=== PATIENT | female | born 1960 | race Caucasian/White ===

== ENCOUNTER 2019-07-12 23:32 | Inpatient (IN) | payer MEDICARE, OTHER ==
[2019-07-12] MEDS ORDERED: SODIUM CHLORIDE 0.9% 1,000 ML IV STA (23:36)
[2019-07-13 00:12] LABS: Anisocytosis Slight; Basophils % (A) 1 %; Eosinophils # (A) 0.1 k/uL (0-0.7); Eosinophils % (A) 1 %; HCT 40.2 % (34.0-46.0); HGB 13.7 gm/dL (11.4-16.0); Lymphocytes # (A) 0.8 k/uL (1.0-4.8); Lymphocytes % (A) 18 %; MCH 33.9 pg (25.0-35.0); MCV 99.9 fL (80.0-100.0); Macrocytosis Slight; Mean Platelet Volume 10.2; Monocytes # (A) 0.2 k/uL (0-1.0); Monocytes % (A) 4 %; Neutrophils # (A) 3.3 k/uL (1.3-7.7); Neutrophils % (A) 74 %; Platelet Count 109 k/uL (150-450); RBC 4.03 m/uL (3.80-5.40); RDW 17.7 % (11.5-15.5); WBC 4.4 k/uL (3.8-10.6)
[2019-07-13 00:26] LABS: ALT 112 U/L (4-34); AST 237 U/L (14-36); African American GFR (CKD) >90 (>60 ml/min/1.73 sqM); Albumin 3.7 g/dL (3.5-5.0); Alkaline Phosphatase 89 U/L (38-126); Anion Gap 22 mmol/L; Blood Urea Nitrogen 14 mg/dL (7-17); Calcium 8.2 mg/dL (8.4-10.2); Carbon Dioxide 21 mmol/L (22-30); Chloride 90 mmol/L (98-107); Glucose 99 mg/dL (74-99); Non-African American GFR(CKD) >90 (>60 ml/min/1.73 sqM); Sodium 133 mmol/L (137-145); Total Bilirubin 0.7 mg/dL (0.2-1.3); Total Protein 6.3 g/dL (6.3-8.2)
[2019-07-13 00:45] LABS: Alcohol 267 mg/dL
[2019-07-13] MEDS ORDERED: levETIRAcetam IV 1,000 MG in SALINE 1 100ML.BAG IVPB ONE (01:00)
[2019-07-13] MEDS ORDERED: NALOXONE 0.4 MG/ML 1 ML VIAL IV PRN (01:14)
[2019-07-13] MEDS ORDERED: ONDANSETRON 4 MG/2 ML VIAL IVP PRN (01:19)
[2019-07-13] MEDS: SODIUM CHLORIDE 0.9% 1,000 ML IV SCH ×4 (01:53→20:23)
--- NOTE | 2019-07-13 01:53 | CT ---
EXAMINATION TYPE: CT brain wo con DATE OF EXAM: 07/13/2019 COMPARISON: None HISTORY: Seizure CT DLP: 1196.4 mGycm Automated exposure control for dose reduction was used. Ventricles have normal size. There is no mass effect nor midline shift. There is no sign of intracran ial hemorrhage. There is no evidence of cerebral edema. The calvarium is intact. Skull base is intact . IMPRESSION: Negative head CT scan.
--- NOTE | 2019-07-13 01:57 | ED ---
Seizure HPI - General Chief Complaint: Alcohol Stated Complaint: seizure Time Seen by Provider: 07/12/19 23:36 Source: EMS Mode of arrival: EMS Limitations: altered mental status - History of Present Illness Initial Comments: Shara is a 59-year-old alcoholic female with no history of seizures who presents to the emergency department today for evaluation of possible seizure and alcohol intoxication. Per EMS they were called to scene for a patient who had been seizing. Upon their arrival patient did appear to be postictal with some confusion. Bystanders reported patient had had a seizure that lasted a few minutes. They say she has no history of seizure but did tell her significant other that she had a seizure yesterday. Patient did admit to drinking heavily. Patient was treated with 5 mg intranasal Versed and 2.5 mg IV Versed in route to the hospital due to being combative and her postictal state. Upon arrival she is somewhat somnolent and postictal. Upon waking up and being more appropriate patient admitted that she has an alcohol problem that she had spoken with her daughter earlier in the day and told her that she wants checked in a rehab for alcoholism. Patient denies seizure activity and has no idea why she is at the hospital what hospital she is at or any events leading up to hospitalization. - Related Data Home Medications Medication Instructions Recorded Confirmed Citalopram Hydrobromide [CeleXA] 40 mg PO QAM 02/22/14 08/03/16 Diazepam [Valium] 10 mg PO HS PRN 03/08/14 08/03/16 Morphine Sulfate [Ms Contin] 30 mg PO Q12HR 03/07/16 08/03/16 oxyCODONE-APAP 10-325MG [Percocet 1 tab PO QID 03/07/16 08/03/16 10-325 mg] Levothyroxine Sodium [Synthroid] 100 mcg PO DAILY 03/19/16 08/03/16 Naproxen Sodium [Aleve] 220 mg PO BID 08/03/16 08/03/16 Allergies Allergy/AdvReac Type Severity Reaction Status Date / Time No Known Allergies Allergy Verified 07/12/19 23:44 Review of Systems ROS Statement: Those systems with pertinent positive or pertinent negative responses have been documented in the HPI. ROS Other: All systems not noted in ROS Statement are negative. Past Medical History Past Medical History: Osteoarthritis (OA), Thyroid Disorder Additional Past Medical History / Comment(s): chronic back pain,neck pain, numbness derick. shoulder & arm/finger tips, derick numbness to legs & ft,purple dis coloration to feet,limited rom neck,freq urination, uses walker or cane, frequent falls History of Any Multi-Drug Resistant Organisms: None Reported Past Surgical History: Hernia Repair, Orthopedic Surgery Additional Past Surgical History / Comment(s): derick knee replacement,eye laser surgery,lump removed from lt breast Past Anesthesia/Blood Transfusion Reactions: Motion Sickness Additional Past Anesthesia/Blood Transfusion Reaction / Comment(s): no hx blood transfusion Past Psychological History: Anxiety, Depression Smoking Status: Current every day smoker - Past Family History Mother Additional Family Medical History / Comment(s): heart problems Father Family Medical History: Hyperlipidemia General Exam - General Exam Comments Initial Comments: Physical Exam GENERAL: Patient is well-developed and well-nourished. Strong odor of alcohol HENT: Normocephalic, Atraumatic. EYES: PERRL, EOMI PULMONARY: Unlabored respirations. No audible rales rhonchi or wheezing was noted. CARDIOVASCULAR: There is a regular rate and rhythm without any murmurs gallops or rubs. ABDOMEN: Soft and nontender with normal bowel sounds. SKIN: Skin is clear with no lesions or rashes and otherwise unremarkable. : Deferred NEUROLOGIC: Upon arrival - sleeping, wakes to stimulation, confused, slurred speech, moving all extremities Upon waking - awake, alert to self, able to identify she is in a hospital, uncertain of where or why, uncertain of events leading to hospitalization, aware of year MUSCULOSKELETAL: Normal extremities with adequate strength and full range of motion. No lower extremity swelling or edema. No calf tenderness. PSYCHIATRIC: Depressed about alcoholism Limitations: altered mental status Course Vital Signs 07/12/19 07/13/19 07/13/19 23:37 01:35 04:12 Temperature 98.4 F Pulse Rate 104 H 100 100 Respiratory 16 18 18 Rate Blood Pressure 116/84 112/77 123/89 O2 Sat by Pulse 96 99 96 Oximetry Medical Decision Making - Medical Decision Making Patient was seen and evaluated immediately upon arrival to the emergency department, patient was somnolent but wakes to stimulation, has gag reflex is protecting her airway despite excessive doses of benzodiazepines prior to arrival. Labs were ordered and resulted with abnormalities consistent with alcohol abuse and likely seizures the patient does have a lactic acidosis though this could be alcoholic ketoacidosis. IV fluids were ordered. Computed tomography scan of head was unremarkable. Patient's alcohol significantly elevated greater than 270. Given the concern for new onset seizure and an alcoholic patient we will plan to admit the patient for alcohol intoxication and seizure. A dose of Keppra was given prior to admission. - Lab Data Result diagrams: 07/12/19 23:53 07/12/19 23:53 Lab Results 07/12/19 07/12/19 07/12/19 Range/Units 23:53 23:53 23:53 WBC 4.4 (3.8-10.6) k/uL RBC 4.03 (3.80-5.40) m/uL Hgb 13.7 (11.4-16.0) gm/dL Hct 40.2 (34.0-46.0) % MCV 99.9 (80.0-100.0) fL MCH 33.9 (25.0-35.0) pg MCHC 34.0 (31.0-37.0) g/dL RDW 17.7 H (11.5-15.5) % Plt Count 109 L (150-450) k/uL Neutrophils % 74 % Lymphocytes % 18 % Monocytes % 4 % Eosinophils % 1 % Basophils % 1 % Neutrophils # 3.3 (1.3-7.7) k/uL Lymphocytes # 0.8 L (1.0-4.8) k/uL Monocytes # 0.2 (0-1.0) k/uL Eosinophils # 0.1 (0-0.7) k/uL Basophils # 0.0 (0-0.2) k/uL Anisocytosis Slight Macrocytosis Slight Sodium 133 L (137-145) mmol/L Potassium 3.0 L (3.5-5.1) mmol/L Chloride 90 L (98-107) mmol/L Carbon Dioxide 21 L (22-30) mmol/L Anion Gap 22 mmol/L BUN 14 (7-17) mg/dL Creatinine 0.61 (0.52-1.04) mg/dL Est GFR (CKD-EPI)AfAm >90 (>60 ml/min/1.73 sqM) Est GFR (CKD-EPI)NonAf >90 (>60 ml/min/1.73 sqM) Glucose 99 (74-99) mg/dL Lactic Ac Sepsis Rflx Plasma Lactic Acid Gunnar 4.3 H* (0.7-2.0) mmol/L Calcium 8.2 L (8.4-10.2) mg/dL Total Bilirubin 0.7 (0.2-1.3) mg/dL AST 237 H (14-36) U/L ALT 112 H (4-34) U/L Alkaline Phosphatase 89 (38-126) U/L Total Protein 6.3 (6.3-8.2) g/dL Albumin 3.7 (3.5-5.0) g/dL Serum Alcohol 267 H* mg/dL 07/13/19 Range/Units 00:45 WBC (3.8-10.6) k/uL RBC (3.80-5.40) m/uL Hgb (11.4-16.0) gm/dL Hct (34.0-46.0) % MCV (80.0-100.0) fL MCH (25.0-35.0) pg MCHC (31.0-37.0) g/dL RDW (11.5-15.5) % Plt Count (150-450) k/uL Neutrophils % % Lymphocytes % % Monocytes % % Eosinophils % % Basophils % % Neutrophils # (1.3-7.7) k/uL Lymphocytes # (1.0-4.8) k/uL Monocytes # (0-1.0) k/uL Eosinophils # (0-0.7) k/uL Basophils # (0-0.2) k/uL Anisocytosis Macrocytosis Sodium (137-145) mmol/L Potassium (3.5-5.1) mmol/L Chloride (98-107) mmol/L Carbon Dioxide (22-30) mmol/L Anion Gap mmol/L BUN (7-17) mg/dL Creatinine (0.52-1.04) mg/dL Est GFR (CKD-EPI)AfAm (>60 ml/min/1.73 sqM) Est GFR (CKD-EPI)NonAf (>60 ml/min/1.73 sqM) Glucose (74-99) mg/dL Lactic Ac Sepsis Rflx Y Plasma Lactic Acid Gunnar (0.7-2.0) mmol/L Calcium (8.4-10.2) mg/dL Total Bilirubin (0.2-1.3) mg/dL AST (14-36) U/L ALT (4-34) U/L Alkaline Phosphatase (38-126) U/L Total Protein (6.3-8.2) g/dL Albumin (3.5-5.0) g/dL Serum Alcohol mg/dL Disposition Clinical Impression: EtOH dependence, Seizure Disposition: ADMITTED IP TO THIS HOSP Condition: Serious
[2019-07-13 06:33] LABS: Glucose,Whole Blood 88 mg/dL (75-99)
[2019-07-13] MEDS ORDERED: IBUPROFEN 400 MG TAB PO STA (06:35)
[2019-07-13] MEDS ORDERED: POTASSIUM CHLORIDE 10 MEQ in WATER FOR INJECTION 1 100ML.BAG IVPB STA ×2 (10:41→14:26)
[2019-07-13] MEDS ORDERED: METOPROLOL TARTRATE 25 MG TAB PO STA (10:43)
[2019-07-13] MEDS: POTASSIUM CHLORIDE ER 20 MEQ TAB.ER PO SCH ×3 (11:32→16:32)
[2019-07-13 13:18] LABS: Glucose,Whole Blood 126 mg/dL (75-99)
[2019-07-13] MEDS: LORazepam 2 MG/ML INJ IV PRN ×3 (13:34→20:22)
[2019-07-13] MEDS: METOPROLOL TARTRATE 25 MG TAB PO SCH ×2 (16:32→20:23)
--- NOTE | 2019-07-13 20:04 | CONS ---
CONSULTATION Shara Alex is a 59-year-old lady who has been admitted to the emergency room with alcohol intoxication and then complained of having chest discomfort. This lady has history of alcoholism. She has no previous history of seizures but apparently early this morning came into the hospital with an episode of seizure and was heavily intoxicated with alcohol level of more than 250. Per EMS, they were called to the scene to see a patient who has been seizing. On arrival patient did appear to be postictal with confusion. Bystanders reported apparently that there was a seizure lasting a few minutes. She has no history that we know of previously of seizures, but she admits to drinking heavily. She was treated with Versed in the emergency room, sedated, and I saw her a little bit later in the day. She was fairly alert, indicates to me that alcohol is a problem and that she has been drinking heavily and that she has no history of seizure disorder. She has a history of thyroid disease and osteoarthritis. She has had previous hernia repair and some orthopedic surgery with a knee arthroplasty as well and some breast lump removal and related surgery. At the time of my evaluation she had pain in her chest with some tenderness over the anterior chest. MEDICATIONS: Her medications include levothyroxine 100 mcg daily, MS Contin, and she also takes some Naprosyn. ALLERGIES: NO KNOWN DRUG ALLERGIES. SOCIAL HISTORY: Drinks alcohol heavily. Smokes at least one pack or more every day. PHYSICAL EXAMINATION: Blood pressure is 130/70, pulse rate 80 per minute. HEENT unremarkable. Fundus was not examined by me. Neck is supple. There is no JVD. I do not hear a carotid bruit. Heart exam reveals S1, S2 without significant murmur or rub or gallop. Lungs reveal bilateral scattered rhonchi. ABDOMEN: Soft. Lower extremities reveal diminished pulses. CENTRAL NERVOUS SYSTEM: Grossly no focal deficits. EKG revealed a sinus mechanism, minor nonspecific ST-T changes. There is QS pattern in inferior leads, but this may not be significant. LABORATORY DATA: Initial troponin was 0.66 and repeat troponin was 0.68. Patient's potassium level is 3.0. Lactic acid levels are high and liver functions are abnormal. Alcohol level is 267. IMPRESSION: 1. Acute alcoholism. 2. Lactic acidosis. 3. Atypical chest pain with equivocal troponins. 4. No documented history of coronary artery disease. RECOMMENDATIONS: I am recommending that we supplement potassium, place her on beta blockers, Lopressor 25 mg t.i.d. We will also supplement potassium aggressively. Repeat BMP in the morning. She is also getting treatment with B-complex vitamins and folic acid. Will also recommend an echocardiogram and, based on clinical course, I will make further recommendations. I discussed my thoughts in detail with the patient. Thank you very much for the consult. ALEX / BOBN: [id number] /
[2019-07-13] MEDS: HEPARIN SODIUM,PORCINE 5,000 UNIT/ML 1 ML VIAL SQ SCH (20:22)
[2019-07-14] MEDS: LORazepam 2 MG/ML INJ IV PRN ×7 (03:15→22:06)
[2019-07-14] MEDS: SODIUM CHLORIDE 0.9% 1,000 ML IV SCH ×2 (06:12→11:56)
[2019-07-14] MEDS: LEVOTHYROXINE 112 MCG TAB PO SCH ×2 (06:28→08:58)
[2019-07-14 06:32] LABS: ALT 78 U/L (4-34); AST 149 U/L (14-36); African American GFR (CKD) >90 (>60 ml/min/1.73 sqM); Albumin 2.8 g/dL (3.5-5.0); Alkaline Phosphatase 87 U/L (38-126); Anion Gap 5 mmol/L; Blood Urea Nitrogen 7 mg/dL (7-17); Calcium 7.9 mg/dL (8.4-10.2); Carbon Dioxide 25 mmol/L (22-30); Chloride 103 mmol/L (98-107); Glucose 94 mg/dL (74-99); Magnesium 1.5 mg/dL (1.6-2.3); Non-African American GFR(CKD) >90 (>60 ml/min/1.73 sqM); Potassium 3.2 mmol/L (3.5-5.1); Sodium 133 mmol/L (137-145); Total Bilirubin 1.1 mg/dL (0.2-1.3); Total Protein 5.3 g/dL (6.3-8.2)
[2019-07-14 06:44] LABS: Anisocytosis Slight; Basophils % (A) 1 %; Eosinophils # (A) 0.2 k/uL (0-0.7); Eosinophils % (A) 3 %; HCT 34.9 % (34.0-46.0); HGB 11.6 gm/dL (11.4-16.0); Lymphocytes # (A) 1.2 k/uL (1.0-4.8); Lymphocytes % (A) 22 %; MCH 34.9 pg (25.0-35.0); MCHC 33.4 g/dL (31.0-37.0); MCV 104.7 fL (80.0-100.0); Macrocytosis Marked; Mean Platelet Volume 11.3; Monocytes # (A) 0.2 k/uL (0-1.0); Monocytes % (A) 3 %; Neutrophils # (A) 3.9 k/uL (1.3-7.7); Neutrophils % (A) 71 %; RBC 3.33 m/uL (3.80-5.40); RDW 17.4 % (11.5-15.5); WBC 5.5 k/uL (3.8-10.6)
[2019-07-14] MEDS ORDERED: POTASSIUM CHLORIDE ER 20 MEQ TAB.ER PO STA (07:11)
--- NOTE | 2019-07-14 07:19 | P.PN ---
Subjective Progress Note Date: 07/14/19 Principal diagnosis: This continue present on a 59-year-old white female essentially admitted for acute alcohol intoxication. Minimal mental status changes although she is CIWA type scale she is sedated this morning. No significant complaints of the patient due to sedation. Objective - Vital Signs Vital signs: Vital Signs Temp 98 F 07/14/19 03:05 Pulse 70 07/14/19 03:05 Resp 16 07/14/19 03:05 BP 135/91 07/14/19 03:05 Pulse Ox 97 07/14/19 03:05 Intake & Output 07/13/19 07/14/19 07/14/19 18:59 06:59 18:59 Intake Total 0 Output Total 850 Balance -850 Weight 81.647 kg 70.4 kg Intake: Oral 0 Output: Urine 450 Stool 400 Other: # Voids 2 # Bowel Movements 2 - Constitutional General appearance: Present: average body habitus - EENT Eyes: Absent: abnormal pupil ENT: Absent: hard of hearing - Neck Neck: Absent: lymphadenopathy - Respiratory Respiratory: bilateral: CTA - Cardiovascular Rhythm: regular Heart sounds: normal: S1, S2 Abnormal Heart Sounds: Absent: S3 Gallop - Gastrointestinal General gastrointestinal: Present: soft - Psychiatric Psychiatric Comment(s): sedated Psychiatric: Absent: A&O x's 3 - Labs CBC & Chem 7: 07/14/19 05:43 07/14/19 05:43 Labs: Abnormal Lab Results - Last 24 Hours (Table) 07/13/19 07/13/19 07/13/19 Range/Units 08:38 08:38 12:41 RBC (3.80-5.40) m/uL MCV (80.0-100.0) fL RDW (11.5-15.5) % Macrocytosis Sodium (137-145) mmol/L Potassium (3.5-5.1) mmol/L Creatinine (0.52-1.04) mg/dL POC Glucose (mg/dL) (75-99) mg/dL Plasma Lactic Acid Gunnar 3.6 H* (0.7-2.0) mmol/L Calcium (8.4-10.2) mg/dL Magnesium (1.6-2.3) mg/dL AST (14-36) U/L ALT (4-34) U/L Troponin I 0.066 H* 0.068 H* (0.000-0.034) ng/mL Total Protein (6.3-8.2) g/dL Albumin (3.5-5.0) g/dL 07/13/19 07/14/19 07/14/19 Range/Units 13:16 05:43 05:43 RBC 3.33 L (3.80-5.40) m/uL MCV 104.7 H (80.0-100.0) fL RDW 17.4 H (11.5-15.5) % Macrocytosis Marked A Sodium 133 L (137-145) mmol/L Potassium 3.2 L (3.5-5.1) mmol/L Creatinine 0.49 L (0.52-1.04) mg/dL POC Glucose (mg/dL) 126 H (75-99) mg/dL Plasma Lactic Acid Gunnar (0.7-2.0) mmol/L Calcium 7.9 L (8.4-10.2) mg/dL Magnesium 1.5 L (1.6-2.3) mg/dL AST 149 H (14-36) U/L ALT 78 H (4-34) U/L Troponin I (0.000-0.034) ng/mL Total Protein 5.3 L (6.3-8.2) g/dL Albumin 2.8 L (3.5-5.0) g/dL 07/14/19 Range/Units 05:43 RBC (3.80-5.40) m/uL MCV (80.0-100.0) fL RDW (11.5-15.5) % Macrocytosis Sodium (137-145) mmol/L Potassium (3.5-5.1) mmol/L Creatinine (0.52-1.04) mg/dL POC Glucose (mg/dL) (75-99) mg/dL Plasma Lactic Acid Gunnar (0.7-2.0) mmol/L Calcium (8.4-10.2) mg/dL Magnesium (1.6-2.3) mg/dL AST (14-36) U/L ALT (4-34) U/L Troponin I 0.039 H* (0.000-0.034) ng/mL Total Protein (6.3-8.2) g/dL Albumin (3.5-5.0) g/dL Assessment and Plan (1) Seizure Current Visit: Yes Status: Acute Code(s): R56.9 - UNSPECIFIED CONVULSIONS SNOMED Code(s): 72432621 (2) EtOH dependence Current Visit: Yes Status: Chronic Code(s): F10.20 - ALCOHOL DEPENDENCE, UNCOMPLICATED SNOMED Code(s): 24681497 (3) Hypotension Current Visit: No Status: Acute Code(s): I95.9 - HYPOTENSION, UNSPECIFIED SNOMED Code(s): 64051112 (4) Depression Current Visit: No Status: Chronic Code(s): F32.9 - MAJOR DEPRESSIVE DISORDER, SINGLE EPISODE, UNSPECIFIED SNOMED Code(s): 57905200 (5) Nicotine dependence Current Visit: No Status: Chronic Code(s): F17.200 - NICOTINE DEPENDENCE, UNSPECIFIED, UNCOMPLICATED SNOMED Code(s): 74990876 Plan: Appreciate cardiology consult director construction services for alcoholism element. Check CBC and CMP in a.m. Reconcile medications as necessary. Prognosis guarded secondary to her social environment.
[2019-07-14 07:53] LABS: Target Cells Present
[2019-07-14] MEDS: MAGNESIUM SULFATE-D5W PMX 1 GM in DEXTROSE/WATER 1 100ML.BAG IVPB SCH ×2 (08:57→11:55)
[2019-07-14] MEDS: FOLIC ACID 1 MG TAB PO SCH (08:58)
[2019-07-14] MEDS: METOPROLOL TARTRATE 25 MG TAB PO SCH ×3 (08:58→19:50)
[2019-07-14] MEDS: HEPARIN SODIUM,PORCINE 5,000 UNIT/ML 1 ML VIAL SQ SCH ×2 (08:59→19:47)
[2019-07-14 10:34] LABS: Platelet Count 91 k/uL (150-450)
--- NOTE | 2019-07-14 12:22 | PN ---
PROGRESS NOTE Mrs. Shara Alex is a lady who came with acute alcohol intoxication, also had nausea, vomiting and atypical chest pain. Her troponins are equivocal. She also had lactic acidosis and this could be a reason why her troponin is very equivocal. She is doing better. She has no further chest pain, but she still has some nausea and this is being worked out with her management. From a cardiac standpoint, I am not recommending any intervention at this time. Her troponin profile does not suggest myocardial injury. I am recommending that we supplement the potassium which is low at 3.2. Continue other medications including beta demarco and I am awaiting the results of the echocardiogram. Vitals are stable, no JVD. S1, S2 heard normally. Lungs revealed improved air entry. Abdomen and lower extremity exam is unchanged. MMODL / IJN: [id number] /
[2019-07-14] MEDS ORDERED: HALOPERIDOL LACTATE 5 MG/ML 1 ML VIAL IVP STA (23:43)
[2019-07-15 06:16] LABS: Anisocytosis Slight; HGB 12.3 gm/dL (11.4-16.0); MCH 34.8 pg (25.0-35.0); MCHC 33.3 g/dL (31.0-37.0); MCV 104.3 fL (80.0-100.0); Macrocytosis Moderate; Mean Platelet Volume 10.7; RBC 3.55 m/uL (3.80-5.40); RDW 17.3 % (11.5-15.5); WBC 5.9 k/uL (3.8-10.6)
[2019-07-15 06:22] LABS: Platelet Count 88 k/uL (150-450)
[2019-07-15 06:33] LABS: ALT 61 U/L (4-34); AST 95 U/L (14-36); African American GFR (CKD) >90 (>60 ml/min/1.73 sqM); Albumin 2.8 g/dL (3.5-5.0); Alkaline Phosphatase 79 U/L (38-126); Anion Gap 5 mmol/L; Blood Urea Nitrogen 4 mg/dL (7-17); Calcium 8.3 mg/dL (8.4-10.2); Carbon Dioxide 26 mmol/L (22-30); Chloride 104 mmol/L (98-107); Glucose 85 mg/dL (74-99); Magnesium 1.8 mg/dL (1.6-2.3); Non-African American GFR(CKD) >90 (>60 ml/min/1.73 sqM); Potassium 3.6 mmol/L (3.5-5.1); Sodium 135 mmol/L (137-145); Total Bilirubin 0.6 mg/dL (0.2-1.3); Total Protein 5.3 g/dL (6.3-8.2)
[2019-07-15] MEDS: SODIUM CHLORIDE 0.9% 1,000 ML IV SCH ×3 (06:40→13:00)
[2019-07-15] MEDS: LEVOTHYROXINE 112 MCG TAB PO SCH (06:50)
--- NOTE | 2019-07-15 08:24 | P.PN ---
Subjective Principal diagnosis: This continue present on a 59-year-old white female essentially admitted for acute alcohol intoxication. The patient was combative last evening and has trouble sitting still lately. No voiding difficulties. No sniffing nausea, vomiting or diarrhea. Appropriate hydration status is now been obtained. We will KVO IV today. Laboratories are nominal except for slight elevation of liver function test. No significant complaints of the patient due to sedation. Objective - Vital Signs Vital signs: Vital Signs Temp 98.0 F 07/15/19 03:48 Pulse 75 07/15/19 03:48 Resp 18 07/15/19 03:48 BP 124/70 07/15/19 03:48 Pulse Ox 98 07/15/19 03:48 Intake & Output 07/14/19 07/15/19 07/15/19 18:59 06:59 18:59 Intake Total 1436 2050 Output Total 450 500 Balance 986 1550 Weight 69.5 kg Intake: Intake, IV Titration 1200 1350 Amount Sodium Chloride 0.9% 1, 1200 1350 000 ml @ 150 mls/hr IV . Q6H40M [facility] Rx#:[id number] Oral 236 700 Output: Urine 450 500 Other: # Voids 4 1 - Constitutional General appearance: Present: average body habitus - EENT Eyes: Absent: abnormal pupil - Neck Neck: Absent: lymphadenopathy - Respiratory Respiratory: bilateral: CTA - Cardiovascular Rhythm: regular Heart sounds: normal: S1, S2 Abnormal Heart Sounds: Absent: S3 Gallop - Gastrointestinal General gastrointestinal: Present: soft. Absent: tenderness - Integumentary Integumentary: Absent: cellulitis - Labs CBC & Chem 7: 07/15/19 05:54 07/15/19 05:54 Labs: Abnormal Lab Results - Last 24 Hours (Table) 07/14/19 07/15/19 07/15/19 Range/Units 05:43 05:54 05:54 RBC 3.55 L (3.80-5.40) m/uL MCV 104.3 H (80.0-100.0) fL RDW 17.3 H (11.5-15.5) % Plt Count 91 L 88 L (150-450) k/uL Sodium 135 L (137-145) mmol/L BUN 4 L (7-17) mg/dL Creatinine 0.47 L (0.52-1.04) mg/dL Calcium 8.3 L (8.4-10.2) mg/dL AST 95 H (14-36) U/L ALT 61 H (4-34) U/L Total Protein 5.3 L (6.3-8.2) g/dL Albumin 2.8 L (3.5-5.0) g/dL Assessment and Plan (1) Seizure Current Visit: Yes Status: Acute Code(s): R56.9 - UNSPECIFIED CONVULSIONS SNOMED Code(s): 93367468 (2) EtOH dependence Current Visit: Yes Status: Chronic Code(s): F10.20 - ALCOHOL DEPENDENCE, UNCOMPLICATED SNOMED Code(s): 42827712 (3) Hypotension Current Visit: No Status: Acute Code(s): I95.9 - HYPOTENSION, UNSPECIFIED SNOMED Code(s): 39273334 (4) Depression Current Visit: No Status: Chronic Code(s): F32.9 - MAJOR DEPRESSIVE DISORDER, SINGLE EPISODE, UNSPECIFIED SNOMED Code(s): 09382510 (5) Nicotine dependence Current Visit: No Status: Chronic Code(s): F17.200 - NICOTINE DEPENDENCE, UNSPECIFIED, UNCOMPLICATED SNOMED Code(s): 90054268 Plan: Appreciate cardiology consult visitor services coordinator for alcoholism element. Check CBC and CMP in a.m. I will restart her Celexa and Wellbutrin. Question need for sitter. Haldol when necessary Prognosis guarded secondary to her social environment.
[2019-07-15] MEDS ORDERED: SODIUM CHLORIDE 0.9% 1,000 ML IV SCH (08:30)
[2019-07-15] MEDS ORDERED: buPROPion XL 150 MG TAB.ER.24H PO SCH (09:00)
[2019-07-15] MEDS ORDERED: CITALOPRAM HYDROBROMIDE 20 MG TAB PO SCH (09:00)
[2019-07-15] MEDS: HEPARIN SODIUM,PORCINE 5,000 UNIT/ML 1 ML VIAL SQ SCH (09:15)
[2019-07-15] MEDS: METOPROLOL TARTRATE 25 MG TAB PO SCH ×2 (09:15→15:34)
[2019-07-15] MEDS: FOLIC ACID 1 MG TAB PO SCH (09:16)
[2019-07-15 10:07] LABS: Amphetamine Screen,Urine Not Detected (NotDetected); Barbiturate Screen,Urine Not Detected (NotDetected); Benzodiazepines Screen,Urine Detected (NotDetected); Cocaine Screen,Urine Not Detected (NotDetected); Methadone Screen, Urine Not Detected (NotDetected); Opiate Screen,Urine Not Detected (NotDetected); Oxycodone Screen, Urine Not Detected (NotDetected); Phencyclidine Screen,Urine Not Detected (NotDetected); Tricyclic Antidepressant,Urine Not Detected (NotDetected); Urn Cannabinoid Scrn Not Detected (NotDetected)
[2019-07-15 10:41] VITALS: RESP 16
[2019-07-15] MEDS: LORazepam 2 MG/ML INJ IV PRN (15:23)
[2019-07-15] MEDS ORDERED: ACETAMINOPHEN TAB 325 MG TAB PO PRN (15:33)
[2019-07-15 16:09] VITALS: BP 114/74; PULSE 81; TEMP 97.7
--- NOTE | 2019-07-17 12:43 | ECHOF ---
Referral Reason:cp MEASUREMENTS -------- HEIGHT: 170.2 cm WEIGHT: 81.6 kg BP: 144/86 RVIDd: 2.8 cm (< 3.3) IVSd: 0.9 cm (0.6 - 1.1) LVIDd: 4.7 cm (3.9 - 5.3) LVPWd: 1.1 cm (0.6 - 1.1) IVSs: 1.2 cm LVIDs: 3.1 cm LVPWs: 1.4 cm LA Diam: 3.2 cm (2.7 - 3.8) LAESV Index (A-L): 16.53 ml/m Ao Diam: 3.4 cm (2.0 - 3.7) AV Cusp: 2.0 cm (1.5 - 2.6) MV EXCURSION: 12.364 mm (> 18.000) MV EF SLOPE: 68 mm/s (70 - 150) EPSS: 0.5 cm MV E Ray: 0.75 m/s MV DecT: 239 ms MV A Ray: 0.97 m/s MV E/A Ratio: 0.78 TAPSE: 15.25 mm FINDINGS -------- Sinus rhythm. This was a technically adequate study. The left ventricular size is normal. Left ventricular wall thickness is normal. Overall left vent ricular systolic function is normal with, an EF between 60 - 65 %. The right ventricle is normal in size. Normal LA size by volume 22+/-6 ml/m2. The right atrium is normal in size. Interatrial and interventricular septum intact. The aortic valve is trileaflet and appears structurally normal. The mitral valve is normal. The tricuspid valve appears structurally normal. The pulmonic valve was not well visualized. The aortic root size is normal. Normal inferior vena cava with normal inspiratory collapse consistent with estimated right atrial pre ssure of 5 mmHg. There is no pericardial effusion. CONCLUSIONS -------- 1. Sinus rhythm. 2. This was a technically adequate study. 3. The left ventricular size is normal. 4. Left ventricular wall thickness is normal. 5. Overall left ventricular systolic function is normal with, an EF between 60 - 65 %. 6. The right ventricle is normal in size. 7. Normal LA size by volume 22+/-6 ml/m2. 8. The right atrium is normal in size. 9. Interatrial and interventricular septum intact. 10. The aortic valve is trileaflet and appears structurally normal. 11. The mitral valve is normal. 12. The tricuspid valve appears structurally normal. 13. The pulmonic valve was not well visualized. 14. The aortic root size is normal. 15. Normal inferior vena cava with normal inspiratory collapse consistent with estimated right atrial pressure of 5 mmHg. 16. There is no pericardial effusion. LEASE ATTENDANT: Kourtney Gary RDCS
== END 2019-07-15 17:56 | disposition left against medical advice (07) | DRG 313 ==
LOC: EC 23:32 → 6NMEDSUR 07-13 01:14 → 3SCARD 07-13 10:16 → OBSVTOIN 07-15 09:26 → 6NMEDSUR 07-15 12:41
PROVIDERS: ADMIT Family Medicine; ATTEND Family Medicine
DX: R07.9 Chest pain, unspecified (principal); E87.2 Acidosis; F10.229 Alcohol dependence with intoxication, unspecified; Y90.8 Blood alcohol level of 240 mg/100 ml or more; F17.210 Nicotine dependence, cigarettes, uncomplicated; F32.9 Major depressive disorder, single episode, unspecified; R56.9 Unspecified convulsions; Z79.890 Hormone replacement therapy; Z96.653 Presence of artificial knee joint, bilateral; R79.89 Other specified abnormal findings of blood chemistry; I95.9 Hypotension, unspecified; E87.6 Hypokalemia; R11.2 Nausea with vomiting, unspecified; M19.90 Unspecified osteoarthritis, unspecified site; Z79.899 Other long term (current) drug therapy
CPT/HCPCS: 36415; 70450; 80053; 80306; 80320; 82550; 83605; 83735; 84425; 84484; 85025; 85027; 93005; 93306; 96361; 96365; 96366; 96367; 96375; 96376; 99285

== ENCOUNTER 2019-07-17 00:53 | Emergency (ER) | payer MEDICARE, OTHER ==
[2019-07-17 01:03] VITALS: RESP 20
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
[2019-07-17] MEDS ORDERED: SODIUM CHLORIDE 0.9% 500 ML 500 ML IV STA (01:28)
[2019-07-17 01:41] LABS: Anisocytosis Slight; Basophils # (A) 0.1 k/uL (0-0.2); Basophils % (A) 1 %; Eosinophils # (A) 0.2 k/uL (0-0.7); Eosinophils % (A) 3 %; HCT 37.8 % (34.0-46.0); HGB 12.5 gm/dL (11.4-16.0); Lymphocytes # (A) 1.5 k/uL (1.0-4.8); Lymphocytes % (A) 30 %; MCH 34.3 pg (25.0-35.0); MCHC 33.2 g/dL (31.0-37.0); MCV 103.5 fL (80.0-100.0); Macrocytosis Moderate; Mean Platelet Volume 9.6; Monocytes # (A) 0.3 k/uL (0-1.0); Monocytes % (A) 6 %; Neutrophils # (A) 2.9 k/uL (1.3-7.7); Neutrophils % (A) 57 %; RBC 3.65 m/uL (3.80-5.40); RDW 17.7 % (11.5-15.5)
[2019-07-17 01:46] LABS: Glucose,Whole Blood 87 mg/dL (75-99)
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
[2019-07-17 01:48] LABS: ALT 94 U/L (4-34); AST 156 U/L (14-36); African American GFR (CKD) >90 (>60 ml/min/1.73 sqM); Albumin 3.2 g/dL (3.5-5.0); Alkaline Phosphatase 79 U/L (38-126); Anion Gap 7 mmol/L; Blood Urea Nitrogen 4 mg/dL (7-17); Calcium 8.6 mg/dL (8.4-10.2); Carbon Dioxide 27 mmol/L (22-30); Chloride 103 mmol/L (98-107); Glucose 87 mg/dL (74-99); Non-African American GFR(CKD) >90 (>60 ml/min/1.73 sqM); Potassium 3.2 mmol/L (3.5-5.1); Sodium 137 mmol/L (137-145); Total Bilirubin 0.3 mg/dL (0.2-1.3); Total Protein 5.7 g/dL (6.3-8.2)
[2019-07-17 01:51] LABS: Appearance,Urine Clear (Clear); Bilirubin,Urine Negative (Negative); Blood,Urine Negative (Negative); Color,Urine Light Yellow; Glucose,Urine (UA) Negative (Negative); Ketones,Urine Negative (Negative); Leukocyte Esterase,Urine Negative (Negative); Nitrite,Urine Negative (Negative); Protein,Urine Negative (Negative); Specific Gravity,Urine 1.002 (1.001-1.035); Urobilinogen,Urine <2.0 mg/dL (<2.0)
[2019-07-17 01:51] LABS: Alcohol 127 mg/dL
[2019-07-17 01:57] LABS: Platelet Count 166 k/uL (150-450)
--- NOTE | 2019-07-17 02:01 | XR ---
EXAMINATION TYPE: XR chest 1V DATE OF EXAM: 07/17/2019 COMPARISON: NONE HISTORY: Fall. Syncope. TECHNIQUE: FINDINGS: Heart and mediastinum are normal. There is a 1 cm sharply marginated nodule left upper lobe . The other lung cam are clear. There are chest leads. Diaphragm is normal. Bony thorax is intact. IMPRESSION: Normal heart. Left upper lobe nodular density. Recommend comparison with old exams if rio ilable.
[2019-07-17 02:05] LABS: Phencyclidine Screen,Urine Not Detected (NotDetected); Urn Cannabinoid Scrn Not Detected (NotDetected)
[2019-07-17 02:06] LABS: Amphetamine Screen,Urine Not Detected (NotDetected); Barbiturate Screen,Urine Not Detected (NotDetected); Benzodiazepines Screen,Urine Detected (NotDetected); Cocaine Screen,Urine Not Detected (NotDetected); Methadone Screen, Urine Not Detected (NotDetected); Opiate Screen,Urine Not Detected (NotDetected); Oxycodone Screen, Urine Not Detected (NotDetected); Tricyclic Antidepressant,Urine Not Detected (NotDetected)
[2019-07-17] MEDS ORDERED: POTASSIUM CHLORIDE ER 20 MEQ TAB.ER PO STA (04:15)
--- NOTE | 2019-07-17 04:23 | ED ---
General Adult HPI - General Chief complaint: Seizure Stated complaint: lethargic Time Seen by Provider: 07/17/19 00:56 Source: patient, EMS, RN notes reviewed, old records reviewed Mode of arrival: EMS Limitations: altered mental status - History of Present Illness Initial comments: 59-year-old female patient presents to ED for chief complaint of fall today. Patient reports that she was drinking alcohol today in excess, had a fall in her kitchen hitting her head unknown loss of consciousness. Patient reports that she does have a history of possible seizure-like activities unknown this occurred at this time. EMS was contacted. Patient complains of some mild substernal chest discomfort which has been present for the last 3 weeks. Cornelius vasquez was evaluated by cardiology for this same complaint and believed to be noncardiac in nature. Patient complains of neck pain which is chronic for her. Patient does appear to be Intoxicated at time of history and physical. Denies any other complaints at this time. Systemic: Pt denies fatigue, fever/chills, rash. Pt denies weakness, night sweats, weight loss. Neuro: Pt denies headache, visual disturbances, syncope or pre-syncope. HEENT: Pt denies ocular discharge or irritation, otalgia, rhinorrhea, pharyngitis or notable lymphadenopathy. Cardiopulmonary: Pt denies chest pain, SOB, heart palpitations, dyspnea on exertion. Abdominal/GI: Pt denies abdominal pain, n/v/d. : Pt denies dysuria, burning w/ urination, frequency/urgency. Denies new onset urinary or bowel incontinence. MSK: Pt denies myalgia, loss of strength or function in extremities. Neuro: Pt denies new onset weakness, paresthesias. - Related Data Home Medications Medication Instructions Recorded Confirmed Citalopram Hydrobromide [CeleXA] 40 mg PO DAILY 07/13/19 07/13/19 Ibuprofen [Motrin] 800 mg PO TID PRN 07/13/19 07/13/19 Levothyroxine Sodium [Synthroid] 112 mcg PO DAILY 07/13/19 07/13/19 buPROPion HCL [Wellbutrin XL] 150 mg PO DAILY 07/13/19 07/13/19 Allergies Allergy/AdvReac Type Severity Reaction Status Date / Time No Known Allergies Allergy Verified 07/17/19 01:03 Review of Systems ROS Statement: Those systems with pertinent positive or pertinent negative responses have been documented in the HPI. ROS Other: All systems not noted in ROS Statement are negative. Past Medical History Past Medical History: Osteoarthritis (OA), Seizure Disorder, Thyroid Disorder Additional Past Medical History / Comment(s): ETOH abuse, chronic back pain,neck pain, numbness derick. shoulder & arm/finger tips, derick numbness to legs & ft, limited rom neck, benign colon polyps, uses walker or cane, frequent falls History of Any Multi-Drug Resistant Organisms: None Reported Past Surgical History: Breast Surgery, Hernia Repair, Orthopedic Surgery Additional Past Surgical History / Comment(s): derick knee replacements with R knee done twice, bilateral eye laser surgery for vision correction, benign lump removed from lt breast, colonoscopies/benign polypectomies. Past Anesthesia/Blood Transfusion Reactions: Motion Sickness Additional Past Anesthesia/Blood Transfusion Reaction / Comment(s): no hx blood transfusion Past Psychological History: Anxiety, Depression Smoking Status: Current every day smoker Past Alcohol Use History: Daily Past Drug Use History: None Reported - Past Family History Mother Additional Family Medical History / Comment(s): Mother recently of heart problems at the age of 79yrs old. Father Family Medical History: Hyperlipidemia Additional Family Medical History / Comment(s): Father is living. General Exam - General Exam Comments Initial Comments: Constitutional: NAD, AOX3, Pt has pleasant affect. HEENT: NC/AT, trachea midline, neck supple, no lymphadenopathy. Posterior pharynx non erythematous, without exudates. External ears appear normal, without discharge. Mucous membranes moist. Eyes PERRLA, EOM intact. There is no scleral icterus. No pallor noted. Cardiopulmonary: RRR, no murmurs, rubs or gallops, no JVD noted. Lungs CTAB in anterior and posterior cam. No peripheral edema. Abdominal exam: Abdomen soft and non-distended. Abdomen non-tender to palpation in all 4 quadrants. Bowel sounds active in LLQ. No hepatosplenomegaly. No ecchymosis Neuro: CN II-XII intact. No nuchal rigidity. No raccon eyes, no lambert sign, no hemotympanum. Mild amount of cervical spinal tenderness. MSK: No posterior calf tenderness bilaterally, homans sign negative bilaterally. Posterior tibialis and radial pulse +2 bilaterally. Sensation intact in upper and lower extremities. Full active ROM in upper and lower extremities, 5/5 stregnth. Limitations: altered mental status Course Vital Signs 07/17/19 07/17/19 00:56 03:03 Temperature 98.9 F Pulse Rate 89 100 Respiratory 20 20 Rate Blood Pressure 119/82 132/92 O2 Sat by Pulse 97 98 Oximetry Medical Decision Making - Medical Decision Making 59-year-old female patient presents to ED for chief complaint of fall today. Patient reports that she was drinking alcohol today in excess, had a fall in her kitchen hitting her head unknown loss of consciousness. Patient reports that she does have a history of possible seizure-like activities unknown this occurred at this time. EMS was contacted. Patient complains of some mild substernal chest discomfort which has been present for the last 3 weeks. Patient was evaluated by cardiology for this same complaint and believed to be noncardiac in nature. Patient complains of neck pain which is chronic for her. Patient does appear to be Intoxicated at time of history and physical. Denies any other complaints at this time.Pt VSS, afebrile. Physical exam displayed mild amount of cervical spinal tenderness. Neurologic exam is intact. Laboratory investigations revaled mild hypokalemia, mild transaminitis. UA was negative. Drug screen positive for benzodiazepines. Serum ETOH is 127. CT brain cspine no acute process. Chest x-ray displayed left upper nodular density. Pt will follow up with this on an outpatient basis. EKG is nonischemic. Pt will follow up with PCP tomorrow. Will return to ER if condition worsens. Case discussed in depth with Dr. Lugo. - Lab Data Result diagrams: 07/17/19 01:04 07/17/19 01:04 Lab Results 07/17/19 07/17/19 07/17/19 Range/Units 01:04 01:04 01:04 WBC 5.0 (3.8-10.6) k/uL RBC 3.65 L (3.80-5.40) m/uL Hgb 12.5 (11.4-16.0) gm/dL Hct 37.8 (34.0-46.0) % MCV 103.5 H (80.0-100.0) fL MCH 34.3 (25.0-35.0) pg MCHC 33.2 (31.0-37.0) g/dL RDW 17.7 H (11.5-15.5) % Plt Count 166 D (150-450) k/uL Neutrophils % 57 % Lymphocytes % 30 % Monocytes % 6 % Eosinophils % 3 % Basophils % 1 % Neutrophils # 2.9 (1.3-7.7) k/uL Lymphocytes # 1.5 (1.0-4.8) k/uL Monocytes # 0.3 (0-1.0) k/uL Eosinophils # 0.2 (0-0.7) k/uL Basophils # 0.1 (0-0.2) k/uL Anisocytosis Slight Macrocytosis Moderate Sodium 137 (137-145) mmol/L Potassium 3.2 L (3.5-5.1) mmol/L Chloride 103 (98-107) mmol/L Carbon Dioxide 27 (22-30) mmol/L Anion Gap 7 mmol/L BUN 4 L (7-17) mg/dL Creatinine 0.57 (0.52-1.04) mg/dL Est GFR (CKD-EPI)AfAm >90 (>60 ml/min/1.73 sqM) Est GFR (CKD-EPI)NonAf >90 (>60 ml/min/1.73 sqM) Glucose 87 (74-99) mg/dL POC Glucose (mg/dL) (75-99) mg/dL POC Glu Towel Folder ID Calcium 8.6 (8.4-10.2) mg/dL Total Bilirubin 0.3 (0.2-1.3) mg/dL AST 156 H (14-36) U/L ALT 94 H (4-34) U/L Alkaline Phosphatase 79 (38-126) U/L Troponin I <0.012 (0.000-0.034) ng/mL Total Protein 5.7 L (6.3-8.2) g/dL Albumin 3.2 L (3.5-5.0) g/dL Urine Color Urine Appearance (Clear) Urine pH (5.0-8.0) Ur Specific [place] (1.001-1.035) Urine Protein (Negative) Urine Glucose (UA) (Negative) Urine Ketones (Negative) Urine Blood (Negative) Urine Nitrite (Negative) Urine Bilirubin (Negative) Urine Urobilinogen (<2.0) mg/dL Ur Leukocyte Esterase (Negative) Urine Opiates Screen (NotDetected) Ur Oxycodone Screen (NotDetected) Urine Methadone Screen (NotDetected) Ur Propoxyphene Screen (NotDetected) Ur Barbiturates Screen (NotDetected) U Tricyclic Antidepress (NotDetected) Ur Phencyclidine Scrn (NotDetected) Ur Amphetamines Screen (NotDetected) U Methamphetamines Scrn (NotDetected) U Benzodiazepines Scrn (NotDetected) Urine Cocaine Screen (NotDetected) U Marijuana (THC) Screen (NotDetected) Serum Alcohol 127 mg/dL 07/17/19 07/17/19 Range/Units 01:36 01:42 WBC (3.8-10.6) k/uL RBC (3.80-5.40) m/uL Hgb (11.4-16.0) gm/dL Hct (34.0-46.0) % MCV (80.0-100.0) fL MCH (25.0-35.0) pg MCHC (31.0-37.0) g/dL RDW (11.5-15.5) % Plt Count (150-450) k/uL Neutrophils % % Lymphocytes % % Monocytes % % Eosinophils % % Basophils % % Neutrophils # (1.3-7.7) k/uL Lymphocytes # (1.0-4.8) k/uL Monocytes # (0-1.0) k/uL Eosinophils # (0-0.7) k/uL Basophils # (0-0.2) k/uL Anisocytosis Macrocytosis Sodium (137-145) mmol/L Potassium (3.5-5.1) mmol/L Chloride (98-107) mmol/L Carbon Dioxide (22-30) mmol/L Anion Gap mmol/L BUN (7-17) mg/dL Creatinine (0.52-1.04) mg/dL Est GFR (CKD-EPI)AfAm (>60 ml/min/1.73 sqM) Est GFR (CKD-EPI)NonAf (>60 ml/min/1.73 sqM) Glucose (74-99) mg/dL POC Glucose (mg/dL) 87 (75-99) mg/dL POC Glu Towel Folder ID Ashu Winkler Calcium (8.4-10.2) mg/dL Total Bilirubin (0.2-1.3) mg/dL AST (14-36) U/L ALT (4-34) U/L Alkaline Phosphatase (38-126) U/L Troponin I (0.000-0.034) ng/mL Total Protein (6.3-8.2) g/dL Albumin (3.5-5.0) g/dL Urine Color Light Yellow Urine Appearance Clear (Clear) Urine pH 7.0 (5.0-8.0) Ur Specific [place] 1.002 (1.001-1.035) Urine Protein Negative (Negative) Urine Glucose (UA) Negative (Negative) Urine Ketones Negative (Negative) Urine Blood Negative (Negative) Urine Nitrite Negative (Negative) Urine Bilirubin Negative (Negative) Urine Urobilinogen <2.0 (<2.0) mg/dL Ur Leukocyte Esterase Negative (Negative) Urine Opiates Screen Not Detected (NotDetected) Ur Oxycodone Screen Not Detected (NotDetected) Urine Methadone Screen Not Detected (NotDetected) Ur Propoxyphene Screen Not Detected (NotDetected) Ur Barbiturates Screen Not Detected (NotDetected) U Tricyclic Antidepress Not Detected (NotDetected) Ur Phencyclidine Scrn Not Detected (NotDetected) Ur Amphetamines Screen Not Detected (NotDetected) U Methamphetamines Scrn Not Detected (NotDetected) U Benzodiazepines Scrn Detected H (NotDetected) Urine Cocaine Screen Not Detected (NotDetected) U Marijuana (THC) Screen Not Detected (NotDetected) Serum Alcohol mg/dL - EKG Data -: EKG Interpreted by Me (and Dr. Lugo ) EKG Comments: Ventricular rate 93, when necessary for 162, QRS 80, QT/QTc 416/517. Normal sinus rhythm, left axis deviation. No concern for acute ischemia at this time. Disposition Clinical Impression: ETOH abuse, Fall Disposition: HOME SELF-CARE Condition: Stable Instructions (If sedation given, give patient instructions): Fall Prevention (ED), Abuse of Alcohol (ED) Additional Instructions: Follow-up with primary care provider tomorrow. Have repeat chest x-ray or CT with contrast performed of chest to evaluate left upper lobe nodule. Return to ER if condition worsens in any way. Follow-up with cardiology on outpatient basis tomorrow. Is patient prescribed a controlled substance at d/c from ED?: No Referrals: Fidencio Langford MD [Primary Care Provider] - 1-2 days Rosario Parker MD [STAFF PHYSICIAN] - 1-2 days
--- NOTE | 2019-07-17 04:48 | ED ---
Medical Decision Making - Medical Decision Making At time of discharge patient is asymptomatic. Denies any symptoms whatsoever at this time. - Lab Data Result diagrams: 07/17/19 01:04 07/17/19 01:04 Lab Results 07/17/19 07/17/19 07/17/19 Range/Units 01:04 01:04 01:04 WBC 5.0 (3.8-10.6) k/uL RBC 3.65 L (3.80-5.40) m/uL Hgb 12.5 (11.4-16.0) gm/dL Hct 37.8 (34.0-46.0) % MCV 103.5 H (80.0-100.0) fL MCH 34.3 (25.0-35.0) pg MCHC 33.2 (31.0-37.0) g/dL RDW 17.7 H (11.5-15.5) % Plt Count 166 D (150-450) k/uL Neutrophils % 57 % Lymphocytes % 30 % Monocytes % 6 % Eosinophils % 3 % Basophils % 1 % Neutrophils # 2.9 (1.3-7.7) k/uL Lymphocytes # 1.5 (1.0-4.8) k/uL Monocytes # 0.3 (0-1.0) k/uL Eosinophils # 0.2 (0-0.7) k/uL Basophils # 0.1 (0-0.2) k/uL Anisocytosis Slight Macrocytosis Moderate Sodium 137 (137-145) mmol/L Potassium 3.2 L (3.5-5.1) mmol/L Chloride 103 (98-107) mmol/L Carbon Dioxide 27 (22-30) mmol/L Anion Gap 7 mmol/L BUN 4 L (7-17) mg/dL Creatinine 0.57 (0.52-1.04) mg/dL Est GFR (CKD-EPI)AfAm >90 (>60 ml/min/1.73 sqM) Est GFR (CKD-EPI)NonAf >90 (>60 ml/min/1.73 sqM) Glucose 87 (74-99) mg/dL POC Glucose (mg/dL) (75-99) mg/dL POC Glu Cloth Washer Operator ID Calcium 8.6 (8.4-10.2) mg/dL Total Bilirubin 0.3 (0.2-1.3) mg/dL AST 156 H (14-36) U/L ALT 94 H (4-34) U/L Alkaline Phosphatase 79 (38-126) U/L Troponin I <0.012 (0.000-0.034) ng/mL Total Protein 5.7 L (6.3-8.2) g/dL Albumin 3.2 L (3.5-5.0) g/dL Urine Color Urine Appearance (Clear) Urine pH (5.0-8.0) Ur Specific [place] (1.001-1.035) Urine Protein (Negative) Urine Glucose (UA) (Negative) Urine Ketones (Negative) Urine Blood (Negative) Urine Nitrite (Negative) Urine Bilirubin (Negative) Urine Urobilinogen (<2.0) mg/dL Ur Leukocyte Esterase (Negative) Urine Opiates Screen (NotDetected) Ur Oxycodone Screen (NotDetected) Urine Methadone Screen (NotDetected) Ur Propoxyphene Screen (NotDetected) Ur Barbiturates Screen (NotDetected) U Tricyclic Antidepress (NotDetected) Ur Phencyclidine Scrn (NotDetected) Ur Amphetamines Screen (NotDetected) U Methamphetamines Scrn (NotDetected) U Benzodiazepines Scrn (NotDetected) Urine Cocaine Screen (NotDetected) U Marijuana (THC) Screen (NotDetected) Serum Alcohol 127 mg/dL 07/17/19 07/17/19 Range/Units 01:36 01:42 WBC (3.8-10.6) k/uL RBC (3.80-5.40) m/uL Hgb (11.4-16.0) gm/dL Hct (34.0-46.0) % MCV (80.0-100.0) fL MCH (25.0-35.0) pg MCHC (31.0-37.0) g/dL RDW (11.5-15.5) % Plt Count (150-450) k/uL Neutrophils % % Lymphocytes % % Monocytes % % Eosinophils % % Basophils % % Neutrophils # (1.3-7.7) k/uL Lymphocytes # (1.0-4.8) k/uL Monocytes # (0-1.0) k/uL Eosinophils # (0-0.7) k/uL Basophils # (0-0.2) k/uL Anisocytosis Macrocytosis Sodium (137-145) mmol/L Potassium (3.5-5.1) mmol/L Chloride (98-107) mmol/L Carbon Dioxide (22-30) mmol/L Anion Gap mmol/L BUN (7-17) mg/dL Creatinine (0.52-1.04) mg/dL Est GFR (CKD-EPI)AfAm (>60 ml/min/1.73 sqM) Est GFR (CKD-EPI)NonAf (>60 ml/min/1.73 sqM) Glucose (74-99) mg/dL POC Glucose (mg/dL) 87 (75-99) mg/dL POC Glu Cloth Washer Operator ID Ashu Winkler Calcium (8.4-10.2) mg/dL Total Bilirubin (0.2-1.3) mg/dL AST (14-36) U/L ALT (4-34) U/L Alkaline Phosphatase (38-126) U/L Troponin I (0.000-0.034) ng/mL Total Protein (6.3-8.2) g/dL Albumin (3.5-5.0) g/dL Urine Color Light Yellow Urine Appearance Clear (Clear) Urine pH 7.0 (5.0-8.0) Ur Specific [place] 1.002 (1.001-1.035) Urine Protein Negative (Negative) Urine Glucose (UA) Negative (Negative) Urine Ketones Negative (Negative) Urine Blood Negative (Negative) Urine Nitrite Negative (Negative) Urine Bilirubin Negative (Negative) Urine Urobilinogen <2.0 (<2.0) mg/dL Ur Leukocyte Esterase Negative (Negative) Urine Opiates Screen Not Detected (NotDetected) Ur Oxycodone Screen Not Detected (NotDetected) Urine Methadone Screen Not Detected (NotDetected) Ur Propoxyphene Screen Not Detected (NotDetected) Ur Barbiturates Screen Not Detected (NotDetected) U Tricyclic Antidepress Not Detected (NotDetected) Ur Phencyclidine Scrn Not Detected (NotDetected) Ur Amphetamines Screen Not Detected (NotDetected) U Methamphetamines Scrn Not Detected (NotDetected) U Benzodiazepines Scrn Detected H (NotDetected) Urine Cocaine Screen Not Detected (NotDetected) U Marijuana (THC) Screen Not Detected (NotDetected) Serum Alcohol mg/dL Disposition Clinical Impression: ETOH abuse, Fall Disposition: HOME SELF-CARE Condition: Stable Instructions (If sedation given, give patient instructions): Abuse of Alcohol (ED), Fall Prevention (ED) Additional Instructions: Follow-up with primary care provider tomorrow. Have repeat chest x-ray or CT with contrast performed of chest to evaluate left upper lobe nodule. Return to ER if condition worsens in any way. Follow-up with cardiology on outpatient basis tomorrow. Is patient prescribed a controlled substance at d/c from ED?: No Referrals: Fidencio Langford MD [Primary Care Provider] - 1-2 days Rosario Parker MD [STAFF PHYSICIAN] - 1-2 days
[2019-07-17] MEDS ORDERED: MAG HYDROX/AL HYDROX/SIMETH 30 ML, HYOSCYAMINE ELIXIR 10 ML, LIDOCAINE VISCOUS 2% 10 ML PO STA ×3 (06:06)
[2019-07-17] MEDS ORDERED: LORazepam 2 MG/ML INJ IV STA (06:07)
[2019-07-17 06:59] VITALS: BP 104/66; PULSE 105; TEMP 98.7
[2019-07-17 07:22] LABS: Amylase 71 U/L (30-110)
== END 2019-07-17 08:13 | disposition home or self-care (01) ==
LOC: EC 00:53
DX: F10.10 Alcohol abuse, uncomplicated (principal); E87.6 Hypokalemia; R74.0 Nonspecific elevation of levels of transaminase and lactic acid dehydrogenase [LDH]; F41.9 Anxiety disorder, unspecified; F32.9 Major depressive disorder, single episode, unspecified; F17.200 Nicotine dependence, unspecified, uncomplicated; Z79.890 Hormone replacement therapy; Z79.899 Other long term (current) drug therapy; Z96.653 Presence of artificial knee joint, bilateral; W18.09XA Striking against other object with subsequent fall, initial encounter
CPT/HCPCS: 99285 ×2; 96374 ×2; 96361 ×2; 99284; 36415; 93005; 80053; 82150; 83690; 84484; 85025; 81003; 80306; 71045; 72125; 70450; G0480; J2060; 80320

== ENCOUNTER 2019-07-17 08:43 | Emergency (ER) | payer MEDICARE, OTHER ==
[2019-07-17 08:50] VITALS: TEMP 98.2
[2019-07-17 09:28] LABS: Glucose,Whole Blood 108 mg/dL (75-99)
--- NOTE | 2019-07-17 10:10 | ED ---
General Adult HPI - General Chief complaint: Syncope Stated complaint: syncope, ETOH withdrawal Time Seen by Provider: 07/17/19 08:58 Source: patient, RN notes reviewed Mode of arrival: ambulatory Limitations: no limitations - History of Present Illness Initial comments: 59-year-old female presents emergency Department with chief complaint feeling weak. Patient was just discharged one to see her girlfriend upstairs and states that she felt very weak following she did not pass out but had no syncopal episode. Patient's was recently admitted for similar complaints and which she signed out AGAINST MEDICAL ADVICE. Patient's denies chest pain, shortness breath, headache, blurred vision, nausea vomiting diarrhea constipation. - Related Data Home Medications Medication Instructions Recorded Confirmed Citalopram Hydrobromide [CeleXA] 40 mg PO DAILY 07/13/19 07/13/19 Ibuprofen [Motrin] 800 mg PO TID PRN 07/13/19 07/13/19 Levothyroxine Sodium [Synthroid] 112 mcg PO DAILY 07/13/19 07/13/19 buPROPion HCL [Wellbutrin XL] 150 mg PO DAILY 07/13/19 07/13/19 Allergies Allergy/AdvReac Type Severity Reaction Status Date / Time No Known Allergies Allergy Verified 07/17/19 08:50 Review of Systems ROS Statement: Those systems with pertinent positive or pertinent negative responses have been documented in the HPI. ROS Other: All systems not noted in ROS Statement are negative. Past Medical History Past Medical History: Osteoarthritis (OA), Seizure Disorder, Thyroid Disorder Additional Past Medical History / Comment(s): ETOH abuse, chronic back pain,neck pain, numbness derick. shoulder & arm/finger tips, derick numbness to legs & ft, limited rom neck, benign colon polyps, uses walker or cane, frequent falls History of Any Multi-Drug Resistant Organisms: None Reported Past Surgical History: Breast Surgery, Hernia Repair, Orthopedic Surgery Additional Past Surgical History / Comment(s): derick knee replacements with R knee done twice, bilateral eye laser surgery for vision correction, benign lump removed from lt breast, colonoscopies/benign polypectomies. Past Anesthesia/Blood Transfusion Reactions: Motion Sickness Additional Past Anesthesia/Blood Transfusion Reaction / Comment(s): no hx blood transfusion Past Psychological History: Anxiety, Depression Smoking Status: Current every day smoker Past Alcohol Use History: Daily Past Drug Use History: None Reported - Past Family History Mother Additional Family Medical History / Comment(s): Mother recently of heart problems at the age of 79yrs old. Father Family Medical History: Hyperlipidemia Additional Family Medical History / Comment(s): Father is living. General Exam Limitations: no limitations General appearance: alert, in no apparent distress Head exam: Present: atraumatic, normocephalic, normal inspection Eye exam: Present: normal appearance, PERRL, EOMI. Absent: scleral icterus, conjunctival injection, periorbital swelling ENT exam: Present: normal exam, normal oropharynx, mucous membranes moist Neck exam: Present: normal inspection, full ROM. Absent: tenderness, meningismus, lymphadenopathy Respiratory exam: Present: normal lung sounds bilaterally. Absent: respiratory distress, wheezes, rales, rhonchi, stridor Cardiovascular Exam: Present: regular rate, normal rhythm, normal heart sounds. Absent: systolic murmur, diastolic murmur, rubs, gallop, clicks Neurological exam: Present: alert, oriented X3, CN II-XII intact, reflexes normal. Absent: motor sensory deficit Course Vital Signs 07/17/19 08:46 Temperature 98.2 F Pulse Rate 109 H Respiratory 20 Rate Blood Pressure 118/84 O2 Sat by Pulse 99 Oximetry Medical Decision Making - Medical Decision Making Patient is awake alert and orientated she is able to ambulate about with no difficulty she was able to eat and drink emergency Department with no issues. I did discuss case with her PCP Dr. nogueira who states that the patient is awake and alert and stable for discharge she may be discharged with follow-up. - Lab Data Lab Results 07/17/19 Range/Units 09:26 POC Glucose (mg/dL) 108 H (75-99) mg/dL POC Glu Pocket Setter Lockstitch ID Lisette Arango Disposition Clinical Impression: EtOH dependence, ETOH abuse, Generalized weakness Disposition: HOME SELF-CARE Condition: Stable Instructions (If sedation given, give patient instructions): Weakness (ED) Additional Instructions: Please return to the Emergency Department if symptoms worsen or any other concerns. Is patient prescribed a controlled substance at d/c from ED?: No Referrals: Fidencio Nogueira MD [Primary Care Provider] - 1-2 days Time of Disposition: 10:10
[2019-07-17 10:23] VITALS: BP 103/79; PULSE 103; RESP 16
== END 2019-07-17 10:21 | disposition home or self-care (01) ==
LOC: EC 08:43
DX: F10.20 Alcohol dependence, uncomplicated (principal); R53.81 Other malaise; E07.9 Disorder of thyroid, unspecified; F41.9 Anxiety disorder, unspecified; F32.9 Major depressive disorder, single episode, unspecified; F17.200 Nicotine dependence, unspecified, uncomplicated; Z79.890 Hormone replacement therapy; Z79.899 Other long term (current) drug therapy; Z96.653 Presence of artificial knee joint, bilateral
CPT/HCPCS: 36415; 99284

== ENCOUNTER 2019-08-10 16:44 | Emergency (ER) | payer MEDICARE, OTHER ==
[2019-08-10 17:15] LABS: Anisocytosis Slight; Basophils # (A) 0.1 k/uL (0-0.2); Basophils % (A) 1 %; Eosinophils # (A) 0.2 k/uL (0-0.7); Eosinophils % (A) 3 %; HCT 38.7 % (34.0-46.0); HGB 12.9 gm/dL (11.4-16.0); Lymphocytes # (A) 1.6 k/uL (1.0-4.8); Lymphocytes % (A) 21 %; MCH 33.8 pg (25.0-35.0); MCHC 33.2 g/dL (31.0-37.0); MCV 101.9 fL (80.0-100.0); Macrocytosis Slight; Mean Platelet Volume 8.5; Monocytes # (A) 0.2 k/uL (0-1.0); Monocytes % (A) 2 %; Neutrophils # (A) 5.5 k/uL (1.3-7.7); Neutrophils % (A) 72 %; Platelet Count 122 k/uL (150-450); RDW 16.2 % (11.5-15.5); WBC 7.7 k/uL (3.8-10.6)
[2019-08-10 17:23] LABS: Potassium 3.5 mmol/L (3.5-5.1)
[2019-08-10 17:24] LABS: ALT 73 U/L (4-34); AST 147 U/L (14-36); Acetaminophen <10.0 ug/mL; African American GFR (CKD) >90 (>60 ml/min/1.73 sqM); Alkaline Phosphatase 125 U/L (38-126); Anion Gap 12 mmol/L; Blood Urea Nitrogen 12 mg/dL (7-17); Calcium 8.6 mg/dL (8.4-10.2); Carbon Dioxide 23 mmol/L (22-30); Chloride 107 mmol/L (98-107); Glucose 89 mg/dL (74-99); Non-African American GFR(CKD) >90 (>60 ml/min/1.73 sqM); Salicylate <1.0 mg/dL; Sodium 142 mmol/L (137-145); Total Bilirubin 0.9 mg/dL (0.2-1.3); Total Protein 6.8 g/dL (6.3-8.2)
[2019-08-10 17:29] LABS: Alcohol 237 mg/dL
[2019-08-10] MEDS ORDERED: TRIMETHOBENZAMIDE 100 MG/ML 2 ML VIAL IM STA (18:00)
[2019-08-10] MEDS ORDERED: LORazepam 2 MG/ML INJ IM STA (18:03)
[2019-08-10] MEDS ORDERED: LORazepam 2 MG/ML INJ IV STA ×3 (18:07→22:50)
--- NOTE | 2019-08-10 19:22 | ED ---
Overdose HPI - General Source: patient, EMS Mode of arrival: EMS <Susannah Mcdaniel - Last Filed: 08/10/19 19:27> <Sidney Proctor - Last Filed: 08/11/19 03:09> - General Chief Complaint: Overdose Stated Complaint: poss overdose/suicidal Time Seen by Provider: 08/10/19 16:45 - History of Present Illness Initial Comments: The patient is a 59-year-old female with past medical history of alcohol abuse who presents to the emergency department as an overdose. Patient called EMS stating that she wanted to kill herself. She states that she drinks a gallon of alcohol daily. She did drink a gallon today. She also states that she took an unknown amount of Celexa 20 mg and 20 tablets of Advil PM. Ingestion was around 3:00. She states that she took these medications in attempt to herself. She no longer wants to live. She is petitioned by police. She denies taking any other medications. She does refuse to answer laboratory my questioning and is very uncooperative. (Susannah Mcdaniel) - Related Data Home Medications Medication Instructions Recorded Confirmed Citalopram Hydrobromide [CeleXA] 40 mg PO DAILY 07/13/19 08/10/19 Ibuprofen [Motrin] 800 mg PO TID PRN 07/13/19 08/10/19 Levothyroxine Sodium [Synthroid] 112 mcg PO DAILY 07/13/19 08/10/19 buPROPion HCL [Wellbutrin XL] 150 mg PO DAILY 07/13/19 08/10/19 Buprenorphine HCl/Naloxone HCl 1 film SL BID 08/10/19 08/10/19 [Suboxone 8 mg-2 mg Sl Film] Allergies Allergy/AdvReac Type Severity Reaction Status Date / Time No Known Allergies Allergy Verified 08/06/19 20:14 Review of Systems ROS Other: All systems not noted in ROS Statement are negative. <Susannah Mcdaniel - Last Filed: 08/10/19 19:27> ROS Other: All systems not noted in ROS Statement are negative. <Sidney Proctor - Last Filed: 08/11/19 03:09> ROS Statement: Those systems with pertinent positive or pertinent negative responses have been documented in the HPI. Past Medical History Past Medical History: Osteoarthritis (OA), Seizure Disorder, Thyroid Disorder Additional Past Medical History / Comment(s): ETOH abuse, chronic back pain,neck pain, numbness derick. shoulder & arm/finger tips, derick numbness to legs & ft, limited rom neck, benign colon polyps, uses walker or cane, frequent falls History of Any Multi-Drug Resistant Organisms: None Reported Past Surgical History: Breast Surgery, Hernia Repair, Orthopedic Surgery Additional Past Surgical History / Comment(s): derick knee replacements with R knee done twice, bilateral eye laser surgery for vision correction, benign lump removed from lt breast, colonoscopies/benign polypectomies. Past Anesthesia/Blood Transfusion Reactions: Motion Sickness Additional Past Anesthesia/Blood Transfusion Reaction / Comment(s): no hx blood transfusion Past Psychological History: Anxiety, Depression Smoking Status: Current every day smoker Past Alcohol Use History: Daily Past Drug Use History: None Reported - Past Family History Mother Additional Family Medical History / Comment(s): Mother recently of heart problems at the age of 79yrs old. Father Family Medical History: Hyperlipidemia Additional Family Medical History / Comment(s): Father is living. <Susannah Mcdaniel - Last Filed: 08/10/19 19:27> General Exam General appearance: alert, appears intoxicated Head exam: Present: atraumatic, normocephalic, normal inspection Eye exam: Present: normal appearance, PERRL, EOMI. Absent: scleral icterus, conjunctival injection, periorbital swelling ENT exam: Present: normal exam, mucous membranes moist Neck exam: Present: normal inspection. Absent: tenderness, meningismus, lymphadenopathy Respiratory exam: Present: normal lung sounds bilaterally. Absent: respiratory distress, wheezes, rales, rhonchi, stridor Cardiovascular Exam: Present: normal rhythm, tachycardia, normal heart sounds. Absent: systolic murmur, diastolic murmur, rubs, gallop, clicks GI/Abdominal exam: Present: soft, normal bowel sounds. Absent: distended, tenderness, guarding, rebound, rigid Extremities exam: Present: normal inspection, full ROM, normal capillary refill. Absent: tenderness, pedal edema, joint swelling, calf tenderness Back exam: Present: normal inspection Neurological exam: Present: altered, CN II-XII intact Psychiatric exam: Present: depressed, agitated Skin exam: Present: warm, dry, intact, normal color. Absent: rash <Susannah Mcdaniel - Last Filed: 08/10/19 19:27> Course Vital Signs 08/10/19 08/10/19 08/10/19 16:45 19:51 21:05 Temperature 98.2 F Pulse Rate 111 H 111 H 118 H Respiratory 16 16 Rate Blood Pressure 158/112 101/78 125/83 O2 Sat by Pulse 98 96 98 Oximetry 08/10/19 23:41 Temperature Pulse Rate 117 H Respiratory 16 Rate Blood Pressure 143/101 O2 Sat by Pulse 98 Oximetry Procedures - Restraint - Face to Face Restraint Occurrence 1 Patient's Immediate Situation: Endangers self safety, Endangers others' safety, Violent behavior Patient's Reaction to the Intervention: Uncooperative, Angry, Aggressive Patient's Medical & Behavioral Condition: Agitated Need to Continue or Terminate Restraint or Seclusion: Continue Face to Face Eval of Restraint Date: 08/10/19 Face to Face Eval of Restraint Time: 17:15 <Susannah Mcdaniel - Last Filed: 08/10/19 19:27> Medical Decision Making - Lab Data Result diagrams: 08/10/19 17:06 08/10/19 17:06 <Susannah Mcdaniel - Last Filed: 08/10/19 19:27> - Lab Data Result diagrams: 08/10/19 17:06 08/10/19 17:06 <Sidney Proctor - Last Filed: 08/11/19 03:09> - Medical Decision Making Upon arrival the patient was placed into room 13. She does require restraints as she is extremely aggressive with staff. She is improperly touching female staff. We did obtain laboratory studies. AST and ALTs are elevated. Alcohol is 237. We did call poison control. We are currently awaiting sobriety before EPS evaluates the patient (KojobarbaraSusannah) - Lab Data Lab Results 08/10/19 08/10/19 08/10/19 Range/Units 17:06 17:06 19:11 WBC 7.7 (3.8-10.6) k/uL RBC 3.80 (3.80-5.40) m/uL Hgb 12.9 (11.4-16.0) gm/dL Hct 38.7 (34.0-46.0) % MCV 101.9 H (80.0-100.0) fL MCH 33.8 (25.0-35.0) pg MCHC 33.2 (31.0-37.0) g/dL RDW 16.2 H (11.5-15.5) % Plt Count 122 L (150-450) k/uL Neutrophils % 72 % Lymphocytes % 21 % Monocytes % 2 % Eosinophils % 3 % Basophils % 1 % Neutrophils # 5.5 (1.3-7.7) k/uL Lymphocytes # 1.6 (1.0-4.8) k/uL Monocytes # 0.2 (0-1.0) k/uL Eosinophils # 0.2 (0-0.7) k/uL Basophils # 0.1 (0-0.2) k/uL Anisocytosis Slight Macrocytosis Slight Sodium 142 (137-145) mmol/L Potassium 3.5 (3.5-5.1) mmol/L Chloride 107 (98-107) mmol/L Carbon Dioxide 23 (22-30) mmol/L Anion Gap 12 mmol/L BUN 12 (7-17) mg/dL Creatinine 0.50 L (0.52-1.04) mg/dL Est GFR (CKD-EPI)AfAm >90 (>60 ml/min/1.73 sqM) Est GFR (CKD-EPI)NonAf >90 (>60 ml/min/1.73 sqM) Glucose 89 (74-99) mg/dL Calcium 8.6 (8.4-10.2) mg/dL Total Bilirubin 0.9 (0.2-1.3) mg/dL AST 147 H (14-36) U/L ALT 73 H (4-34) U/L Alkaline Phosphatase 125 (38-126) U/L Total Protein 6.8 (6.3-8.2) g/dL Albumin 4.0 (3.5-5.0) g/dL Urine Color Yellow Urine Appearance Cloudy H (Clear) Urine pH 6.0 (5.0-8.0) Ur Specific [place] 1.017 (1.001-1.035) Urine Protein 1+ H (Negative) Urine Glucose (UA) Negative (Negative) Urine Ketones Trace H (Negative) Urine Blood Trace H (Negative) Urine Nitrite Positive H (Negative) Urine Bilirubin Negative (Negative) Urine Urobilinogen <2.0 (<2.0) mg/dL Ur Leukocyte Esterase Trace H (Negative) Urine WBC 2 (0-5) /hpf Ur Squamous Epith Cells <1 (0-4) /hpf Urine Bacteria Many H (None) /hpf Hyaline Casts 3 H (0-2) /lpf Urine Mucus Many H (None) /hpf Salicylates <1.0 mg/dL Urine Opiates Screen Not Detected (NotDetected) Ur Oxycodone Screen Not Detected (NotDetected) Urine Methadone Screen Not Detected (NotDetected) Ur Propoxyphene Screen Not Detected (NotDetected) Acetaminophen <10.0 ug/mL Ur Barbiturates Screen Not Detected (NotDetected) U Tricyclic Antidepress Not Detected (NotDetected) Ur Phencyclidine Scrn Not Detected (NotDetected) Ur Amphetamines Screen Not Detected (NotDetected) U Methamphetamines Scrn Not Detected (NotDetected) U Benzodiazepines Scrn Detected H (NotDetected) Urine Cocaine Screen Not Detected (NotDetected) U Marijuana (THC) Screen Not Detected (NotDetected) Serum Alcohol 237 H* mg/dL - EKG Data EKG Comments: EKG demonstrates a sinus tachycardia with ventricular rate of 103. MS interval 166. QRS E4. QTC of 474. Right axis. No acute ST segment elevations. Prolonged QT (Susannah Mcdaniel) Disposition <Susannah Mcdaniel - Last Filed: 08/10/19 19:27> Is patient prescribed a controlled substance at d/c from ED?: No <Sidney Proctor - Last Filed: 08/11/19 03:09> Clinical Impression: ETOH abuse Disposition: HOME SELF-CARE Condition: Fair Instructions (If sedation given, give patient instructions): Alcohol Intoxication (ED) Referrals: Fidencio Langford MD [Primary Care Provider] - 1-2 days
[2019-08-10 19:30] LABS: Appearance,Urine Cloudy (Clear); Bacteria,Urine Many /hpf; Bilirubin,Urine Negative (Negative); Blood,Urine Trace (Negative); Color,Urine Yellow; Glucose,Urine (UA) Negative (Negative); Hyaline Casts,Urine 3 /lpf (0-2); Ketones,Urine Trace (Negative); Leukocyte Esterase,Urine Trace (Negative); Mucus,Urine Many /hpf; Nitrite,Urine Positive (Negative); Protein,Urine 1+ (Negative); Specific Gravity,Urine 1.017 (1.001-1.035); Squamous Epithelial Cell,Urine <1 /hpf (0-4); Urobilinogen,Urine <2.0 mg/dL (<2.0); WBC,Urine 2 /hpf (0-5)
[2019-08-10 19:32] LABS: Amphetamine Screen,Urine Not Detected (NotDetected); Barbiturate Screen,Urine Not Detected (NotDetected); Benzodiazepines Screen,Urine Detected (NotDetected); Cocaine Screen,Urine Not Detected (NotDetected); Methadone Screen, Urine Not Detected (NotDetected); Opiate Screen,Urine Not Detected (NotDetected); Oxycodone Screen, Urine Not Detected (NotDetected); Phencyclidine Screen,Urine Not Detected (NotDetected); Tricyclic Antidepressant,Urine Not Detected (NotDetected); Urn Cannabinoid Scrn Not Detected (NotDetected)
[2019-08-10] MEDS ORDERED: METOCLOPRAMIDE 5 MG/ML 2 ML VIAL IVP STA (19:35)
[2019-08-10 19:53] VITALS: RESP 16
[2019-08-10] MEDS ORDERED: SODIUM CHLORIDE 0.9% 1,000 ML IV STA (21:00)
[2019-08-10 21:08] VITALS: TEMP 98.2
[2019-08-11 03:24] VITALS: BP 130/90; PULSE 81
== END 2019-08-11 03:25 | disposition home or self-care (01) ==
LOC: EC 16:44
DX: F10.129 Alcohol abuse with intoxication, unspecified (principal); R74.0 Nonspecific elevation of levels of transaminase and lactic acid dehydrogenase [LDH]; F32.9 Major depressive disorder, single episode, unspecified; R00.0 Tachycardia, unspecified; R45.1 Restlessness and agitation; T43.222A Poisoning by selective serotonin reuptake inhibitors, intentional self-harm, initial encounter; T39.311A Poisoning by propionic acid derivatives, accidental (unintentional), initial encounter; M19.90 Unspecified osteoarthritis, unspecified site; E07.9 Disorder of thyroid, unspecified; F41.9 Anxiety disorder, unspecified; F17.200 Nicotine dependence, unspecified, uncomplicated; Z79.890 Hormone replacement therapy; Z79.899 Other long term (current) drug therapy; Z86.010 Personal history of colon polyps; Z96.653 Presence of artificial knee joint, bilateral; Z98.890 Other specified postprocedural states; Y90.7 Blood alcohol level of 200-239 mg/100 ml; Z53.8 Procedure and treatment not carried out for other reasons
CPT/HCPCS: 82075; 36415; 93005; 80053; 85025; 81001; 80306; 83520; 99285; 96374; 96375; 96376 ×2; 96361 ×3; 96372; G0480 ×2; J2060; J2765; J3250; 80320; 80329

== ENCOUNTER 2019-10-16 17:43 | Inpatient (IN) | payer MEDICARE, OTHER ==
[2019-10-16] MEDS ORDERED: LORazepam 2 MG/ML INJ IM STA (18:09)
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
[2019-10-16 18:32] LABS: Anisocytosis Slight; Basophils # (A) 0.1 k/uL (0-0.2); Basophils % (A) 1 %; Eosinophils # (A) 0.2 k/uL (0-0.7); Eosinophils % (A) 3 %; HGB 13.4 gm/dL (11.4-16.0); Lymphocytes # (A) 2.1 k/uL (1.0-4.8); Lymphocytes % (A) 31 %; MCH 34.1 pg (25.0-35.0); MCHC 32.6 g/dL (31.0-37.0); MCV 104.3 fL (80.0-100.0); Macrocytosis Moderate; Mean Platelet Volume 9.3; Monocytes # (A) 0.2 k/uL (0-1.0); Monocytes % (A) 2 %; Neutrophils % (A) 60 %; Platelet Count 100 k/uL (150-450); RBC 3.93 m/uL (3.80-5.40); RDW 16.2 % (11.5-15.5); WBC 6.7 k/uL (3.8-10.6)
[2019-10-16 18:41] LABS: African American GFR (CKD) >90 (>60 ml/min/1.73 sqM); Anion Gap 12 mmol/L; Blood Urea Nitrogen 15 mg/dL (7-17); Calcium 8.2 mg/dL (8.4-10.2); Carbon Dioxide 25 mmol/L (22-30); Chloride 107 mmol/L (98-107); Glucose 96 mg/dL (74-99); Magnesium 1.5 mg/dL (1.6-2.3); Non-African American GFR(CKD) >90 (>60 ml/min/1.73 sqM); Potassium 3.6 mmol/L (3.5-5.1); Sodium 144 mmol/L (137-145)
[2019-10-16 18:50] LABS: Alcohol 341 mg/dL
[2019-10-16] MEDS ORDERED: ZIPRASIDONE 20 MG VIAL IM PRN (18:54)
[2019-10-16] MEDS ORDERED: THIAMINE 100 MG/ML 2 ML VIAL IM STA (19:16)
[2019-10-16] MEDS ORDERED: ONDANSETRON 4 MG/2 ML VIAL IVP PRN (19:16)
[2019-10-16] MEDS ORDERED: LORazepam 2 MG/ML INJ IV PRN ×2 (19:16)
[2019-10-16] MEDS ORDERED: NALOXONE 0.4 MG/ML 1 ML VIAL IV PRN (19:16)
[2019-10-16] MEDS: MAGNESIUM SULFATE-D5W PMX 1 GM in DEXTROSE/WATER 1 100ML.BAG IVPB SCH ×2 (20:33→22:03)
[2019-10-16] MEDS: SODIUM CHLORIDE 0.9% 1,000 ML IV SCH (20:33)
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
[2019-10-17] MEDS: LEVOTHYROXINE 112 MCG TAB PO SCH (05:33)
[2019-10-17] MEDS: SODIUM CHLORIDE 0.9% 1,000 ML IV SCH ×2 (05:34→20:26)
[2019-10-17] MEDS: THIAMINE 100 MG TAB PO SCH ×2 (07:58→16:10)
[2019-10-17] MEDS: CITALOPRAM HYDROBROMIDE 20 MG TAB PO SCH (07:58)
[2019-10-17] MEDS: buPROPion XL 150 MG TAB.ER.24H PO SCH (07:58)
[2019-10-17 09:10] LABS: T4, Free (Free Thyroxine) 1.14 ng/dL (0.78-2.19)
--- NOTE | 2019-10-17 09:47 | XR ---
EXAMINATION TYPE: XR chest 2V DATE OF EXAM: 10/17/2019 HISTORY: cough. REFERENCE: Previous study dated 07/17/2019. FINDINGS: Left upper lobe density persists, unchanged from previous. The lungs are otherwise clear. P leural space are clear. Heart size is normal. IMPRESSION: STABLE LEFT UPPER LOBE DENSITY SHOULD BE FURTHER INVESTIGATED. A NONEMERGENT CT SCAN OF THE CHEST WOU LD BE SUGGESTED.
[2019-10-17] MEDS: LORazepam 2 MG/ML INJ IV PRN ×4 (10:43→23:44)
[2019-10-17] MEDS: AZITHROMYCIN 500 MG in SODIUM CHLORIDE 0.9% 250 ML IVPB SCH (16:09)
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
[2019-10-17] MEDS: CHOLESTYRAMINE (WITH SUGAR) 4 GM PACKET PO PRN (20:39)
--- NOTE | 2019-10-18 00:18 | PN ---
PROGRESS NOTE A 59-year-old white female with acute alcohol intoxication, alcohol withdrawal, had cough, congestion. She has been tested for Covid, which apparently might be negative. Has been treated with antibiotics, Azithromycin, updraft treatments. Chest x-ray unremarkable. Carotid test was negative. Continue current treatment. Follow up next 24 to 48 hours. Possible discharge. Continue azithromycin for bronchitis. MMODL / IJN: [id number] /
[2019-10-18] MEDS: SODIUM CHLORIDE 0.9% 1,000 ML IV SCH ×3 (01:29→22:10)
[2019-10-18] MEDS: LORazepam 2 MG/ML INJ IV PRN ×4 (05:13→15:00)
[2019-10-18] MEDS: LEVOTHYROXINE 112 MCG TAB PO SCH (05:13)
[2019-10-18] MEDS: buPROPion XL 150 MG TAB.ER.24H PO SCH (07:05)
[2019-10-18] MEDS: AZITHROMYCIN 500 MG in SODIUM CHLORIDE 0.9% 250 ML IVPB SCH (07:05)
[2019-10-18] MEDS: THIAMINE 100 MG TAB PO SCH ×2 (07:05→16:40)
[2019-10-18] MEDS: CITALOPRAM HYDROBROMIDE 20 MG TAB PO SCH (07:05)
[2019-10-18] MEDS: ACETAMINOPHEN TAB 325 MG TAB PO PRN ×2 (11:08→16:40)
--- NOTE | 2019-10-18 13:17 | P.CNPUL ---
History of Present Illness Consult date: 10/17/19 Reason for consult: dyspnea, cough Chief complaint: Shortness of breath fever History of present illness: This is a 59-year-old with extensive history of alcohol consumption patient from home brought into emergency department for shortness of breath, also a spiking fever, overall poor historian not much detail data can be obtained from her, the emergency department she was afebrile with heart rate of 120 slightly hyp ertensive oxygen saturation was 97%, she was noted to have thrombocytopenia due to likely alcohol abuse and her serum alcohol level was 341 patient was admitted to hospital with acute alcohol intoxication him a patient has been evaluated by psychiatric service, patient was noted to have a density in left upper lobe she was noted negative for reynolds virus also C. difficile was negative, Review of Systems All systems: negative Past Medical History Past Medical History: Osteoarthritis (OA), Seizure Disorder, Thyroid Disorder Additional Past Medical History / Comment(s): ETOH abuse, chronic back pain,neck pain, numbness derick. shoulder & arm/finger tips, derick numbness to legs & ft, limited rom neck, benign colon polyps, uses walker, frequent falls History of Any Multi-Drug Resistant Organisms: None Reported Past Surgical History: Breast Surgery, Hernia Repair, Orthopedic Surgery, Tonsillectomy Additional Past Surgical History / Comment(s): derick knee replacements with R knee done twice, bilateral eye laser surgery for vision correction, benign lump removed from lt breast, colonoscopies/benign polypectomies. Past Anesthesia/Blood Transfusion Reactions: Motion Sickness Additional Past Anesthesia/Blood Transfusion Reaction / Comment(s): no hx blood transfusion Past Psychological History: Anxiety, Depression Additional Psychological History / Comment(s): Pt resides with her life partner of 36 yrs. She uses a cane or walker. She does not drive. She is disabled. Smoking Status: Current every day smoker Past Alcohol Use History: Abuse, Daily, Heavy Additional Past Alcohol Use History / Comment(s): Pt started smoking in 1973 and states she recently quit smoking 5 days ago. Pt states she drinks Admiral Dustin-1.5 pints per day. Past Drug Use History: None Reported - Past Family History Mother Additional Family Medical History / Comment(s): Mother recently of heart problems at the age of 79yrs old. Father Family Medical History: Hyperlipidemia Additional Family Medical History / Comment(s): Father is living. Medications and Allergies Home Medications Medication Instructions Recorded Confirmed Type Citalopram Hydrobromide [CeleXA] 40 mg PO DAILY 07/13/19 10/16/19 History Levothyroxine Sodium [Synthroid] 112 mcg PO DAILY 07/13/19 10/16/19 History buPROPion HCL [Wellbutrin XL] 150 mg PO DAILY 07/13/19 10/16/19 History Allergies Allergy/AdvReac Type Severity Reaction Status Date / Time No Known Allergies Allergy Verified 10/16/19 19:14 Physical Exam Vitals: Vital Signs Temp Pulse Pulse Resp BP BP Pulse Ox 10/17/19 15:00 98.3 F 107 H 18 150/87 97 10/17/19 11:40 98.3 F 109 H 17 118/87 96 10/17/19 04:59 98.0 F 103 H 20 125/83 10/16/19 21:33 96.8 F L 107 H 14 119/78 95 10/16/19 20:38 97.2 F L 114 H 17 99/57 100 10/16/19 17:52 98.8 F 120 H 18 140/90 97 Intake and Output 10/17/19 10/17/19 10/17/19 06:59 14:59 22:59 Other: Voiding Method Toilet # Voids 0 2 # Bowel Movements 0 0 Weight 54 kg - Constitutional General appearance: average body habitus, cooperative, disheveled - EENT Eyes: EOMI, PERRLA ENT: hard of hearing Ears: bilateral: normal - Neck Neck: normal ROM Carotids: bilateral: upstroke normal - Respiratory Respiratory: bilateral: CTA - Cardiovascular Rhythm: regular Heart sounds: normal: S1, S2 - Gastrointestinal General gastrointestinal: normal bowel sounds, soft - Integumentary Integumentary: normal, normal turgor - Neurologic Neurologic: CNII-XII intact - Musculoskeletal Musculoskeletal: gait normal, generalized weakness, strength equal bilaterally - Psychiatric Psychiatric: A&O x's 3, appropriate affect, intact judgment & insight Results - Laboratory Findings CBC and BMP: 10/16/19 18:28 10/16/19 18:28 Abnormal lab findings: Abnormal Labs 10/16/19 10/16/19 10/17/19 18:28 18:28 05:30 MCV 104.3 H RDW 16.2 H Plt Count 100 L Calcium 8.2 L Magnesium 1.5 L TSH 0.050 L Serum Alcohol 341 H* - Diagnostic Findings Chest x-ray: report reviewed, image reviewed Assessment and Plan Assessment: Alcohol intoxication Left upper lobe density/mass History of smoking and alcohol Depression Hypothyroidism Plan: Agree with current plan of care Deep breathing exercises incentive spirometry Monitor closely for alcohol intoxication Non-contrast computed tomography scan of the chest to evaluate left upper lobe nodule Time with Patient: Greater than 30
--- NOTE | 2019-10-18 13:19 | P.PN ---
Subjective Progress Note Date: 10/18/19 Principal diagnosis: Alcohol intoxication Left upper lobe density/mass History of smoking and alcohol Depression Hypothyroidism 10/18/2019, patient seen eval examined during the rounds denies any chest pain or shortness of breath breathing comfortably, hemodynamic status marginal slightly tachycardic tremulous, saturation is 98% room air, likely related to intoxicated affect of ethanol and the withdrawal This is a 59-year-old with extensive history of alcohol consumption patient from home brought into emergency department for shortness of breath, also a spiking fever, overall poor historian not much detail data can be obtained from her, the emergency department she was afebrile with heart rate of 120 slightly hypertensive oxygen saturation was 97%, she was noted to have thrombocytopenia due to likely alcohol abuse and her serum alcohol level was 341 patient was admitted to hospital with acute alcohol intoxication him a patient has been evaluated by psychiatric service, patient was noted to have a density in left upper lobe she was noted negative for reynolds virus also C. difficile was negative, Objective - Vital Signs Vital signs: Vital Signs Temp 97.5 F L 10/18/19 07:00 Pulse 99 10/18/19 07:00 Resp 18 10/18/19 07:00 BP 147/107 10/18/19 07:00 Pulse Ox 98 10/18/19 07:00 Intake & Output 10/17/19 10/18/19 10/18/19 18:59 06:59 18:59 Intake Total 930 Balance 930 Intake: Intake, IV Titration 350 Amount Azithromycin 500 mg In 250 Sodium Chloride 0.9% 250 ml @ 250 mls/hr IVPB DAILY [facility] Rx#:[id number] Sodium Chloride 0.9% 1, 100 000 ml @ 100 mls/hr IV . Q10H [facility] Rx#:[id number] Oral 580 Other: Voiding Method Toilet Toilet Toilet # Voids 2 2 1 # Bowel Movements 0 1 0 - Exam - Constitutional General appearance: average body habitus, cooperative, disheveled - EENT Eyes: EOMI, PERRLA ENT: hard of hearing Ears: bilateral: normal - Neck Neck: normal ROM Carotids: bilateral: upstroke normal - Respiratory Respiratory: bilateral: CTA - Cardiovascular Rhythm: regular Heart sounds: normal: S1, S2 - Gastrointestinal General gastrointestinal: normal bowel sounds, soft - Integumentary Integumentary: normal, normal turgor - Neurologic Neurologic: CNII-XII intact - Musculoskeletal Musculoskeletal: gait normal, generalized weakness, strength equal bilaterally - Psychiatric Psychiatric: A&O x's 3, appropriate affect, intact judgment & insight - Labs CBC & Chem 7: 10/16/19 18:28 04 18:28 Assessment and Plan Assessment: Alcohol intoxication Left upper lobe density/mass History of smoking and alcohol Depression Hypothyroidism Plan: Agree with current plan of care Deep breathing exercises incentive spirometry Monitor closely for alcohol intoxication Non-contrast computed tomography scan of the chest to evaluate left upper lobe nodule Time with Patient: Greater than 30
--- NOTE | 2019-10-18 13:55 | CT ---
EXAMINATION TYPE: CT chest wo con DATE OF EXAM: 10/18/2019 COMPARISON: None. HISTORY: SIENA mass, pt c/o chest pain CT DLP: 281.2 mGycm. Automated Exposure Control for Dose Reduction was Utilized. TECHNIQUE: CT scan of the thorax is performed without IV contrast. FINDINGS: There is an 11.8 mm slightly spiculated mass in the superior segment of the left lower lobe , best seen on image 26. No other parenchymal lesion is seen. There is no significant axillary, internal mammary, mediastinal or hilar adenopathy. There is no pleu ral or pericardial fluid. The heart is not enlarged. Within the abdomen, the liver is slightly low attenuating and may be fatty infiltrated. The remainder the upper abdomen is unremarkable. IMPRESSION: 11.8 MM, SLIGHTLY SPICULATED LESION IN THE SUPERIOR SEGMENT OF THE LEFT LOWER LOBE. FURTHER ASSESSMEN T WITH EITHER BIOPSY OR PET/CT WOULD BE SUGGESTED.
--- NOTE | 2019-10-18 14:10 | P.CNNES ---
History of Present Illness Consult date: 10/17/19 Reason for Consult: acute alcohol intoxication History of Present Illness: Neurology consultation was not done on this patient. Acute alcohol intoxication is not a neurologic disorder. Past Medical History Past Medical History: Osteoarthritis (OA), Seizure Disorder, Thyroid Disorder Additional Past Medical History / Comment(s): ETOH abuse, chronic back pain,neck pain, numbness derick. shoulder & arm/finger tips, derick numbness to legs & ft, limited rom neck, benign colon polyps, uses walker, frequent falls History of Any Multi-Drug Resistant Organisms: None Reported Past Surgical History: Breast Surgery, Hernia Repair, Orthopedic Surgery, Tonsillectomy Additional Past Surgical History / Comment(s): derick knee replacements with R knee done twice, bilateral eye laser surgery for vision correction, benign lump removed from lt breast, colonoscopies/benign polypectomies. Past Anesthesia/Blood Transfusion Reactions: Motion Sickness Additional Past Anesthesia/Blood Transfusion Reaction / Comment(s): no hx blood transfusion Past Psychological History: Anxiety, Depression Additional Psychological History / Comment(s): Pt resides with her life partner of 36 yrs. She uses a cane or walker. She does not drive. She is disabled. Smoking Status: Current every day smoker Past Alcohol Use History: Abuse, Daily, Heavy Additional Past Alcohol Use History / Comment(s): Pt started smoking in 1973 and states she recently quit smoking 5 days ago. Pt states she drinks Admiral Dustin-1.5 pints per day. Past Drug Use History: None Reported - Past Family History Mother Additional Family Medical History / Comment(s): Mother recently of heart problems at the age of 79yrs old. Father Family Medical History: Hyperlipidemia Additional Family Medical History / Comment(s): Father is living. Medications and Allergies Home Medications Medication Instructions Recorded Confirmed Type Citalopram Hydrobromide [CeleXA] 40 mg PO DAILY 07/13/19 10/16/19 History Levothyroxine Sodium [Synthroid] 112 mcg PO DAILY 07/13/19 10/16/19 History buPROPion HCL [Wellbutrin XL] 150 mg PO DAILY 07/13/19 10/16/19 History Allergies Allergy/AdvReac Type Severity Reaction Status Date / Time No Known Allergies Allergy Verified 10/16/19 19:14 Physical Examination - Vital Signs Vital Signs: Vital Signs Temp Pulse Resp BP BP Pulse Ox 10/18/19 07:00 97.5 F L 99 18 147/107 98 10/18/19 03:13 97.7 F 82 19 152/94 98 10/17/19 19:34 98.2 F 113 H 17 148/96 98 10/17/19 15:00 98.3 F 107 H 18 150/87 97 Intake and Output 10/17/19 10/18/19 10/18/19 22:59 06:59 14:59 Intake Total 930 Balance 930 Intake: Intake, IV Titration 350 Amount Azithromycin 500 mg In 250 Sodium Chloride 0.9% 250 ml @ 250 mls/hr IVPB DAILY [facility] Rx#:[id number] Sodium Chloride 0.9% 1, 100 000 ml @ 100 mls/hr IV . Q10H [facility] Rx#:[id number] Oral 580 Other: Voiding Method Toilet Toilet # Voids 1 2 1 # Bowel Movements 1 1 0 Results - Laboratory Findings CBC and BMP: 10/16/19 18:28 10/16/19 18:28 Abnormal Lab Findings: Abnormal Labs 10/16/19 10/16/19 10/17/19 18:28 18:28 05:30 MCV 104.3 H RDW 16.2 H Plt Count 100 L Calcium 8.2 L Magnesium 1.5 L TSH 0.050 L Serum Alcohol 341 H* Assessment and Plan Assessment: Impressions: 1. This patient was not seen in neurologic consultation
[2019-10-18] MEDS: LORazepam 1 MG TAB PO PRN (19:35)
[2019-10-18] MEDS: CHOLESTYRAMINE (WITH SUGAR) 4 GM PACKET PO PRN (20:42)
--- NOTE | 2019-10-19 00:05 | PN ---
PROGRESS NOTE A 59-year-old white female, alcohol withdrawal syndrome. Magnesium level is 1.5, calcium 8.2, TSH is low. The patient continues on current treatments. CARDIOVASCULAR: S1, S2. LUNG: Transmitted upper airway sounds. HEMATOLOGY: Negative Homans. PSYCH: Fair mood and affect. PLAN: To continue with current treatment. Follow up next 24 to 48 hours for possible discharge if patient is stable. She is to continue azithromycin for bronchitis. Follow up next 24 to 48 hours. MMODL / IJN: [id number] /
--- NOTE | 2019-10-19 01:36 | CONS ---
CONSULTATION DATE OF SERVICE: 10/18/2019. PURPOSE FOR CONSULTATION: Evaluate for alcohol intoxication, alcohol withdrawal, and depression. INTERVAL HISTORY: Patient has been doing fair. She continues in acute alcohol withdrawal. CIWA scores have been 9 and 8 as her higher scores today. She has continued to receive p.r.n. Ativan. She continues to run an elevated blood pressure with her latest one at 3 p.m. of 158/73 with a pulse of 104. Her temp has remained stable with her current temp of 98. The patient notes that she has some mild tremor in her hands. Mental status corbett, the patient generally seems to be doing fairly well. She communicates appropriately. Her thoughts are clear. She is able to interact with staff. She is able to discuss her situation in a coherent manner. When I talked to her about treatment options following detoxification, the patient was adamant about the idea that she did not want to be referred to an inpatient treatment program. She said that she will connect with outpatient resources that she plans to be guided by her therapist that she has been seen. She says that she has been working on plans towards a program of relapse prevention. She acknowledges that her partner who also was in the hospital for similar circumstances has a serious drinking issues as well and apparently the two have communicated about plans towards getting into a good recovery program. When I talked to the patient, she gave good eye contact. She answered questions appropriately. Her thoughts were clear and coherent. Her affect was a little blunted, though she did show appropriate emotional response. She was somewhat intense around the idea of not wanting to go into an inpatient treatment program. Her mood was somewhat down, though not significantly depressed. There was no indication of thought disorder. She voiced no thoughts of harm to self or others. Cognition was clear. ASSESSMENT: I will continue the current diagnosis and treatment plan. There might be consideration for starting the patient on a Catapres patch which is used adjunct typically to help manage early withdrawal symptoms, a 0.2 mg patch would be appropriate. At this point I will defer to Dr. Foster in this regard. He may need further psychiatric input as she goes off of Ativan as I would anticipate acute withdrawal symptoms to intensify especially over the first 2 weeks after cessation of alcohol and benzodiazepines. I encouraged the patient to call her outpatient therapist tomorrow and begin to coordinate for some outpatient resources. I would have the social services specialist get involved in coordinating with the outpatient therapist as well. At this point, I will not continue psychiatric followup though if further needs arise please re-consult Psychiatry. MMODL / IJN: [id number] /
[2019-10-19] MEDS: LEVOTHYROXINE 112 MCG TAB PO SCH (08:24)
[2019-10-19] MEDS: buPROPion XL 150 MG TAB.ER.24H PO SCH (08:25)
[2019-10-19] MEDS: CITALOPRAM HYDROBROMIDE 20 MG TAB PO SCH (08:25)
[2019-10-19] MEDS: SODIUM CHLORIDE 0.9% 1,000 ML IV SCH ×2 (08:25→21:03)
[2019-10-19] MEDS: THIAMINE 100 MG TAB PO SCH ×2 (08:25→18:28)
[2019-10-19] MEDS: AZITHROMYCIN 500 MG TAB PO SCH (08:25)
[2019-10-19] MEDS: LORazepam 1 MG TAB PO PRN ×3 (08:30→19:26)
[2019-10-19] MEDS ORDERED: ATENOLOL 12.5 MG TAB PO SCH (17:45)
[2019-10-19] MEDS: ATENOLOL 25 MG TAB PO SCH (18:28)
--- NOTE | 2019-10-19 19:02 | CDI ---
Documentation Clarification Form Date: 10/19/2019 06:37:18 PM From: Zulema Small: [phone] Admit Date: 10/16/2019 07:16:00 PM Patient Name: Shara Alex Visit Number: [id number] Discharge Date: ATTENTION: The Clinical Documentation Specialists (CDI) and [facility] Coding Staff appreciate your assistance in clarifying documentation. Please respond to the clarification below the line at the bottom and electronically sign. The CDI & [facility] Coding staff will review the response and follow-up if needed. Please note: Queries are made part of the Legal Health Record. If you have any questions, please contact the author of this message via ITS. Dr. Uriah Foster Coding guidelines do not allow coding professionals to code based on laboratory results; therefore, your input is requested. The COVID-19 test obtained on 10/16 was reported as Negative on 10/16 (fill in the dates). Per your 10/16 Progress Note 10/16 She has been tested for COVID, which apparently might be negative. 59-year-old female presents to the ED via EMS for having fevers at home and impending . Uncooperative with EMS. Clinical Indicators Medical History: Seizure disorder, ETOH abuse, chronic back pain, 10/16 CXR: stable left upper lobe density VS in ED Triage: T:98.0, P: 87, R 16, Sat 99% on room air, BP: 135/86 10/15 WBC 6.7 Treatment 10/16 Pulmonary consult Left upper lobe density /mass (fill in the date, assessment, recommendation) 10/16 Azithromycin ivpb daily10/18 changed to Oral daily In order to capture the severity of condition, please clarify the COVID-19 status: COVID-19 ruled out False negative, treating for COVID-19 based on these clinical indicators: Other, please specify (Last Form Revision: August 2019) SANJUD
[2019-10-19] MEDS: CHOLESTYRAMINE (WITH SUGAR) 4 GM PACKET PO PRN (21:03)
--- NOTE | 2019-10-19 23:00 | PN ---
PROGRESS NOTE This patient is a 59-year-old white female who has been seen by Neurology and Psychiatry. She has had a cough and congestion. She says she does not feel well. Labs reviewed. Consultations reviewed. Neurology refused to see the patient because alcohol withdrawal is not a neurologic condition. She was seen by Psychiatry. They started her on a Catapres patch 0.2 mg. Ativan was given for alcohol withdrawal. Psychiatry followup will be done. Continue with cough and congestion medications and dizziness medications. Prognosis guarded. Possible discharge home soon. MMODL / IJN: [id number] /
[2019-10-20] MEDS: LORazepam 1 MG TAB PO PRN ×3 (01:23→15:12)
[2019-10-20 03:08] VITALS: TEMP 98.1
[2019-10-20] MEDS: LEVOTHYROXINE 112 MCG TAB PO SCH (06:01)
[2019-10-20] MEDS: SODIUM CHLORIDE 0.9% 1,000 ML IV SCH ×2 (06:01→12:18)
[2019-10-20 08:05] VITALS: BP 137/84; RESP 18
[2019-10-20] MEDS: CITALOPRAM HYDROBROMIDE 20 MG TAB PO SCH (08:58)
[2019-10-20] MEDS: THIAMINE 100 MG TAB PO SCH (08:59)
[2019-10-20] MEDS: ATENOLOL 25 MG TAB PO SCH (08:59)
[2019-10-20] MEDS: buPROPion XL 150 MG TAB.ER.24H PO SCH (09:02)
[2019-10-20] MEDS: AZITHROMYCIN 500 MG TAB PO SCH (09:02)
[2019-10-20 09:13] VITALS: PULSE 85
--- NOTE | 2019-10-20 12:11 | P.PN ---
Subjective Progress Note Date: 10/20/19 Principal diagnosis: Alcohol intoxication Left upper lobe density/mass History of smoking and alcohol Depression Hypothyroidism 10/20/2019, patient seen eval examined during the rounds labs reviewed. Her CAT scan reviewed, which shows almost 12 mm slightly spiculated the lesion in the superior segment of the left lower lobe she would require a PET scan on outpatient basis 10/18/2019, patient seen eval examined during the rounds denies any chest pain or shortness of breath breathing comfortably, hemodynamic status marginal slightly tachycardic tremulous, saturation is 98% room air, likely related to intoxicated affect of ethanol and the withdrawal This is a 59-year-old with extensive history of alcohol consumption patient from home brought into emergency department for shortness of breath, also a spiking fever, overall poor historian not much detail data can be obtained from her, the emergency department she was afebrile with heart rate of 120 slightly hypert ensive oxygen saturation was 97%, she was noted to have thrombocytopenia due to likely alcohol abuse and her serum alcohol level was 341 patient was admitted to hospital with acute alcohol intoxication him a patient has been evaluated by psychiatric service, patient was noted to have a density in left upper lobe she was noted negative for reynolds virus also C. difficile was negative, Objective - Vital Signs Vital signs: Vital Signs Temp 98.1 F 10/20/19 07:00 Pulse 85 10/20/19 08:00 Resp 18 10/20/19 08:00 BP 137/84 10/20/19 07:00 Pulse Ox 99 10/20/19 07:00 Intake & Output 10/19/19 10/20/19 10/20/19 18:59 06:59 18:59 Intake Total 900 Balance 900 Intake: Intake, IV Titration 800 Amount Sodium Chloride 0.9% 1, 800 000 ml @ 100 mls/hr IV . Q10H [facility] Rx#:[id number] Oral 100 Other: Voiding Method Toilet Toilet Toilet # Voids 2 1 - Exam - Constitutional General appearance: average body habitus, cooperative, disheveled - EENT Eyes: EOMI, PERRLA ENT: hard of hearing Ears: bilateral: normal - Neck Neck: normal ROM Carotids: bilateral: upstroke normal - Respiratory Respiratory: bilateral: CTA - Cardiovascular Rhythm: regular Heart sounds: normal: S1, S2 - Gastrointestinal General gastrointestinal: normal bowel sounds, soft - Integumentary Integumentary: normal, normal turgor - Neurologic Neurologic: CNII-XII intact - Musculoskeletal Musculoskeletal: gait normal, generalized weakness, strength equal bilaterally - Psychiatric Psychiatric: A&O x's 3, appropriate affect, intact judgment & insight - Labs CBC & Chem 7: 10/16/19 18:28 10/16/19 18:28 Assessment and Plan Assessment: Alcohol intoxication Left upper lobe density/mass with morphology spiculated likely neoplasm History of smoking and alcohol Depression Hypothyroidism Plan: Agree with current plan of care Deep breathing exercises incentive spirometry Monitor closely for alcohol intoxication Non-contrast computed tomography scan of the chest reviewed may very well have a neoplasm patient on outpatient setting should get a PET scan followed by biopsy or resection will follow as outpatient basis Time with Patient: Greater than 30
[2019-10-20] MEDS ORDERED: MAGNESIUM OXIDE 400 MG TAB PO SCH ×2 (12:30→13:45)
--- NOTE | 2019-10-20 18:10 | P.DS ---
Providers Date of admission: 10/16/19 19:16 Expected date of discharge: 10/20/19 Attending physician: Uriah Foster Consults: 10/16/19 21:21 Consult Physician Routine Consulting Provider: Silva Barbosa Consult Reason/Comments: alcohol intoxication Do you want consulting provider notified?: Yes 10/16/19 22:42 Consult Physician Routine Consulting Provider: Lennox Blackburn Consult Reason/Comments: depression Do you want consulting provider notified?: Yes 10/17/19 15:34 Consult Physician Routine Consulting Provider: Brooks Carpenter Consult Reason/Comments: lung nodule,cough Do you want consulting provider notified?: Yes Primary care physician: Fidencio Langford Hospital Course: Final diagnoses Acute alcohol intoxication, DTs Left upper lobe density, mass possible malignancy, further outpatient follow- up/PET scan with pulmonary Depression Hypothyroidism, TSH 0.050, free T4 1 0.14-outpatient adjustment of levothyroxine as per PCP. Hypomagnesemia Nicotine dependence Alcohol abuse Hospital course: This is a 59-year-old female admitted with alcohol abuse, DTs and multiple other medical issues. Maintained on CIWA protocol. CIWA score today, 0. Evaluated/treated by psychiatry, pulmonary. Significant clinical improvement. Patient has been cleared for discharge by all consults. Patient is being discharged home in a stable condition with guarded prognosis. Patient will need to have further follow-up regarding lung mass/PET scan outpatient. The impression and plan of care has been dictated as directed. : I performed a history and examination of this patient, discussed the same with the dictator. I agree with the dictator's note ,documented as a scribe. Any additional findings or plans will be noted. Patient Condition at Discharge: Stable Plan - Discharge Summary Discharge Rx Participant: No New Discharge Prescriptions: New Atenolol [Tenormin] 12.5 mg PO DAILY #30 tab Thiamine [Vitamin B-1] 100 mg PO DAILY #30 tab Azithromycin [Zithromax] 500 mg PO DAILY #3 tab Folic Acid 1 mg PO DAILY #30 tablet Multivitamins, Thera [Multivitamin (formulary)] 1 tab PO DAILY #30 tablet Continue buPROPion HCL [Wellbutrin XL] 150 mg PO DAILY Levothyroxine Sodium [Synthroid] 112 mcg PO DAILY Citalopram Hydrobromide [CeleXA] 40 mg PO DAILY Discharge Medication List Citalopram Hydrobromide [CeleXA] 40 mg PO DAILY 07/13/19 [History] Levothyroxine Sodium [Synthroid] 112 mcg PO DAILY 07/13/19 [History] buPROPion HCL [Wellbutrin XL] 150 mg PO DAILY 07/13/19 [History] Atenolol [Tenormin] 12.5 mg PO DAILY #30 tab 10/20/19 [Rx] Azithromycin [Zithromax] 500 mg PO DAILY #3 tab 10/20/19 [Rx] Folic Acid 1 mg PO DAILY #30 tablet 10/20/19 [Rx] Multivitamins, Thera [Multivitamin (formulary)] 1 tab PO DAILY #30 tablet 10/20/19 [Rx] Thiamine [Vitamin B-1] 100 mg PO DAILY #30 tab 10/20/19 [Rx] Follow up Appointment(s)/Referral(s): Uriah Foster MD [STAFF PHYSICIAN] - 3 Days (Please call office to set up an appointment) Brooks Carpenter MD [STAFF PHYSICIAN] - 2 Weeks (Re: Pulmonary mass per CT Please call office to set up appointment. office closed) Activity/Diet/Wound Care/Special Instructions: No alcohol. Further follow-up outpatient with pulmonary regarding lung mass Discharge Disposition: HOME SELF-CARE
== END 2019-10-20 15:14 | disposition home or self-care (01) | DRG 897 ==
LOC: EC 17:43 → 5NMEDONC 19:16 → 4SSUR 10-17 11:36
PROVIDERS: ADMIT Family Medicine; ATTEND Family Medicine
DX: F10.231 Alcohol dependence with withdrawal delirium (principal); D64.9 Anemia, unspecified; E03.9 Hypothyroidism, unspecified; E83.42 Hypomagnesemia; F17.200 Nicotine dependence, unspecified, uncomplicated; G40.909 Epilepsy, unspecified, not intractable, without status epilepticus; Y90.8 Blood alcohol level of 240 mg/100 ml or more; J40 Bronchitis, not specified as acute or chronic; Z20.828 Contact with and (suspected) exposure to other viral communicable diseases; R91.8 Other nonspecific abnormal finding of lung field; F32.9 Major depressive disorder, single episode, unspecified; Z96.653 Presence of artificial knee joint, bilateral; D69.59 Other secondary thrombocytopenia; F41.9 Anxiety disorder, unspecified; M19.90 Unspecified osteoarthritis, unspecified site; Z79.890 Hormone replacement therapy; Z79.899 Other long term (current) drug therapy; Z87.19 Personal history of other diseases of the digestive system; Z98.890 Other specified postprocedural states; Z90.89 Acquired absence of other organs; Z83.438 Family history of other disorder of lipoprotein metabolism and other lipidemia
CPT/HCPCS: 36415; 71046; 71250; 80048; 80320; 82075; 82607; 83735; 84439; 84443; 84484; 85025; 87324; 87635; 93005; 96365; 96375; 99284

== ENCOUNTER 2019-10-28 16:29 | Observation (INO) | payer MEDICARE, OTHER ==
--- NOTE | 2019-10-28 16:59 | ED ---
General Adult HPI - General Chief complaint: Psychiatric Symptoms Stated complaint: ETOH Time Seen by Provider: 10/28/19 16:42 Source: patient, police, EMS, RN notes reviewed, old records reviewed Mode of arrival: EMS Limitations: altered mental status - History of Present Illness Initial comments: Patient is a 59-year-old female presenting to the emergency Department with agitation. Patient admits to drinking a lot of alcohol. Patient states she was admitted to the hospital several days ago with alcohol intoxication. Patient admits she has been agitated today. Patient has limited ability to provide further history. - Related Data Home Medications Medication Instructions Recorded Confirmed Citalopram Hydrobromide [CeleXA] 40 mg PO DAILY 07/13/19 10/28/19 Levothyroxine Sodium [Synthroid] 112 mcg PO DAILY 07/13/19 10/28/19 buPROPion HCL [Wellbutrin XL] 150 mg PO DAILY 07/13/19 10/28/19 Previous Rx's Medication Instructions Recorded Atenolol [Tenormin] 12.5 mg PO DAILY #30 tab 10/20/19 Folic Acid 1 mg PO DAILY #30 tablet 10/20/19 Multivitamins, Thera [Multivitamin 1 tab PO DAILY #30 tablet 10/20/19 (formulary)] Thiamine [Vitamin B-1] 100 mg PO DAILY #30 tab 10/20/19 Allergies Allergy/AdvReac Type Severity Reaction Status Date / Time No Known Allergies Allergy Verified 10/16/19 19:14 Review of Systems ROS Statement: Those systems with pertinent positive or pertinent negative responses have been documented in the HPI. ROS Other: All systems not noted in ROS Statement are negative. Constitutional: Denies: fever Eyes: Denies: eye pain ENT: Denies: ear pain Respiratory: Denies: dyspnea Cardiovascular: Denies: palpitations Endocrine: Denies: fatigue Gastrointestinal: Denies: abdominal pain Genitourinary: Denies: dysuria Musculoskeletal: Denies: back pain Skin: Denies: rash Neurological: Denies: weakness Psychiatric: Reports: as per HPI Past Medical History Past Medical History: Osteoarthritis (OA), Seizure Disorder, Thyroid Disorder Additional Past Medical History / Comment(s): ETOH abuse, chronic back pain,neck pain, numbness derick. shoulder & arm/finger tips, derick numbness to legs & ft, limited rom neck, benign colon polyps, uses walker, frequent falls History of Any Multi-Drug Resistant Organisms: None Reported Past Surgical History: Breast Surgery, Hernia Repair, Orthopedic Surgery, Tonsillectomy Additional Past Surgical History / Comment(s): derick knee replacements with R knee done twice, bilateral eye laser surgery for vision correction, benign lump removed from lt breast, colonoscopies/benign polypectomies. Past Anesthesia/Blood Transfusion Reactions: Motion Sickness Additional Past Anesthesia/Blood Transfusion Reaction / Comment(s): no hx blood transfusion Past Psychological History: Anxiety, Depression Smoking Status: Current every day smoker Past Alcohol Use History: Abuse, Daily, Heavy Past Drug Use History: None Reported - Past Family History Mother Additional Family Medical History / Comment(s): Mother recently of heart problems at the age of 79yrs old. Father Family Medical History: Hyperlipidemia Additional Family Medical History / Comment(s): Father is living. General Exam Limitations: altered mental status General appearance: alert, appears intoxicated Head exam: Present: normocephalic Eye exam: Present: normal appearance Neck exam: Present: normal inspection Respiratory exam: Present: normal lung sounds bilaterally Cardiovascular Exam: Present: regular rate, normal rhythm GI/Abdominal exam: Present: soft. Absent: tenderness Extremities exam: Present: normal inspection Neurological exam: Present: alert. Absent: motor sensory deficit Psychiatric exam: Present: agitated Skin exam: Present: normal color Course Vital Signs 10/28/19 16:47 Temperature 97.7 F Pulse Rate 97 Respiratory 18 Rate Blood Pressure 136/105 O2 Sat by Pulse 97 Oximetry Procedures - Restraint - Face to Face Restraint Occurrence 1 Patient's Immediate Situation: Endangers self safety, Endangers others' safety, Endangers staff safety, Violent behavior Patient's Reaction to the Intervention: Angry Patient's Medical & Behavioral Condition: Awake, Agitated Need to Continue or Terminate Restraint or Seclusion: Continue Face to Face Eval of Restraint Date: 10/28/19 Face to Face Eval of Restraint Time: 17:02 Medical Decision Making - Medical Decision Making Patient reevaluated. Case discussed with Dr. Ulloa who will admit covering for hospital call. Dr.'s Langford was previously contacted who states he no longer sees this patient. - Lab Data Lab Results 10/28/19 Range/Units 18:18 Serum Alcohol 355 H* mg/dL Disposition Clinical Impression: Alcohol intoxication Disposition: ADMITTED IP TO THIS HOSP Is patient prescribed a controlled substance at d/c from ED?: No Referrals: Fidencio Langford MD [Primary Care Provider] - 1-2 days Decision Time: 19:08
[2019-10-28] MEDS ORDERED: ZIPRASIDONE 20 MG VIAL IM STA (17:55)
[2019-10-28] MEDS ORDERED: HYDROmorphone 0.5 MG/0.5 ML SYRINGE IVP PRN (18:44)
[2019-10-28] MEDS ORDERED: TEMAZEPAM 15 MG CAP PO PRN (18:44)
[2019-10-28] MEDS ORDERED: HYDROcodone/APAP 5-325MG 1 EACH TAB PO PRN (18:44)
[2019-10-28] MEDS ORDERED: ACETAMINOPHEN TAB 500 MG TAB PO PRN (18:44)
--- NOTE | 2019-10-28 18:57 | XR ---
EXAMINATION TYPE: XR chest 1V portable DATE OF EXAM: 10/28/2019 COMPARISON: 10/17/2019 HISTORY: Cough TECHNIQUE: Single frontal view of the chest is obtained. FINDINGS: New right infrahilar patchy opacity may be exaggerated by patient rotation. Remainder the lungs are well aerated. The known nodular density previously seen of the left scapular border is obsc ured by the overlying lead. No pleural effusion or pneumothorax. Mild chronic right hemidiaphragm otilio vation. Cardiomediastinal silhouette is stable. There appears to be mild diffuse osseous demineraliza tion. IMPRESSION: 1. New right infrahilar patchy opacity that may be exaggerated by patient rotation. Consider atelecta sis or pneumonia. 2. The known left upper lobe spiculated mass for which PET CT and/or percutaneous biopsy were recentl y recommended is obscured by the overlying external leads.
[2019-10-28] MEDS ORDERED: NALOXONE 0.4 MG/ML 1 ML VIAL IV PRN (19:08)
[2019-10-28] MEDS ORDERED: LORazepam 2 MG/ML INJ IV PRN ×3 (19:09)
[2019-10-28] MEDS ORDERED: SODIUM CHLORIDE 0.9% 1,000 ML IV SCH (19:15)
[2019-10-28] MEDS: THIAMINE 100 MG TAB PO SCH (19:29)
[2019-10-28] MEDS: NICOTINE 14MG/24HR PATCH TRANSDERM SCH (19:30)
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
[2019-10-28] MEDS: HEPARIN SODIUM,PORCINE 5,000 UNIT/ML 1 ML VIAL SQ SCH (21:40)
[2019-10-28] MEDS: cloNIDine HCL 0.1 MG TAB PO SCH (21:40)
[2019-10-28] MEDS: LEVOTHYROXINE 112 MCG TAB PO SCH (21:42)
[2019-10-28 22:22] LABS: Prothrombin Time 10.1 sec (9.0-12.0)
[2019-10-29 05:31] LABS: Appearance,Urine Clear (Clear); Bacteria,Urine Rare /hpf; Bilirubin,Urine Negative (Negative); Blood,Urine Negative (Negative); Color,Urine Yellow; Glucose,Urine (UA) Negative (Negative); Hyaline Casts,Urine 1 /lpf (0-2); Ketones,Urine Negative (Negative); Leukocyte Esterase,Urine Trace (Negative); Mucus,Urine Occasional /hpf; Nitrite,Urine Negative (Negative); Protein,Urine Negative (Negative); RBC,Urine <1 /hpf (0-5); Specific Gravity,Urine 1.016 (1.001-1.035); Squamous Epithelial Cell,Urine 4 /hpf (0-4); Urobilinogen,Urine <2.0 mg/dL (<2.0); WBC,Urine 1 /hpf (0-5)
[2019-10-29 06:07] LABS: Amphetamine Screen,Urine Not Detected (NotDetected); Barbiturate Screen,Urine Not Detected (NotDetected); Benzodiazepines Screen,Urine Detected (NotDetected); Cocaine Screen,Urine Not Detected (NotDetected); Methadone Screen, Urine Not Detected (NotDetected); Opiate Screen,Urine Not Detected (NotDetected); Oxycodone Screen, Urine Not Detected (NotDetected); Phencyclidine Screen,Urine Not Detected (NotDetected); Tricyclic Antidepressant,Urine Not Detected (NotDetected); Urn Cannabinoid Scrn Not Detected (NotDetected)
[2019-10-29] MEDS ORDERED: PANTOPRAZOLE 40 MG TABLET PO SCH (07:30)
[2019-10-29 07:38] VITALS: BP 140/86; PULSE 108; RESP 18; TEMP 98.8
[2019-10-29] MEDS: cloNIDine HCL 0.1 MG TAB PO SCH (07:59)
[2019-10-29] MEDS: THIAMINE 100 MG TAB PO SCH (07:59)
[2019-10-29] MEDS: LEVOTHYROXINE 112 MCG TAB PO SCH (07:59)
[2019-10-29] MEDS: NICOTINE 14MG/24HR PATCH TRANSDERM SCH (07:59)
[2019-10-29] MEDS: HEPARIN SODIUM,PORCINE 5,000 UNIT/ML 1 ML VIAL SQ SCH (08:00)
[2019-10-29] MEDS ORDERED: buPROPion XL 150 MG TAB.ER.24H PO SCH (09:00)
[2019-10-29] MEDS ORDERED: ATENOLOL 25 MG TAB PO SCH (09:00)
[2019-10-29] MEDS ORDERED: CITALOPRAM HYDROBROMIDE 20 MG TAB PO SCH (09:00)
[2019-10-29 09:20] LABS: Anisocytosis Slight; Basophils # (A) 0.1 k/uL (0-0.2); Basophils % (A) 2 %; Eosinophils # (A) 0.1 k/uL (0-0.7); Eosinophils % (A) 2 %; HCT 38.4 % (34.0-46.0); HGB 12.1 gm/dL (11.4-16.0); Lymphocytes # (A) 0.9 k/uL (1.0-4.8); Lymphocytes % (A) 16 %; MCH 33.4 pg (25.0-35.0); MCHC 31.6 g/dL (31.0-37.0); MCV 105.7 fL (80.0-100.0); Macrocytosis Moderate; Mean Platelet Volume 7.8; Monocytes # (A) 0.2 k/uL (0-1.0); Monocytes % (A) 4 %; Neutrophils # (A) 4.4 k/uL (1.3-7.7); Neutrophils % (A) 75 %; Platelet Count 474 k/uL (150-450); RBC 3.64 m/uL (3.80-5.40); RDW 16.3 % (11.5-15.5); WBC 5.9 k/uL (3.8-10.6)
[2019-10-29 09:50] LABS: African American GFR (CKD) >90 (>60 ml/min/1.73 sqM); Anion Gap 11 mmol/L; Blood Urea Nitrogen 14 mg/dL (7-17); Calcium 8.4 mg/dL (8.4-10.2); Carbon Dioxide 19 mmol/L (22-30); Chloride 108 mmol/L (98-107); Glucose 55 mg/dL (74-99); Magnesium 1.4 mg/dL (1.6-2.3); Non-African American GFR(CKD) >90 (>60 ml/min/1.73 sqM); Potassium 3.7 mmol/L (3.5-5.1); Sodium 138 mmol/L (137-145)
[2019-10-29] MEDS ORDERED: FOLIC ACID 1 MG TAB PO SCH (12:00)
--- NOTE | 2019-10-29 23:06 | DS ---
DISCHARGE SUMMARY DATE OF SERVICE: 10/29/2019 FINAL DIAGNOSES: 1. Acute alcohol intoxication as well as change in mental status, acute metabolic encephalopathy secondary to alcohol. 2. Acute delirium tremens. 3. History of significant ethanol. 4. History of degenerative joint disease. 5. History of seizure disorder. 6. Hypothyroidism. 7. History of chronic back pain , degenerative joint disease. 8. History of noncompliance. 9. History of anxiety, depression. 10.Continued ongoing nicotine dependence. DISCHARGE DISPOSITION: The patient will be discharged in stable condition with guarded prognosis. HISTORY OF PRESENT ILLNESS: This 59-year-old woman with a past medical history of multiple medical problems was admitted with acute alcohol intoxication. Alcohol level was significantly elevated at 355 on admission, but the next day the patient woke up and wants to go home Psychiatry was consulted. However, previously the patient was evaluated by Psychiatry and the patient is not willing to wait for Psychiatry. There are no suicidal ideations. The patient appears to be making informed judgments at this time. I have recommended the importance of following with the primary physician as well as to attend the rehab facility. Patient understands and agrees. On exam, vitals are stable. CARDIOVASCULAR SYSTEM: S1, S2 muffled. ABDOMEN: Soft. NERVOUS SYSTEM: No focal deficit. DISCHARGE ADVICE AND MEDICATIONS: 1. Diet is cardiac. 2. Activity limited until followup. 3. Follow up with Dr. Uriah Foster in 2-3 days. 4. Follow up with rehab. 5. Celexa 40 mg p.o. daily. 6. Synthroid 112 mcg p.o. daily. 7. Wellbutrin XL 150 mg p.o. daily. 8. Ativan 0.25 mg b.i.d. 9. Catapres 0.1 p.o. b.i.d. 10.Folic acid 1 p.o. daily. 11.Multivitamins 1 p.o. daily. 12.Tenormin 12.5 mg p.o. daily. 13.Thiamine 100 mg p.o. daily. Once again, the patient will be discharged in stable condition with guarded prognosis. MMODL / IJN: [id number] / MTDD
== END 2019-10-29 13:11 | disposition home or self-care (01) ==
LOC: EC 16:29 → 4SSUR 19:08
PROVIDERS: ADMIT Hospitalist; ATTEND Hospitalist
DX: F10.121 Alcohol abuse with intoxication delirium (principal); G93.41 Metabolic encephalopathy; Z78.1 Physical restraint status; R45.6 Violent behavior; Y90.8 Blood alcohol level of 240 mg/100 ml or more; M19.90 Unspecified osteoarthritis, unspecified site; E03.9 Hypothyroidism, unspecified; G89.29 Other chronic pain; M54.9 Dorsalgia, unspecified; R29.6 Repeated falls; R20.0 Anesthesia of skin; M54.2 Cervicalgia; Z86.69 Personal history of other diseases of the nervous system and sense organs; F41.9 Anxiety disorder, unspecified; F32.9 Major depressive disorder, single episode, unspecified; F17.200 Nicotine dependence, unspecified, uncomplicated; Z79.899 Other long term (current) drug therapy; Z79.890 Hormone replacement therapy; Z87.19 Personal history of other diseases of the digestive system; Z96.653 Presence of artificial knee joint, bilateral; Z82.49 Family history of ischemic heart disease and other diseases of the circulatory system; Z91.19 Patient's noncompliance with other medical treatment and regimen
CPT/HCPCS: 96372 ×2; 96374; 99285; 36415; 93005; 80048; 83735; 85025; 85610; 81001; 80306; 71045; G0378 ×2; G0480; S4990 ×2; J2060; J1644 ×2; J3486; 80320

== ENCOUNTER 2019-11-01 18:56 | Inpatient (IN) | payer MEDICARE, OTHER ==
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
--- NOTE | 2019-11-01 20:14 | CT ---
EXAMINATION TYPE: CT brain cspine wo con DATE OF EXAM: 11/01/2019 COMPARISON: 07/17/2019 HISTORY: Facial bruising after fall injury CT DLP: 2113.2 mGycm Automated exposure control for dose reduction was used. There is some cerebral cortical atrophy. There is no mass effect nor midline shift. There is no sign of intracranial hemorrhage. Calvarium is intact. Cervical vertebra have normal alignment. There is degenerative disc space narrowing at C5-6 with spur ring of the endplates. Exam limited slightly by motion. The posterior elements show anterior position of the left side inferior articular facet of C5 abnormally anterior in relation to C6. The skull bas e is intact. I see no acute fracture. IMPRESSION: Mild atrophy unchanged. Unilateral locked facet joint of C5-6 on the left side unchanged. No acute moe ny abnormality.
--- NOTE | 2019-11-01 20:17 | CT ---
EXAMINATION TYPE: CT facial bones wo con DATE OF EXAM: 11/01/2019 COMPARISON: HISTORY: Facial bruising after fall injury CT DLP: 2113.2 mGycm Automated exposure control for dose reduction was used. Images were obtained from the bottom of the mandible to the top of the frontal sinuses with no contra st. The mandibular ring is intact. The maxilla is intact. There is no evidence of a blowout fracture. Zyg omatic arches appear normal. Nasal bone is intact. Orbital margins are intact. There is no evidence o f retro-orbital mass. There is fairly normal aeration of the paranasal sinuses. There is normal aerat ion of the temporal bones. IMPRESSION: Negative CT scan of the facial bones. No fracture.
--- NOTE | 2019-11-01 20:18 | XR ---
EXAMINATION TYPE: XR knee limited bilateral DATE OF EXAM: 11/01/2019 COMPARISON: NONE HISTORY: Fall. Pain. TECHNIQUE: 4 views FINDINGS: There is bilateral knee prosthesis. Components are in anatomic position. There is no sign o f joint effusion. I see no fracture.. IMPRESSION: Negative exam. No fracture seen.
[2019-11-01] MEDS ORDERED: ONDANSETRON 4 MG/2 ML VIAL IVP STA (23:07)
[2019-11-01] MEDS ORDERED: LORazepam 2 MG/ML INJ IV STA (23:46)
[2019-11-02] MEDS ORDERED: LORazepam 2 MG/ML INJ IV PRN ×3 (04:09)
[2019-11-02] MEDS ORDERED: THIAMINE 100 MG/ML 2 ML VIAL IM STA (04:09)
[2019-11-02] MEDS ORDERED: LORazepam 2 MG/ML INJ IV STA (04:09)
[2019-11-02] MEDS ORDERED: NALOXONE 0.4 MG/ML 1 ML VIAL IV PRN (04:10)
[2019-11-02] MEDS ORDERED: SODIUM CHLORIDE 0.9% 1,000 ML IV SCH (04:15)
[2019-11-02 08:04] VITALS: RESP 18
[2019-11-02 11:18] LABS: Anisocytosis Slight; Basophils # (A) 0.1 k/uL (0-0.2); Basophils % (A) 1 %; Eosinophils # (A) 0.1 k/uL (0-0.7); Eosinophils % (A) 1 %; HCT 35.6 % (34.0-46.0); HGB 11.6 gm/dL (11.4-16.0); Lymphocytes % (A) 9 %; MCH 34.1 pg (25.0-35.0); MCHC 32.5 g/dL (31.0-37.0); MCV 104.9 fL (80.0-100.0); Macrocytosis Moderate; Mean Platelet Volume 9.7; Monocytes # (A) 0.3 k/uL (0-1.0); Monocytes % (A) 2 %; Neutrophils # (A) 9.2 k/uL (1.3-7.7); Neutrophils % (A) 86 %; RBC 3.39 m/uL (3.80-5.40); RDW 16.5 % (11.5-15.5); WBC 10.7 k/uL (3.8-10.6)
[2019-11-02 11:19] LABS: ALT 88 U/L (4-34); AST 134 U/L (14-36); African American GFR (CKD) >90 (>60 ml/min/1.73 sqM); Albumin 3.6 g/dL (3.5-5.0); Alcohol <10 mg/dL; Alkaline Phosphatase 102 U/L (38-126); Anion Gap 9 mmol/L; Blood Urea Nitrogen 14 mg/dL (7-17); Calcium 8.5 mg/dL (8.4-10.2); Carbon Dioxide 28 mmol/L (22-30); Chloride 98 mmol/L (98-107); Glucose 95 mg/dL (74-99); Non-African American GFR(CKD) >90 (>60 ml/min/1.73 sqM); Potassium 3.4 mmol/L (3.5-5.1); Sodium 135 mmol/L (137-145); Total Bilirubin 2.2 mg/dL (0.2-1.3); Total Protein 6.3 g/dL (6.3-8.2)
[2019-11-02 11:32] LABS: Platelet Count 177 k/uL (150-450)
[2019-11-02] MEDS ORDERED: POTASSIUM CHLORIDE ER 20 MEQ TAB.ER PO STA (11:39)
--- NOTE | 2019-11-02 11:40 | P.HPIM ---
History of Present Illness 59-year-old female came to emergency department with complaint with compensative suicide attempt drinking herself to . Although she denied any such complaints patient started drinking again yesterday. As per the patient patient's significant other yesterday with the massive myocardial infarction.. Patient denied any fever chills patient had nausea vomiting. Patient was recently treated for alcohol withdrawal and was discharged on 28 of October. Patient denied any fever chills dysuria nausea vomiting. Review of Systems REVIEW OF SYSTEMS: CONSTITUTIONAL: No fever, no malaise, no fatigue. HEENT: No recent visual problems or hearing problems. Denied any sore throat. CARDIOVASCULAR: No chest pain, orthopnea, PND, no palpitations, no syncope. PULMONARY: No shortness of breath, no cough, no hemoptysis. GASTROINTESTINAL: No diarrhea, no nausea, no vomiting, no abdominal pain. NEUROLOGICAL: No headaches, no weakness, no numbness. HEMATOLOGICAL: Denies any bleeding or petechiae. GENITOURINARY: Denies any burning micturition, frequency, or urgency. MUSCULOSKELETAL/RHEUMATOLOGICAL: Denies any joint pain, swelling, or any muscle pain. ENDOCRINE: Denies any polyuria or polydipsia. Psychiatric: As mentioned above The rest of the 14-point review of systems is negative. Past Medical History Past Medical History: Osteoarthritis (OA), Seizure Disorder, Thyroid Disorder Additional Past Medical History / Comment(s): ETOH abuse, chronic back pain,neck pain, numbness derick. shoulder & arm/finger tips, derick numbness to legs & ft, limited rom neck, benign colon polyps, uses walker, frequent falls History of Any Multi-Drug Resistant Organisms: None Reported Past Surgical History: Breast Surgery, Hernia Repair, Orthopedic Surgery, Tonsillectomy Additional Past Surgical History / Comment(s): derick knee replacements with R knee done twice, bilateral eye laser surgery for vision correction, benign lump removed from lt breast, colonoscopies/benign polypectomies. Past Anesthesia/Blood Transfusion Reactions: Motion Sickness Additional Past Anesthesia/Blood Transfusion Reaction / Comment(s): no hx blood transfusion Past Psychological History: Anxiety, Depression Additional Psychological History / Comment(s): Pt states assisted female partner of heart attack on Saturday10/31/19 at home. Pt states that she was there at the time. She uses a cane or walker. She does not drive. She is disabled. Smoking Status: Current every day smoker Past Alcohol Use History: Abuse, Daily, Heavy Additional Past Alcohol Use History / Comment(s): Pt started smoking in 1973 and states she recently quit smoking 5 days ago. Pt states she drinks Admiral Dustin-1.5 pints per day. Past Drug Use History: None Reported - Past Family History Mother Additional Family Medical History / Comment(s): Mother recently of heart problems at the age of 79yrs old. Father Family Medical History: Hyperlipidemia Additional Family Medical History / Comment(s): Father is living. Medications and Allergies Home Medications Medication Instructions Recorded Confirmed Type Citalopram Hydrobromide [CeleXA] 40 mg PO DAILY 07/13/19 11/02/19 History Levothyroxine Sodium [Synthroid] 112 mcg PO DAILY 07/13/19 11/02/19 History buPROPion HCL [Wellbutrin XL] 150 mg PO DAILY 07/13/19 11/02/19 History Atenolol [Tenormin] 12.5 mg PO DAILY #30 tab 10/20/19 11/02/19 Rx Folic Acid 1 mg PO DAILY #30 tablet 10/20/19 11/02/19 Rx Multivitamins, Thera [Multivitamin 1 tab PO DAILY #30 tablet 10/20/19 11/02/19 Rx (formulary)] Thiamine [Vitamin B-1] 100 mg PO DAILY #30 tab 10/20/19 11/02/19 Rx Allergies Allergy/AdvReac Type Severity Reaction Status Date / Time No Known Allergies Allergy Verified 11/02/19 08:14 Physical Exam Vitals: Vital Signs Temp Pulse Pulse Resp BP BP Pulse Ox 11/02/19 08:03 98.4 F 103 H 18 131/83 95 11/02/19 06:00 97.5 F L 105 H 16 134/76 100 11/01/19 23:43 116 H 20 114/92 100 11/01/19 22:00 111 H 18 122/56 99 11/01/19 18:59 98.4 F 121 H 20 120/86 98 Intake and Output 11/01/19 11/02/19 11/02/19 22:59 06:59 14:59 Intake Total 580 Balance 580 Intake: Oral 580 Other: Voiding Method Toilet # Voids 2 Weight 63.503 kg 63.503 kg PHYSICAL EXAMINATION: GENERAL: The patient is alert and oriented x3, not in any acute distress. Well developed, well nourished. HEENT: Pupils are round and equally reacting to light. EOMI. No scleral icterus. No conjunctival pallor. Normocephalic, atraumatic. No pharyngeal erythema. No thyromegaly. CARDIOVASCULAR: S1 and S2 present. No murmurs, rubs, or gallops. PULMONARY: Chest is clear to auscultation, no wheezing or crackles. ABDOMEN: Soft, nontender, nondistended, normoactive bowel sounds. No palpable organomegaly. MUSCULOSKELETAL: No joint swelling or deformity. EXTREMITIES: No cyanosis, clubbing, or pedal edema. NEUROLOGICAL: Gross neurological examination did not reveal any focal deficits. SKIN: Patient has a bruise and abrasion on the left cheek area secondary to fall from excessive drinking Results CBC & Chem 7: 11/02/19 10:31 Labs: Abnormal Lab Results - Last 24 Hours (Table) 11/02/19 Range/Units 10:31 Sodium 135 L (137-145) mmol/L Potassium 3.4 L (3.5-5.1) mmol/L Total Bilirubin 2.2 H (0.2-1.3) mg/dL AST 134 H (14-36) U/L ALT 88 H (4-34) U/L Thrombosis Risk Factor Assmnt - Choose All That Apply Any of the Below Risk Factors Present?: Yes Each Factor Represents 1 point: Abnormal pulmonary function (COPD), Age 41-60 years Other Risk Factors: Yes Thrombosis Risk Factor Assessment Total Risk Factor Score: 2 Thrombosis Risk Factor Assessment Level: Low Risk Assessment and Plan Plan: -Depression with suicide attempt with alcohol: Patient denied any intentions of suicide to me. Psychiatric will evaluate the patient patient probably need to go to inpatient psychiatric floor. I do not expect any withdrawals at this time as she was barely treated couple days ago for alcohol withdrawals. Patient is medically stable to be discharged to psychiatric floor -hypothyroidism Alcohol abuse: Counseling was provided -Hypertension -Acute alcoholic hepatitis expected to improve with cessation of alcohol -Tachycardia secondary to rebound from beta blockers expected to improve with resumption of beta blockers. Hypokalemia secondary to IV fluids and a few to have hypokalemia potassium was supplemented
[2019-11-02 11:55] LABS: Amphetamine Screen,Urine Not Detected (NotDetected); Barbiturate Screen,Urine Not Detected (NotDetected); Benzodiazepines Screen,Urine Detected (NotDetected); Cocaine Screen,Urine Not Detected (NotDetected); Methadone Screen, Urine Not Detected (NotDetected); Opiate Screen,Urine Not Detected (NotDetected); Oxycodone Screen, Urine Not Detected (NotDetected); Phencyclidine Screen,Urine Not Detected (NotDetected); Tricyclic Antidepressant,Urine Not Detected (NotDetected); Urn Cannabinoid Scrn Not Detected (NotDetected)
[2019-11-02 14:56] VITALS: BP 135/89; PULSE 113; TEMP 98.1
--- NOTE | 2019-11-02 15:30 | P.CN ---
Psychiatric Consult - . Consult date: 11/02/19 Consult:: IDENTIFYING DATA: She is a 59-year-old female admitted to some medicine service for the management of acute alcohol intoxication. The hospitalist consult to psychiatry for evaluation of suicidal ideation. HISTORY OF PRESENT ILLNESS: I reviewed the medical record and interviewed the patient. She presented to the emergency department acutely intoxicated with a breath alcohol level of 0.222. The emergency department note indicates that she made a suicidal statements. She was acutely distressed because her partner of 39 years suddenly on Saturday from a "massive heart attack." She denied that she had expressed suicidal thoughts. She alleged that she told the emergency doctor that she "wishes to see her ." She denied that this was a suicidal statement and denied that she has intent or plans for suicide. Much to the interview she was spent her expressing her grief over the sudden and unexpected of her partner. She talked about her close relationship and described continued longing for her partner. She is experiencing intense emotional pain and is preoccupied with the circumstances of her partner's . She feels guilty because her partner had complained of left arm pain the day prior to the infarct and she feels that guilty that she really did not recognize this as a sign of heart disease. Both she and her partner have a history of heavy alcohol use. Her partner drank approximately 1/5 of vodka per day. She alleged that she drank approximately 1 pint of liquor per day. She's been drinking since the of her mother and since March 2019. She suspects that her and her partner's alcohol use contributed to either not recognizing the signs of impending cardiac disease. She repeatedly denied suicidal ideation and wishes. She denied suicidal plan or intent. She denied a history of suicide attempts or gestures. Prior to her partner's she denied experiencing chronic or persistent depression or anxiety. She stated that her daughter and grandchildren of the reason she would never take her own life. After she leaves the hospital she plans to take care of the arrangements and plans to eventually move back to [place]. She denied a history of significant psychiatric problems including symptoms suggestive of zleda or hypomania, depression, OCD, panic disorder, and psychosis. PAST PSYCHIATRIC HISTORY: She's been meeting with an individual therapist, Jacinta, to [facility] outpatient mental health services. She denied history of psychiatric hospitalizations. She is never met with psychiatrists are prescribed psychotropic medications for treatment of her mood or anxiety.. PAST MEDICAL HISTORY: She's had multiple ED presentations for alcohol, alcohol withdrawal and alcohol intoxication. She has admitted to medicine for treatment of acute alcohol intoxication and withdrawal on 10/16/2019 ALLERGIES: NO KNOWN DRUG ALLERGIES. SUBSTANCE USE HISTORY: She has a history of oral opiate pain medication abuse. She was prescribed opiate pain medications for treatment of knee and back pain for several years. She continued taking the medications (Percocet, Dryden) even after the doctors recommended that she discontinue the medications. She sought treatment of her opiate pain medication abuse through [facility] and prescribed Suboxone. She tapered her self off of Suboxone and denied use of oral pain medications since she stopped Suboxone. FAMILY PSYCHIATRIC/SUBSTANCE USE HISTORY: She is unaware of family history of substance abuse or psychiatric problems. SOCIAL HISTORY:. She is born and raised in [facility]. She has 1 sister. She has 1 daughter who lives in [place]. She moved to [place] where she met her . She is unemployed and receives social security disability.. MENTAL STATUS EXAM: She presented as a disheveled appearing 59-year-old female who was pleasant on approach. She made eye contact and attended the interview. She had abrasions on her face and bruising of both arms. She had no prominent physical abnormalities. She had a blunted facial expression. She is alert and oriented to person, place and time. She showed psychomotor retardation but no abnormal movements. She did not have a hand tremor. Her speech was spontaneous with decreased in rate and rhythm. Affect was depressed but stable and appropriate. She denied suicidal ideation and wishes. She denied homicidal ideation. She denied feeling hopeless, helpless or worthless. She ruminated about the unexpected of her his partner and expressed grief and bereavement. She did not express ideas reference, paranoid ideation or delusions. Her thinking was concrete. Associations were court coherent, logical and goal directed. She denied hallucinations did not appear to be responding to internal stimuli.. IMPRESSIONS: She is a 59-year-old female admitted to medicine for the treatment of acute alcohol intoxication. The hospitalist consult to psychiatry for evaluation of suicidal ideation. She lost her partner of 39 years 2 days prior to admission. She was intoxicated on presentation to the emergency room and according to the present doctors did not express suicidal thoughts. During our interview she denied suicidal ideation, plan or intent. She is not interested in substance abuse treatment at this time. However, she plans to continue with outpatient mental health services. DIAGNOSIS: Alcohol use disorder severe, alcohol withdrawal, bereavement PLAN: About there is no reason to continue one-to-one. There is no indication for transfer to psychiatric unit this time. Coordinate follow-up appointment with her outpatient therapist. Psychology will sign off on this case. Thank you for the consult.. 11/02/19 14:35 11/02/19 15:29
[2019-11-02] MEDS ORDERED: THIAMINE 100 MG TAB PO SCH (17:30)
[2019-11-03] MEDS ORDERED: LEVOTHYROXINE 112 MCG TAB PO SCH (06:30)
[2019-11-03] MEDS ORDERED: CITALOPRAM HYDROBROMIDE 20 MG TAB PO SCH (09:00)
[2019-11-03] MEDS ORDERED: ATENOLOL 25 MG TAB PO SCH (09:00)
[2019-11-03] MEDS ORDERED: MULTIVITAMINS, THERA 1 EACH TAB PO SCH (09:00)
[2019-11-03] MEDS ORDERED: buPROPion XL 150 MG TAB.ER.24H PO SCH (09:00)
[2019-11-03] MEDS ORDERED: FOLIC ACID 1 MG TAB PO SCH (09:00)
--- NOTE | 2019-11-04 11:05 | P.DS ---
Providers Date of admission: 11/02/19 04:13 Expected date of discharge: 11/02/19 Attending physician: Walker Ulloa Consults: 11/02/19 04:11 Consult Physician Routine Consulting Provider: Uriah Calixto Reason/Comments: Mood disorder. Alcohol withdrawal Do you want consulting provider notified?: Already Contacted Primary care physician: Stated None Hospital Course: Patient was later evaluated by Psychiatrist and was cleared for discharge but I still wanted to keep her one more night patient was insisting on discharge patient was subsequently discharged later that day. Medical problems and hospital course please refer to my HPI Plan - Discharge Summary Discharge Rx Participant: Yes New Discharge Prescriptions: Continue buPROPion HCL [Wellbutrin XL] 150 mg PO DAILY Levothyroxine Sodium [Synthroid] 112 mcg PO DAILY Citalopram Hydrobromide [CeleXA] 40 mg PO DAILY Atenolol [Tenormin] 12.5 mg PO DAILY #30 tab Thiamine [Vitamin B-1] 100 mg PO DAILY #30 tab Folic Acid 1 mg PO DAILY #30 tablet Multivitamins, Thera [Multivitamin (formulary)] 1 tab PO DAILY #30 tablet Discontinued LORazepam [Ativan] 0.25 mg PO BID 4 Days #4 tab cloNIDine HCL [Catapres] 0.1 mg PO BID #30 tab Discharge Medication List Citalopram Hydrobromide [CeleXA] 40 mg PO DAILY 07/13/19 [History] Levothyroxine Sodium [Synthroid] 112 mcg PO DAILY 07/13/19 [History] buPROPion HCL [Wellbutrin XL] 150 mg PO DAILY 07/13/19 [History] Atenolol [Tenormin] 12.5 mg PO DAILY #30 tab 10/20/19 [Rx] Folic Acid 1 mg PO DAILY #30 tablet 10/20/19 [Rx] Multivitamins, Thera [Multivitamin (formulary)] 1 tab PO DAILY #30 tablet 10/20/19 [Rx] Thiamine [Vitamin B-1] 100 mg PO DAILY #30 tab 10/20/19 [Rx] Follow up Appointment(s)/Referral(s): None,Stated [Primary Care Provider] - 1-2 days Patient Instructions/Handouts: Grief and Loss (DC), Alcohol Intoxication (DC), Suicide Prevention (DC) Activity/Diet/Wound Care/Special Instructions: As per Psychiatry consult - patient to follow up with own outpatient therapy. Patient states she has information regarding bereavement counselling and community resources. Discharge Disposition: HOME SELF-CARE
== END 2019-11-02 16:46 | disposition home or self-care (01) | DRG 897 ==
LOC: EC 18:56 → 4SSUR 11-02 04:13
PROVIDERS: ADMIT Hospitalist; ATTEND Hospitalist
DX: F10.239 Alcohol dependence with withdrawal, unspecified (principal); K70.10 Alcoholic hepatitis without ascites; E03.9 Hypothyroidism, unspecified; E87.6 Hypokalemia; F17.200 Nicotine dependence, unspecified, uncomplicated; F32.9 Major depressive disorder, single episode, unspecified; F41.9 Anxiety disorder, unspecified; G40.909 Epilepsy, unspecified, not intractable, without status epilepticus; I10 Essential (primary) hypertension; T51.92XA Toxic effect of unspecified alcohol, intentional self-harm, initial encounter; Z11.59 Encounter for screening for other viral diseases; G89.29 Other chronic pain; M19.90 Unspecified osteoarthritis, unspecified site; M54.2 Cervicalgia; M54.9 Dorsalgia, unspecified; R29.6 Repeated falls; R00.0 Tachycardia, unspecified; Z79.890 Hormone replacement therapy; Z79.899 Other long term (current) drug therapy; Z96.653 Presence of artificial knee joint, bilateral; Z86.010 Personal history of colon polyps; W19.XXXA Unspecified fall, initial encounter
CPT/HCPCS: 70450; 70486; 72125; 80053; 80306; 80320; 82075; 85025; 87635; 96361; 96372; 96374; 96375; 96376; 99285

== ENCOUNTER 2019-11-03 10:21 | Inpatient (IN) | payer MEDICARE, OTHER ==
[2019-11-03] MEDS ORDERED: SODIUM CHLORIDE 0.9% 1,000 ML IV STA ×2 (10:31→13:32)
--- NOTE | 2019-11-03 10:36 | ED ---
Overdose HPI - General Source: RN notes reviewed, old records reviewed - History of Present Illness Complaint: intentional overdose <Gennaro Amaral - Last Filed: 11/03/19 14:28> <Susannah Mcdaniel - Last Filed: 11/08/19 00:17> - General Stated Complaint: Overdose Time Seen by Provider: 11/03/19 10:21 - History of Present Illness Initial Comments: This is a 59-year-old female history of multiple recent visits for alcohol intoxication and overdose history depression who apparently had a significant other did 3 days ago who presents today by EMS after a brother called EMS because of the patient being unresponsive and possible drug overdose. Ap parently he was chilled bottles strewn all over the premises. Patient is brought in unresponsive. No other history or information available at this time (MunirGennaro) - Related Data Home Medications Medication Instructions Recorded Confirmed Citalopram Hydrobromide [CeleXA] 40 mg PO DAILY 07/13/19 11/04/19 Levothyroxine Sodium [Synthroid] 112 mcg PO DAILY 07/13/19 11/04/19 buPROPion HCL [Wellbutrin XL] 150 mg PO DAILY 07/13/19 11/04/19 Previous Rx's Medication Instructions Recorded Atenolol [Tenormin] 12.5 mg PO DAILY #30 tab 10/20/19 Folic Acid 1 mg PO DAILY #30 tablet 10/20/19 Multivitamins, Thera [Multivitamin 1 tab PO DAILY #30 tablet 10/20/19 (formulary)] Thiamine [Vitamin B-1] 100 mg PO DAILY #30 tab 10/20/19 Allergies Allergy/AdvReac Type Severity Reaction Status Date / Time No Known Allergies Allergy Verified 11/04/19 18:54 Review of Systems ROS Other: All systems not noted in ROS Statement are negative. Limitations: ROS unobtainable due to patients medical condition <Gennaro Amaral - Last Filed: 11/03/19 14:28> ROS Other: All systems not noted in ROS Statement are negative. <Susannah Mcdaniel - Last Filed: 11/08/19 00:17> ROS Statement: Those systems with pertinent positive or pertinent negative responses have been documented in the HPI. Past Medical History Past Medical History: Osteoarthritis (OA), Seizure Disorder, Thyroid Disorder Additional Past Medical History / Comment(s): ETOH abuse, chronic back pain,neck pain, numbness derick. shoulder & arm/finger tips, derick numbness to legs & ft, limited rom neck, benign colon polyps, uses walker, frequent falls History of Any Multi-Drug Resistant Organisms: None Reported Past Surgical History: Breast Surgery, Hernia Repair, Orthopedic Surgery, Tonsillectomy Additional Past Surgical History / Comment(s): derick knee replacements with R knee done twice, bilateral eye laser surgery for vision correction, benign lump removed from lt breast, colonoscopies/benign polypectomies. 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 Pt states that she was there at the time. She uses a cane or walker. She does not drive. She is disabled. Smoking Status: Current every day smoker Past Alcohol Use History: Abuse, Daily, Heavy Additional Past Alcohol Use History / Comment(s): Pt started smoking in 1973 and states she recently quit smoking 5 days ago. Pt states she drinks Admiral Dustin-1.5 pints per day. Past Drug Use History: None Reported - Past Family History Mother Additional Family Medical History / Comment(s): Mother recently of heart problems at the age of 79yrs old. Father Family Medical History: Hyperlipidemia Additional Family Medical History / Comment(s): Father is living. <Gennaro Amaral - Last Filed: 11/03/19 14:28> General Exam General appearance: obtunded Head exam: Present: atraumatic, normocephalic, normal inspection Eye exam: Present: normal appearance, PERRL, EOMI. Absent: scleral icterus, conjunctival injection, periorbital swelling ENT exam: Present: normal exam, mucous membranes moist, other (Patient does maintain a gag reflex) Neck exam: Present: normal inspection, full ROM, other (No stridor JVD or bruits). Absent: tenderness, meningismus, lymphadenopathy Respiratory exam: Present: normal lung sounds bilaterally. Absent: respiratory distress, wheezes, rales, rhonchi, stridor Cardiovascular Exam: Present: regular rate, normal rhythm, normal heart sounds. Absent: systolic murmur, diastolic murmur, rubs, gallop, clicks GI/Abdominal exam: Present: soft, normal bowel sounds. Absent: distended, tenderness, guarding, rebound, rigid Extremities exam: Present: normal inspection, full ROM, normal capillary refill. Absent: tenderness, pedal edema, joint swelling, calf tenderness Back exam: Present: normal inspection Neurological exam: Present: alert, altered, CN II-XII intact Psychiatric exam: Present: other (Unable to evaluate) Skin exam: Present: warm, dry, intact, normal color. Absent: rash <Gennaro Amaral - Last Filed: 11/03/19 14:28> - General Exam Comments Initial Comments: This is a well-developed well-nourished obtunded female (Gennaro Amaral) Course <Gennaro Amaral - Last Filed: 11/03/19 14:28> Vital Signs 11/03/19 11/03/19 11/03/19 10:23 12:12 13:13 Temperature 98.7 F Pulse Rate 63 71 66 Respiratory 12 18 18 Rate Blood Pressure 136/92 112/83 124/101 O2 Sat by Pulse 64 L 98 93 L Oximetry 11/03/19 11/03/19 11/03/19 14:21 15:00 16:09 Temperature Pulse Rate 68 64 67 Respiratory 18 18 18 Rate Blood Pressure 122/71 111/76 107/78 O2 Sat by Pulse 97 96 95 Oximetry 11/03/19 11/03/19 11/03/19 17:00 18:18 19:18 Temperature Pulse Rate 71 70 75 Respiratory 18 18 18 Rate Blood Pressure 136/82 135/108 125/103 O2 Sat by Pulse 99 99 98 Oximetry 11/03/19 19:34 Temperature Pulse Rate 76 Respiratory 18 Rate Blood Pressure 116/96 O2 Sat by Pulse 98 Oximetry - Reevaluation(s) Reevaluation #1: 11/03/19 14:27 Reevaluation the patient she is much more awake and alert she feels somewhat shaky she was just discharged yesterday from the hospital AGAINST MEDICAL ADVICE she was admitted for alcohol withdrawal and attending taking care of the patient will keep her one more day he refused. He is not believe she is going through withdrawal at this time he should be medically cleared after sobriety was attained for psychiatric evaluation. (Gennaro Amaral) Reevaluation #2: 11/03/19 14:28 The patient's care will be endorsed to Dr. Mcdaniel at our shift change (Gennaro Amaral) Medical Decision Making - Lab Data Result diagrams: 11/03/19 10:55 11/03/19 10:55 - EKG Data -: EKG Interpreted by Me EKG shows normal: sinus rhythm <Gennaro Amaral - Last Filed: 11/03/19 14:28> - Lab Data Result diagrams: 11/04/19 05:52 11/04/19 05:52 <Susannah Mcdaniel - Last Filed: 11/08/19 00:17> - Medical Decision Making EPS evaluated the patient and felt uncomfortable with mental health admission as the patient is still requiring a significant amount of Ativan due to high grading on the CIWA scale. because of this, the patient will be admitted to [facility] with psychiatry to consult. (Susannah Mcdaniel) - Lab Data Lab Results 11/03/19 11/03/19 11/03/19 Range/Units 10:55 10:55 10:55 WBC 10.5 (3.8-10.6) k/uL RBC 3.67 L (3.80-5.40) m/uL Hgb 12.7 (11.4-16.0) gm/dL Hct 39.3 (34.0-46.0) % MCV 107.0 H (80.0-100.0) fL MCH 34.6 (25.0-35.0) pg MCHC 32.3 (31.0-37.0) g/dL RDW 16.6 H (11.5-15.5) % Plt Count 160 (150-450) k/uL Neutrophils % 81 % Lymphocytes % 13 % Monocytes % 3 % Eosinophils % 3 % Basophils % 0 % Neutrophils # 8.5 H (1.3-7.7) k/uL Lymphocytes # 1.3 (1.0-4.8) k/uL Monocytes # 0.3 (0-1.0) k/uL Eosinophils # 0.4 (0-0.7) k/uL Basophils # 0.0 (0-0.2) k/uL Manual Slide Review Performed Poikilocytosis (manual Present Anisocytosis Slight Macrocytosis Marked A Sodium 139 (137-145) mmol/L Potassium 3.4 L (3.5-5.1) mmol/L Chloride 103 (98-107) mmol/L Carbon Dioxide 25 (22-30) mmol/L Anion Gap 11 mmol/L BUN 8 (7-17) mg/dL Creatinine 0.48 L (0.52-1.04) mg/dL Est GFR (CKD-EPI)AfAm >90 (>60 ml/min/1.73 sqM) Est GFR (CKD-EPI)NonAf >90 (>60 ml/min/1.73 sqM) Glucose 96 (74-99) mg/dL Lactic Ac Sepsis Rflx Plasma Lactic Acid [place] 3.3 H* (0.7-2.0) mmol/L Calcium 8.4 (8.4-10.2) mg/dL Magnesium (1.6-2.3) mg/dL Total Bilirubin 0.7 (0.2-1.3) mg/dL AST 179 H (14-36) U/L ALT 103 H (4-34) U/L Alkaline Phosphatase 115 (38-126) U/L Ammonia 9 (<30) umol/L Creatine Kinase 417 H (30-135) U/L Troponin I (0.000-0.034) ng/mL Total Protein 6.4 (6.3-8.2) g/dL Albumin 3.6 (3.5-5.0) g/dL Lipase 239 (23-300) U/L Urine Color Urine Appearance (Clear) Urine pH (5.0-8.0) Ur Specific [place] (1.001-1.035) Urine Protein (Negative) Urine Glucose (UA) (Negative) Urine Ketones (Negative) Urine Blood (Negative) Urine Nitrite (Negative) Urine Bilirubin (Negative) Urine Urobilinogen (<2.0) mg/dL Ur Leukocyte Esterase (Negative) Urine HCG, Qual (Not Detectd) Salicylates <1.0 mg/dL Urine Opiates Screen (NotDetected) Ur Oxycodone Screen (NotDetected) Urine Methadone Screen (NotDetected) Ur Propoxyphene Screen (NotDetected) Acetaminophen <10.0 ug/mL Ur Barbiturates Screen (NotDetected) U Tricyclic Antidepress (NotDetected) Ur Phencyclidine Scrn (NotDetected) Ur Amphetamines Screen (NotDetected) U Methamphetamines Scrn (NotDetected) U Benzodiazepines Scrn (NotDetected) Urine Cocaine Screen (NotDetected) U Marijuana (THC) Screen (NotDetected) Serum Alcohol 189 mg/dL Coronavirus (PCR) (Not Detectd) 11/03/19 11/03/19 11/03/19 Range/Units 10:55 10:55 11:15 WBC (3.8-10.6) k/uL RBC (3.80-5.40) m/uL Hgb (11.4-16.0) gm/dL Hct (34.0-46.0) % MCV (80.0-100.0) fL MCH (25.0-35.0) pg MCHC (31.0-37.0) g/dL RDW (11.5-15.5) % Plt Count (150-450) k/uL Neutrophils % % Lymphocytes % % Monocytes % % Eosinophils % % Basophils % % Neutrophils # (1.3-7.7) k/uL Lymphocytes # (1.0-4.8) k/uL Monocytes # (0-1.0) k/uL Eosinophils # (0-0.7) k/uL Basophils # (0-0.2) k/uL Manual Slide Review Poikilocytosis (manual Anisocytosis Macrocytosis Sodium (137-145) mmol/L Potassium (3.5-5.1) mmol/L Chloride (98-107) mmol/L Carbon Dioxide (22-30) mmol/L Anion Gap mmol/L BUN (7-17) mg/dL Creatinine (0.52-1.04) mg/dL Est GFR (CKD-EPI)AfAm (>60 ml/min/1.73 sqM) Est GFR (CKD-EPI)NonAf (>60 ml/min/1.73 sqM) Glucose (74-99) mg/dL Lactic Ac Sepsis Rflx Plasma Lactic Acid [place] (0.7-2.0) mmol/L Calcium (8.4-10.2) mg/dL Magnesium 2.2 (1.6-2.3) mg/dL Total Bilirubin (0.2-1.3) mg/dL AST (14-36) U/L ALT (4-34) U/L Alkaline Phosphatase (38-126) U/L Ammonia (<30) umol/L Creatine Kinase (30-135) U/L Troponin I <0.012 (0.000-0.034) ng/mL Total Protein (6.3-8.2) g/dL Albumin (3.5-5.0) g/dL Lipase (23-300) U/L Urine Color Yellow Urine Appearance Clear (Clear) Urine pH 7.0 (5.0-8.0) Ur Specific [place] 1.011 (1.001-1.035) Urine Protein Trace H (Negative) Urine Glucose (UA) Negative (Negative) Urine Ketones Negative (Negative) Urine Blood Negative (Negative) Urine Nitrite Negative (Negative) Urine Bilirubin Negative (Negative) Urine Urobilinogen 2.0 (<2.0) mg/dL Ur Leukocyte Esterase Negative (Negative) Urine HCG, Qual (Not Detectd) Salicylates mg/dL Urine Opiates Screen Not Detected (NotDetected) Ur Oxycodone Screen Not Detected (NotDetected) Urine Methadone Screen Not Detected (NotDetected) Ur Propoxyphene Screen Not Detected (NotDetected) Acetaminophen ug/mL Ur Barbiturates Screen Not Detected (NotDetected) U Tricyclic Antidepress Not Detected (NotDetected) Ur Phencyclidine Scrn Not Detected (NotDetected) Ur Amphetamines Screen Not Detected (NotDetected) U Methamphetamines Scrn Not Detected (NotDetected) U Benzodiazepines Scrn Detected H (NotDetected) Urine Cocaine Screen Not Detected (NotDetected) U Marijuana (THC) Screen Not Detected (NotDetected) Serum Alcohol mg/dL Coronavirus (PCR) (Not Detectd) 11/03/19 11/03/19 11/03/19 Range/Units 11:15 11:59 15:35 WBC (3.8-10.6) k/uL RBC (3.80-5.40) m/uL Hgb (11.4-16.0) gm/dL Hct (34.0-46.0) % MCV (80.0-100.0) fL MCH (25.0-35.0) pg MCHC (31.0-37.0) g/dL RDW (11.5-15.5) % Plt Count (150-450) k/uL Neutrophils % % Lymphocytes % % Monocytes % % Eosinophils % % Basophils % % Neutrophils # (1.3-7.7) k/uL Lymphocytes # (1.0-4.8) k/uL Monocytes # (0-1.0) k/uL Eosinophils # (0-0.7) k/uL Basophils # (0-0.2) k/uL Manual Slide Review Poikilocytosis (manual Anisocytosis Macrocytosis Sodium (137-145) mmol/L Potassium (3.5-5.1) mmol/L Chloride (98-107) mmol/L Carbon Dioxide (22-30) mmol/L Anion Gap mmol/L BUN (7-17) mg/dL Creatinine (0.52-1.04) mg/dL Est GFR (CKD-EPI)AfAm (>60 ml/min/1.73 sqM) Est GFR (CKD-EPI)NonAf (>60 ml/min/1.73 sqM) Glucose (74-99) mg/dL Lactic Ac Sepsis Rflx Y Plasma Lactic Acid [place] 0.9 (0.7-2.0) mmol/L Calcium (8.4-10.2) mg/dL Magnesium (1.6-2.3) mg/dL Total Bilirubin (0.2-1.3) mg/dL AST (14-36) U/L ALT (4-34) U/L Alkaline Phosphatase (38-126) U/L Ammonia (<30) umol/L Creatine Kinase (30-135) U/L Troponin I (0.000-0.034) ng/mL Total Protein (6.3-8.2) g/dL Albumin (3.5-5.0) g/dL Lipase (23-300) U/L Urine Color Urine Appearance (Clear) Urine pH (5.0-8.0) Ur Specific [place] (1.001-1.035) Urine Protein (Negative) Urine Glucose (UA) (Negative) Urine Ketones (Negative) Urine Blood (Negative) Urine Nitrite (Negative) Urine Bilirubin (Negative) Urine Urobilinogen (<2.0) mg/dL Ur Leukocyte Esterase (Negative) Urine HCG, Qual Not Detected (Not Detectd) Salicylates mg/dL Urine Opiates Screen (NotDetected) Ur Oxycodone Screen (NotDetected) Urine Methadone Screen (NotDetected) Ur Propoxyphene Screen (NotDetected) Acetaminophen ug/mL Ur Barbiturates Screen (NotDetected) U Tricyclic Antidepress (NotDetected) Ur Phencyclidine Scrn (NotDetected) Ur Amphetamines Screen (NotDetected) U Methamphetamines Scrn (NotDetected) U Benzodiazepines Scrn (NotDetected) Urine Cocaine Screen (NotDetected) U Marijuana (THC) Screen (NotDetected) Serum Alcohol mg/dL Coronavirus (PCR) (Not Detectd) 11/03/19 Range/Units 16:11 WBC (3.8-10.6) k/uL RBC (3.80-5.40) m/uL Hgb (11.4-16.0) gm/dL Hct (34.0-46.0) % MCV (80.0-100.0) fL MCH (25.0-35.0) pg MCHC (31.0-37.0) g/dL RDW (11.5-15.5) % Plt Count (150-450) k/uL Neutrophils % % Lymphocytes % % Monocytes % % Eosinophils % % Basophils % % Neutrophils # (1.3-7.7) k/uL Lymphocytes # (1.0-4.8) k/uL Monocytes # (0-1.0) k/uL Eosinophils # (0-0.7) k/uL Basophils # (0-0.2) k/uL Manual Slide Review Poikilocytosis (manual Anisocytosis Macrocytosis Sodium (137-145) mmol/L Potassium (3.5-5.1) mmol/L Chloride (98-107) mmol/L Carbon Dioxide (22-30) mmol/L Anion Gap mmol/L BUN (7-17) mg/dL Creatinine (0.52-1.04) mg/dL Est GFR (CKD-EPI)AfAm (>60 ml/min/1.73 sqM) Est GFR (CKD-EPI)NonAf (>60 ml/min/1.73 sqM) Glucose (74-99) mg/dL Lactic Ac Sepsis Rflx Plasma Lactic Acid [place] (0.7-2.0) mmol/L Calcium (8.4-10.2) mg/dL Magnesium (1.6-2.3) mg/dL Total Bilirubin (0.2-1.3) mg/dL AST (14-36) U/L ALT (4-34) U/L Alkaline Phosphatase (38-126) U/L Ammonia (<30) umol/L Creatine Kinase (30-135) U/L Troponin I (0.000-0.034) ng/mL Total Protein (6.3-8.2) g/dL Albumin (3.5-5.0) g/dL Lipase (23-300) U/L Urine Color Urine Appearance (Clear) Urine pH (5.0-8.0) Ur Specific [place] (1.001-1.035) Urine Protein (Negative) Urine Glucose (UA) (Negative) Urine Ketones (Negative) Urine Blood (Negative) Urine Nitrite (Negative) Urine Bilirubin (Negative) Urine Urobilinogen (<2.0) mg/dL Ur Leukocyte Esterase (Negative) Urine HCG, Qual (Not Detectd) Salicylates mg/dL Urine Opiates Screen (NotDetected) Ur Oxycodone Screen (NotDetected) Urine Methadone Screen (NotDetected) Ur Propoxyphene Screen (NotDetected) Acetaminophen ug/mL Ur Barbiturates Screen (NotDetected) U Tricyclic Antidepress (NotDetected) Ur Phencyclidine Scrn (NotDetected) Ur Amphetamines Screen (NotDetected) U Methamphetamines Scrn (NotDetected) U Benzodiazepines Scrn (NotDetected) Urine Cocaine Screen (NotDetected) U Marijuana (THC) Screen (NotDetected) Serum Alcohol mg/dL Coronavirus (PCR) Not Detected (Not Detectd) - EKG Data EKG Comments: Sinus rhythm at 63. Interval 182 QRS 88 QT since QTC of 474/45 left exodeviation low-voltage QRS significant inferior configuration (Gennaro Amaral) Disposition <Gennaro Amaral - Last Filed: 11/03/19 14:28> Is patient prescribed a controlled substance at d/c from ED?: No Decision to Admit Reason: Admit from EC Decision Date: 11/03/19 Decision Time: 18:04 <Susannah Mcdaniel - Last Filed: 11/08/19 00:17> Clinical Impression: Alcohol intoxication, Depression, Impending delirium tremens Disposition: ADMITTED IP TO THIS HOSP Condition: Serious
[2019-11-03 11:22] LABS: Anisocytosis Slight; Basophils % (A) 0 %; Eosinophils # (A) 0.4 k/uL (0-0.7); Eosinophils % (A) 3 %; HCT 39.3 % (34.0-46.0); HGB 12.7 gm/dL (11.4-16.0); Lymphocytes # (A) 1.3 k/uL (1.0-4.8); Lymphocytes % (A) 13 %; MCH 34.6 pg (25.0-35.0); MCHC 32.3 g/dL (31.0-37.0); Macrocytosis Marked; Mean Platelet Volume 9.8; Monocytes # (A) 0.3 k/uL (0-1.0); Monocytes % (A) 3 %; Neutrophils # (A) 8.5 k/uL (1.3-7.7); Neutrophils % (A) 81 %; Platelet Count 160 k/uL (150-450); RBC 3.67 m/uL (3.80-5.40); RDW 16.6 % (11.5-15.5); WBC 10.5 k/uL (3.8-10.6)
--- NOTE | 2019-11-03 11:35 | XR ---
EXAMINATION TYPE: XR KUB portable DATE OF EXAM: 11/03/2019 COMPARISON: NONE HISTORY: Pain TECHNIQUE: Single supine KUB image of the abdomen is obtained FINDINGS: Small bowel demonstrates no evidence for dilatation or air fluid levels. Gas and fecal material is seen in non-distended colon. No convincing evidence for pneumoperitoneum. Probable pelvic phleboliths. The lung bases are clear. The osseous structures are intact. IMPRESSION: 1. Overall nonobstructive bowel gas pattern.
--- NOTE | 2019-11-03 11:39 | XR ---
EXAMINATION TYPE: XR chest 1V portable DATE OF EXAM: 11/03/2019 HISTORY: Shortness of breath. COMPARISON: 10/28/2019 TECHNIQUE: Single view of the chest is submitted. FINDINGS: Demonstrated are scattered senescent parenchymal change. There is no evidence for focal infiltrate. Left upper lobe pulmonary nodule described previously ricardo ures 1.5 cm. The heart is stable. Hilar and mediastinal structures are within normal limits. Degenerative changes are seen of the dorsal spine. IMPRESSION: 1. Chronic changes without evidence for acute pulmonary disease.Left upper lobe pulmonary nodule casey cribed previously measures 1.5 cm. Malignancy not excluded.
[2019-11-03 11:42] LABS: Appearance,Urine Clear (Clear); Bilirubin,Urine Negative (Negative); Blood,Urine Negative (Negative); Color,Urine Yellow; Glucose,Urine (UA) Negative (Negative); Ketones,Urine Negative (Negative); Leukocyte Esterase,Urine Negative (Negative); Nitrite,Urine Negative (Negative); Protein,Urine Trace (Negative); Specific Gravity,Urine 1.011 (1.001-1.035)
[2019-11-03 11:50] LABS: ALT 103 U/L (4-34); AST 179 U/L (14-36); African American GFR (CKD) >90 (>60 ml/min/1.73 sqM); Albumin 3.6 g/dL (3.5-5.0); Alkaline Phosphatase 115 U/L (38-126); Anion Gap 11 mmol/L; Blood Urea Nitrogen 8 mg/dL (7-17); Calcium 8.4 mg/dL (8.4-10.2); Carbon Dioxide 25 mmol/L (22-30); Chloride 103 mmol/L (98-107); Creatine Kinase 417 U/L (30-135); Glucose 96 mg/dL (74-99); Non-African American GFR(CKD) >90 (>60 ml/min/1.73 sqM); Potassium 3.4 mmol/L (3.5-5.1); Salicylate <1.0 mg/dL; Sodium 139 mmol/L (137-145); Total Bilirubin 0.7 mg/dL (0.2-1.3); Total Protein 6.4 g/dL (6.3-8.2)
[2019-11-03 11:53] LABS: Alcohol 189 mg/dL
[2019-11-03 11:58] LABS: Lactic Acid, Venous 3.3 mmol/L (0.7-2.0)
[2019-11-03 11:59] LABS: Amphetamine Screen,Urine Not Detected (NotDetected); Barbiturate Screen,Urine Not Detected (NotDetected); Benzodiazepines Screen,Urine Detected (NotDetected); Cocaine Screen,Urine Not Detected (NotDetected); Methadone Screen, Urine Not Detected (NotDetected); Opiate Screen,Urine Not Detected (NotDetected); Oxycodone Screen, Urine Not Detected (NotDetected); Phencyclidine Screen,Urine Not Detected (NotDetected); Tricyclic Antidepressant,Urine Not Detected (NotDetected); Urn Cannabinoid Scrn Not Detected (NotDetected)
[2019-11-03 12:02] LABS: Acetaminophen <10.0 ug/mL
[2019-11-03 12:16] LABS: Poikilocytosis (M) Present
[2019-11-03] MEDS ORDERED: SODIUM CHLORIDE 0.9% 1,000 ML with MVI, ADULT NO.4 WITH VIT K 10 ML, THIAMINE 100 MG, F... IV ONE ×4 (13:33)
[2019-11-03] MEDS ORDERED: LORazepam 2 MG/ML INJ IV STA (13:37)
[2019-11-03] MEDS ORDERED: POTASSIUM CHLORIDE ER 20 MEQ TAB.ER PO STA (15:24)
--- NOTE | 2019-11-03 15:30 | P.CONS ---
History of Present Illness - Reason for Consult possible admission to medicine - History of Present Illness 59-year-old female came in with all call intoxication an intentional overdose trying to hurt suffered killed herself. Patient states she needs help. Patient's significant other recently. Patient was admitted couple days ago for the same problem at that time patient didn't have any withdrawals. Patient was watched for overdose subsequently psychiatric valid the patient at the time psychiatric did not believe patient will need inpatient psychiatric admission. Patient is today was insisting on discharge because of which I discharged her yesterday came back again today all call intoxicated been pretty much the same complaints that she was having during her last hospital physician. Patient was treated recently and was discharged on October 28 after she was appropriately treated for alcohol withdrawals. Patient was monitored during last hospital physician for alcohol withdrawals and patient didn't have any withdrawals as patient was recently treated for alcohol withdrawals I do not expect any withdrawals at this time. Although patient may need psychiatric evaluation and treatment for her severe depression and suicide attempt twice. when I evaluated the patient, patient was saying she has tremors and she did have tremors but upon distraction patient's symptoms resolved and patient doesn't have tremors when she is sleeping because of which I do not believe these are all call withdrawal tremors rather than into rather I believe this is intentional. I do not believe patient need inpatient medical hospitalization for alcohol withdrawal as I do not expect significant alcohol withdrawal in her. Patient is medically stable to go to psychiatric floor patient's serum pot assium is low which will be corrected. Review of Systems REVIEW OF SYSTEMS: CONSTITUTIONAL: No fever, no malaise, no fatigue. HEENT: No recent visual problems or hearing problems. Denied any sore throat. CARDIOVASCULAR: No chest pain, orthopnea, PND, no palpitations, no syncope. PULMONARY: No shortness of breath, no cough, no hemoptysis. GASTROINTESTINAL: No diarrhea, no nausea, no vomiting, no abdominal pain. NEUROLOGICAL: No headaches, no weakness, no numbness. HEMATOLOGICAL: Denies any bleeding or petechiae. GENITOURINARY: Denies any burning micturition, frequency, or urgency. MUSCULOSKELETAL/RHEUMATOLOGICAL: Denies any joint pain, swelling, or any muscle pain. ENDOCRINE: Denies any polyuria or polydipsia. psychiatric: Depression and suicidal ideation. The rest of the 14-point review of systems is negative. Past Medical History Past Medical History: Osteoarthritis (OA), Seizure Disorder, Thyroid Disorder Additional Past Medical History / Comment(s): ETOH abuse, chronic back pain,neck pain, numbness derick. shoulder & arm/finger tips, derick numbness to legs & ft, limited rom neck, benign colon polyps, uses walker, frequent falls History of Any Multi-Drug Resistant Organisms: None Reported Past Surgical History: Breast Surgery, Hernia Repair, Orthopedic Surgery, Tonsillectomy Additional Past Surgical History / Comment(s): derick knee replacements with R knee done twice, bilateral eye laser surgery for vision correction, benign lump removed from lt breast, colonoscopies/benign polypectomies. 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 Pt states that she was there at the time. She uses a cane or walker. She does not drive. She is disabled. Smoking Status: Current every day smoker Past Alcohol Use History: Abuse, Daily, Heavy Additional Past Alcohol Use History / Comment(s): Pt started smoking in 1973 and states she recently quit smoking 5 days ago. Pt states she drinks Admiral Dustin-1.5 pints per day. Past Drug Use History: None Reported - Past Family History Mother Additional Family Medical History / Comment(s): Mother recently of heart problems at the age of 79yrs old. Father Family Medical History: Hyperlipidemia Additional Family Medical History / Comment(s): Father is living. Medications and Allergies Home Medications Medication Instructions Recorded Confirmed Type Citalopram Hydrobromide [CeleXA] 40 mg PO DAILY 07/13/19 11/02/19 History Levothyroxine Sodium [Synthroid] 112 mcg PO DAILY 07/13/19 11/02/19 History buPROPion HCL [Wellbutrin XL] 150 mg PO DAILY 07/13/19 11/02/19 History Atenolol [Tenormin] 12.5 mg PO DAILY #30 tab 10/20/19 11/02/19 Rx Folic Acid 1 mg PO DAILY #30 tablet 10/20/19 11/02/19 Rx Multivitamins, Thera [Multivitamin 1 tab PO DAILY #30 tablet 10/20/19 11/02/19 Rx (formulary)] Thiamine [Vitamin B-1] 100 mg PO DAILY #30 tab 10/20/19 11/02/19 Rx Allergies Allergy/AdvReac Type Severity Reaction Status Date / Time No Known Allergies Allergy Verified 11/02/19 08:14 Physical Exam Vitals: Vital Signs Temp Pulse Resp BP Pulse Ox 11/03/19 14:21 68 18 122/71 97 11/03/19 13:13 66 18 124/101 93 L 11/03/19 12:12 71 18 112/83 98 11/03/19 10:23 98.7 F 63 12 136/92 64 L Intake and Output 11/03/19 11/03/19 11/03/19 06:59 14:59 22:59 Other: Weight 81.647 kg PHYSICAL EXAMINATION: GENERAL: The patient is alert and oriented x3, not in any acute distress. Well developed, well nourished. HEENT: Pupils are round and equally reacting to light. EOMI. No scleral icterus. No conjunctival pallor. Normocephalic, atraumatic. No pharyngeal erythema. No thyromegaly. CARDIOVASCULAR: S1 and S2 present. No murmurs, rubs, or gallops. PULMONARY: Chest is clear to auscultation, no wheezing or crackles. ABDOMEN: Soft, nontender, nondistended, normoactive bowel sounds. No palpable organomegaly. MUSCULOSKELETAL: No joint swelling or deformity. EXTREMITIES: No cyanosis, clubbing, or pedal edema. NEUROLOGICAL: Gross neurological examination did not reveal any focal deficits. SKIN: Patient has a bruise and abrasion on the left cheek area secondary to fall from excessive drinking Results CBC & Chem 7: 11/03/19 10:55 11/03/19 10:55 Labs: Abnormal Lab Results - Last 24 Hours (Table) 11/03/19 11/03/19 11/03/19 Range/Units 10:55 10:55 10:55 RBC 3.67 L (3.80-5.40) m/uL MCV 107.0 H (80.0-100.0) fL RDW 16.6 H (11.5-15.5) % Neutrophils # 8.5 H (1.3-7.7) k/uL Macrocytosis Marked A Potassium 3.4 L (3.5-5.1) mmol/L Creatinine 0.48 L (0.52-1.04) mg/dL Plasma Lactic Acid Gunnar 3.3 H* (0.7-2.0) mmol/L AST 179 H (14-36) U/L ALT 103 H (4-34) U/L Creatine Kinase 417 H (30-135) U/L Urine Protein (Negative) U Benzodiazepines Scrn (NotDetected) 11/03/19 Range/Units 11:15 RBC (3.80-5.40) m/uL MCV (80.0-100.0) fL RDW (11.5-15.5) % Neutrophils # (1.3-7.7) k/uL Macrocytosis Potassium (3.5-5.1) mmol/L Creatinine (0.52-1.04) mg/dL Plasma Lactic Acid Gunnar (0.7-2.0) mmol/L AST (14-36) U/L ALT (4-34) U/L Creatine Kinase (30-135) U/L Urine Protein Trace H (Negative) U Benzodiazepines Scrn Detected H (NotDetected) Assessment and Plan Plan: -Depression with suicide attempt with alcohol: patient will need psychiatric evaluation and possible admission to psychiatric floor. Alcohol overdose: I do not expect patient to have significant alcohol withdrawals because of that reason I do not believe patient to be admitted to inpatient medicine rather can go to psychiatric directly. -hypothyroidism ed -Hypertension -Acute alcoholic hepatitis expected to improve with cessation of alcohol Hypokalemia : Potassium was supplemented magnesium level will be obtained
[2019-11-03] MEDS ORDERED: NALOXONE 0.4 MG/ML 1 ML VIAL IV PRN (18:04)
[2019-11-03] MEDS ORDERED: LORazepam 2 MG/ML INJ IV PRN ×2 (18:06)
[2019-11-03] MEDS: THIAMINE 100 MG TAB PO SCH (18:19)
[2019-11-03] MEDS: SODIUM CHLORIDE 0.9% 1,000 ML IV SCH (20:52)
[2019-11-04] MEDS: LORazepam 2 MG/ML INJ IV PRN ×4 (01:59→15:53)
[2019-11-04] MEDS: SODIUM CHLORIDE 0.9% 1,000 ML IV SCH ×3 (02:00→16:02)
[2019-11-04] MEDS: THIAMINE 100 MG TAB PO SCH ×2 (06:26→15:53)
[2019-11-04 06:33] LABS: Anisocytosis Slight; Basophils % (A) 0 %; Eosinophils # (A) 0.4 k/uL (0-0.7); Eosinophils % (A) 4 %; HCT 34.8 % (34.0-46.0); HGB 11.5 gm/dL (11.4-16.0); Lymphocytes # (A) 1.7 k/uL (1.0-4.8); Lymphocytes % (A) 19 %; MCHC 32.9 g/dL (31.0-37.0); MCV 106.3 fL (80.0-100.0); Mean Platelet Volume 10.6; Monocytes # (A) 0.2 k/uL (0-1.0); Monocytes % (A) 2 %; Neutrophils # (A) 6.7 k/uL (1.3-7.7); Neutrophils % (A) 74 %; Platelet Count 134 k/uL (150-450); RBC 3.27 m/uL (3.80-5.40); RDW 16.9 % (11.5-15.5); WBC 9.1 k/uL (3.8-10.6)
[2019-11-04 06:40] LABS: Macrocytosis Marked
[2019-11-04 06:44] LABS: African American GFR (CKD) >90 (>60 ml/min/1.73 sqM); Anion Gap 3 mmol/L; Blood Urea Nitrogen 9 mg/dL (7-17); Calcium 7.9 mg/dL (8.4-10.2); Carbon Dioxide 25 mmol/L (22-30); Chloride 107 mmol/L (98-107); Glucose 87 mg/dL (74-99); Non-African American GFR(CKD) >90 (>60 ml/min/1.73 sqM); Potassium 3.6 mmol/L (3.5-5.1); Sodium 135 mmol/L (137-145)
[2019-11-04 09:19] VITALS: RESP 18
--- NOTE | 2019-11-04 11:10 | P.DS ---
Providers Date of admission: 11/03/19 18:06 Attending physician: Yuko Lira Consults: 11/03/19 18:05 Consult Physician Urgent Consulting Provider: Uriah Calixto Reason/Comments: acute depression, alcohol abuse Do you want consulting provider notified?: Yes Primary care physician: Stated None Hospital Course: Please refer to to HPI for further details Patient Condition at Discharge: Serious Plan - Discharge Summary Discharge Rx Participant: No New Discharge Prescriptions: Continue buPROPion HCL [Wellbutrin XL] 150 mg PO DAILY Levothyroxine Sodium [Synthroid] 112 mcg PO DAILY Citalopram Hydrobromide [CeleXA] 40 mg PO DAILY Atenolol [Tenormin] 12.5 mg PO DAILY #30 tab Thiamine [Vitamin B-1] 100 mg PO DAILY #30 tab Folic Acid 1 mg PO DAILY #30 tablet Multivitamins, Thera [Multivitamin (formulary)] 1 tab PO DAILY #30 tablet Discharge Medication List Citalopram Hydrobromide [CeleXA] 40 mg PO DAILY 07/13/19 [History] Levothyroxine Sodium [Synthroid] 112 mcg PO DAILY 07/13/19 [History] buPROPion HCL [Wellbutrin XL] 150 mg PO DAILY 07/13/19 [History] Atenolol [Tenormin] 12.5 mg PO DAILY #30 tab 10/20/19 [Rx] Folic Acid 1 mg PO DAILY #30 tablet 10/20/19 [Rx] Multivitamins, Thera [Multivitamin (formulary)] 1 tab PO DAILY #30 tablet 10/20/19 [Rx] Thiamine [Vitamin B-1] 100 mg PO DAILY #30 tab 10/20/19 [Rx] Follow up Appointment(s)/Referral(s): None,Stated [Primary Care Provider] - 1-2 days Discharge Disposition: TRANSFER TO PSYCH HOSP/UNIT
--- NOTE | 2019-11-04 11:10 | P.HPIM ---
History of Present Illness 59-year-old female came in with all call intoxication an intentional overdose trying to kill herself. Patient states she needs help. Patient's significant other recently. Patient was admitted couple days ago for the same problem at that time patient didn't have any withdrawals. Patient was watched for overdose subsequently psychiatric evaluated the patient the patient at the time psychiatric did not believe patient will need inpatient psychiatric admission. Patient is today was insisting on discharge because of which I discharged her couple days ago came back again yesterday with alcohol intoxicated been pretty much the same complaints that she was having during her last hospital physician. Patient was treated recently and was discharged on October 28 after she was appropriately treated for alcohol withdrawals. Patient was monitored during last hospital admission for alcohol withdrawals and patient didn't have any withdrawals as patient was recently treated for alcohol withdrawals I do not expect any withdrawals at this time. Because of which I do not believe patient to be admitted but patient the was subsequently admitted to my service because of her mild lactic acidosis which resolved at this time and diarrhea C. diff was the ruled out lactic acidosis resolved which is believed to be secondary to intravascular depletion patient received IV fluids psychiatric evaluated the patient today once medically cleared patient can be discharged to psychiatric floor as per the psychiatrist patient potassium was corrected lactic acidosis resolved diarrhea resolved patient is medically stable to discharge be discharged to psychiatric floor I do not expect expect significant withdrawals that need treatment here. Although patient does complain of tremors which is intentional rather alcohol withdrawal Review of Systems REVIEW OF SYSTEMS: CONSTITUTIONAL: No fever, no malaise, no fatigue. HEENT: No recent visual problems or hearing problems. Denied any sore throat. CARDIOVASCULAR: No chest pain, orthopnea, PND, no palpitations, no syncope. PULMONARY: No shortness of breath, no cough, no hemoptysis. GASTROINTESTINAL: No diarrhea, no nausea, no vomiting, no abdominal pain. NEUROLOGICAL: No headaches, no weakness, no numbness. HEMATOLOGICAL: Denies any bleeding or petechiae. GENITOURINARY: Denies any burning micturition, frequency, or urgency. MUSCULOSKELETAL/RHEUMATOLOGICAL: Denies any joint pain, swelling, or any muscle pain. ENDOCRINE: Denies any polyuria or polydipsia. psychiatric: Depression and suicidal ideation. The rest of the 14-point review of systems is negative. Past Medical History Past Medical History: Osteoarthritis (OA), Seizure Disorder, Thyroid Disorder Additional Past Medical History / Comment(s): ETOH abuse, chronic back pain,neck pain, numbness derick. shoulder & arm/finger tips, derick numbness to legs & ft, limited rom neck, benign colon polyps, uses walker, frequent falls History of Any Multi-Drug Resistant Organisms: None Reported Past Surgical History: Breast Surgery, Hernia Repair, Orthopedic Surgery, T onsillectomy Additional Past Surgical History / Comment(s): derick knee replacements with R knee done twice, bilateral eye laser surgery for vision correction, benign lump removed from lt breast, colonoscopies/benign polypectomies. 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 Pt states that she was there at the time. She uses a cane or walker. She does not drive. She is disabled. Smoking Status: Current every day smoker Past Alcohol Use History: Abuse, Daily, Heavy Additional Past Alcohol Use History / Comment(s): Pt started smoking in 1973 and smokes 5 cigarettes a day. Pt states she drinks 4 half pints a day Past Drug Use History: None Reported - Past Family History Mother Additional Family Medical History / Comment(s): Mother recently of heart problems at the age of 79yrs old. Father Family Medical History: Hyperlipidemia Additional Family Medical History / Comment(s): Father is living. Medications and Allergies Home Medications Medication Instructions Recorded Confirmed Type Citalopram Hydrobromide [CeleXA] 40 mg PO DAILY 07/13/19 11/03/19 History Levothyroxine Sodium [Synthroid] 112 mcg PO DAILY 07/13/19 11/03/19 History buPROPion HCL [Wellbutrin XL] 150 mg PO DAILY 07/13/19 11/03/19 History Atenolol [Tenormin] 12.5 mg PO DAILY #30 tab 10/20/19 11/03/19 Rx Folic Acid 1 mg PO DAILY #30 tablet 10/20/19 11/03/19 Rx Multivitamins, Thera [Multivitamin 1 tab PO DAILY #30 tablet 10/20/19 11/03/19 Rx (formulary)] Thiamine [Vitamin B-1] 100 mg PO DAILY #30 tab 10/20/19 11/03/19 Rx Allergies Allergy/AdvReac Type Severity Reaction Status Date / Time No Known Allergies Allergy Verified 11/02/19 08:14 Physical Exam Vitals: Vital Signs Temp Pulse Pulse Resp BP BP Pulse Ox 11/04/19 08:00 97.8 F 72 18 136/90 97 11/04/19 04:00 98.0 F 72 16 122/81 97 11/03/19 23:24 84 16 11/03/19 23:22 98.8 F 84 16 122/71 97 11/03/19 20:33 97.9 F 72 18 115/75 98 11/03/19 19:34 76 18 116/96 98 11/03/19 19:18 75 18 125/103 98 11/03/19 18:18 70 18 135/108 99 11/03/19 17:00 71 18 136/82 99 11/03/19 16:09 67 18 107/78 95 11/03/19 15:00 64 18 111/76 96 11/03/19 14:21 68 18 122/71 97 11/03/19 13:13 66 18 124/101 93 L 11/03/19 12:12 71 18 112/83 98 Intake and Output 11/03/19 11/04/19 11/04/19 22:59 06:59 14:59 Intake Total 800 1200 Balance 800 1200 Intake: Intake, IV Titration 800 1200 Amount Sodium Chloride 0.9% 1, 800 200 000 ml @ 100 mls/hr IV . Q10H [facility] Rx#:[id number] Sodium Chloride 0.9% 1, 1000 000 ml @ 100 mls/hr IV . Q10H7M ONE with Mvi, Adult No.4 with Vit K 10 ml with Thiamine 100 mg with Folic Acid 1 mg Rx#: [id number] Other: Voiding Method Toilet Toilet # Voids 1 Weight 72.7 kg 72.8 kg PHYSICAL EXAMINATION: GENERAL: The patient is alert and oriented x3, not in any acute distress. Well developed, well nourished. HEENT: Pupils are round and equally reacting to light. EOMI. No scleral icterus. No conjunctival pallor. Normocephalic, atraumatic. No pharyngeal erythema. No thyromegaly. CARDIOVASCULAR: S1 and S2 present. No murmurs, rubs, or gallops. PULMONARY: Chest is clear to auscultation, no wheezing or crackles. ABDOMEN: Soft, nontender, nondistended, normoactive bowel sounds. No palpable organomegaly. MUSCULOSKELETAL: No joint swelling or deformity. EXTREMITIES: No cyanosis, clubbing, or pedal edema. NEUROLOGICAL: Gross neurological examination did not reveal any focal deficits. SKIN: Patient has a bruise and abrasion on the left cheek area secondary to fall from excessive drinking Results CBC & Chem 7: 11/04/19 05:52 11/04/19 05:52 Labs: Abnormal Lab Results - Last 24 Hours (Table) 11/03/19 11/03/19 11/03/19 Range/Units 10:55 10:55 10:55 RBC 3.67 L (3.80-5.40) m/uL MCV 107.0 H (80.0-100.0) fL RDW 16.6 H (11.5-15.5) % Plt Count (150-450) k/uL Neutrophils # 8.5 H (1.3-7.7) k/uL Macrocytosis Marked A Sodium (137-145) mmol/L Potassium 3.4 L (3.5-5.1) mmol/L Creatinine 0.48 L (0.52-1.04) mg/dL Plasma Lactic Acid Gunnar 3.3 H* (0.7-2.0) mmol/L Calcium (8.4-10.2) mg/dL AST 179 H (14-36) U/L ALT 103 H (4-34) U/L Creatine Kinase 417 H (30-135) U/L Urine Protein (Negative) U Benzodiazepines Scrn (NotDetected) 11/03/19 11/04/19 11/04/19 Range/Units 11:15 05:52 05:52 RBC 3.27 L (3.80-5.40) m/uL MCV 106.3 H (80.0-100.0) fL RDW 16.9 H (11.5-15.5) % Plt Count 134 L (150-450) k/uL Neutrophils # (1.3-7.7) k/uL Macrocytosis Marked A Sodium 135 L (137-145) mmol/L Potassium (3.5-5.1) mmol/L Creatinine (0.52-1.04) mg/dL Plasma Lactic Acid Gunnar (0.7-2.0) mmol/L Calcium 7.9 L (8.4-10.2) mg/dL AST (14-36) U/L ALT (4-34) U/L Creatine Kinase (30-135) U/L Urine Protein Trace H (Negative) U Benzodiazepines Scrn Detected H (NotDetected) Thrombosis Risk Factor Assmnt - Choose All That Apply Any of the Below Risk Factors Present?: Yes Each Factor Represents 1 point: Age 41-60 years Other Risk Factors: No Other congenital or acquired thrombophilia - If yes, enter type in comment: No Thrombosis Risk Factor Assessment Total Risk Factor Score: 1 Thrombosis Risk Factor Assessment Level: Low Risk Assessment and Plan Plan: -Depression with suicide attempt with alcohol: patient will need psychiatric evaluation and possible admission to psychiatric floor. -Diarrhea rule out C. diff patient diarrhea resolved can be discharged today -Lactic acidosis secondary to intravascular volume depletion improved with IV fluids. Alcohol overdose: I do not expect patient to have significant alcohol withdrawals because patient is medically stable to be discharged to psychiatric floor -hypothyroidism -Hypertension -Acute alcoholic hepatitis expected to improve with cessation of alcohol Hypokalemia : Potassium was replaced, magnesium is within normal limits
--- NOTE | 2019-11-04 11:17 | P.CN ---
Psychiatric Consult - . Consult date: 11/04/19 Consult:: IDENTIFYING DATA: The patient's 59-year-old unemployed female readmitted to the [facility] 1 day after discharge. According to the progress note she was unresponsive when she arrived in the ED. Information obtained from her brother indicates a possible overdose. HISTORY OF PRESENT ILLNESS: I reviewed the medical record and interviewed the patient. She was admitted to the [facility] on 11/01/2019 acutely int oxicated, with contusions and bruises on her face and arms and expressing suicidal thoughts. She was admitted to medicine for evaluation of treatment of acute alcohol intoxication. The hospitalist consult to psychiatry due to the suicidal statements. I evaluated her on 11/03/2019. She reported that she was acutely distressed because her partner of 39 years suddenly on Saturday prior to her admission. She is remorseful and was clearly grieving the of her partner. She admitted to having suicidal thoughts but attributed to her intoxicated state. She denied that she had a past history of suicide attempts or gestures. She denied that she had a suicide attempt or plan and talked about never wanting to commit suicide because of her family, children and grandchildren. She requ ested to be discharged so that she couldn't take care of the arrangements for her partner. According to the ED note her brother found her unresponsive at her house with multiple pill bottles and pills shewn about. In the ED she was unresponsive. During our interview today she minimized the severity of the suicide attempt and again pleaded to be discharged to return home to "pay bills" and attended to her partner's arrangements. At first she denied use of alcohol but later admitted that she drank "a half a pint". She also minimized a drug overdose alleging that she only took "some Synthroid and atenolol." PAST PSYCHIATRIC HISTORY: She's been meeting with an individual therapist, Jacinta, to [facility] outpatient mental health services. She denied history of psychiatric hospitalizations. She is never met with psychiatrists are prescribed psychotropic medications for treatment of her mood or anxiety.. PAST MEDICAL HISTORY: She's had multiple ED presentations for alcohol, alcohol withdrawal and alcohol intoxication. She has admitted to medicine for treatment of acute alcohol intoxication and withdrawal on 10/16/2019 ALLERGIES: NO KNOWN DRUG ALLERGIES. SUBSTANCE USE HISTORY: She has a history of oral opiate pain medication abuse. She was prescribed opiate pain medications for treatment of knee and back pain for several years. She continued taking the medications (Percocet, [place]) even after the doctors recommended that she discontinue the medications. She sought treatment of her opiate pain medication abuse through [facility] and prescribed Suboxone. She tapered her self off of Suboxone and denied use of oral pain medications since she stopped Suboxone. FAMILY PSYCHIATRIC/SUBSTANCE USE HISTORY: She is unaware of family history of substance abuse or psychiatric problems. SOCIAL HISTORY:. She is born and raised in [place]. She has 1 sister. She has 1 daughter who lives in [place]. She moved to [place] where she met her . She is unemployed and receives social security disability.. MENTAL STATUS EXAM: She presented as a disheveled appearing 59-year-old female who was laying carefully in bed.. She made eye contact and attended the interview. She had abrasions on her face and bruising of both arms. She had no prominent physical abnormalities. She had a blunted facial expression. She is alert and oriented to person, place and time. She showed psychomotor retardation but no abnormal movements. She did not have a hand tremor. Her speech was spontaneous with decreased in rate and rhythm. Affect was depressed but stable and appropriate. She denied suicidal ideation and wishes. She denied homicidal ideation. She denied feeling hopeless, helpless or worthless. She ruminated about the unexpected of her his partner and expressed grief and bereavement. She did not express ideas reference, paranoid ideation or delusions. Her thinking was concrete. Associations were court coherent, logical and goal directed. She denied hallucinations did not appear to be responding to internal stimuli.. IMPRESSIONS: Suicide attempt by multiple drug overdose, alcohol intoxication, alcohol use disorder severe, bereavement, rule out major depressive disorder PLAN: Maintain one-to-one until she is transferred to the psychiatric unit. Elopement precautions. She will need a petition and the clinical certification refuses consent for voluntary transfer. 11/04/19 10:44
[2019-11-04 13:02] VITALS: BMI 26.6
[2019-11-04 16:02] VITALS: BP 129/80; PULSE 79; TEMP 98.2
== END 2019-11-04 17:20 | DRG 918 ==
LOC: EC 10:21 → 3SCARD 18:06
PROVIDERS: ADMIT Internal Medicine; ATTEND Internal Medicine
DX: T51.0X2A Toxic effect of ethanol, intentional self-harm, initial encounter (principal); E87.2 Acidosis; E03.9 Hypothyroidism, unspecified; E86.9 Volume depletion, unspecified; F10.229 Alcohol dependence with intoxication, unspecified; F17.210 Nicotine dependence, cigarettes, uncomplicated; F32.9 Major depressive disorder, single episode, unspecified; F41.9 Anxiety disorder, unspecified; G40.909 Epilepsy, unspecified, not intractable, without status epilepticus; I10 Essential (primary) hypertension; Z63.4 Disappearance and death of family member; K70.10 Alcoholic hepatitis without ascites; Z79.890 Hormone replacement therapy; Z79.899 Other long term (current) drug therapy; Z87.19 Personal history of other diseases of the digestive system; Z96.653 Presence of artificial knee joint, bilateral; G89.29 Other chronic pain; M54.2 Cervicalgia; Z86.010 Personal history of colon polyps; R20.0 Anesthesia of skin; E87.6 Hypokalemia; Z56.0 Unemployment, unspecified; Z91.81 History of falling; Z11.59 Encounter for screening for other viral diseases
CPT/HCPCS: 36415; 71045; 74018; 80048; 80053; 80306; 80320; 80329; 81003; 81025; 82140; 82550; 83520; 83605; 83690; 83735; 84484; 85025; 87324; 87635; 93005; 96361; 96365; 96366; 96375; 96376; 99285

== ENCOUNTER 2019-11-04 16:06 | Inpatient (IN) | payer MEDICARE, MEDICAID ==
[2019-11-04] MEDS ORDERED: MAGNESIUM HYDROXIDE 2,400 MG/10 ML CUP PO PRN (17:36)
[2019-11-04] MEDS: ACETAMINOPHEN TAB 325 MG TAB PO PRN (18:11)
[2019-11-04] MEDS: MAG HYDROX/AL HYDROX/SIMETH 30 ML CUP PO PRN (18:11)
[2019-11-04] MEDS: LORazepam 1 MG TAB PO PRN ×2 (18:11→22:31)
[2019-11-05] MEDS ORDERED: LORazepam 1 MG TAB ONE (00:28)
[2019-11-05] MEDS: LORazepam 1 MG TAB PO PRN ×5 (04:18→22:10)
[2019-11-05] MEDS ORDERED: LEVOTHYROXINE 112 MCG TAB PO SCH (06:30)
[2019-11-05] MEDS: THIAMINE 100 MG TAB PO SCH (08:33)
[2019-11-05] MEDS: NICOTINE 7MG/24HR PATCH TRANSDERM SCH (08:33)
[2019-11-05] MEDS: ATENOLOL 12.5 MG TAB PO SCH (09:57)
[2019-11-05] MEDS: FOLIC ACID 1 MG TAB PO SCH (12:51)
[2019-11-05] MEDS: MULTIVITAMINS, THERA 1 EACH TAB PO SCH (12:51)
--- NOTE | 2019-11-05 13:41 | P.CONS ---
History of Present Illness - Reason for Consult Medical clearance elevated TSH - History of Present Illness 59-year-old female admitted to my service subsequently discharged to psychiatric floor patient was treated for alcohol withdrawal patient came in alcohol abuse and suicide attempt by drinking heavily. Patient was recently treated for alcohol withdrawal. Patient doesn't have any alcohol withdrawal symptoms at this time patient is feeling better. Patient denied any fever chills nausea vomiting abdominal pain. Patient denied any diarrhea patient doesn't have any hypothyroidism symptoms but patient's TSH is highly elevated lipase and T4 level Review of Systems REVIEW OF SYSTEMS: CONSTITUTIONAL: No fever, no malaise, no fatigue. HEENT: No recent visual problems or hearing problems. Denied any sore throat. CARDIOVASCULAR: No chest pain, orthopnea, PND, no palpitations, no syncope. PULMONARY: No shortness of breath, no cough, no hemoptysis. GASTROINTESTINAL: No diarrhea, no nausea, no vomiting, no abdominal pain. NEUROLOGICAL: No headaches, no weakness, no numbness. HEMATOLOGICAL: Denies any bleeding or petechiae. GENITOURINARY: Denies any burning micturition, frequency, or urgency. MUSCULOSKELETAL/RHEUMATOLOGICAL: Denies any joint pain, swelling, or any muscle pain. ENDOCRINE: Denies any polyuria or polydipsia. The rest of the 14-point review of systems is negative. Past Medical History Past Medical History: Osteoarthritis (OA), Seizure Disorder, Thyroid Disorder Additional Past Medical History / Comment(s): ETOH abuse, chronic back pain,neck pain, numbness derick. shoulder & arm/finger tips, derick numbness to legs & ft, limited rom neck, benign colon polyps, uses walker, frequent falls History of Any Multi-Drug Resistant Organisms: None Reported Past Surgical History: Breast Surgery, Hernia Repair, Orthopedic Surgery, Tonsillectomy Additional Past Surgical History / Comment(s): derick knee replacements with R knee done twice, bilateral eye laser surgery for vision correction, benign lump removed from lt breast, colonoscopies/benign polypectomies. 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 Pt states that she was there at the time. She uses a cane or walker. She does not drive. She is disabled. Smoking Status: Current every day smoker Past Alcohol Use History: Abuse, Daily, Heavy Additional Past Alcohol Use History / Comment(s): Pt started smoking in 1973 and smokes 5 cigarettes a day. Pt states she drinks 4 half pints a day Past Drug Use History: None Reported - Past Family History Mother Additional Family Medical History / Comment(s): Mother recently of heart problems at the age of 79yrs old. Father Family Medical History: Hyperlipidemia Additional Family Medical History / Comment(s): Father is living. Medications and Allergies Home Medications Medication Instructions Recorded Confirmed Type Citalopram Hydrobromide [CeleXA] 40 mg PO DAILY 07/13/19 11/04/19 History Levothyroxine Sodium [Synthroid] 112 mcg PO DAILY 07/13/19 11/04/19 History buPROPion HCL [Wellbutrin XL] 150 mg PO DAILY 07/13/19 11/04/19 History Atenolol [Tenormin] 12.5 mg PO DAILY #30 tab 10/20/19 11/04/19 Rx Folic Acid 1 mg PO DAILY #30 tablet 10/20/19 11/04/19 Rx Multivitamins, Thera [Multivitamin 1 tab PO DAILY #30 tablet 10/20/19 11/04/19 Rx (formulary)] Thiamine [Vitamin B-1] 100 mg PO DAILY #30 tab 10/20/19 11/04/19 Rx Allergies Allergy/AdvReac Type Severity Reaction Status Date / Time No Known Allergies Allergy Verified 11/04/19 18:54 Physical Exam Vitals: Vital Signs Temp Pulse Resp BP Pulse Ox 11/05/19 06:57 107 H 18 137/96 11/04/19 22:25 97.6 F 11/04/19 18:41 99.0 F 11/04/19 18:05 98.3 F 117 H 15 134/93 100 11/04/19 17:49 97.1 F L 92 16 112/93 Intake and Output 11/04/19 11/05/19 11/05/19 22:59 06:59 14:59 Other: Weight 71.214 kg PHYSICAL EXAMINATION: GENERAL: The patient is alert and oriented x3, not in any acute distress. Well developed, well nourished. HEENT: Pupils are round and equally reacting to light. EOMI. No scleral icterus. No conjunctival pallor. Normocephalic, atraumatic. No pharyngeal erythema. No thyromegaly. CARDIOVASCULAR: S1 and S2 present. No murmurs, rubs, or gallops. PULMONARY: Chest is clear to auscultation, no wheezing or crackles. ABDOMEN: Soft, nontender, nondistended, normoactive bowel sounds. No palpable organomegaly. MUSCULOSKELETAL: No joint swelling or deformity. EXTREMITIES: No cyanosis, clubbing, or pedal edema. NEUROLOGICAL: Gross neurological examination did not reveal any focal deficits. SKIN: No rashes. Results Labs: Abnormal Lab Results - Last 24 Hours (Table) 11/04/19 Range/Units 05:52 TSH 13.100 H (0.465-4.680) mIU/L Assessment and Plan Plan: -Elevated TSH, hypothyroidism: We'll obtain T4 levels. We will increase the levothyroxine dose. TSH and it was rechecked in about a month -Alcohol abuse and acute alcoholic hepatitis -Depression and suicidal ideation -Hypertension For above-mentioned chronic medical problems patient will be resumed on appropriate home medications -
--- NOTE | 2019-11-05 14:19 | P.HP ---
Psychiatric H&P - . H&P Date: 11/05/19 History & Physical: IDENTIFYING DATA: She is a 59-year-old female admitted to the psychiatric unit involuntarily with a history of alcohol intoxication, suicidal ideation and a suicide attempt by overdose of prescription medications. HISTORY OF PRESENT ILLNESS: Her brother completed a petition for hospitalization after he found her unresponsive on the floor of her home. She is known to this field underwriter from a prior admission to the medical unit. Since 10/20/2019 she has had 4 admissions to the medical unit related to alcohol and alcohol intoxication in addition, she has had presentations to the emergency room for suicidal ideation, alcohol intoxication, alcohol withdrawal, seizures related to alcohol withdrawal and possible suicidal ideation. I evaluated her when she was admitted to medicine on 11/02/2019. She presented to emergency department acutely intoxicated with a breath alcohol level of 0.222. The ED physician indicated that she made suicidal statements. She was acutely distressed because her partner 39 years suddenly on Saturday from a "massive heart attack." During our interview she denied that she expressed suicidal thoughts. She alleged that she told the emergency doctor that she "wishes to see her again." She denied that she made a suicidal statement and denied that she had intent or plans for suicide. Much of the interview was spent expressing her grief over the sudden and unexpected of her partner. After her partner's she plans to move to [place] to be near her daughter and her 5 grandchildren. She alleged that she would never attempt suicide because of her daughter and her grandchildren. She was discharged from medicine service on 11/02/2019. The next day her brother found her unresponsive on the floor of her house. He called EMS and reported a possible overdose because he found medications spilled "all over the premises." I evaluated again on medicine unit and she minimizes the circumstances that led to this admission. She denied that she had attempted suicide and denied that she had taken pills in a suicide attempt. She again pleaded to be discharged and returned home to "[facility]" and attended to her partner's . We reviewed her alcohol use and she alleged that she "found" a half a pint of liquor in the house. During our interview today she requested discharge. She denied that she had attempted suicide and again talked about grief over the loss of her partner. She again assured me that she would be "safe" and would not attempt to hurt herself. PAST PSYCHIATRIC HISTORY: She alleged that she's been meeting with individual therapist "Jacinta" in the [facility] outpatient mental health services. She denied his history of psychiatric hospitalizations. She also denied history of suicide attempts, gestures or nonlethal self-harm. She let she never met with a psychiatrist or has been prescribed psychotropic medication for treatment of mood, anxiety or thinking. PAST MEDICAL HISTORY: She has had multiple ED presentations for alcohol, alcohol withdrawal and alcohol intoxication. She has had [facility] admissions to [facility] since July 2023 alcohol intoxication. ALLERGIES: NO KNOWN DRUG ALLERGIES SUBSTANCE USE HISTORY: She was guarded about her alcohol use and alcohol use history. She gave various reports of the amount and frequency of her alcohol use. Apparently, she was drinking between 1 pint to one fifth of liquor per day since at least one year. She attributed her alcohol use to her partner's alcohol use and the of her mother in March 2019. She admitted to a history of oral opiate pain medication use she talked about having been prescribed opiate pain medications for treatment of knee and back pain. She continued taking the medications (Percocet, [place]) unit doctor recommended that she discontinue medications. He sought treatment for opiate pain medication abuse to [facility] and a treatment included Suboxone. She self tapered herself off Suboxone and denied the use of oral pain medications since she discontinued Suboxone. She denied that she had been in the alcohol treatment program. FAMILY PSYCHIATRIC/SUBSTANCE USE HISTORY: She is unaware of family history of substance abuse or psychiatric problems. LEGAL HISTORY: She denied history of legal problems SOCIAL HISTORY: She was born and raised in [place] [place] [facility]. She has 1 sister. She was and had one child. Her daughter lives in [place] with her 5 children. She move to [place] after she her where she met her . They have been together for 39 years. She is unemployed and rece brynn so screwed disability. MENTAL STATUS EXAM: She presented as a disheveled appearing 59-year-old female who was pleasant on approach. She made eye contact and appeared to attend to interview. She had multiple abrasions on her face, bruising and ecchymosis on both of her arms and bruising on her legs. She had no prominent physical abnormalities. She had a blunted facial expression. She was alert and oriented to person, place and time. She showed psychomotor retardation but no abnormal movements. She had a moderate hand tremor. Her speech was spontaneous with decreased rate, rhythm and volume. Affect was depressed and not reactive. She denied suicidal ideation and wishes. She denied homicidal ideation. She denied feeling hopeless, helpless or worthless. She ruminated about him and unexpected of her partner and express grief and bereavement. She did not express ideas reference, paranoid ideation or delusional thoughts. Her thinking was concrete. Associations were "parent, and goal-directed she denied hallucinations and did not appear to be responding to internal stimuli. STRENGTHS: Stable income, stable housing, supportive family WEAKNESSES: Or recent of his long-term partner, chronic alcohol use problems, poor coping skills IMPRESSION: She is a 59-year-old female who has a history of an alcohol use disorder. She presented to [facility] multiple times since July 2023 alcohol intoxication and alcohol related problems. In addition, she has had [address] [facility] for same. She presented to [facility] this time after a suicide attempt by ingestion of prescription medication and drinking alcohol. She minimizes her alcohol use and minimized the severity of her suicide attempt. She has no insight or understanding of her need for mental health treatment and is unwilling to agree to voluntary treatment. She should be treated inpatient basis with combination of psychopharmacology and multimodal therapy. PRINCIPLE DIAGNOSIS: Suicide attempt by overdose of prescription medication and alcohol, alcohol withdrawal, alcohol use disorder severe dependence, rule out alcohol induced mood disorder, rule out major depressive disorder, bereavement RECOMMENDATION: And attended to the psychiatric unit. Safety precautions. Ativan 1 or 2 mg by mouth depended on scores of the CIWA. Monitor for signs and symptoms of delirium. Proceed with involuntary hospitalization. Consider treatment with antidepressant. Hospitalist completed initial physical exam and medical history. workers compensation adjuster to complete the initial psychosocial assessment and coordinate discharge and aftercare services. Encourage participation in therapeutic groups and activities. Evaluate clinical status response to t reatment on a daily basis. Allergies Allergy/AdvReac Type Severity Reaction Status Date / Time No Known Allergies Allergy Verified 11/04/19 18:54 Vital Signs Temp 97.6 F 11/04/19 22:25 Pulse 107 H 11/05/19 06:57 Resp 18 11/05/19 06:57 BP 137/96 11/05/19 06:57 Pulse Ox 100 11/04/19 18:05 Intake & Output 11/04/19 11/05/19 11/05/19 18:59 06:59 18:59 Weight 71.214 kg Laboratory Last Values TSH 13.100 mIU/L (0.465-4.680) H 11/04/19 05:52 11/05/19 14:00
[2019-11-05] MEDS: ACETAMINOPHEN TAB 325 MG TAB PO PRN (18:18)
[2019-11-06] MEDS: ACETAMINOPHEN TAB 325 MG TAB PO PRN ×4 (01:03→22:40)
[2019-11-06] MEDS: LORazepam 1 MG TAB PO PRN ×5 (03:18→20:49)
[2019-11-06] MEDS: LEVOTHYROXINE 125 MCG TAB PO SCH (06:43)
[2019-11-06] MEDS: NICOTINE 7MG/24HR PATCH TRANSDERM SCH (09:05)
[2019-11-06] MEDS: THIAMINE 100 MG TAB PO SCH (09:06)
[2019-11-06] MEDS: ATENOLOL 12.5 MG TAB PO SCH (09:06)
[2019-11-06] MEDS: MULTIVITAMINS, THERA 1 EACH TAB PO SCH (12:19)
[2019-11-06] MEDS: FOLIC ACID 1 MG TAB PO SCH (12:19)
--- NOTE | 2019-11-06 15:34 | P.PN ---
Subjective Progress Note Date: 11/06/19 Principal diagnosis: Suicide attempt by overdose of prescription medication and alcohol, alcohol withdrawal, alcohol use disorder severe dependence, rule out alcohol induced mood disorder, rule out major depressive disorder, bereavement I reviewed the medical record, interviewed the patient and discuss her treatment and treatment plan during team meeting. She denied that she had attempted to overdose on her prescription medications. She alleged that her brother misinterpreted the circumstances. She was "drunk" and passed out on the floor. Her medications were spilled on the floor when she was attempted to take her morning dose. She denied having thoughts of or suicide and repeatedly requested to be discharged. She again talked about needing to attend to her voice and overall and assured me that should be safe if she were discharged. She described mild to moderate symptoms of alcohol withdrawal which tremor, nausea and sweating. Her CIWA scores ranged from 0-23 over the last 24 hours. Objective - Vital Signs Vital signs: Vital Signs Temp 98.1 F 11/06/19 12:00 Pulse 94 11/06/19 01:20 Resp 18 11/06/19 01:20 BP 140/93 11/06/19 01:20 Pulse Ox 100 11/04/19 18:05 - Exam She presented as a disheveled elderly female who looked older than his stated age. She had long unkempt hair. She had healing abrasion on her face a nd contusions on her arms and bruising on her arms and her legs. She made eye contact but difficulty concentrating and attending to the interview. She had a blunted facial expression. She is alert and oriented to person, place and time. She showed psychomotor retardation. She had a mild hand tremor. Her speech was spontaneous with normal rate and rhythm. Affect was irritable. She denied suicidal ideation, wishes or homicidal ideation. She denied feeling hopeless, helpless or worthless. She ruminated about of her life and her need to return home to arrange the . She did not express ideas reference, paranoid ideation or delusions. Her thinking was concrete but her associations were coherent, logical and goal directed. Assessment and Plan Assessment: She has limited insight or understanding of the circumstances that brought her to the hospital. She continues have alcohol withdrawal symptoms requiring when necessary Ativan. She is denying that she attempted suicide. Plan: Continue with inpatient hospitalization. Probate hearing for involuntary hospitalization pending. Continue CIWA and Ativan 1-2 mg by mouth every 4 hours when necessary basis of the severity of the withdrawal symptoms. Continue Tenormin 12.5 mg for hypertension and Habitrol 7 mg for tobacco use. Evaluate clinical status response to treatment on a daily basis. Encourage participation in therapeutic groups and activities.
[2019-11-07] MEDS: LORazepam 1 MG TAB PO PRN ×5 (00:26→22:17)
[2019-11-07] MEDS: LEVOTHYROXINE 125 MCG TAB PO SCH (06:22)
[2019-11-07] MEDS: NICOTINE 7MG/24HR PATCH TRANSDERM SCH (07:53)
[2019-11-07] MEDS: ATENOLOL 12.5 MG TAB PO SCH (07:54)
[2019-11-07] MEDS: THIAMINE 100 MG TAB PO SCH (07:54)
[2019-11-07] MEDS: ACETAMINOPHEN TAB 325 MG TAB PO PRN ×2 (11:27→19:18)
[2019-11-07] MEDS: MULTIVITAMINS, THERA 1 EACH TAB PO SCH (11:27)
[2019-11-07] MEDS: FOLIC ACID 1 MG TAB PO SCH (11:27)
--- NOTE | 2019-11-07 11:27 | P.PN ---
Progress Note - Text Progress Note Date: 11/07/19 Interval history: Patient was seen taking part in group and playing activities and was directable and agreeable to speak with chart writer. Patient claims that she is doing good today and denied any complaints. She states that she is sleeping better. She is focused on discharge and when asked about her stressors and her alcohol abuse Patient was minimizing her alcohol use and states that "I just lost my significant other gave me a break" and also states that "I don't have a problem with drugs". She refused rehab. At this time patient denies any suicidal or homicidal ideations intent or plan. Denies any Auditory or visual hallucinations. Patient denies any side effects from the medications and has been compliant with meds. Mental status exam: General Appearance: Patient appears to be older than stated age is alert, directable, and superficially cooperative. Behavior: No agitated behavior. Patient is calm and directable superficially cooperative Speech: Patient's speech is fluent and nonpressured. Mood/Affect: Mood is improving mildly, affect is congruent and constricted. Suicidality/Homicidality: Patient denies having any suicidal or homicidal ideation intent or plan. Perceptions: Patient denies any auditory or visual hallucinations. Though content/process: There is no evidence of any delusional thought content and thought process is linear and goal-directed. Minimizing her symptoms and substance use. Memory and concentration: AOX3, grossly intact for the purposes of this session Judgment and insight: Poor Assessment/Plan: Continue with current diagnosis. Patient continues to meet criteria for inpatient psychiatric admission for symptom stabilization and s afety.Patient will be maintained on current psychotropic medication regimen. [employer] attempted to offer patient alcohol abuse programs or inpatient rehab however patient adamantly declines. Monitor for medication compliance and for any psychotropic medication side effects. Will continue to monitor ongoing response to treatment. Encouraged participation in milieu.
[2019-11-07] MEDS: MAG HYDROX/AL HYDROX/SIMETH 30 ML CUP PO PRN (19:17)
[2019-11-08] MEDS: LEVOTHYROXINE 125 MCG TAB PO SCH (07:01)
[2019-11-08] MEDS: THIAMINE 100 MG TAB PO SCH (08:38)
[2019-11-08] MEDS: ATENOLOL 12.5 MG TAB PO SCH (08:38)
[2019-11-08] MEDS: NICOTINE 7MG/24HR PATCH TRANSDERM SCH (08:38)
[2019-11-08] MEDS: ACETAMINOPHEN TAB 325 MG TAB PO PRN ×2 (08:39→20:56)
[2019-11-08] MEDS: LORazepam 1 MG TAB PO PRN ×3 (08:39→19:26)
--- NOTE | 2019-11-08 10:42 | P.PN ---
Progress Note - Text Progress Note Date: 11/08/19 Interval history: Patient was seen taking part in group this morning and was directable and agr eeable to speak with rewriter. Patient claims that she is doing ok today and denied any complaints. She continues to minimize her symptoms and her need for admission onto the unit and continues to demonstrate poor insight and judgment. She continues to believe that she does not need any kind of treatment or any rehab for her substance abuse. She refused rehab once again. She claims that she slept well last night and has been having a fair appetite. At this time patient denies any suicidal or homicidal ideations intent or plan. Denies any Auditory or visual hallucinations. Patient denies any side effects from the medications. Mental status exam: General Appearance: Patient appears to be older than stated age is alert, directable, and argumentative today. Behavior: No agitated behavior. Patient is calm and argumentative today. Speech: Patient's speech is fluent and nonpressured. Mood/Affect: Mood is improving mildly, affect is congruent and constricted. Suicidality/Homicidality: Patient denies having any suicidal or homicidal ideation intent or plan. Perceptions: Patient denies any auditory or visual hallucinations. Though content/process: There is no evidence of any delusional thought content and thought process is linear and goal-directed. Minimizing her symptoms and substance use. Memory and concentration: AOX3, grossly intact for the purposes of this session Judgment and insight: Poor Assessment/Plan: Continue with current diagnosis. Patient continues to meet criteria for inpatient psychiatric admission for symptom stabilization and safety.Patient will be maintained on current psychotropic medication regimen. Machinist Linotype attempted to offer patient alcohol abuse programs or inpatient rehab once again however patient adamantly declines and was focused on discharge. Monitor for medication compliance and for any psychotropic medication side effects. Will continue to monitor ongoing response to treatment. Encouraged participation in milieu.
[2019-11-08] MEDS: FOLIC ACID 1 MG TAB PO SCH (13:52)
[2019-11-08] MEDS: MULTIVITAMINS, THERA 1 EACH TAB PO SCH (13:52)
[2019-11-09] MEDS: LEVOTHYROXINE 125 MCG TAB PO SCH (05:53)
[2019-11-09 08:38] VITALS: RESP 16
[2019-11-09] MEDS: ATENOLOL 12.5 MG TAB PO SCH (08:39)
[2019-11-09] MEDS: THIAMINE 100 MG TAB PO SCH (08:39)
[2019-11-09] MEDS: LORazepam 1 MG TAB PO PRN (08:39)
[2019-11-09] MEDS: ACETAMINOPHEN TAB 325 MG TAB PO PRN ×3 (08:39→20:38)
[2019-11-09] MEDS: NICOTINE 7MG/24HR PATCH TRANSDERM SCH (08:39)
[2019-11-09] MEDS: FOLIC ACID 1 MG TAB PO SCH (12:24)
[2019-11-09] MEDS: MULTIVITAMINS, THERA 1 EACH TAB PO SCH (12:24)
--- NOTE | 2019-11-09 14:04 | P.PN ---
Subjective Progress Note Date: 11/09/19 Principal diagnosis: Suicide attempt by overdose of prescription medication and alcohol, alcohol withdrawal, alcohol use disorder severe dependence, rule out alcohol induced mood disorder, bereavement I reviewed the medical record, interviewed the patient and discuss her treatment and treatment plan during team meeting. She is feeling "much better". She denied alcohol withdrawal symptoms, anxiety, restlessness or feelings of depression. She talked more about her alcohol and alcohol use problems but denied that she had attempted overdose. She acknowledged that her brother witnessed what appeared to be a suicide attempt but denied that she had taken her prescription medication in a suicide attempt. Objective - Vital Signs Vital signs: Vital Signs Temp 97.0 F L 11/09/19 13:44 Pulse 122 H 11/09/19 08:36 Resp 16 11/09/19 08:36 BP 131/88 11/09/19 08:36 Pulse Ox 100 11/09/19 08:36 Intake & Output 11/08/19 11/09/19 11/09/19 18:59 06:59 18:59 Weight 73.1 kg - Exam She was casually groomed and dressed. She made eye contact and attempted to interview. The abrasion on her face is healing and the contusions on her arms and the bruises on her arms and legs aren't different stage of healing. Her speech was spontaneous with normal rate, rhythm and volume. Her affect was bright and reactive. She denied suicidal ideation or wishes. She denied feeling hopeless, helpless or worthless. Overtly acknowledge her problems with alcohol use. Her thinking was abstract and associations were coherent and logical. She denied hallucinations and did not appear to be responding to internal stimuli. Assessment and Plan Assessment: She is much to improve from admission. Affect is bright and her hygiene and self-care have improved. She continues to deny that she had attempted suicide. She acknowledges her alcohol use problem but his ambivalent about entering into a substance abuse treatment program. Plan: Plan plan for discharge on 11/10/2019. Continue safety precautions. Continue atenolol 12.5 mg daily, folic acid 1 mg daily, Synthroid 125 g daily thiamine be 100 mg daily and Habitrol patch. Continue discuss substance abuse treatment in addition to outpatient mental health treatment. lime kiln worker helper to contact toward admitted discharge and aftercare. Encouraged continued participation in therapeutic groups and activities.
[2019-11-10] MEDS: LEVOTHYROXINE 125 MCG TAB PO SCH (06:44)
[2019-11-10 07:03] VITALS: BP 115/75; PULSE 67; TEMP 97.8
[2019-11-10] MEDS: ACETAMINOPHEN TAB 325 MG TAB PO PRN ×2 (07:27→12:19)
[2019-11-10] MEDS: ATENOLOL 12.5 MG TAB PO SCH (07:27)
[2019-11-10] MEDS: THIAMINE 100 MG TAB PO SCH (07:27)
[2019-11-10] MEDS: NICOTINE 7MG/24HR PATCH TRANSDERM SCH (07:27)
[2019-11-10] MEDS: FOLIC ACID 1 MG TAB PO SCH (12:18)
[2019-11-10] MEDS: MULTIVITAMINS, THERA 1 EACH TAB PO SCH (13:44)
--- NOTE | 2019-11-10 14:14 | P.DS ---
Providers Date of admission: 11/04/19 17:10 Attending physician: Uriah Calixto MD Consults: 11/04/19 17:36 Consult Physician Routine Consulting Provider: Yuko Lira Consult Reason/Comments: h and P Do you want consulting provider notified?: Yes Primary care physician: Stated None - Discharge Diagnosis(es) (1) Acute alcohol intoxication Current Visit: No Status: Acute Priority: High (2) Alcohol withdrawal Current Visit: No Status: Acute Priority: Medium (3) Bereavement Current Visit: Yes Status: Acute Priority: Medium (4) Depression Current Visit: No Status: Chronic Priority: Medium (5) Nicotine dependence Current Visit: No Status: Chronic Priority: Low Hospital Course: She is a 59-year-old female admitted to the psychiatric unit involuntarily with a history of alcohol intoxication, suicidal ideation and a suicide attempt by overdose of prescription medications. Her brother completed a petition for hospitalization after he found her unresponsive on the floor of her home. She is known to this technical proposal writer from a prior admission to the medical unit. Since 10/20/2019 she has had 4 admissions to the medical unit related to alcohol and alcohol intoxication in addition, she has had presentations to the emergency room for suicidal ideation, alcohol intoxication, alcohol withdrawal, seizures related to alcohol withdrawal and possible suicidal ideation. I evaluated her when she was admitted to medicine on 11/02/2019. She presented to emergency department acutely intoxicated with a breath alcohol level of 0.222. The ED physician indicated that she made suicidal statements. She was acutely distressed because her partner 39 years suddenly on Saturday from a "massive heart attack." During our interview she denied that she expressed suicidal thoughts. She alleged that she told the emergency doctor that she "wishes to see her again." She denied that she made a suicidal statement and denied that she had intent or plans for suicide. Much of the interview was spent expressing her grief over the sudden and unexpected of her partner. After her partner's she plans to move to [place] to be near her daughter and her 5 grandchildren. She alleged that she would never attempt suicide because of her daughter and her grandchildren. She was discharged from medicine service on 11/02/2019. The next day her brother found her unresponsive on the floor of her house. He called EMS and reported a possible overdose because he found medications spilled "all over the premises." I evaluated again on medicine unit and she minimizes the circumstances that led to this admission. She denied that she had attempted suicide and denied that she had taken pills in a suicide attempt. She again pleaded to be discharged and returned home to [facility]" and attended to her partner's . We reviewed her alcohol use and she alleged that she "found" a half a pint of liquor in the house. During our interview today she requested discharge. She denied that she had attempted suicide and again talked about grief over the loss of her partner. She again assured me that she would be "safe" and would not attempt to hurt herself. She alleged that she's been meeting with individual therapist "Jacinta" in the [facility] outpatient mental health services. She denied his history of psychiatric hospitalizations. She also denied history of suicide attempts, gestures or nonlethal self-harm. She let she never met with a psychiatrist or has been prescribed psychotropic medication for treatment of mood, anxiety or thinking. We admitted her psychiatric unit on the care of this technical proposal writer. Provided a comprehensive biopsychosocial assessment. The consumer services consultant pin cleaner completed initial physical exam and medical history. Her TSH was elevated at 13.1 and her free T4 was low at 0.63. Intravenous increased her Synthroid to 125 g daily. We treated her alcohol withdrawal with Ativan used to CIWA scale. She had mild to moderate alcohol withdrawal symptoms uncomplicated by delirium. Her mood improved and she recovered from her alcohol intoxication. She denied that she attempted suicide and alleged that her brother misinterpreted the circumstances. She let she returned home from the hospital, found a bottle of liquor, became drunk and "passed out" on the floor. She denied that she had taken pills or prescription medications in a suicide attempt. She participated in therapeutic groups and activities. She posed no management problem had no episodes of behavioral dyscontrol. She declined a referral for residential substance abuse treatment but expressed an interest in attending Alcoholics Anonymous. She is aware of location and times of Alcoholics Anonymous meetings near her home. Time discharged presented as a casually groomed 59-year-old female who had a healing abrasion or fascia and healing contusions on her arms. She made eye contact and attempted to interview. She had a bright facial expression. She is alert and oriented to person, place and time. She showed no abnormality of psychomotor activity. Her speech was spontaneous with normal rate, rhythm and volume. Her affect was bright, stable and appropriate. She denied suicidal ideation or wishes. She denied homicidal ideation. She denied feeling hopeless, helpless or worthless. She ruminated about loss of her significant other. She did not express ideas reference, paranoid ideation or delusions. Her thinking was abstract and associations were coherent and logical. She denied hallucinations did not appear to be responding to internal stimuli. Patient Condition at Discharge: Stable Plan - Discharge Summary New Discharge Prescriptions: New Nicotine 7Mg/24Hr Patch [Habitrol] 1 patch TRANSDERM DAILY #28 patch Continue Levothyroxine Sodium [Synthroid] 112 mcg PO DAILY Atenolol [Tenormin] 12.5 mg PO DAILY #30 tab Thiamine [Vitamin B-1] 100 mg PO DAILY #30 tab Folic Acid 1 mg PO DAILY #30 tablet Multivitamins, Thera [Multivitamin (formulary)] 1 tab PO DAILY #30 tablet Discontinued buPROPion HCL [Wellbutrin XL] 150 mg PO DAILY Citalopram Hydrobromide [CeleXA] 40 mg PO DAILY Discharge Medication List Levothyroxine Sodium [Synthroid] 112 mcg PO DAILY 07/13/19 [History] Atenolol [Tenormin] 12.5 mg PO DAILY #30 tab 10/20/19 [Rx] Folic Acid 1 mg PO DAILY #30 tablet 10/20/19 [Rx] Multivitamins, Thera [Multivitamin (formulary)] 1 tab PO DAILY #30 tablet 10/20/19 [Rx] Thiamine [Vitamin B-1] 100 mg PO DAILY #30 tab 10/20/19 [Rx] Nicotine 7Mg/24Hr Patch [Habitrol] 1 patch TRANSDERM DAILY #28 patch 11/10/19 [Rx] Follow up Appointment(s)/Referral(s): [facility] [Outside] - 11/16/19 12:00 pm (Jacinta Houser) [facility] [NON-STAFF] - 1 Week Patient Instructions/Handouts: How to Stop Smoking (DC), Depression (DC), Grief and Loss (DC), Abuse of Alcohol (DC), Suicide Prevention (DC) Activity/Diet/Wound Care/Special Instructions: Activity and diet as tolerated. Avoid the use of street drugs and alcohol. Take all medications as prescribed. When you are in need of refills on your medications please contact your medical provider and/or outpatient psychiatrist to have this done. Please go to scheduled outpatient appointment for aftercare treatment. If symptoms return or become worse, call the crisis line at and/or go to the nearest emergency room for evaluation. Discharge Disposition: HOME SELF-CARE
== END 2019-11-10 13:45 | disposition home or self-care (01) | DRG 897 ==
LOC: 3MHU 17:10
PROVIDERS: ADMIT Psychiatry & Neurology Psychiatry; ATTEND Psychiatry & Neurology Psychiatry
DX: F10.229 Alcohol dependence with intoxication, unspecified (principal); F10.239 Alcohol dependence with withdrawal, unspecified; T50.902A Poisoning by unspecified drugs, medicaments and biological substances, intentional self-harm, initial encounter; G40.909 Epilepsy, unspecified, not intractable, without status epilepticus; F32.9 Major depressive disorder, single episode, unspecified; F41.9 Anxiety disorder, unspecified; F17.200 Nicotine dependence, unspecified, uncomplicated; S80.12XA Contusion of left lower leg, initial encounter; S80.11XA Contusion of right lower leg, initial encounter; S40.022A Contusion of left upper arm, initial encounter; S40.021A Contusion of right upper arm, initial encounter; S00.81XA Abrasion of other part of head, initial encounter; M19.90 Unspecified osteoarthritis, unspecified site; G89.29 Other chronic pain; E03.9 Hypothyroidism, unspecified; I10 Essential (primary) hypertension; M54.2 Cervicalgia; M54.9 Dorsalgia, unspecified; R29.6 Repeated falls; X58.XXXA Exposure to other specified factors, initial encounter; Z91.5 Personal history of self-harm; Z71.6 Tobacco abuse counseling; Z63.4 Disappearance and death of family member; Z56.0 Unemployment, unspecified; Z79.890 Hormone replacement therapy; Z79.899 Other long term (current) drug therapy; Z86.010 Personal history of colon polyps; Z98.890 Other specified postprocedural states; Z96.653 Presence of artificial knee joint, bilateral; Z82.49 Family history of ischemic heart disease and other diseases of the circulatory system; Z83.438 Family history of other disorder of lipoprotein metabolism and other lipidemia
CPT/HCPCS: 84439; 84443

== ENCOUNTER 2019-12-09 14:04 | Observation (INO) | payer MEDICARE, OTHER ==
--- NOTE | 2019-12-09 14:19 | ED ---
General Adult HPI - General Stated complaint: ETOH Time Seen by Provider: 12/09/19 14:04 Source: patient, RN notes reviewed, old records reviewed - History of Present Illness Initial comments: This is a 59-year-old female with a past medical history significant for alcoholism and depression. Patient states she's recently lost her and mother. Patient cannot stop crying when she was talking. Patient did not make any suicidal gestures to the bar steward or EMS but she just kept crying and stating she wanted to see her . Patient denies suicidal ideations to me she denied any homicidal ideations me. Patient denies any drug use. Patient denies any physical complaints today. Patient denies chest pain difficulty breathing. Patient denies any headache. Patient denies abdominal pain. Patient denies any nausea vomiting diarrhea. Patient denies any recent fever chills or cough. - Related Data Home Medications Medication Instructions Recorded Confirmed Levothyroxine Sodium [Synthroid] 112 mcg PO DAILY 07/13/19 12/09/19 Previous Rx's Medication Instructions Recorded Atenolol [Tenormin] 12.5 mg PO DAILY #30 tab 10/20/19 Folic Acid 1 mg PO DAILY #30 tablet 10/20/19 Multivitamins, Thera [Multivitamin 1 tab PO DAILY #30 tablet 10/20/19 (formulary)] Thiamine [Vitamin B-1] 100 mg PO DAILY #30 tab 10/20/19 Nicotine 7Mg/24Hr Patch [Habitrol] 1 patch TRANSDERM DAILY #28 patch 11/10/19 Allergies Allergy/AdvReac Type Severity Reaction Status Date / Time No Known Allergies Allergy Verified 12/09/19 14:51 Review of Systems ROS Statement: Those systems with pertinent positive or pertinent negative responses have been documented in the HPI. ROS Other: All systems not noted in ROS Statement are negative. Past Medical History Past Medical History: Osteoarthritis (OA), Seizure Disorder, Thyroid Disorder Additional Past Medical History / Comment(s): ETOH abuse, chronic back pain,neck pain, numbness derick. shoulder & arm/finger tips, derick numbness to legs & ft, limited rom neck, benign colon polyps, uses walker, frequent falls History of Any Multi-Drug Resistant Organisms: None Reported Past Surgical History: Breast Surgery, Hernia Repair, Orthopedic Surgery, Tonsillectomy Additional Past Surgical History / Comment(s): derick knee replacements with R knee done twice, bilateral eye laser surgery for vision correction, benign lump removed from lt breast, colonoscopies/benign polypectomies. Past Anesthesia/Blood Transfusion Reactions: Motion Sickness Additional Past Anesthesia/Blood Transfusion Reaction / Comment(s): no hx blood transfusion Past Psychological History: Anxiety, Depression Additional Psychological History / Comment(s): Pt states penitentiary female partner of heart attack on Saturday10/31/19 at home. Pt states that she was there at the time. She uses a cane or walker. She does not drive. She is disabled. Smoking Status: Current every day smoker Past Alcohol Use History: Abuse, Daily, Heavy Additional Past Alcohol Use History / Comment(s): Pt started smoking in 1973 and smokes 5 cigarettes a day. Pt states she drinks 4 half pints a day Past Drug Use History: None Reported - Past Family History Mother Additional Family Medical History / Comment(s): Mother recently of heart problems at the age of 79yrs old. Father Family Medical History: Hyperlipidemia Additional Family Medical History / Comment(s): Father is living. General Exam - General Exam Comments Initial Comments: GENERAL: Patient is well-developed and well-nourished. Patient is nontoxic and well-hydrated and is in no acute distress. Patient appears intoxicated. ENT: Neck is soft and supple. No significant lymphadenopathy is noted. Oropharynx is clear. Moist mucous membranes. Neck has full range of motion without eliciting any pain. EYES: The sclera were anicteric and conjunctiva were pink and moist. Extraocular movements were intact and pupils were equal round and reactive to light. Eyelids were unremarkable. PULMONARY: Unlabored respirations. Good breath sounds bilaterally. No audible rales rhonchi or wheezing was noted. CARDIOVASCULAR: There is a regular rate and rhythm without any murmurs gallops or rubs. ABDOMEN: Soft and nontender with normal bowel sounds. SKIN: Skin is clear with no lesions or rashes and otherwise unremarkable. NEUROLOGIC: Patient is alert and oriented x3. Cranial nerves II through XII are grossly intact. Motor and sensory are also intact. Normal speech, volume and content. Symmetrical smile. MUSCULOSKELETAL: Normal extremities with adequate strength and full range of motion. LYMPHATICS: No significant lymphadenopathy is noted PSYCHIATRIC: Normal psychiatric evaluation. Course Vital Signs 12/09/19 14:15 Temperature 98.1 F Pulse Rate 113 H Respiratory 22 Rate Blood Pressure 127/83 O2 Sat by Pulse 98 Oximetry Medical Decision Making - Medical Decision Making Patient is not very forthcoming about her situation because she is constantly crying. But since she is so intoxicated we will keep her overnight and have psych evaluate her in the morning. I spoke with sounds physician's and they accepted the admission. - Lab Data Result diagrams: 12/09/19 14:40 12/09/19 14:40 Lab Results 12/09/19 12/09/19 Range/Units 14:40 14:40 WBC 7.4 (3.8-10.6) k/uL RBC 4.46 (3.80-5.40) m/uL Hgb 14.5 D (11.4-16.0) gm/dL Hct 45.0 (34.0-46.0) % MCV 101.0 H D (80.0-100.0) fL MCH 32.6 (25.0-35.0) pg MCHC 32.2 (31.0-37.0) g/dL RDW 15.6 H (11.5-15.5) % Plt Count 289 D (150-450) k/uL Neutrophils % 64 % Lymphocytes % 29 % Monocytes % 3 % Eosinophils % 1 % Basophils % 1 % Neutrophils # 4.8 (1.3-7.7) k/uL Lymphocytes # 2.2 (1.0-4.8) k/uL Monocytes # 0.2 (0-1.0) k/uL Eosinophils # 0.1 (0-0.7) k/uL Basophils # 0.1 (0-0.2) k/uL Macrocytosis Slight Sodium 142 (137-145) mmol/L Potassium 4.3 (3.5-5.1) mmol/L Chloride 108 H (98-107) mmol/L Carbon Dioxide 20 L (22-30) mmol/L Anion Gap 14 mmol/L BUN 18 H (7-17) mg/dL Creatinine 0.71 (0.52-1.04) mg/dL Est GFR (CKD-EPI)AfAm >90 (>60 ml/min/1.73 sqM) Est GFR (CKD-EPI)NonAf >90 (>60 ml/min/1.73 sqM) Glucose 86 (74-99) mg/dL Calcium 8.7 (8.4-10.2) mg/dL Magnesium 1.7 (1.6-2.3) mg/dL Total Bilirubin 0.4 (0.2-1.3) mg/dL AST 37 H (14-36) U/L ALT 24 (4-34) U/L Alkaline Phosphatase 92 (38-126) U/L Total Protein 7.5 (6.3-8.2) g/dL Albumin 4.4 (3.5-5.0) g/dL Serum Alcohol 249 H* mg/dL Disposition Clinical Impression: Depression, Alcohol intoxication Disposition: ADMITTED IP TO THIS HOSP Referrals: None,Stated [Primary Care Provider] - 1-2 days Time of Disposition: 15:06
[2019-12-09 14:47] LABS: Basophils # (A) 0.1 k/uL (0-0.2); Basophils % (A) 1 %; Eosinophils # (A) 0.1 k/uL (0-0.7); Eosinophils % (A) 1 %; Lymphocytes # (A) 2.2 k/uL (1.0-4.8); Lymphocytes % (A) 29 %; MCH 32.6 pg (25.0-35.0); MCHC 32.2 g/dL (31.0-37.0); Macrocytosis Slight; Mean Platelet Volume 8.1; Monocytes # (A) 0.2 k/uL (0-1.0); Monocytes % (A) 3 %; Neutrophils # (A) 4.8 k/uL (1.3-7.7); Neutrophils % (A) 64 %; RBC 4.46 m/uL (3.80-5.40); RDW 15.6 % (11.5-15.5); WBC 7.4 k/uL (3.8-10.6)
[2019-12-09 14:57] LABS: ALT 24 U/L (4-34); AST 37 U/L (14-36); African American GFR (CKD) >90 (>60 ml/min/1.73 sqM); Albumin 4.4 g/dL (3.5-5.0); Alkaline Phosphatase 92 U/L (38-126); Anion Gap 14 mmol/L; Blood Urea Nitrogen 18 mg/dL (7-17); Calcium 8.7 mg/dL (8.4-10.2); Carbon Dioxide 20 mmol/L (22-30); Chloride 108 mmol/L (98-107); Glucose 86 mg/dL (74-99); Magnesium 1.7 mg/dL (1.6-2.3); Non-African American GFR(CKD) >90 (>60 ml/min/1.73 sqM); Potassium 4.3 mmol/L (3.5-5.1); Sodium 142 mmol/L (137-145); Total Bilirubin 0.4 mg/dL (0.2-1.3); Total Protein 7.5 g/dL (6.3-8.2)
[2019-12-09 15:00] LABS: HGB 14.5 gm/dL (11.4-16.0); Platelet Count 289 k/uL (150-450)
[2019-12-09] MEDS ORDERED: SODIUM CHLORIDE 0.9% 1,000 ML with MVI, ADULT NO.4 WITH VIT K 10 ML, THIAMINE 100 MG, F... IV ONE ×4 (15:00)
[2019-12-09 15:02] LABS: Alcohol 249 mg/dL
[2019-12-09] MEDS ORDERED: SODIUM CHLORIDE 0.9% 1,000 ML IV ONE (15:08)
[2019-12-09] MEDS ORDERED: THIAMINE 100 MG/ML 2 ML VIAL IM STA (15:09)
[2019-12-09] MEDS ORDERED: LORazepam 2 MG/ML INJ IV PRN ×3 (15:09)
[2019-12-09] MEDS: THIAMINE 100 MG TAB PO SCH (17:39)
[2019-12-09] MEDS ORDERED: ONDANSETRON 4 MG/2 ML VIAL IVP PRN (18:53)
[2019-12-09] MEDS ORDERED: NALOXONE 0.4 MG/ML 1 ML VIAL IV PRN (18:53)
[2019-12-09] MEDS ORDERED: ACETAMINOPHEN TAB 325 MG TAB PO PRN (18:53)
[2019-12-09] MEDS ORDERED: HYDROcodone/APAP 5-325MG 1 EACH TAB PO PRN (18:53)
[2019-12-09 18:55] LABS: Amphetamine Screen,Urine Not Detected (NotDetected); Barbiturate Screen,Urine Not Detected (NotDetected); Benzodiazepines Screen,Urine Not Detected (NotDetected); Cocaine Screen,Urine Not Detected (NotDetected); Methadone Screen, Urine Not Detected (NotDetected); Opiate Screen,Urine Not Detected (NotDetected); Oxycodone Screen, Urine Not Detected (NotDetected); Phencyclidine Screen,Urine Not Detected (NotDetected); Tricyclic Antidepressant,Urine Not Detected (NotDetected); Urn Cannabinoid Scrn Not Detected (NotDetected)
[2019-12-09] MEDS ORDERED: SODIUM CHLORIDE 0.9% 1,000 ML IV SCH (19:00)
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
[2019-12-10] MEDS ORDERED: LEVOTHYROXINE 112 MCG TAB PO SCH (06:30)
[2019-12-10 07:47] LABS: Basophils # (A) 0.1 k/uL (0-0.2); Basophils % (A) 1 %; Eosinophils # (A) 0.1 k/uL (0-0.7); Eosinophils % (A) 1 %; HCT 37.5 % (34.0-46.0); HGB 12.5 gm/dL (11.4-16.0); Lymphocytes # (A) 1.3 k/uL (1.0-4.8); Lymphocytes % (A) 18 %; MCH 33.9 pg (25.0-35.0); MCHC 33.4 g/dL (31.0-37.0); MCV 101.7 fL (80.0-100.0); Macrocytosis Slight; Mean Platelet Volume 8.4; Monocytes # (A) 0.3 k/uL (0-1.0); Monocytes % (A) 5 %; Neutrophils # (A) 5.3 k/uL (1.3-7.7); Neutrophils % (A) 75 %; Platelet Count 214 k/uL (150-450); RBC 3.69 m/uL (3.80-5.40); RDW 15.3 % (11.5-15.5)
[2019-12-10] MEDS: THIAMINE 100 MG TAB PO SCH (07:55)
[2019-12-10 08:02] LABS: ALT 22 U/L (4-34); AST 38 U/L (14-36); African American GFR (CKD) >90 (>60 ml/min/1.73 sqM); Albumin 3.8 g/dL (3.5-5.0); Alkaline Phosphatase 79 U/L (38-126); Anion Gap 7 mmol/L; Blood Urea Nitrogen 13 mg/dL (7-17); Calcium 8.4 mg/dL (8.4-10.2); Carbon Dioxide 24 mmol/L (22-30); Chloride 105 mmol/L (98-107); Glucose 87 mg/dL (74-99); Non-African American GFR(CKD) >90 (>60 ml/min/1.73 sqM); Potassium 3.9 mmol/L (3.5-5.1); Sodium 136 mmol/L (137-145); Total Bilirubin 1.4 mg/dL (0.2-1.3); Total Protein 6.7 g/dL (6.3-8.2)
[2019-12-10 08:12] LABS: INR 0.9 (<1.2); Prothrombin Time 9.9 sec (9.0-12.0)
[2019-12-10] MEDS ORDERED: ATENOLOL 25 MG TAB PO SCH (09:00)
[2019-12-10] MEDS ORDERED: ENOXAPARIN 40 MG/0.4 ML SYRINGE SQ SCH (09:00)
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
[2019-12-10 12:26] VITALS: BP 139/95; PULSE 79; RESP 16; TEMP 97.8
[2019-12-10] MEDS ORDERED: NICOTINE 14MG/24HR PATCH TRANSDERM SCH (13:30)
--- NOTE | 2019-12-10 15:31 | P.DS ---
Providers Date of admission: 12/09/19 15:23 Expected date of discharge: 12/10/19 Attending physician: Rosana Rubin MD Consults: 12/09/19 15:08 Consult Physician Urgent Consulting Provider: Uriah Calixto Consult Reason/Comments: Depression Do you want consulting provider notified?: Yes Primary care physician: Stated None Hospital Course: 59 year old female with PMH of hypothyroidism and hypertension presents the ED for alcohol intoxication and suicidal ideation. Patient states that she recently lost her significant other and has been drinking since Saturday. Patient states that she has drank about 1 and 1/5 pint of liquor since Saturday. Patient is quite hysterical and inconsolable during the encounter. She reports a frontal headache, chills and nausea but no vomiting. She denies any lower extremity edema, fever, cough, chest pain, shortness of breath, palpitations, changes in urination or bowel habits. No changes in appetite or weight. She denies any dizziness, numbness/weakness/tingling of the extremities. Patient states prior to this episode of binge drinking, she was sober for 45 days. She denies any alcohol induced seizures. She reports no withdrawal symptoms on a daily basis. In the ED, vital signs are stable except for heart rate of 113. CBC showed macrocytosis of 101. CMP showed chloride of 108, bicarbonate of 20, BUN of 18 and AST of 37. UDS was negative. Serum alcohol was 249. Patient is admitted for alcohol intoxication, severe depression and suicidal ideation. Patient was placed on stated we protocol and given Ativan as needed. She was placed on telemetry monitoring. Thiamine was restarted. Atenolol was restarted for history of hypertension. Synthroid was restarted for her hypothyroidism. B12 and folic acid was ordered for her macrocytosis. Psychiatry was consulted and one-to-one sitter was placed for suicidal ideation. Patient was seen and examined. No acute events overnight. Patient states that she is sober. She continues to report sadness due to the passing of her significant other. She denies any chest pain, shortness breath or palpitations. No nausea or vomiting. No fever or chills. Tolerating diet well. General: [non toxic], [flat affect], [appears at stated age] Derm: [warm], [dry] Head: [atraumatic], [normocephalic], [symmetric] Eyes: [EOMI], [no lid lag], [anicteric sclera] Mouth: [no lip lesion], [mucus membranes moist] Cardiovascular: [S1S2 reg], [tachycardic], [positive posterior tibial pulse bilateral], Lungs: [CTA bilateral], [no rhonchi, no rales] , [no accessory muscle use] Abdominal: [soft], [ nontender to palpation], [no guarding], [no appreciable organomegaly] Ext: [no gross muscle atrophy], [no edema], [no contractures] Neuro: [no focal neuro deficits] Psych: [Alert], [oriented], [appropriate affect] Acute alcohol intoxication Hypertension Hypothyroidism Macrocytosis Severe depression with suicidal ideation Resolved: Hyperchloremic metabolic acidosis, prerenal azotemia Patient's serum alcohol on admission was 249. She will be placed on CIWA protocol and given Ativan as needed. Thiamine was started. Atenolol was r estarted for her history of hypertension. Synthroid was restarted for her hypothyroidism. B12 and folate acid was ordered for macrocytosis. Her hyperchloremic metabolic acidosis and prerenal azotemia resolved with IVF. Patient will be placed on suicide and fall precautions. The patient has been signed. Patient is medically cleared for transfer to mental health unit. Patient Condition at Discharge: Stable Plan - Discharge Summary New Discharge Prescriptions: Continue Levothyroxine Sodium [Synthroid] 112 mcg PO DAILY Atenolol [Tenormin] 12.5 mg PO DAILY #30 tab Thiamine [Vitamin B-1] 100 mg PO DAILY #30 tab Folic Acid 1 mg PO DAILY #30 tablet Multivitamins, Thera [Multivitamin (formulary)] 1 tab PO DAILY #30 tablet Nicotine 7Mg/24Hr Patch [Habitrol] 1 patch TRANSDERM DAILY #28 patch Discharge Medication List Levothyroxine Sodium [Synthroid] 112 mcg PO DAILY 07/13/19 [History] Atenolol [Tenormin] 12.5 mg PO DAILY #30 tab 10/20/19 [Rx] Folic Acid 1 mg PO DAILY #30 tablet 10/20/19 [Rx] Multivitamins, Thera [Multivitamin (formulary)] 1 tab PO DAILY #30 tablet 10/20/19 [Rx] Thiamine [Vitamin B-1] 100 mg PO DAILY #30 tab 10/20/19 [Rx] Nicotine 7Mg/24Hr Patch [Habitrol] 1 patch TRANSDERM DAILY #28 patch 11/10/19 [Rx] Follow up Appointment(s)/Referral(s): None,Stated [Primary Care Provider] - 1-2 days Activity/Diet/Wound Care/Special Instructions: Diet: Low salt Transfer to Psychiatry. Discharge Disposition: TRANSFER TO PSYCH HOSP/UNIT
== END 2019-12-10 15:27 ==
LOC: EC 14:04 → 5NMEDONC 15:23
PROVIDERS: ADMIT Family Medicine; ATTEND Family Medicine
DX: F10.229 Alcohol dependence with intoxication, unspecified (principal); F10.24 Alcohol dependence with alcohol-induced mood disorder; E87.2 Acidosis; F32.9 Major depressive disorder, single episode, unspecified; Y90.8 Blood alcohol level of 240 mg/100 ml or more; G40.909 Epilepsy, unspecified, not intractable, without status epilepticus; I10 Essential (primary) hypertension; E03.9 Hypothyroidism, unspecified; M19.90 Unspecified osteoarthritis, unspecified site; G89.29 Other chronic pain; M54.2 Cervicalgia; M54.9 Dorsalgia, unspecified; R20.0 Anesthesia of skin; F41.9 Anxiety disorder, unspecified; F17.210 Nicotine dependence, cigarettes, uncomplicated; R45.851 Suicidal ideations; D75.89 Other specified diseases of blood and blood-forming organs; R79.89 Other specified abnormal findings of blood chemistry; Z03.818 Encounter for observation for suspected exposure to other biological agents ruled out; Z79.890 Hormone replacement therapy; Z79.899 Other long term (current) drug therapy; Z87.19 Personal history of other diseases of the digestive system; R29.6 Repeated falls; Z86.010 Personal history of colon polyps; Z96.653 Presence of artificial knee joint, bilateral; Z83.438 Family history of other disorder of lipoprotein metabolism and other lipidemia
CPT/HCPCS: 96376; 96372 ×2; 96374; 99285; 36415; 80053 ×2; 83735; 85025 ×2; 85610; 80306; G0378 ×2; G0480; U0003; S4990; J2060 ×2; J3411; J1650; 80320

== ENCOUNTER 2019-12-10 14:58 | Inpatient (IN) | payer MEDICARE, MEDICAID ==
[2019-12-10] MEDS ORDERED: MAG HYDROX/AL HYDROX/SIMETH 30 ML CUP PO PRN (16:30)
[2019-12-10] MEDS ORDERED: MAGNESIUM HYDROXIDE 2,400 MG/10 ML CUP PO PRN (16:30)
[2019-12-10] MEDS ORDERED: ZIPRASIDONE 20 MG VIAL IM PRN (16:30)
[2019-12-10] MEDS: LORazepam 1 MG TAB PO PRN ×2 (16:46→19:46)
[2019-12-11] MEDS: LEVOTHYROXINE 112 MCG TAB PO SCH (05:31)
[2019-12-11 05:37] LABS: Cholesterol 201 mg/dL (<200); HDL Cholesterol 103 mg/dL (40-60); LDL Cholesterol,Calculated 87 mg/dL (0-99); Triglycerides 57 mg/dL (<150)
[2019-12-11] MEDS: NICOTINE 14MG/24HR PATCH TRANSDERM SCH (07:31)
[2019-12-11] MEDS: MULTIVITAMINS, THERA 1 EACH TAB PO SCH (07:31)
[2019-12-11] MEDS: FOLIC ACID 1 MG TAB PO SCH (07:31)
[2019-12-11] MEDS: THIAMINE 100 MG TAB PO SCH (08:31)
[2019-12-11] MEDS: ATENOLOL 12.5 MG TAB PO SCH (08:35)
[2019-12-11] MEDS: LORazepam 1 MG TAB PO PRN (11:30)
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
[2019-12-11 14:30] LABS: Hemoglobin A1C 5.3 % (4.0-6.0)
--- NOTE | 2019-12-11 17:32 | P.MDCNMH ---
History of Present Illness H&P Date: 12/11/19 Chief Complaint: Alcohol abuse 59 year old female with PMH of hypothyroidism and hypertension presents the ED for alcohol intoxication and suicidal ideation. Patient states that she recently lost her significant other and has been drinking since Saturday. Patient states that she has drank about 1 and 1/5 pint of liquor since Saturday. She was initially admitted to the medical floor for treatment of alcohol intoxication and possible withdrawal. She was placed on CIWA protocol and given Ativan as needed. She was cleared from a medical perspective for transfer to mental health unit. She was seen today on the mental health unit. Patient appears upset and requesting to be discharged. Patient reports no complaints at this time. She denies any headache, lower extremity edema, nausea or vomiting, fever or chills, cough, chest pain, shortness of breath, palpitations, changes in urination or bowel habits. No changes in appetite or weight. She denies any dizziness, numbness/weakness/tingling of the extremities. Her vital signs are currently stable. A1c was within normal limits. Lipid panel showed total cholesterol 201 and HDL of 103. Review of Systems Pertinent positives and negatives as discussed in HPI, a complete review of systems was performed and all other systems are negative. Past Medical History Past Medical History: Osteoarthritis (OA), Seizure Disorder, Thyroid Disorder Additional Past Medical History / Comment(s): ETOH abuse, chronic back pain,neck pain, numbness derick. shoulder & arm/finger tips, derick numbness to legs & ft, limited rom neck, benign colon polyps, uses walker, frequent falls History of Any Multi-Drug Resistant Organisms: None Reported Past Surgical History: Breast Surgery, Hernia Repair, Orthopedic Surgery, Tonsillectomy Additional Past Surgical History / Comment(s): derick knee replacements with R knee done twice, bilateral eye laser surgery for vision correction, benign lump removed from lt breast, colonoscopies/benign polypectomies. Past Anesthesia/Blood Transfusion Reactions: Motion Sickness Additional Past Anesthesia/Blood Transfusion Reaction / Comment(s): no hx blood transfusion Past Psychological History: Anxiety, Depression Additional Psychological History / Comment(s): Pt states correction female partner of heart attack on Saturday10/31/19 at home. Pt states that she was there at the time. She uses a cane or walker. She does not drive. She is disabled. Smoking Status: Current every day smoker Past Alcohol Use History: Abuse, Daily, Heavy Additional Past Alcohol Use History / Comment(s): Pt started smoking in 1973 and smokes 5 cigarettes a day. Pt states she drinks 4 half pints a day Past Drug Use History: None Reported - Past Family History Mother Additional Family Medical History / Comment(s): Mother recently of heart problems at the age of 79yrs old. Father Family Medical History: Hyperlipidemia Additional Family Medical History / Comment(s): Father is living. Medications and Allergies Home Medications Medication Instructions Recorded Confirmed Type Levothyroxine Sodium [Synthroid] 112 mcg PO DAILY 07/13/19 12/10/19 History Atenolol [Tenormin] 12.5 mg PO DAILY #30 tab 10/20/19 12/10/19 Rx Folic Acid 1 mg PO DAILY #30 tablet 10/20/19 12/10/19 Rx Multivitamins, Thera [Multivitamin 1 tab PO DAILY #30 tablet 10/20/19 12/10/19 Rx (formulary)] Thiamine [Vitamin B-1] 100 mg PO DAILY #30 tab 10/20/19 12/10/19 Rx Nicotine 7Mg/24Hr Patch [Habitrol] 1 patch TRANSDERM DAILY #28 patch 11/10/19 12/10/19 Rx Allergies Allergy/AdvReac Type Severity Reaction Status Date / Time No Known Allergies Allergy Verified 12/09/19 14:51 Physical Exam Vitals: Vital Signs Temp Pulse Resp BP Pulse Ox 12/11/19 16:05 98.2 F 94 16 118/77 99 12/11/19 13:00 97.3 F L 12/11/19 08:33 98.8 F 118 H 16 132/86 99 12/11/19 06:31 98.2 F 89 18 137/95 12/10/19 20:10 99.0 F 106 H 18 136/91 99 12/10/19 18:20 98.0 F General: [non toxic], [no distress], [appears at stated age] Derm: [warm], [dry] Head: [atraumatic], [normocephalic], [symmetric] Eyes: [EOMI], [no lid lag], [anicteric sclera] Mouth: [no lip lesion], [mucus membranes moist] Cardiovascular: [S1S2 reg], [no murmur], [positive posterior tibial pulse bilateral], Lungs: [CTA bilateral], [no rhonchi, no rales] , [no accessory muscle use] Abdominal: [soft], [ nontender to palpation], [no guarding], [no appreciable organomegaly] Ext: [no gross muscle atrophy], [no edema], [no contractures] Neuro: [ CN II-XI grossly intact], [no focal neuro deficits] Psych: [Alert], [oriented], [appropriate affect] Cranial Nerve Examination - Cranial Nerves Cranial Nerve II- Optic: Intact Cranial Nerve III- Oculomotor: Intact Cranial Nerve IV- Trochlear: Intact Cranial Nerve V- Trigeminal: Intact Cranial Nerve - Abducens: Intact Cranial Nerve VII- Facial: Intact Cranial Nerve VIII- Auditory: Intact Cranial Nerve IX- Glossopharyngeal: Intact Cranial Nerve X- Vagus: Intact Cranial Nerve XI- Accessory: Intact Cranial Nerve XII- Hypoglossal: Intact Results Labs: Abnormal Lab Results - Last 24 Hours (Table) 12/10/19 Range/Units 07:05 Cholesterol 201 H (<200) mg/dL HDL Cholesterol 103 H (40-60) mg/dL Assessment and Plan Assessment: History of alcohol abuse Hypertension Hypothyroidism Dyslipidemia Macrocytosis Patient was initially intoxicated during her admission to the medical floor. She appears completely sober and does not have any symptoms of alcohol withdrawal. She has been started on Librium scheduled. She has been started on multivitamin and folate acid along with thiamine. She will be given Ativan as needed for anxiety or agitation. Atenolol has been restarted for her history of hypertension. Synthroid has been restarted for her history of hypothyroidism. Her lipid panel to show elevated total cholesterol. We would advise dietary modification at this time. Her macrocytosis is likely related to alcohol abuse. She will be continued on folate acid in the meantime. Thank you for this consult. Please call with any additional questions or concerns.
[2019-12-12] MEDS: LORazepam 1 MG TAB PO PRN ×2 (01:28→09:59)
[2019-12-12] MEDS: LEVOTHYROXINE 112 MCG TAB PO SCH (06:17)
[2019-12-12] MEDS: MULTIVITAMINS, THERA 1 EACH TAB PO SCH (08:30)
[2019-12-12] MEDS: FOLIC ACID 1 MG TAB PO SCH (08:30)
[2019-12-12] MEDS: ATENOLOL 12.5 MG TAB PO SCH (08:31)
[2019-12-12] MEDS: THIAMINE 100 MG TAB PO SCH (08:31)
[2019-12-12] MEDS: NICOTINE 14MG/24HR PATCH TRANSDERM SCH (08:37)
--- NOTE | 2019-12-12 09:32 | P.PN ---
Progress Note - Text Progress Note Date: 12/12/19 Interval History: Patient was seen wandering the hallways and was directable and agreeable to sp beau with manual writer. She continues to be intrusive and demanding discharge. She continues to have poor insight and judgment and continues to deny assaulting anybody at home. Patient continues to perseverate on the fact that she "will lose everything including my house" and also that she was supposed to go to [place] this weekend. She continues to state that she has been feeling depressed this past month due to her significant other passing away. She states that she feels anxious and had poor sleep last night. At this time patient denies any suicidal or homical ideations, intent or plan. Patient denies any auditory, visual hallucinations and denies any paranoia or delusions. Patient denies any side effects from the medications and has been compliant with meds. Mental Status Exam: General Appearance: Patient appears to be stated age is alert, hostile or argumentative and demanding. Patient appears to have poor hygiene and grooming. Behavior: Patient is seated without any agitated behavior. Argumentative and demanding. Intrusive. Speech: Patient's speech is fluent and nonpressured. Mood/Affect: Patient reports their mood is "depressed", affect is congruent and constricted. Suicidality/Homicidality: Patient denies having any homicidal ideation intent or plan. Denies any suicidal ideations intent or plan Perceptions: Patient denies any visual hallucinations and denies any auditory hallucinations Though content/process: There is no evidence of any delusional thought content and thought process is linear and goal-directed. Minimizes her drinking and her symptoms. Memory and concentration: AOX3, grossly intact for the purposes of this session Judgment and insight: poor/impulsive. Assessment Mood disorder unspecified, rule out alcohol induced mood disorder. Alcohol use disorder severe dependence Plan: -Patient continues to meet criteria for inpatient psychiatric admission for symptom stabilization and safety. Patient initially signed a deferral in her previous hospitalization and at this time we are awaiting demand for hearing court date. Patient did not signed for medication consent. -Medications: Decrease Librium to 20 mg 3 times a day for alcohol withdrawal and will continue to be tapered off. Continue folic acid, thiamine, multivitamin for chronic alcohol use. Added Vistaril 25 mg every 6 hours when necessary for anxiety. Added trazodone 50 mg daily at bedtime for insomnia/mood. -When necessary Ativan and Geodon for agitation/aggression. -CIWA protocol with Ativan PRN for ETOH withdrawal -NRT - nicotine patch - on board for discharge planning. Encouraged the patient to participate in milieu. Demand for hearing has been filed and currently awaiting court date. licensing worker to reach out to [facility] to file for substance use treatment order.
[2019-12-12] MEDS: traZODone HCL 50 MG TAB PO SCH (20:51)
[2019-12-13] MEDS: LEVOTHYROXINE 112 MCG TAB PO SCH (06:30)
[2019-12-13] MEDS: THIAMINE 100 MG TAB PO SCH (08:40)
[2019-12-13] MEDS: MULTIVITAMINS, THERA 1 EACH TAB PO SCH (08:40)
[2019-12-13] MEDS: NICOTINE 14MG/24HR PATCH TRANSDERM SCH (08:40)
[2019-12-13] MEDS: FOLIC ACID 1 MG TAB PO SCH (08:40)
[2019-12-13] MEDS: ATENOLOL 12.5 MG TAB PO SCH (08:40)
--- NOTE | 2019-12-13 10:14 | P.PN ---
Progress Note - Text Progress Note Date: 12/13/19 Interval History: Patient was seen taking part in group this morning was directable and agreeable to speak with greeting card writer. Patient continues to display poor insight and judgment however was calmer and more appropriate during the encounter today. She continues to deny any allegations of her assaulting her family members and continues to minimize her drinking. She states that "I'm going to lose everything if I don't move to [place]" and continues to demand discharge. She claims that she is agreeable to start naltrexone for alcohol cravings. She states that she was able to sleep better last night on the trazodone and has a fair appetite. At this time patient denies any suicidal or homical ideations, intent or plan. Patient denies any auditory, visual hallucinations and denies any paranoia or delusions. Patient denies any side effects from the medications and has been compliant with meds. Mental Status Exam: General Appearance: Patient appears to be stated age is alert, less hostile or argumentative and demanding today. Patient appears to have improving hygiene and grooming. Behavior: Patient is seated without any agitated behavior. Less argumentative and demanding today. Speech: Patient's speech is fluent and nonpressured. Mood/Affect: Patient reports their mood is "alright", affect is congruent and constricted. Suicidality/Homicidality: Patient denies having any homicidal ideation intent or plan. Denies any suicidal ideations intent or plan Perceptions: Patient denies any visual hallucinations and denies any auditory hallucinations Though content/process: There is no evidence of any delusional thought content and thought process is linear and goal-directed. Minimizes her drinking and her symptoms. Memory and concentration: AOX3, grossly intact for the purposes of this session Judgment and insight: poor/impulsive. Assessment Mood disorder unspecified, rule out alcohol induced mood disorder. Alcohol use disorder severe dependence Plan: -Patient continues to meet criteria for inpatient psychiatric admission for symptom stabilization and safety. Patient initially signed a deferral in her previous hospitalization and at this time we are awaiting demand for hearing court date. Patient did not signed for medication consent. -Medications: Decrease Librium to 10 mg 4 times a day for alcohol withdrawal and will continue to be tapered off. Continue folic acid, thiamine, multivitamin for chronic alcohol use. Continue with Vistaril 25 mg every 6 hours when necessary for anxiety. Continue with trazodone 50 mg daily at bedtime for insomnia/mood. -Added naltrexone 50 mg by mouth daily for alcohol cravings. She claims that she is interested in getting the Vivitrol injection after discharge. -When necessary Ativan and Geodon for agitation/aggression. -CIWA protocol with Ativan PRN for ETOH withdrawal. vital signs reviewed. -NRT - nicotine patch - on board for discharge planning. Encouraged the patient to participate in milieu. Demand for hearing has been filed and currently awaiting court date. make ready worker to reach out to [facility] to file for substance use treatment order.
[2019-12-13] MEDS: NALTREXONE HCL 50 MG TAB PO SCH (12:13)
[2019-12-13] MEDS: ACETAMINOPHEN TAB 325 MG TAB PO PRN ×3 (12:14→21:36)
[2019-12-13] MEDS: traZODone HCL 50 MG TAB PO SCH (21:37)
[2019-12-14] MEDS: LEVOTHYROXINE 112 MCG TAB PO SCH (07:21)
[2019-12-14] MEDS: FOLIC ACID 1 MG TAB PO SCH (08:37)
[2019-12-14] MEDS: MULTIVITAMINS, THERA 1 EACH TAB PO SCH (08:37)
[2019-12-14] MEDS: THIAMINE 100 MG TAB PO SCH (08:37)
[2019-12-14] MEDS: ATENOLOL 12.5 MG TAB PO SCH (08:38)
[2019-12-14] MEDS: NALTREXONE HCL 50 MG TAB PO SCH (08:38)
[2019-12-14] MEDS: NICOTINE 14MG/24HR PATCH TRANSDERM SCH (08:38)
[2019-12-14] MEDS: CITALOPRAM HYDROBROMIDE 20 MG TAB PO SCH (12:42)
[2019-12-14] MEDS: ACETAMINOPHEN TAB 325 MG TAB PO PRN ×2 (12:43→21:03)
[2019-12-14] MEDS: LORazepam 1 MG TAB PO PRN (12:49)
--- NOTE | 2019-12-14 12:50 | P.PN ---
Progress Note - Text Progress Note Date: 12/14/19 Interval History: Patient was seen wandering the hallways this morning was directable and agreea ble to speak with copy writer. Patient continues to display poor insight and judgment and continues to minimize her drinking and claims that "I made a bad decision but I'm not an alcoholic". She continues to perseverate on her significant other and states that she still wants to go to [place] and is asking copy writer several times to have her discharged. Paperhanger spoke with patient about the court proceedings and currently awaiting a court date. She continues to deny any allegations of her assaulting her family members and continues to minimize her drinking. She states that "I'm going to lose everything". She claims that her mood is depressed and claims that she would like to be started on Celexa as she had been taking this in the past. She states that she was able to sleep better last night and has a fair appetite. At this time patient denies any suicidal or homical ideations, intent or plan. Patient denies any auditory, visual hallucinations and denies any paranoia or delusions. Patient denies any side effects from the medications and has been compliant with meds. Mental Status Exam: General Appearance: Patient appears to be stated age is alert, argumentative and demanding today. Patient appears to have improving hygiene and grooming. Behavior: Patient is seated without any agitated behavior. argumentative and demanding today. Speech: Patient's speech is fluent and nonpressured. Mood/Affect: Patient reports their mood is "depressed", affect is congruent and constricted. Suicidality/Homicidality: Patient denies having any homicidal ideation intent or plan. Denies any suicidal ideations intent or plan Perceptions: Patient denies any visual hallucinations and denies any auditory hallucinations Though content/process: There is no evidence of any delusional thought content and thought process is linear and goal-directed. Minimizes her drinking and her symptoms. Memory and concentration: AOX3, grossly intact for the purposes of this session Judgment and insight: poor/impulsive. Assessment Depressive disorder unspecified, rule out alcohol induced depressive disorder. Alcohol use disorder severe dependence Plan: -Patient continues to meet criteria for inpatient psychiatric admission for symptom stabilization and safety. Patient initially signed a deferral in her previous hospitalization and at this time we are awaiting demand for hearing court date. Patient did not signed for medication consent. -Medications: Decrease Librium to 10 mg 3 times a day for alcohol withdrawal and will continue to be tapered off. Continue folic acid, thiamine, multivitamin for chronic alcohol use. Continue with Vistaril 25 mg every 6 hours when necessary for anxiety. Continue with trazodone 50 mg daily at bedtime for insomnia/mood. Added Celexa 20 mg daily for mood. Continue with naltrexone 50 mg by mouth daily for alcohol cravings. She claims that she is interested in getting the Vivitrol injection after discharge. -When necessary Ativan and Geodon for agitation/aggression. -CIWA protocol with Ativan PRN for ETOH withdrawal. vital signs reviewed. -NRT - nicotine patch - on board for discharge planning. Encouraged the patient to participate in milieu. Demand for hearing has been filed and currently awaiting court date. channel worker to reach out to [facility] to file for substance use treatment order.
[2019-12-14] MEDS: traZODone HCL 50 MG TAB PO SCH (21:03)
[2019-12-15] MEDS: LEVOTHYROXINE 112 MCG TAB PO SCH (06:24)
[2019-12-15] MEDS: ATENOLOL 12.5 MG TAB PO SCH (08:07)
[2019-12-15] MEDS: MULTIVITAMINS, THERA 1 EACH TAB PO SCH (08:08)
[2019-12-15] MEDS: CITALOPRAM HYDROBROMIDE 20 MG TAB PO SCH (08:08)
[2019-12-15] MEDS: NALTREXONE HCL 50 MG TAB PO SCH (08:08)
[2019-12-15] MEDS: FOLIC ACID 1 MG TAB PO SCH (08:08)
[2019-12-15] MEDS: THIAMINE 100 MG TAB PO SCH (08:08)
[2019-12-15] MEDS: NICOTINE 14MG/24HR PATCH TRANSDERM SCH (08:09)
[2019-12-15] MEDS: hydrOXYzine PAMOATE 25 MG CAP PO PRN ×2 (09:14→15:41)
--- NOTE | 2019-12-15 11:11 | P.PN ---
Progress Note - Text Progress Note Date: 12/15/19 Interval History: Patient was seen wandering the hallways this morning was directable and agreea ble to speak with check writer salesperson. Patient continues to display poor insight and judgment with regards to her drinking and her symptoms. She continues to minimize her behaviors at home. She did appear to be more superficially cooperative today and claims that she wants to go to outpatient AA meetings however claims that her ultimate plan is told to move to [place] with her kids. She continues to be preoccupied with discharge and her court hearing. She states that "I'm going to lose everything" with regards to her home. She claims that her mood is "getting there" and claims that she would like to stay on the current dose of Celexa as it is helped her in the past. She states that she was able to sleep better last night and has a fair appetite. At this time patient denies any suicidal or homical ideations, intent or plan. Patient denies any auditory, visual hallucinations and denies any paranoia or delusions. Patient denies any side effects from the medications and has been compliant with meds. Mental Status Exam: General Appearance: Patient appears to be stated age is alert, proficiently cooperative and demanding discharge today. Patient appears to have improving hygiene and grooming. Behavior: Patient is seated without any agitated behavior. Superficially cooperative. Speech: Patient's speech is fluent and nonpressured. Mood/Affect: Patient reports their mood is "getting there", affect is congruent and constricted. Suicidality/Homicidality: Patient denies having any homicidal ideation intent or plan. Denies any suicidal ideations intent or plan Perceptions: Patient denies any visual hallucinations and denies any auditory hallucinations Though content/process: There is no evidence of any delusional thought content and thought process is linear and goal-directed. Minimizes her drinking and her symptoms. Rationalizing. Memory and concentration: AOX3, grossly intact for the purposes of this session Judgment and insight: poor/impulsive. Superficial. Assessment Depressive disorder unspecified, rule out alcohol induced depressive disorder. Alcohol use disorder severe dependence Plan: -Patient continues to meet criteria for inpatient psychiatric admission for sy mptom stabilization and safety. Patient initially signed a deferral in her previous hospitalization and at this time we are awaiting demand for hearing court date. Patient did not signed for medication consent. -Medications: Decrease Librium to 10 mg 2 times a day for alcohol withdrawal and will continue to be tapered off. Continue folic acid, thiamine, multivitamin for chronic alcohol use. Continue with Vistaril 25 mg every 6 hours when necessary for anxiety. Continue with trazodone 50 mg daily at bedtime for insomnia/mood. Continue with Celexa 20 mg daily for mood. Continue with naltrex one 50 mg by mouth daily for alcohol cravings. She claims that she is interested in getting the Vivitrol injection after discharge. -When necessary Ativan and Geodon for agitation/aggression. -NRT - nicotine patch - on board for discharge planning. Encouraged the patient to participate in milieu. Demand for hearing date is scheduled for 12/23/2019 and will attempt to find out if patient may consent to order. suction worker to reach out to [facility] to file for substance use treatment order.
[2019-12-15] MEDS: LORazepam 1 MG TAB PO PRN (13:14)
[2019-12-15] MEDS: ACETAMINOPHEN TAB 325 MG TAB PO PRN ×2 (15:41→21:07)
[2019-12-15] MEDS: guaiFENesin 600 MG TABLET.ER PO PRN (16:27)
[2019-12-15] MEDS: traZODone HCL 50 MG TAB PO SCH (21:07)
[2019-12-16 06:46] VITALS: RESP 16; TEMP 97.8
[2019-12-16] MEDS: LEVOTHYROXINE 112 MCG TAB PO SCH (08:30)
[2019-12-16] MEDS: NICOTINE 14MG/24HR PATCH TRANSDERM SCH (08:31)
[2019-12-16] MEDS: MULTIVITAMINS, THERA 1 EACH TAB PO SCH (08:31)
[2019-12-16] MEDS: ATENOLOL 12.5 MG TAB PO SCH (08:31)
[2019-12-16] MEDS: FOLIC ACID 1 MG TAB PO SCH (08:31)
[2019-12-16] MEDS: NALTREXONE HCL 50 MG TAB PO SCH (08:31)
[2019-12-16] MEDS: CITALOPRAM HYDROBROMIDE 20 MG TAB PO SCH (08:31)
[2019-12-16] MEDS: THIAMINE 100 MG TAB PO SCH (08:31)
[2019-12-16] MEDS: guaiFENesin 600 MG TABLET.ER PO PRN (08:33)
[2019-12-16 08:37] VITALS: BP 110/72; PULSE 88
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
== END 2019-12-16 12:40 | disposition home or self-care (01) | DRG 881 ==
LOC: 3MHU 15:29
PROVIDERS: ADMIT Psychiatry & Neurology Psychiatry; ATTEND Psychiatry & Neurology Psychiatry
DX: F32.9 Major depressive disorder, single episode, unspecified (principal); F10.239 Alcohol dependence with withdrawal, unspecified; D75.89 Other specified diseases of blood and blood-forming organs; Y90.8 Blood alcohol level of 240 mg/100 ml or more; F11.11 Opioid abuse, in remission; G47.00 Insomnia, unspecified; F41.9 Anxiety disorder, unspecified; E03.9 Hypothyroidism, unspecified; I10 Essential (primary) hypertension; E78.5 Hyperlipidemia, unspecified; M19.90 Unspecified osteoarthritis, unspecified site; G89.29 Other chronic pain; M54.9 Dorsalgia, unspecified; M54.2 Cervicalgia; R45.87 Impulsiveness; F17.210 Nicotine dependence, cigarettes, uncomplicated; Z71.6 Tobacco abuse counseling; Z91.410 Personal history of adult physical and sexual abuse; Z79.890 Hormone replacement therapy; Z79.899 Other long term (current) drug therapy; Z71.41 Alcohol abuse counseling and surveillance of alcoholic; Z96.653 Presence of artificial knee joint, bilateral; Z86.010 Personal history of colon polyps; Z91.81 History of falling; Z90.89 Acquired absence of other organs; Z98.890 Other specified postprocedural states; Z82.49 Family history of ischemic heart disease and other diseases of the circulatory system; Z83.49 Family history of other endocrine, nutritional and metabolic diseases
CPT/HCPCS: 80061; 83036

== ENCOUNTER 2020-04-04 11:45 | Observation (INO) | payer MEDICARE, OTHER ==
[2020-04-04] MEDS ORDERED: SODIUM CHLORIDE 0.9% 1,000 ML IV ONE (12:00)
[2020-04-04] MEDS ORDERED: SODIUM CHLORIDE 0.9% 500 ML 500 ML IV ONE (12:00)
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
[2020-04-04] MEDS ORDERED: SODIUM CHLORIDE 0.9% 1,000 ML with MVI, ADULT NO.4 WITH VIT K 10 ML, THIAMINE 100 MG, F... IV ONE ×4 (12:15)
[2020-04-04 12:41] LABS: Basophils # (A) 0.1 k/uL (0-0.2); Basophils % (A) 1 %; Eosinophils # (A) 0.1 k/uL (0-0.7); Eosinophils % (A) 1 %; HCT 43.6 % (34.0-46.0); HGB 14.1 gm/dL (11.4-16.0); Lymphocytes # (A) 2.8 k/uL (1.0-4.8); Lymphocytes % (A) 36 %; MCH 30.5 pg (25.0-35.0); MCHC 32.4 g/dL (31.0-37.0); MCV 93.9 fL (80.0-100.0); Mean Platelet Volume 7.4; Monocytes # (A) 0.3 k/uL (0-1.0); Monocytes % (A) 3 %; Neutrophils # (A) 4.3 k/uL (1.3-7.7); Neutrophils % (A) 56 %; Platelet Count 347 k/uL (150-450); RBC 4.64 m/uL (3.80-5.40); RDW 13.4 % (11.5-15.5); WBC 7.7 k/uL (3.8-10.6)
[2020-04-04] MEDS ORDERED: LORazepam 2 MG/ML INJ IV STA (12:45)
[2020-04-04] MEDS ORDERED: ZIPRASIDONE 20 MG VIAL IM STA (12:45)
[2020-04-04 12:51] LABS: ALT 27 U/L (4-34); AST 32 U/L (14-36); African American GFR (CKD) >90 (>60 ml/min/1.73 sqM); Albumin 4.3 g/dL (3.5-5.0); Alkaline Phosphatase 90 U/L (38-126); Anion Gap 12 mmol/L; Blood Urea Nitrogen 18 mg/dL (7-17); Carbon Dioxide 21 mmol/L (22-30); Chloride 108 mmol/L (98-107); Glucose 96 mg/dL (74-99); Magnesium 1.9 mg/dL (1.6-2.3); Non-African American GFR(CKD) >90 (>60 ml/min/1.73 sqM); Potassium 4.5 mmol/L (3.5-5.1); Sodium 141 mmol/L (137-145); Total Bilirubin 0.6 mg/dL (0.2-1.3); Total Protein 7.3 g/dL (6.3-8.2)
[2020-04-04 13:05] LABS: Alcohol 287 mg/dL
[2020-04-04] MEDS ORDERED: THIAMINE 100 MG/ML 2 ML VIAL IM STA (13:26)
[2020-04-04] MEDS ORDERED: LORazepam 2 MG/ML INJ IV PRN ×3 (13:26)
[2020-04-04] MEDS ORDERED: ONDANSETRON 4 MG/2 ML VIAL IVP PRN (14:20)
[2020-04-04] MEDS ORDERED: NALOXONE 0.4 MG/ML 1 ML VIAL IV PRN (14:20)
[2020-04-04] MEDS ORDERED: ACETAMINOPHEN TAB 325 MG TAB PO PRN (14:20)
[2020-04-04] MEDS: THIAMINE 100 MG TAB PO SCH (14:35)
--- NOTE | 2020-04-04 17:14 | P.HPIM ---
History of Present Illness H&P Date: 04/04/20 59 year old female with PMH of hypothyroidism and hypertension presents the ED for alcohol intoxication and suicidal ideation. Patient states that this is her one-year anniversary of losing her mother. Patient states that she has drank 1/5 pint of liquor daily with her last drink yesterday morning. She has no other complaints. She denies any chest nausea or vomiting, fever or chills. She denies any lower extremity edema, cough, chest pain, shortness of breath, palpitations, changes in urination or bowel habits. No changes in appetite or weight. She denies any dizziness, numbness/weakness/tingling of the extremities. In the ED, vital signs are stable except for heart rate of 116. CMP showed chloride of 108, bicarbonate of 21, BUN of 18. Serum alcohol was 287. Patient is admitted for alcohol intoxication, severe depression and suicidal ideation. Review of Systems Pertinent positives and negatives as discussed in HPI, a complete review of systems was performed and all other systems are negative. Past Medical History Past Medical History: Osteoarthritis (OA), Seizure Disorder, Thyroid Disorder Additional Past Medical History / Comment(s): ETOH abuse, last seizure 07/15/19, chronic back pain,neck pain, numbness derick. shoulder & arm/finger tips, derick numbn ess to legs & ft, limited rom neck, benign colon polyps, uses walker, frequent falls History of Any Multi-Drug Resistant Organisms: None Reported Past Surgical History: Breast Surgery, Hernia Repair, Orthopedic Surgery, Tonsillectomy Additional Past Surgical History / Comment(s): derick knee replacements with R knee done twice, bilateral eye laser surgery for vision correction, benign lump removed from lt breast, colonoscopies/benign polypectomies. Past Anesthesia/Blood Transfusion Reactions: Motion Sickness Additional Past Anesthesia/Blood Transfusion Reaction / Comment(s): no hx blood transfusion Smoking Status: Current every day smoker - Past Family History Mother Additional Family Medical History / Comment(s): Mother of heart problems at the age of 79yrs old. Father Family Medical History: Hyperlipidemia Additional Family Medical History / Comment(s): Father is living. Medications and Allergies Home Medications Medication Instructions Recorded Confirmed Type Acetaminophen Tab [Tylenol] 650 mg PO Q6HR PRN tab 12/16/19 04/04/20 Rx Citalopram Hydrobromide [CeleXA] 20 mg PO DAILY 30 Days tab 12/16/19 04/04/20 Rx Folic Acid 1 mg PO DAILY 30 Days tab 12/16/19 04/04/20 Rx Levothyroxine Sodium [Synthroid] 112 mcg PO DAILY@0630 30 Days tab 12/16/19 04/04/20 Rx Multivitamins, Thera [Multivitamin 1 each PO DAILY 30 Days tab 12/16/19 04/04/20 Rx (formulary)] Naltrexone HCl [Revia] 50 mg PO DAILY 30 Days tab 12/16/19 04/04/20 Rx Nicotine 14Mg/24Hr Patch [Habitrol] 1 patch TRANSDERM DAILY 14 Days 12/16/19 04/04/20 Rx patch Thiamine [Vitamin B-1] 100 mg PO DAILY 30 Days tab 12/16/19 04/04/20 Rx atenoloL [Tenormin] 12.5 mg PO DAILY 30 Days dose 12/16/19 04/04/20 Rx traZODone HCL [Desyrel] 50 mg PO HS 30 Days tab 12/16/19 04/04/20 Rx Allergies Allergy/AdvReac Type Severity Reaction Status Date / Time No Known Allergies Allergy Verified 04/04/20 11:59 Physical Exam Vitals: Vital Signs Temp Pulse Pulse Resp BP BP Pulse Ox 04/04/20 15:00 97.6 F 107 H 17 134/84 97 04/04/20 14:35 82 18 127/80 98 04/04/20 11:59 98 F 116 H 18 131/83 98 Intake and Output 04/04/20 04/04/20 04/04/20 06:59 14:59 22:59 Other: Weight 74.843 kg 74.843 kg General: [non toxic], [no distress], [appears at stated age] Derm: [warm], [dry] Head: [atraumatic], [normocephalic], [symmetric] Eyes: [EOMI], [no lid lag], [anicteric sclera] Mouth: [no lip lesion], [mucus membranes moist] Cardiovascular: [S1S2 reg], [tachycardic], [positive DP pulse bilateral], Lungs: [CTA bilateral], [no rhonchi, no rales] , [no accessory muscle use] Abdominal: [soft], [ nontender to palpation], [no guarding], [no appreciable organomegaly] Ext: [no gross muscle atrophy], [no edema], [no contractures] Neuro: [ CN II-XI grossly intact], [no focal neuro deficits] Psych: [Alert], [oriented], [appropriate affect] Results CBC & Chem 7: 04/04/20 12:17 04/04/20 12:17 Labs: Abnormal Lab Results - Last 24 Hours (Table) 04/04/20 Range/Units 12:17 Chloride 108 H (98-107) mmol/L Carbon Dioxide 21 L (22-30) mmol/L BUN 18 H (7-17) mg/dL Serum Alcohol 287 H* mg/dL Thrombosis Risk Factor Assmnt - Choose All That Apply Any of the Below Risk Factors Present?: Yes Each Factor Represents 1 point: Age 41-60 years, Obesity (BMI >25) Other Risk Factors: No Other congenital or acquired thrombophilia - If yes, enter type in comment: No Thrombosis Risk Factor Assessment Total Risk Factor Score: 2 Thrombosis Risk Factor Assessment Level: Low Risk Assessment and Plan Assessment: Acute alcohol intoxication Hypertension Hypothyroidism Elevated BUN Severe depression with suicidal ideation Patient's serum alcohol is 287. She will be placed on CIWA protocol and given Ativan as needed. Telemetry monitoring will be ordered. Thiamine has been started. She will be placed on fall precautions. Atenolol will be restarted for her history of hypertension. Synthroid will be restarted for her hypothyroidism. Her elevated BUN is likely related to dehydration. She will be started on normal saline at 75 mL per hour. BMP will be repeated tomorrow. Patient will be restarted on Citalopram and Trazodone and placed on suicide and fall precautions with psychiatry consulted. DVT prophylaxis: [SCD boots] Discussed with: [Patient] Anticipated discharge: [1-2 days] Anticipated discharge place: [Inpatient psych] A total of [35] minutes was spent on the care of this complex patient more than 50% of the time was spent in counseling and care coordination. Patient will be full code. Patient names her daughter Etienne decision maker if she can't make decisions for herself.
[2020-04-04] MEDS ORDERED: traZODone HCL 50 MG TAB PO SCH (21:00)
[2020-04-04] MEDS: SODIUM CHLORIDE 0.9% 1,000 ML IV SCH (21:33)
[2020-04-04 21:37] VITALS: RESP 18
[2020-04-05 05:40] LABS: Basophils % (A) 0 %; Eosinophils # (A) 0.2 k/uL (0-0.7); Eosinophils % (A) 2 %; HCT 36.8 % (34.0-46.0); HGB 12.1 gm/dL (11.4-16.0); Lymphocytes # (A) 1.6 k/uL (1.0-4.8); Lymphocytes % (A) 20 %; MCH 32.3 pg (25.0-35.0); Mean Platelet Volume 8.2; Monocytes # (A) 0.4 k/uL (0-1.0); Monocytes % (A) 4 %; Neutrophils # (A) 5.9 k/uL (1.3-7.7); Neutrophils % (A) 73 %; Platelet Count 223 k/uL (150-450); RBC 3.75 m/uL (3.80-5.40); RDW 13.4 % (11.5-15.5); WBC 8.1 k/uL (3.8-10.6)
[2020-04-05] MEDS ORDERED: LEVOTHYROXINE 112 MCG TAB PO SCH (06:30)
[2020-04-05] MEDS: THIAMINE 100 MG TAB PO SCH (08:45)
[2020-04-05] MEDS ORDERED: THIAMINE 100 MG TAB PO SCH (09:00)
[2020-04-05] MEDS ORDERED: CITALOPRAM HYDROBROMIDE 20 MG TAB PO SCH (09:00)
[2020-04-05] MEDS ORDERED: FOLIC ACID 1 MG TAB PO SCH (09:00)
[2020-04-05 09:36] LABS: African American GFR (CKD) 124.5 (60.0-200.0); Albumin 3.5 g/dL (3.80-4.90); Albumin/Globulin Ratio 1.84 (1.60-3.17); Calcium 8.4 mg/dL (8.7-10.3); Globulin 1.9 g/dL (1.6-3.3); Magnesium 1.6 mg/dL (1.5-2.4); Non-African American GFR(CKD) 107.4 (60.0-200.0); Potassium 3.9 mmol/L (3.5-5.5); Total Bilirubin 1.3 mg/dL (0.3-1.2); Total Protein 5.4 g/dL (6.2-8.2)
--- NOTE | 2020-04-05 10:48 | P.DS ---
Providers Date of admission: 04/04/20 13:15 Expected date of discharge: 04/05/20 Attending physician: Rosana Rubin MD Consults: 04/04/20 14:20 Consult Physician Routine Consulting Provider: Munir Mercado Consult Reason/Comments: suicidal ideation Do you want consulting provider notified?: Yes Primary care physician: Stated None Hospital Course: 59 year old female with PMH of hypothyroidism and hypertension presents the ED for alcohol intoxication and suicidal ideation. Patient states that this is her one-year anniversary of losing her mother. Patient states that she has drank 1/5 pint of liquor daily with her last drink yesterday morning. She has no other complaints. She denies any chest nausea or vomiting, fever or chills. She denies any lower extremity edema, cough, chest pain, shortness of breath, palpitations, changes in urination or bowel habits. No changes in appetite or weight. She denies any dizziness, numbness/weakness/tingling of the extre mities. In the ED, vital signs are stable except for heart rate of 116. CMP showed chloride of 108, bicarbonate of 21, BUN of 18. Serum alcohol was 287. Patient is admitted for alcohol intoxication, severe depression and suicidal ideation. Patient was placed on CTA to be protocol given Ativan as needed. She was placed on telemetry monitoring. She was started on thiamine. She was placed on gutiérrez icidal and fall precautions. Her home medications were restarted. She was started on normal saline at 75 mL per hour. Patient was seen and examined. No acute events overnight. Patient denies any suicidal or homicidal ideation. No auditory or visual hallucinations. Would like to go home. General: [non toxic], [no distress], [appears at stated age] Derm: [warm], [dry] Head: [atraumatic], [normocephalic], [symmetric] Eyes: [EOMI], [no lid lag], [anicteric sclera] Mouth: [no lip lesion], [mucus membranes moist] Cardiovascular: [S1S2 reg], [tachycardic], [positive DP pulse bilateral], Lungs: [CTA bilateral], [no rhonchi, no rales] , [no accessory muscle use] Abdominal: [soft], [ nontender to palpation], [no guarding], [no appreciable organomegaly] Ext: [no gross muscle atrophy], [no edema], [no contractures] Neuro: [ CN II-XI grossly intact], [no focal neuro deficits] Psych: [Alert], [oriented], [appropriate affect] Patient's serum alcohol on admission was 287. She was placed on CIWA protocol and given Ativan as needed. Thiamine was started. Atenolol was restarted for her history of hypertension. Synthroid was restarted for her hypothyroidism. Patient will be placed on suicide and fall precautions. Psychiatry consult is pending. Patient is medically cleared for transfer to mental health unit versus discharge home. Patient Condition at Discharge: Stable Plan - Discharge Summary Discharge Rx Participant: No New Discharge Prescriptions: Continue Citalopram Hydrobromide [CeleXA] 20 mg PO DAILY 30 Days tab traZODone HCL [Desyrel] 50 mg PO HS 30 Days tab Folic Acid 1 mg PO DAILY 30 Days tab Nicotine 14Mg/24Hr Patch [Habitrol] 1 patch TRANSDERM DAILY 14 Days patch Multivitamins, Thera [Multivitamin (formulary)] 1 each PO DAILY 30 Days tab Naltrexone HCl [Revia] 50 mg PO DAILY 30 Days tab Levothyroxine Sodium [Synthroid] 112 mcg PO DAILY@0630 30 Days tab atenoloL [Tenormin] 12.5 mg PO DAILY 30 Days dose Acetaminophen Tab [Tylenol] 650 mg PO Q6HR PRN tab PRN Reason: Fever And/ Or Pain Thiamine [Vitamin B-1] 100 mg PO DAILY 30 Days tab Discharge Medication List Acetaminophen Tab [Tylenol] 650 mg PO Q6HR PRN tab 12/16/19 [Rx] Citalopram Hydrobromide [CeleXA] 20 mg PO DAILY 30 Days tab 12/16/19 [Rx] Folic Acid 1 mg PO DAILY 30 Days tab 12/16/19 [Rx] Levothyroxine Sodium [Synthroid] 112 mcg PO DAILY@0630 30 Days tab 12/16/19 [Rx] Multivitamins, Thera [Multivitamin (formulary)] 1 each PO DAILY 30 Days tab 12/16/19 [Rx] Naltrexone HCl [Revia] 50 mg PO DAILY 30 Days tab 12/16/19 [Rx] Nicotine 14Mg/24Hr Patch [Habitrol] 1 patch TRANSDERM DAILY 14 Days patch 0 12/16/19 [Rx] Thiamine [Vitamin B-1] 100 mg PO DAILY 30 Days tab 12/16/19 [Rx] atenoloL [Tenormin] 12.5 mg PO DAILY 30 Days dose 12/16/19 [Rx] traZODone HCL [Desyrel] 50 mg PO HS 30 Days tab 12/16/19 [Rx] Follow up Appointment(s)/Referral(s): None,Stated [Primary Care Provider] - 1-2 days Discharge Disposition: TRANSFER TO PSYCH HOSP/UNIT
[2020-04-05] MEDS: SODIUM CHLORIDE 0.9% 1,000 ML IV SCH (11:04)
[2020-04-05 11:15] VITALS: PULSE 85; TEMP 97.7
[2020-04-05 12:20] VITALS: BP 172/90
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
== END 2020-04-05 16:48 | disposition home or self-care (01) ==
LOC: EC 11:45 → 6NMEDSUR 13:15
PROVIDERS: ADMIT Family Medicine; ATTEND Family Medicine
DX: F10.129 Alcohol abuse with intoxication, unspecified (principal); R45.851 Suicidal ideations; F32.2 Major depressive disorder, single episode, severe without psychotic features; R94.4 Abnormal results of kidney function studies; I10 Essential (primary) hypertension; E03.9 Hypothyroidism, unspecified; M19.90 Unspecified osteoarthritis, unspecified site; G89.29 Other chronic pain; M54.9 Dorsalgia, unspecified; M54.2 Cervicalgia; R29.6 Repeated falls; F41.9 Anxiety disorder, unspecified; E66.9 Obesity, unspecified; F17.210 Nicotine dependence, cigarettes, uncomplicated; Y90.8 Blood alcohol level of 240 mg/100 ml or more; Z86.69 Personal history of other diseases of the nervous system and sense organs; Z86.010 Personal history of colon polyps; Z98.890 Other specified postprocedural states; Z87.19 Personal history of other diseases of the digestive system; Z90.89 Acquired absence of other organs; Z96.653 Presence of artificial knee joint, bilateral; Z87.898 Personal history of other specified conditions; Z79.899 Other long term (current) drug therapy; Z79.890 Hormone replacement therapy; Z68.27 Body mass index [BMI] 27.0-27.9, adult; Z82.49 Family history of ischemic heart disease and other diseases of the circulatory system; Z83.438 Family history of other disorder of lipoprotein metabolism and other lipidemia
CPT/HCPCS: 96366 ×3; 82075; 96365; 96372; 96375; 99285; 36415; 80053 ×2; 83735 ×2; 85025 ×2; G0378 ×2; G0480; J2060; J3411; J3486; 80320

== ENCOUNTER 2020-04-09 10:15 | Emergency (ER) | payer MEDICARE, OTHER ==
[2020-04-09 10:22] VITALS: BP 134/80; PULSE 86; TEMP 97.9
--- NOTE | 2020-04-09 10:28 | ED ---
General Adult HPI - General Chief complaint: Alcohol Stated complaint: Mental Health Time Seen by Provider: 04/09/20 10:18 Source: patient, RN notes reviewed Mode of arrival: ambulatory Limitations: no limitations - History of Present Illness Initial comments: Patient is a pleasant 59-year-old female presenting to the emergency Department with alcohol intoxication. Patient states she drinks a lot of alcohol. Patient states she has been drinking more recently. Patient states she is upset regarding the of her 5 months ago. Patient states she needs to drink alcohol to sleep. Patient states when she wakes up she drink more alcohol. Patient omits to feeling depressed. No suicidal or homicidal thoughts. No hallucinations. No physical complaints. - Related Data Previous Rx's Medication Instructions Recorded Acetaminophen Tab [Tylenol] 650 mg PO Q6HR PRN tab 12/16/19 Citalopram Hydrobromide [CeleXA] 20 mg PO DAILY 30 Days tab 12/16/19 Folic Acid 1 mg PO DAILY 30 Days tab 12/16/19 Levothyroxine Sodium [Synthroid] 112 mcg PO DAILY@0630 30 Days tab 12/16/19 Multivitamins, Thera [Multivitamin 1 each PO DAILY 30 Days tab 12/16/19 (formulary)] Naltrexone HCl [Revia] 50 mg PO DAILY 30 Days tab 12/16/19 Nicotine 14Mg/24Hr Patch [Habitrol] 1 patch TRANSDERM DAILY 14 Days 12/16/19 patch Thiamine [Vitamin B-1] 100 mg PO DAILY 30 Days tab 12/16/19 atenoloL [Tenormin] 12.5 mg PO DAILY 30 Days dose 12/16/19 traZODone HCL [Desyrel] 50 mg PO HS 30 Days tab 12/16/19 Allergies Allergy/AdvReac Type Severity Reaction Status Date / Time No Known Allergies Allergy Verified 04/04/20 11:59 Review of Systems ROS Statement: Those systems with pertinent positive or pertinent negative responses have been documented in the HPI. ROS Other: All systems not noted in ROS Statement are negative. Constitutional: Denies: fever Eyes: Denies: eye pain ENT: Denies: ear pain Respiratory: Denies: cough Cardiovascular: Denies: chest pain Endocrine: Denies: fatigue Gastrointestinal: Denies: abdominal pain Genitourinary: Denies: dysuria Musculoskeletal: Denies: back pain Skin: Denies: rash Neurological: Denies: weakness Psychiatric: Reports: depression. Denies: auditory hallucinations, visual hallucinations, suicidal thoughts Past Medical History Past Medical History: Osteoarthritis (OA), Seizure Disorder, Thyroid Disorder Additional Past Medical History / Comment(s): ETOH abuse, last seizure 07/15/19, chronic back pain,neck pain, numbness derick. shoulder & arm/finger tips, derick numbness to legs & ft, limited rom neck, benign colon polyps, uses walker, frequent falls History of Any Multi-Drug Resistant Organisms: None Reported Past Surgical History: Breast Surgery, Hernia Repair, Orthopedic Surgery, Tonsillectomy Additional Past Surgical History / Comment(s): derick knee replacements with R knee done twice, bilateral eye laser surgery for vision correction, benign lump removed from lt breast, colonoscopies/benign polypectomies. Past Anesthesia/Blood Transfusion Reactions: Motion Sickness Additional Past Anesthesia/Blood Transfusion Reaction / Comment(s): no hx blood transfusion Past Psychological History: Anxiety, Depression Smoking Status: Current every day smoker Past Alcohol Use History: None Reported Past Drug Use History: None Reported - Past Family History Mother Additional Family Medical History / Comment(s): Mother of heart problems at the age of 79yrs old. Father Family Medical History: Hyperlipidemia Additional Family Medical History / Comment(s): Father is living. General Exam Limitations: no limitations General appearance: alert Head exam: Present: normocephalic Eye exam: Present: normal appearance Neck exam: Present: normal inspection. Absent: tenderness Respiratory exam: Present: normal lung sounds bilaterally Cardiovascular Exam: Present: regular rate, normal rhythm GI/Abdominal exam: Present: soft. Absent: tenderness Extremities exam: Present: normal inspection Neurological exam: Present: alert, oriented X3. Absent: motor sensory deficit Psychiatric exam: Present: depressed Skin exam: Present: normal color Course Vital Signs 04/09/20 04/09/20 04/09/20 10:19 11:00 12:00 Temperature 97.9 F Pulse Rate 86 Respiratory 16 20 18 Rate Blood Pressure 134/80 O2 Sat by Pulse 99 Oximetry 04/09/20 04/09/20 13:00 14:00 Temperature Pulse Rate Respiratory 18 18 Rate Blood Pressure O2 Sat by Pulse Oximetry Procedures - Restraint - Face to Face Restraint Occurrence 1 Patient's Immediate Situation: Endangers self safety, Endangers others' safety, Endangers staff safety, Violent behavior Patient's Reaction to the Intervention: Uncooperative Patient's Medical & Behavioral Condition: Awake, Alert Need to Continue or Terminate Restraint or Seclusion: Continue Face to Face Eval of Restraint Date: 04/09/20 Face to Face Eval of Restraint Time: 11:10 Medical Decision Making - Medical Decision Making Patient requesting discharge home. Patient alert and oriented 3. Steady gait. Patient still denies suicidal ideation and states she does have plans for rehab follow-up this . Disposition Clinical Impression: Acute alcohol intoxication Disposition: HOME SELF-CARE Condition: Stable Instructions (If sedation given, give patient instructions): Alcohol Intoxication (ED) Additional Instructions: Avoid alcohol. Follow-up with rehab as planned this week. Return for thoughts of self-harm, worsening symptoms or other concerns. No driving. Is patient prescribed a controlled substance at d/c from ED?: No Referrals: Manpreet Harden [STAFF PHYSICIAN] - 1-2 days Time of Disposition: 15:04
[2020-04-09 14:20] VITALS: RESP 18
== END 2020-04-09 15:33 | disposition home or self-care (01) ==
LOC: EC 10:15
DX: F10.129 Alcohol abuse with intoxication, unspecified (principal); F17.200 Nicotine dependence, unspecified, uncomplicated; Y90.9 Presence of alcohol in blood, level not specified
CPT/HCPCS: 82075; 99284

== ENCOUNTER 2020-07-06 23:16 | Emergency (ER) | payer MEDICARE, OTHER ==
--- NOTE | 2020-07-06 23:26 | ED ---
Alcohol HPI - General Stated Complaint: ETOH Time Seen by Provider: 07/06/20 23:21 Source: RN notes reviewed, old records reviewed Limitations: no limitations - History of Present Illness Initial Comments: This is a 52-year-old female presents with severe alcohol intoxication. Patient admits to alcohol intoxication and need to stop drinking. Patient admits to drinking alcohol today as normal admits to being alcoholic denying any pain she admits to persistent nausea vomiting which she feels is secondary to stress and anxiety. 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) Previous Visits for Alcohol Intoxication?: Yes Recent Trauma: No Associated Symptoms: nausea, vomiting Treatments Prior to Arrival: none Chronic Alcohol Use: Yes - Related Data Home Medications Medication Instructions Recorded Confirmed Multivitamins, Thera [Multivitamin 1 tab PO DAILY 07/07/20 07/07/20 (formulary)] Previous Rx's Medication Instructions Recorded Acetaminophen Tab [Tylenol] 650 mg PO Q6HR PRN tab 12/16/19 Citalopram Hydrobromide [CeleXA] 20 mg PO DAILY 30 Days tab 12/16/19 Folic Acid 1 mg PO DAILY 30 Days tab 12/16/19 Levothyroxine Sodium [Synthroid] 112 mcg PO DAILY@0630 30 Days tab 12/16/19 Naltrexone HCl [Revia] 50 mg PO DAILY 30 Days tab 12/16/19 Nicotine 14Mg/24Hr Patch [Habitrol] 1 patch TRANSDERM DAILY 14 Days 12/16/19 patch Thiamine [Vitamin B-1] 100 mg PO DAILY 30 Days tab 12/16/19 atenoloL [Tenormin] 12.5 mg PO DAILY 30 Days dose 12/16/19 traZODone HCL [Desyrel] 50 mg PO HS 30 Days tab 12/16/19 Allergies Allergy/AdvReac Type Severity Reaction Status Date / Time No Known Allergies Allergy Verified 07/07/20 10:49 Review of Systems ROS Statement: Those systems with pertinent positive or pertinent negative responses have been documented in the HPI. ROS Other: All systems not noted in ROS Statement are negative. Past Medical History Past Medical History: Osteoarthritis (OA), Seizure Disorder, Thyroid Disorder Additional Past Medical History / Comment(s): ETOH abuse, last seizure 07/15/19, chronic back pain,neck pain, numbness derick. shoulder & arm/finger tips, derick numbness to legs & ft, limited rom neck, benign colon polyps, uses walker, kanika quent falls History of Any Multi-Drug Resistant Organisms: None Reported Past Surgical History: Breast Surgery, Hernia Repair, Orthopedic Surgery, Ton sillectomy Additional Past Surgical History / Comment(s): derick knee replacements with R knee done twice, bilateral eye laser surgery for vision correction, benign lump removed from lt breast, colonoscopies/benign polypectomies. Past Anesthesia/Blood Transfusion Reactions: Motion Sickness Additional Past Anesthesia/Blood Transfusion Reaction / Comment(s): no hx blood transfusion Past Psychological History: Anxiety, Depression Smoking Status: Current every day smoker Past Alcohol Use History: None Reported Past Drug Use History: None Reported - Past Family History Mother Additional Family Medical History / Comment(s): Mother of heart problems at the age of 79yrs old. Father Family Medical History: Hyperlipidemia Additional Family Medical History / Comment(s): Father is living. General Exam General appearance: alert, appears intoxicated, anxious Head exam: Present: atraumatic, normocephalic, normal inspection Eye exam: Present: normal appearance, PERRL, EOMI. Absent: scleral icterus, conjunctival injection, periorbital swelling ENT exam: Present: normal exam, mucous membranes moist Neck exam: Present: normal inspection. Absent: tenderness, meningismus, lymphadenopathy Respiratory exam: Present: normal lung sounds bilaterally. Absent: respiratory distress, wheezes, rales, rhonchi, stridor Cardiovascular Exam: Present: regular rate, normal rhythm, normal heart sounds. Absent: systolic murmur, diastolic murmur, rubs, gallop, clicks GI/Abdominal exam: Present: soft, normal bowel sounds. Absent: distended, tenderness, guarding, rebound, rigid Extremities exam: Present: normal inspection, full ROM, normal capillary refill. Absent: tenderness, pedal edema, joint swelling, calf tenderness Back exam: Present: normal inspection Neurological exam: Present: alert, oriented X3, CN II-XII intact Psychiatric exam: Present: normal affect, normal mood Skin exam: Present: warm, dry, intact, normal color. Absent: rash Course Vital Signs 07/06/20 07/07/20 23:27 00:37 Temperature 98 F Pulse Rate 111 H 107 H Respiratory 18 22 Rate Blood Pressure 125/86 123/84 O2 Sat by Pulse 95 97 Oximetry - Reevaluation(s) Reevaluation #1: Medical record is reviewed Patient reevaluated feeling fine, symptoms improved Patient informed of results and questions have been answered Patient able ambulate without difficulty Patient feels good for discharge Medical Decision Making - Medical Decision Making 60 female to the ER for evaluation patient presents for alcohol intoxication. Patient no longer intoxicated feeling well. Discharge home - Lab Data Result diagrams: 07/07/20 00:33 07/07/20 00:33 Lab Results 07/07/20 07/07/20 Range/Units 00:33 00:33 WBC 9.0 (3.8-10.6) k/uL RBC 4.91 (3.80-5.40) m/uL Hgb 14.9 (11.4-16.0) gm/dL Hct 47.3 H (34.0-46.0) % MCV 96.4 (80.0-100.0) fL MCH 30.5 (25.0-35.0) pg MCHC 31.6 (31.0-37.0) g/dL RDW 14.6 (11.5-15.5) % Plt Count 335 (150-450) k/uL MPV 8.3 Neutrophils % 68 % Lymphocytes % 24 % Monocytes % 4 % Eosinophils % 1 % Basophils % 1 % Neutrophils # 6.1 (1.3-7.7) k/uL Lymphocytes # 2.2 (1.0-4.8) k/uL Monocytes # 0.3 (0-1.0) k/uL Eosinophils # 0.1 (0-0.7) k/uL Basophils # 0.1 (0-0.2) k/uL Sodium 141 (137-145) mmol/L Potassium 4.5 (3.5-5.1) mmol/L Chloride 105 (98-107) mmol/L Carbon Dioxide 20 L (22-30) mmol/L Anion Gap 16 mmol/L BUN 18 H (7-17) mg/dL Creatinine 0.81 (0.52-1.04) mg/dL Est GFR (CKD-EPI)AfAm >90 (>60 ml/min/1.73 sqM) Est GFR (CKD-EPI)NonAf 81 (>60 ml/min/1.73 sqM) Glucose 84 (74-99) mg/dL Calcium 8.9 (8.4-10.2) mg/dL Phosphorus 4.6 H (2.5-4.5) mg/dL Magnesium 1.6 (1.6-2.3) mg/dL Serum Alcohol 262 H* mg/dL Disposition Clinical Impression: EtOH dependence, Acute alcohol intoxication Disposition: HOME SELF-CARE Condition: Fair Instructions (If sedation given, give patient instructions): Alcohol Intoxication (ED) Is patient prescribed a controlled substance at d/c from ED?: No Referrals: Piper Curry DO [Primary Care Provider] - 1-2 days
[2020-07-06 23:37] VITALS: TEMP 98
[2020-07-07] MEDS ORDERED: SODIUM CHLORIDE 0.9% 500 ML 500 ML IV STA (00:04)
[2020-07-07] MEDS ORDERED: ONDANSETRON 4 MG/2 ML VIAL IVP STA (00:04)
[2020-07-07] MEDS ORDERED: PANTOPRAZOLE 40 MG/10 ML VIAL IVP STA (00:04)
[2020-07-07] MEDS ORDERED: LORazepam 2 MG/ML INJ IV STA (00:04)
[2020-07-07] MEDS ORDERED: SODIUM CHLORIDE 0.9% 1,000 ML IV STA ×2 (00:04)
[2020-07-07 00:40] VITALS: BP 123/84; PULSE 107; RESP 22
[2020-07-07 00:47] LABS: Basophils # (A) 0.1 k/uL (0-0.2); Basophils % (A) 1 %; Eosinophils # (A) 0.1 k/uL (0-0.7); Eosinophils % (A) 1 %; HCT 47.3 % (34.0-46.0); HGB 14.9 gm/dL (11.4-16.0); Lymphocytes # (A) 2.2 k/uL (1.0-4.8); Lymphocytes % (A) 24 %; MCH 30.5 pg (25.0-35.0); MCHC 31.6 g/dL (31.0-37.0); MCV 96.4 fL (80.0-100.0); Mean Platelet Volume 8.3; Monocytes # (A) 0.3 k/uL (0-1.0); Monocytes % (A) 4 %; Neutrophils # (A) 6.1 k/uL (1.3-7.7); Neutrophils % (A) 68 %; Platelet Count 335 k/uL (150-450); RBC 4.91 m/uL (3.80-5.40); RDW 14.6 % (11.5-15.5)
[2020-07-07 01:13] LABS: African American GFR (CKD) >90 (>60 ml/min/1.73 sqM); Anion Gap 16 mmol/L; Blood Urea Nitrogen 18 mg/dL (7-17); Calcium 8.9 mg/dL (8.4-10.2); Carbon Dioxide 20 mmol/L (22-30); Chloride 105 mmol/L (98-107); Glucose 84 mg/dL (74-99); Magnesium 1.6 mg/dL (1.6-2.3); Non-African American GFR(CKD) 81 (>60 ml/min/1.73 sqM); Phosphorus 4.6 mg/dL (2.5-4.5); Potassium 4.5 mmol/L (3.5-5.1); Sodium 141 mmol/L (137-145)
[2020-07-07 01:32] LABS: Alcohol 262 mg/dL
== END 2020-07-07 03:00 | disposition home or self-care (01) ==
LOC: EC 23:16
DX: F10.229 Alcohol dependence with intoxication, unspecified (principal); F17.200 Nicotine dependence, unspecified, uncomplicated
CPT/HCPCS: 36415; 80048; 83735; 84100; 85025; 99284; 96374; 96375 ×2; 96361 ×5; G0480; J2060; J2405; C9113; 80320

== ENCOUNTER 2020-07-07 09:56 | Observation (INO) | payer MEDICARE, OTHER ==
[2020-07-07] MEDS ORDERED: SODIUM CHLORIDE 0.9% 500 ML 500 ML IV ONE (10:35)
[2020-07-07] MEDS ORDERED: SODIUM CHLORIDE 0.9% 1,000 ML with MVI, ADULT NO.4 WITH VIT K 10 ML, THIAMINE 100 MG, F... IV ONE ×4 (10:35)
[2020-07-07] MEDS ORDERED: SODIUM CHLORIDE 0.9% 1,000 ML IV ONE (10:35)
--- NOTE | 2020-07-07 10:40 | ED ---
General Adult HPI - General Chief complaint: Alcohol Stated complaint: ETOH Source: patient, EMS Mode of arrival: EMS Limitations: altered mental status - History of Present Illness Initial comments: This 60-year-old female who comes in intoxicated. According to EMS on the way a nd she stated she had some chest pain that lasted less than a minute. Patient denies having had chest pain to me. Patient states she's here because she drinks too much and she wants help. Patient denies any headache patient denies numbness weakness. Patient denies any difficulty breathing. Patient denies abdominal pain patient denies nausea vomiting diarrhea. Patient denies any recent fever chills or cough. Patient denies any suicidal homicidal ideations. - Related Data Home Medications Medication Instructions Recorded Confirmed Multivitamins, Thera [Multivitamin 1 tab PO DAILY 07/07/20 07/07/20 (formulary)] Previous Rx's Medication Instructions Recorded Acetaminophen Tab [Tylenol] 650 mg PO Q6HR PRN tab 12/16/19 Citalopram Hydrobromide [CeleXA] 20 mg PO DAILY 30 Days tab 12/16/19 Folic Acid 1 mg PO DAILY 30 Days tab 12/16/19 Levothyroxine Sodium [Synthroid] 112 mcg PO DAILY@0630 30 Days tab 12/16/19 Naltrexone HCl [Revia] 50 mg PO DAILY 30 Days tab 12/16/19 Nicotine 14Mg/24Hr Patch [Habitrol] 1 patch TRANSDERM DAILY 14 Days 12/16/19 patch Thiamine [Vitamin B-1] 100 mg PO DAILY 30 Days tab 12/16/19 atenoloL [Tenormin] 12.5 mg PO DAILY 30 Days dose 12/16/19 traZODone HCL [Desyrel] 50 mg PO HS 30 Days tab 12/16/19 Allergies Allergy/AdvReac Type Severity Reaction Status Date / Time No Known Allergies Allergy Verified 07/07/20 10:49 Review of Systems ROS Statement: Those systems with pertinent positive or pertinent negative responses have been documented in the HPI. ROS Other: All systems not noted in ROS Statement are negative. Past Medical History Past Medical History: Osteoarthritis (OA), Seizure Disorder, Thyroid Disorder Additional Past Medical History / Comment(s): ETOH abuse, last seizure 07/15/19, chronic back pain,neck pain, numbness derick. shoulder & arm/finger tips, derick numbness to legs & ft, limited rom neck, benign colon polyps, uses walker, frequent falls History of Any Multi-Drug Resistant Organisms: None Reported Past Surgical History: Breast Surgery, Hernia Repair, Orthopedic Surgery, Tonsillectomy Additional Past Surgical History / Comment(s): derick knee replacements with R knee done twice, bilateral eye laser surgery for vision correction, benign lump removed from lt breast, colonoscopies/benign polypectomies. Past Anesthesia/Blood Transfusion Reactions: Motion Sickness Additional Past Anesthesia/Blood Transfusion Reaction / Comment(s): no hx blood transfusion Past Psychological History: Anxiety, Depression Smoking Status: Current every day smoker Past Alcohol Use History: Heavy Past Drug Use History: None Reported - Past Family History Mother Additional Family Medical History / Comment(s): Mother of heart problems at the age of 79yrs old. Father Family Medical History: Hyperlipidemia Additional Family Medical History / Comment(s): Father is living. General Exam - General Exam Comments Initial Comments: GENERAL: Patient is well-developed and well-nourished. Patient is nontoxic and well- hydrated and is in mild distress. Patient is very intoxicated. Patient was also very uncooperative. ENT: Neck is soft and supple. No significant lymphadenopathy is noted. Oropharynx is clear. Moist mucous membranes. Neck has full range of motion without eliciting any pain. EYES: The sclera were anicteric and conjunctiva were pink and moist. Extraocular movements were intact and pupils were equal round and reactive to light. Eyelids were unremarkable. PULMONARY: Unlabored respirations. Good breath sounds bilaterally. No audible rales rhon chi or wheezing was noted. CARDIOVASCULAR: There is a regular rate and rhythm without any murmurs gallops or rubs. ABDOMEN: Soft and nontender with normal bowel sounds. SKIN: Skin is clear with no lesions or rashes and otherwise unremarkable. NEUROLOGIC: Patient is alert and oriented patient will not answer my questions about orientation. Cranial nerves II through XII are grossly intact. Motor and sensory are also intact. Normal speech, volume and content. Symmetrical smile. MUSCULOSKELETAL: Normal extremities with adequate strength and full range of motion. LYMPHATICS: No significant lymphadenopathy is noted PSYCHIATRIC: Patient is intoxicated accurate psychiatric examination cannot be done Limitations: altered mental status Course Vital Signs 07/07/20 07/07/20 10:01 11:04 Temperature 98.2 F Pulse Rate 110 H Respiratory 18 18 Rate Blood Pressure 138/90 O2 Sat by Pulse 97 Oximetry Medical Decision Making - Medical Decision Making EKG shows sinus tachycardia at 102 bpm DE interval is 188 QRS is 90 QT interval 366 QTC is 477. Patient's EKG shows no ST segment elevation or depression. Chest x-ray shows no acute normalities. Patient is highly intoxicated she will be admitted to the hospital. - Lab Data Result diagrams: 07/07/20 10:42 07/07/20 10:42 Lab Results 07/07/20 07/07/20 07/07/20 Range/Units 10:42 10:42 10:42 WBC 12.4 H (3.8-10.6) k/uL RBC 4.23 (3.80-5.40) m/uL Hgb 13.0 (11.4-16.0) gm/dL Hct 40.7 (34.0-46.0) % MCV 96.3 (80.0-100.0) fL MCH 30.7 (25.0-35.0) pg MCHC 31.9 (31.0-37.0) g/dL RDW 14.6 (11.5-15.5) % Plt Count 290 (150-450) k/uL MPV 8.1 Neutrophils % 78 % Lymphocytes % 15 % Monocytes % 4 % Eosinophils % 1 % Basophils % 1 % Neutrophils # 9.7 H (1.3-7.7) k/uL Lymphocytes # 1.8 (1.0-4.8) k/uL Monocytes # 0.5 (0-1.0) k/uL Eosinophils # 0.1 (0-0.7) k/uL Basophils # 0.1 (0-0.2) k/uL PT 9.7 (9.0-12.0) sec INR 0.9 (<1.2) APTT 18.4 L (22.0-30.0) sec Sodium 139 (137-145) mmol/L Potassium 4.3 (3.5-5.1) mmol/L Chloride 103 (98-107) mmol/L Carbon Dioxide 21 L (22-30) mmol/L Anion Gap 15 mmol/L BUN 15 (7-17) mg/dL Creatinine 0.74 (0.52-1.04) mg/dL Est GFR (CKD-EPI)AfAm >90 (>60 ml/min/1.73 sqM) Est GFR (CKD-EPI)NonAf >90 (>60 ml/min/1.73 sqM) Glucose 88 (74-99) mg/dL Calcium 8.7 (8.4-10.2) mg/dL Magnesium 1.7 (1.6-2.3) mg/dL Total Bilirubin 1.0 (0.2-1.3) mg/dL AST 37 H (14-36) U/L ALT 21 (4-34) U/L Alkaline Phosphatase 87 (38-126) U/L Troponin I (0.000-0.034) ng/mL Total Protein 7.0 (6.3-8.2) g/dL Albumin 4.2 (3.5-5.0) g/dL Serum Alcohol 347 H* mg/dL 07/07/20 Range/Units 10:42 WBC (3.8-10.6) k/uL RBC (3.80-5.40) m/uL Hgb (11.4-16.0) gm/dL Hct (34.0-46.0) % MCV (80.0-100.0) fL MCH (25.0-35.0) pg MCHC (31.0-37.0) g/dL RDW (11.5-15.5) % Plt Count (150-450) k/uL MPV Neutrophils % % Lymphocytes % % Monocytes % % Eosinophils % % Basophils % % Neutrophils # (1.3-7.7) k/uL Lymphocytes # (1.0-4.8) k/uL Monocytes # (0-1.0) k/uL Eosinophils # (0-0.7) k/uL Basophils # (0-0.2) k/uL PT (9.0-12.0) sec INR (<1.2) APTT (22.0-30.0) sec Sodium (137-145) mmol/L Potassium (3.5-5.1) mmol/L Chloride (98-107) mmol/L Carbon Dioxide (22-30) mmol/L Anion Gap mmol/L BUN (7-17) mg/dL Creatinine (0.52-1.04) mg/dL Est GFR (CKD-EPI)AfAm (>60 ml/min/1.73 sqM) Est GFR (CKD-EPI)NonAf (>60 ml/min/1.73 sqM) Glucose (74-99) mg/dL Calcium (8.4-10.2) mg/dL Magnesium (1.6-2.3) mg/dL Total Bilirubin (0.2-1.3) mg/dL AST (14-36) U/L ALT (4-34) U/L Alkaline Phosphatase (38-126) U/L Troponin I <0.012 (0.000-0.034) ng/mL Total Protein (6.3-8.2) g/dL Albumin (3.5-5.0) g/dL Serum Alcohol mg/dL Disposition Clinical Impression: Alcohol intoxication Disposition: ADMITTED IP TO THIS HOSP Referrals: Piper Curry DO [Primary Care Provider] - 1-2 days Time of Disposition: 11:41
[2020-07-07 10:54] LABS: Basophils # (A) 0.1 k/uL (0-0.2); Basophils % (A) 1 %; Eosinophils # (A) 0.1 k/uL (0-0.7); Eosinophils % (A) 1 %; HCT 40.7 % (34.0-46.0); Lymphocytes # (A) 1.8 k/uL (1.0-4.8); Lymphocytes % (A) 15 %; MCH 30.7 pg (25.0-35.0); MCHC 31.9 g/dL (31.0-37.0); MCV 96.3 fL (80.0-100.0); Mean Platelet Volume 8.1; Monocytes # (A) 0.5 k/uL (0-1.0); Monocytes % (A) 4 %; Neutrophils # (A) 9.7 k/uL (1.3-7.7); Neutrophils % (A) 78 %; Platelet Count 290 k/uL (150-450); RBC 4.23 m/uL (3.80-5.40); RDW 14.6 % (11.5-15.5); WBC 12.4 k/uL (3.8-10.6)
[2020-07-07 11:08] LABS: ALT 21 U/L (4-34); AST 37 U/L (14-36); African American GFR (CKD) >90 (>60 ml/min/1.73 sqM); Albumin 4.2 g/dL (3.5-5.0); Alkaline Phosphatase 87 U/L (38-126); Anion Gap 15 mmol/L; Blood Urea Nitrogen 15 mg/dL (7-17); Calcium 8.7 mg/dL (8.4-10.2); Carbon Dioxide 21 mmol/L (22-30); Chloride 103 mmol/L (98-107); Glucose 88 mg/dL (74-99); Magnesium 1.7 mg/dL (1.6-2.3); Non-African American GFR(CKD) >90 (>60 ml/min/1.73 sqM); Potassium 4.3 mmol/L (3.5-5.1); Sodium 139 mmol/L (137-145)
--- NOTE | 2020-07-07 11:10 | XR ---
EXAMINATION TYPE: XR chest 2V DATE OF EXAM: 07/07/2020 COMPARISON: 11/03/2019 HISTORY: 60-year-old female with chest pain TECHNIQUE: AP and lateral views FINDINGS: Heart limits of normal in size. Leftward patient rotation IS a normal cardiac and mediastinal contour s. Mild interstitial prominence is increased from prior. No racquel consolidation or pleural effusion s een. IMPRESSION: Increased interstitial prominence could reflect bronchitis or asthma. No focal infiltrate seen at thi s time. Known left midlung nodule not well seen on the present exam. Appropriate outpatient follow-up recomme nded. Consider referral to pulmonary medicine if the patient has been lost to follow-up.
[2020-07-07 11:11] LABS: INR 0.9 (<1.2); Prothrombin Time 9.7 sec (9.0-12.0)
[2020-07-07 11:15] LABS: Partial Thromboplastin Time 18.4 sec (22.0-30.0)
[2020-07-07 11:18] LABS: Alcohol 347 mg/dL
[2020-07-07] MEDS ORDERED: THIAMINE 100 MG/ML 2 ML VIAL IM STA (11:42)
[2020-07-07] MEDS ORDERED: LORazepam 2 MG/ML INJ IV PRN ×2 (11:42)
[2020-07-07] MEDS: LORazepam 2 MG/ML INJ IV PRN ×2 (12:10→12:29)
[2020-07-07] MEDS: THIAMINE 100 MG TAB PO SCH ×2 (12:18→17:23)
[2020-07-07] MEDS ORDERED: traZODone HCL 50 MG TAB PO SCH (21:00)
[2020-07-07 22:27] VITALS: RESP 17
[2020-07-07] MEDS: PANTOPRAZOLE 40 MG/10 ML VIAL IVP SCH (23:36)
[2020-07-08 08:03] VITALS: BP 141/89; PULSE 105; TEMP 98.7
[2020-07-08] MEDS: PANTOPRAZOLE 40 MG/10 ML VIAL IVP SCH (08:21)
[2020-07-08] MEDS: THIAMINE 100 MG TAB PO SCH (08:21)
[2020-07-08] MEDS ORDERED: CITALOPRAM HYDROBROMIDE 20 MG TAB PO SCH (09:00)
== END 2020-07-08 09:25 | disposition left against medical advice (07) ==
LOC: EC 09:56 → 4SSUR 11:41
PROVIDERS: ADMIT Family Medicine; ATTEND Family Medicine
DX: F10.129 Alcohol abuse with intoxication, unspecified (principal); R07.9 Chest pain, unspecified; M19.90 Unspecified osteoarthritis, unspecified site; G40.909 Epilepsy, unspecified, not intractable, without status epilepticus; E07.9 Disorder of thyroid, unspecified; G89.29 Other chronic pain; M54.9 Dorsalgia, unspecified; M54.2 Cervicalgia; R20.0 Anesthesia of skin; Z86.010 Personal history of colon polyps; R29.6 Repeated falls; Z96.653 Presence of artificial knee joint, bilateral; F32.9 Major depressive disorder, single episode, unspecified; F41.9 Anxiety disorder, unspecified; F17.200 Nicotine dependence, unspecified, uncomplicated; Z82.49 Family history of ischemic heart disease and other diseases of the circulatory system; Z53.29 Procedure and treatment not carried out because of patient's decision for other reasons; Z79.899 Other long term (current) drug therapy; Z79.890 Hormone replacement therapy; Y90.8 Blood alcohol level of 240 mg/100 ml or more
CPT/HCPCS: 96376 ×2; 96366; 96375 ×2; 96361; 96365; 96372; 99285; 36415; 93005; 80053; 83735; 84484 ×2; 85025; 85610; 85730; 71046; G0378 ×2; G0480; J2060; J3411; C9113 ×2; 80048; 80320; 84100

== ENCOUNTER 2020-07-10 04:26 | Emergency (ER) | payer MEDICARE, OTHER ==
[2020-07-10 04:34] VITALS: TEMP 97.6
[2020-07-10] MEDS ORDERED: SODIUM CHLORIDE 0.9% 1,000 ML IV STA ×2 (04:43)
[2020-07-10] MEDS ORDERED: MAGNESIUM SULFATE-D5W PMX 1 GM in DEXTROSE/WATER 1 100ML.BAG IVPB STA (04:43)
[2020-07-10] MEDS ORDERED: THIAMINE 100 MG/ML 2 ML VIAL IVP STA (04:43)
[2020-07-10 04:58] LABS: Basophils # (A) 0.1 k/uL (0-0.2); Basophils % (A) 1 %; Eosinophils # (A) 0.2 k/uL (0-0.7); Eosinophils % (A) 3 %; HCT 38.9 % (34.0-46.0); HGB 13.2 gm/dL (11.4-16.0); Lymphocytes # (A) 1.8 k/uL (1.0-4.8); Lymphocytes % (A) 22 %; MCH 32.3 pg (25.0-35.0); MCV 95.2 fL (80.0-100.0); Mean Platelet Volume 8.4; Monocytes # (A) 0.2 k/uL (0-1.0); Monocytes % (A) 3 %; Neutrophils # (A) 5.5 k/uL (1.3-7.7); Neutrophils % (A) 70 %; Platelet Count 177 k/uL (150-450); RBC 4.09 m/uL (3.80-5.40); RDW 14.2 % (11.5-15.5); WBC 7.9 k/uL (3.8-10.6)
--- NOTE | 2020-07-10 05:00 | ED ---
Chest Pain HPI - General Chief Complaint: Chest Pain Stated Complaint: Chest pain, knee pain Time Seen by Provider: 07/10/20 04:34 Source: patient, EMS, RN notes reviewed, old records reviewed Mode of arrival: EMS Limitations: no limitations - History of Present Illness Initial Comments: This is a 52-year-old female DF for evaluation patient herself is presented today for evaluation of chest pain. Patient admits to alcohol intoxication, messaging alcohol and patient is a daily drinker. Patient's committing of knee pain with history of recent falls. Patient also complaining of chest pain which she recently had hospital admission for. Medical: History is significant for seizures related to alcohol abuse and thyroid disorder. No other medical history, no high blood pressure no high cholesterol no diabetes. MD Complaint: chest pain, other (Bilateral knee pain) -: week(s) Onset: during rest, during exertion Pain Location: substernal Severity: mild Severity scale (1-10): 2 Quality: aching Consistency: intermittent Improves With: nothing Worsens With: nothing Context: trauma/injury (Patient states she may have had a fall) Anginal Symptoms: other (None) Other Symptoms: other (None) Treatments Prior to Arrival: none - Related Data Home Medications Medication Instructions Recorded Confirmed Multivitamins, Thera [Multivitamin 1 tab PO DAILY 07/07/20 07/07/20 (formulary)] Previous Rx's Medication Instructions Recorded Acetaminophen Tab [Tylenol] 650 mg PO Q6HR PRN tab 12/16/19 Citalopram Hydrobromide [CeleXA] 20 mg PO DAILY 30 Days tab 12/16/19 Folic Acid 1 mg PO DAILY 30 Days tab 12/16/19 Levothyroxine Sodium [Synthroid] 112 mcg PO DAILY@0630 30 Days tab 12/16/19 Naltrexone HCl [Revia] 50 mg PO DAILY 30 Days tab 12/16/19 Nicotine 14Mg/24Hr Patch [Habitrol] 1 patch TRANSDERM DAILY 14 Days 12/16/19 patch Thiamine [Vitamin B-1] 100 mg PO DAILY 30 Days tab 12/16/19 atenoloL [Tenormin] 12.5 mg PO DAILY 30 Days dose 12/16/19 traZODone HCL [Desyrel] 50 mg PO HS 30 Days tab 12/16/19 Allergies Allergy/AdvReac Type Severity Reaction Status Date / Time No Known Allergies Allergy Verified 07/07/20 10:49 Review of Systems ROS Statement: Those systems with pertinent positive or pertinent negative responses have been documented in the HPI. ROS Other: All systems not noted in ROS Statement are negative. EKG Findings - EKG Comments: EKG Findings:: EKG is sinus rhythm 82, [place] 176 QRS 82 QTC 460 Past Medical History Past Medical History: Osteoarthritis (OA), Seizure Disorder, Thyroid Disorder Additional Past Medical History / Comment(s): ETOH abuse, last seizure 07/15/19, chronic back pain,neck pain, numbness derick. shoulder & arm/finger tips, derick numbness to legs & ft, limited rom neck, benign colon polyps, uses walker, frequent falls History of Any Multi-Drug Resistant Organisms: None Reported Past Surgical History: Breast Surgery, Hernia Repair, Orthopedic Surgery, Tonsillectomy Additional Past Surgical History / Comment(s): derick knee replacements with R knee done twice, bilateral eye laser surgery for vision correction, benign lump removed from lt breast, colonoscopies/benign polypectomies. Past Anesthesia/Blood Transfusion Reactions: Motion Sickness Additional Past Anesthesia/Blood Transfusion Reaction / Comment(s): no hx blood transfusion Past Psychological History: Anxiety, Depression Smoking Status: Never smoker Past Alcohol Use History: Heavy Past Drug Use History: None Reported - Past Family History Mother Additional Family Medical History / Comment(s): Mother of heart problems at the age of 79yrs old. Father Family Medical History: Hyperlipidemia Additional Family Medical History / Comment(s): Father is living. General Exam Limitations: no limitations General appearance: alert, in no apparent distress, appears intoxicated Head exam: Present: atraumatic, normocephalic, normal inspection Eye exam: Present: normal appearance, PERRL, EOMI. Absent: scleral icterus, conjunctival injection, periorbital swelling ENT exam: Present: normal exam, mucous membranes moist Neck exam: Present: normal inspection. Absent: tenderness, meningismus, lymphadenopathy Respiratory exam: Present: normal lung sounds bilaterally. Absent: respiratory distress, wheezes, rales, rhonchi, stridor Cardiovascular Exam: Present: regular rate, normal rhythm, normal heart sounds. Absent: systolic murmur, diastolic murmur, rubs, gallop, clicks GI/Abdominal exam: Present: soft, normal bowel sounds. Absent: distended, tenderness, guarding, rebound, rigid Extremities exam: Present: normal inspection, full ROM, normal capillary refill. Absent: tenderness, pedal edema, joint swelling, calf tenderness Back exam: Present: normal inspection Neurological exam: Present: alert, oriented X3, CN II-XII intact Psychiatric exam: Present: normal affect, normal mood Skin exam: Present: warm, dry, intact, normal color. Absent: rash Course Vital Signs 07/10/20 04:27 Temperature 97.6 F Pulse Rate 81 Respiratory 18 Rate Blood Pressure 145/103 O2 Sat by Pulse 98 Oximetry - Reevaluation(s) Reevaluation #1: 07/10/20 05:43 Medical records reviewed 07/10/20 05:43 Prior inpatient hospitalizations been reviewed as well as ER visit prior to Reevaluation #2: 07/10/20 05:43 Patient remains sleeping throughout entire emergency department stay Reevaluation #3: 07/10/20 05:43 Patient informed of results and need for discharge, questions have been answered Chest Pain MDM - MDM 52 female of alcohol intoxication with multiple complaints. Patient sleeping to entire ER stay x-rays labwork is normal patient will be discharged Disposition Clinical Impression: Atypical chest pain, Mood disorder, EtOH dependence, Acute alcohol intoxication, S/P total knee arthroplasty Disposition: HOME SELF-CARE Condition: Fair Instructions (If sedation given, give patient instructions): Chest Pain (ED), Knee Pain (ED) Is patient prescribed a controlled substance at d/c from ED?: No Referrals: Piper Curry DO [Primary Care Provider] - 1-2 days
[2020-07-10 05:07] LABS: ALT 73 U/L (4-34); AST 145 U/L (14-36); African American GFR (CKD) >90 (>60 ml/min/1.73 sqM); Albumin 3.8 g/dL (3.5-5.0); Alkaline Phosphatase 86 U/L (38-126); Anion Gap 9 mmol/L; Blood Urea Nitrogen 11 mg/dL (7-17); Calcium 8.2 mg/dL (8.4-10.2); Carbon Dioxide 25 mmol/L (22-30); Chloride 107 mmol/L (98-107); Glucose 80 mg/dL (74-99); Lipase 130 U/L (23-300); Magnesium 1.5 mg/dL (1.6-2.3); Non-African American GFR(CKD) >90 (>60 ml/min/1.73 sqM); Phosphorus 4.1 mg/dL (2.5-4.5); Potassium 3.9 mmol/L (3.5-5.1); Sodium 141 mmol/L (137-145); Total Bilirubin 0.4 mg/dL (0.2-1.3); Total Protein 6.5 g/dL (6.3-8.2)
--- NOTE | 2020-07-10 05:17 | XR ---
EXAM: XR Chest, 1 View CLINICAL HISTORY: ITS.REASON XR Reason: falls TECHNIQUE: Frontal view of the chest. COMPARISON: No relevant prior studies available. FINDINGS: Lungs: Mild hyperinflation. No consolidation. Correlate for COPD. Pleural space: Unremarkable. No pneumothorax. Heart: Unremarkable. No cardiomegaly. Mediastinum: Unremarkable. Bones/joints: Unremarkable. IMPRESSION: No focal infiltrate. Hyperinflation. Correlate for COPD.
--- NOTE | 2020-07-10 05:18 | XR ---
EXAM: XR Bilateral Knees, 3 Views CLINICAL HISTORY: ITS.REASON XR Reason: falls TECHNIQUE: Three views of the bilateral knees. COMPARISON: No relevant prior studies available. FINDINGS/IMPRESSION: RIGHT KNEE: Status-post cemented right total knee arthroplasty. Metallic tibial and femoral components were demonstrated. There is patellar resurfacing. No joint effusion. No periprosthetic fracture, loosening, or dislocation. LEFT KNEE: Status-post cemented right total knee arthroplasty. Metallic tibial and femoral components were demonstrated. There is patellar resurfacing. No joint effusion. No periprosthetic fracture, loosening, or dislocation.
[2020-07-10 05:22] LABS: Alcohol 231 mg/dL
[2020-07-10 07:06] VITALS: BP 163/100; PULSE 94; RESP 16
== END 2020-07-10 07:05 | disposition home or self-care (01) ==
LOC: EC 04:26
DX: R07.89 Other chest pain (principal); F10.229 Alcohol dependence with intoxication, unspecified; F39 Unspecified mood [affective] disorder; Y90.7 Blood alcohol level of 200-239 mg/100 ml; Z96.653 Presence of artificial knee joint, bilateral
CPT/HCPCS: 93005; 80053; 83690; 83735; 84100; 85025; 73560; 71045; 99285; 96365; 96375; 96361; G0480; J3411; J3475; 80320

== ENCOUNTER 2020-07-11 08:51 | Emergency (ER) | payer MEDICARE, OTHER ==
[2020-07-11 09:00] VITALS: RESP 18
[2020-07-11] MEDS ORDERED: ASPIRIN 81 MG PO STA (09:13)
--- NOTE | 2020-07-11 09:46 | ED ---
General Adult HPI - General Chief complaint: Chest Pain Stated complaint: chest pain Time Seen by Provider: 07/11/20 08:52 Source: patient, EMS, RN notes reviewed Mode of arrival: EMS Limitations: no limitations - History of Present Illness Initial comments: Patient is a 60-year-old female presented to the emergency room today by EMS, with chief complaint of chest pain. Patient is a daily drinker. She does admit to drinking last night appears that she was not treating this morning. Patient does not that such as painful as 5 days. Has been here to the hospital for this most recently just yesterday. Patient describes a sharp pain. Denies any i njury. Denies any other complaints or symptoms. - Related Data Home Medications Medication Instructions Recorded Confirmed Ibuprofen [Motrin Ib] 400 mg PO Q6H 07/11/20 07/11/20 Levothyroxine Sodium [Synthroid] 112 mcg PO SUMOTUFRSA 07/11/20 07/11/20 Levothyroxine Sodium [Synthroid] 168 mcg PO WETH 07/11/20 07/11/20 Allergies Allergy/AdvReac Type Severity Reaction Status Date / Time No Known Allergies Allergy Verified 07/11/20 09:55 Review of Systems ROS Statement: Those systems with pertinent positive or pertinent negative responses have been documented in the HPI. ROS Other: All systems not noted in ROS Statement are negative. Past Medical History Past Medical History: Osteoarthritis (OA), Seizure Disorder, Thyroid Disorder Additional Past Medical History / Comment(s): ETOH abuse, last seizure 07/15/19, chronic back pain,neck pain, numbness derick. shoulder & arm/finger tips, derick numbness to legs & ft, limited rom neck, benign colon polyps, uses walker, frequent falls History of Any Multi-Drug Resistant Organisms: None Reported Past Surgical History: Breast Surgery, Hernia Repair, Orthopedic Surgery, Tonsillectomy Additional Past Surgical History / Comment(s): derick knee replacements with R knee done twice, bilateral eye laser surgery for vision correction, benign lump removed from lt breast, colonoscopies/benign polypectomies. Past Anesthesia/Blood Transfusion Reactions: Motion Sickness Additional Past Anesthesia/Blood Transfusion Reaction / Comment(s): no hx blood transfusion Past Psychological History: Anxiety, Depression Smoking Status: Current some day smoker Past Alcohol Use History: Heavy Past Drug Use History: None Reported - Past Family History Mother Additional Family Medical History / Comment(s): Mother of heart problems at the age of 79yrs old. Father Family Medical History: Hyperlipidemia Additional Family Medical History / Comment(s): Father is living. General Exam - General Exam Comments Initial Comments: General: The patient is awake and alert, in no distress, and does not appear acutely ill. Eye: extra-ocular movements are intact. No nystagmus. There is normal conjunctiva bilaterally. No signs of icterus. Ears, nose, mouth and throat: There are moist mucous membranes and no oral lesions. Neck: The neck is supple, there is no tenderness or JVD. Cardiovascular: There is a regular rate and rhythm. No murmur, rub or gallop is appreciated. Pain is reproduced on palpation to the anterior chest wall. Respiratory: Lungs are clear to auscultation, respirations are non-labored, breath sounds are equal. No wheezes, stridor, rales, or rhonchi. Gastrointestinal: Soft nontender. Musculoskeletal: Normal ROM, no tenderness. Strength 5/5. Sensation intact. Pulses equal bilaterally 2+. Neurological: A&O x 3. CN II-XII intact, There are no obvious motor or sensory deficits. Coordination appears grossly intact. Speech is normal. Skin: Skin is warm and dry and no rashes or lesions are noted. Psychiatric: Cooperative, appropriate mood & affect, normal judgment. Limitations: no limitations Course Vital Signs 07/11/20 08:53 Temperature 98.3 F Pulse Rate 99 Respiratory 18 Rate Blood Pressure 131/58 O2 Sat by Pulse 99 Oximetry EKG Findings - EKG Comments: EKG Findings:: EKG performed at 0904: Shows normal sinus rhythm at 95. LA interval 150. QRS 86. QT/QTC 378/475. No acute ST change. Medical Decision Making - Medical Decision Making Patient reexamined at this time she is clinically sober. She is up ambulating around the emergency room. Patient's labs been reviewed are unremarkable. Patient states she was having some chest pain earlier today. Her troponins negative. Chest x-ray unchanged from previous. Patient's remaining labs been reviewed unremarkable. Patient's pain is reproduced on palpation. At this time patient's doing well. She does admit that it feels better. She denies any suicidal or homicidal thoughts or plans. She would like to be discharged home. Patient is advised close follow-up family doctor. - Lab Data Result diagrams: 07/11/20 09:33 07/11/20 09:33 Lab Results 07/11/20 07/11/20 07/11/20 Range/Units 09:33 09:33 09:33 WBC 9.9 (3.8-10.6) k/uL RBC 4.37 (3.80-5.40) m/uL Hgb 14.0 (11.4-16.0) gm/dL Hct 41.8 (34.0-46.0) % MCV 95.6 (80.0-100.0) fL MCH 32.1 (25.0-35.0) pg MCHC 33.6 (31.0-37.0) g/dL RDW 14.4 (11.5-15.5) % Plt Count 155 (150-450) k/uL MPV 8.3 Neutrophils % 84 % Lymphocytes % 12 % Monocytes % 2 % Eosinophils % 1 % Basophils % 1 % Neutrophils # 8.3 H (1.3-7.7) k/uL Lymphocytes # 1.1 (1.0-4.8) k/uL Monocytes # 0.2 (0-1.0) k/uL Eosinophils # 0.1 (0-0.7) k/uL Basophils # 0.1 (0-0.2) k/uL PT 9.4 (9.0-12.0) sec INR 0.9 (<1.2) APTT 19.5 L (22.0-30.0) sec Sodium 144 (137-145) mmol/L Potassium 3.9 (3.5-5.1) mmol/L Chloride 107 (98-107) mmol/L Carbon Dioxide 21 L (22-30) mmol/L Anion Gap 16 mmol/L BUN 16 (7-17) mg/dL Creatinine 0.69 (0.52-1.04) mg/dL Est GFR (CKD-EPI)AfAm >90 (>60 ml/min/1.73 sqM) Est GFR (CKD-EPI)NonAf >90 (>60 ml/min/1.73 sqM) Glucose 72 L (74-99) mg/dL Calcium 8.6 (8.4-10.2) mg/dL Magnesium 1.6 (1.6-2.3) mg/dL Total Bilirubin 0.5 (0.2-1.3) mg/dL AST 197 H (14-36) U/L ALT 97 H (4-34) U/L Alkaline Phosphatase 97 (38-126) U/L Troponin I (0.000-0.034) ng/mL Total Protein 7.0 (6.3-8.2) g/dL Albumin 4.2 (3.5-5.0) g/dL 07/11/20 Range/Units 09:33 WBC (3.8-10.6) k/uL RBC (3.80-5.40) m/uL Hgb (11.4-16.0) gm/dL Hct (34.0-46.0) % MCV (80.0-100.0) fL MCH (25.0-35.0) pg MCHC (31.0-37.0) g/dL RDW (11.5-15.5) % Plt Count (150-450) k/uL MPV Neutrophils % % Lymphocytes % % Monocytes % % Eosinophils % % Basophils % % Neutrophils # (1.3-7.7) k/uL Lymphocytes # (1.0-4.8) k/uL Monocytes # (0-1.0) k/uL Eosinophils # (0-0.7) k/uL Basophils # (0-0.2) k/uL PT (9.0-12.0) sec INR (<1.2) APTT (22.0-30.0) sec Sodium (137-145) mmol/L Potassium (3.5-5.1) mmol/L Chloride (98-107) mmol/L Carbon Dioxide (22-30) mmol/L Anion Gap mmol/L BUN (7-17) mg/dL Creatinine (0.52-1.04) mg/dL Est GFR (CKD-EPI)AfAm (>60 ml/min/1.73 sqM) Est GFR (CKD-EPI)NonAf (>60 ml/min/1.73 sqM) Glucose (74-99) mg/dL Calcium (8.4-10.2) mg/dL Magnesium (1.6-2.3) mg/dL Total Bilirubin (0.2-1.3) mg/dL AST (14-36) U/L ALT (4-34) U/L Alkaline Phosphatase (38-126) U/L Troponin I <0.012 (0.000-0.034) ng/mL Total Protein (6.3-8.2) g/dL Albumin (3.5-5.0) g/dL Disposition Clinical Impression: Chest pain Disposition: HOME SELF-CARE Condition: Good Instructions (If sedation given, give patient instructions): Chest Pain (ED) Additional Instructions: Please follow-up with family doctor in the next 2 days of symptoms have not improved. Please return to emergency room if the symptoms increase or worsen or for any other concerns. Is patient prescribed a controlled substance at d/c from ED?: No Referrals: Piper Curry DO [Primary Care Provider] - 1-2 days Time of Disposition: 12:55
--- NOTE | 2020-07-11 09:48 | XR ---
EXAMINATION TYPE: XR chest 2V DATE OF EXAM: 07/11/2020 COMPARISON: Chest x-ray from yesterday and older studies. HISTORY: Chest pain. TECHNIQUE: Frontal and lateral views of the chest are obtained. FINDINGS: There is mild emphysematous change with chronic scarlike opacity left upper lung laterally corresponding to suspected site of treated neoplasm. Correlate clinically. No new focal airspace opa city, pleural effusion, or pneumothorax seen. The cardiac silhouette size is stable and upper limits of normal. The osseous structures are intact. IMPRESSION: No acute cardiopulmonary process. No significant change from most recent prior.
[2020-07-11 09:50] LABS: Basophils # (A) 0.1 k/uL (0-0.2); Basophils % (A) 1 %; Eosinophils # (A) 0.1 k/uL (0-0.7); Eosinophils % (A) 1 %; HCT 41.8 % (34.0-46.0); Lymphocytes # (A) 1.1 k/uL (1.0-4.8); Lymphocytes % (A) 12 %; MCH 32.1 pg (25.0-35.0); MCHC 33.6 g/dL (31.0-37.0); MCV 95.6 fL (80.0-100.0); Mean Platelet Volume 8.3; Monocytes # (A) 0.2 k/uL (0-1.0); Monocytes % (A) 2 %; Neutrophils # (A) 8.3 k/uL (1.3-7.7); Neutrophils % (A) 84 %; Platelet Count 155 k/uL (150-450); RBC 4.37 m/uL (3.80-5.40); RDW 14.4 % (11.5-15.5); WBC 9.9 k/uL (3.8-10.6)
[2020-07-11 10:11] LABS: ALT 97 U/L (4-34); AST 197 U/L (14-36); African American GFR (CKD) >90 (>60 ml/min/1.73 sqM); Albumin 4.2 g/dL (3.5-5.0); Alkaline Phosphatase 97 U/L (38-126); Anion Gap 16 mmol/L; Blood Urea Nitrogen 16 mg/dL (7-17); Calcium 8.6 mg/dL (8.4-10.2); Carbon Dioxide 21 mmol/L (22-30); Chloride 107 mmol/L (98-107); Glucose 72 mg/dL (74-99); Magnesium 1.6 mg/dL (1.6-2.3); Non-African American GFR(CKD) >90 (>60 ml/min/1.73 sqM); Potassium 3.9 mmol/L (3.5-5.1); Sodium 144 mmol/L (137-145); Total Bilirubin 0.5 mg/dL (0.2-1.3)
[2020-07-11 10:15] LABS: INR 0.9 (<1.2); Prothrombin Time 9.4 sec (9.0-12.0)
[2020-07-11 10:18] LABS: Partial Thromboplastin Time 19.5 sec (22.0-30.0)
[2020-07-11] MEDS ORDERED: IBUPROFEN 600 MG TAB PO STA (12:54)
[2020-07-11 13:30] VITALS: BP 138/84; PULSE 98; TEMP 98
== END 2020-07-11 13:30 | disposition home or self-care (01) ==
LOC: EC 08:51
DX: R07.9 Chest pain, unspecified (principal); E07.9 Disorder of thyroid, unspecified; F17.200 Nicotine dependence, unspecified, uncomplicated; M19.90 Unspecified osteoarthritis, unspecified site; Z79.890 Hormone replacement therapy; Z96.653 Presence of artificial knee joint, bilateral
CPT/HCPCS: 36415; 71046; 80053; 82075; 83735; 84484; 85025; 85610; 85730; 93005; 99285

== ENCOUNTER 2020-07-21 23:23 | Observation (INO) | payer MEDICARE, OTHER ==
--- NOTE | 2020-07-21 23:33 | ED ---
Alcohol HPI - General Stated Complaint: Chest Pain Time Seen by Provider: 07/21/20 23:27 Source: patient, EMS Mode of arrival: EMS Limitations: altered mental status (Appears intoxicated) - History of Present Illness Initial Comments: This patient's 60-year-old woman arriving by ambulance for evaluation. She is complaining of some burning substernal chest pain. Patient also drinks heavily every day. History is somewhat limited due to intoxication. 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 Previous Visits for Alcohol Intoxication?: Yes Recent Trauma: No Associated Symptoms: other Chronic Alcohol Use: Yes - Related Data Home Medications Medication Instructions Recorded Confirmed Ibuprofen [Motrin Ib] 400 mg PO Q6H 07/11/20 07/11/20 Levothyroxine Sodium [Synthroid] 112 mcg PO SUMOTUFRSA 07/11/20 07/11/20 Levothyroxine Sodium [Synthroid] 168 mcg PO WETH 07/11/20 07/11/20 Allergies Allergy/AdvReac Type Severity Reaction Status Date / Time No Known Allergies Allergy Verified 07/11/20 09:55 Review of Systems ROS Statement: Those systems with pertinent positive or pertinent negative responses have been documented in the HPI. ROS Other: All systems not noted in ROS Statement are negative. Limitations: ROS unobtainable due to patients medical condition (Intoxicated) Constitutional: Denies: fever Respiratory: Denies: cough, dyspnea Cardiovascular: Reports: as per HPI, chest pain. Denies: palpitations, edema Gastrointestinal: Denies: abdominal pain, vomiting, diarrhea, hematochezia Genitourinary: Denies: dysuria, hematuria Musculoskeletal: Denies: back pain Neurological: Denies: headache Past Medical History Past Medical History: Osteoarthritis (OA), Seizure Disorder, Thyroid Disorder Additional Past Medical History / Comment(s): ETOH abuse, last seizure 07/15/19, chronic back pain,neck pain, numbness derick. shoulder & arm/finger tips, derick numbness to legs & ft, limited rom neck, benign colon polyps, uses walker, frequent falls History of Any Multi-Drug Resistant Organisms: None Reported Past Surgical History: Breast Surgery, Hernia Repair, Orthopedic Surgery, Tonsillectomy Additional Past Surgical History / Comment(s): derick knee replacements with R knee done twice, bilateral eye laser surgery for vision correction, benign lump removed from lt breast, colonoscopies/benign polypectomies. Past Anesthesia/Blood Transfusion Reactions: Motion Sickness Additional Past Anesthesia/Blood Transfusion Reaction / Comment(s): no hx blood transfusion Past Psychological History: Anxiety, Depression Smoking Status: Current some day smoker Past Alcohol Use History: Heavy Past Drug Use History: None Reported - Past Family History Mother Additional Family Medical History / Comment(s): Mother of heart problems at the age of 79yrs old. Father Family Medical History: Hyperlipidemia Additional Family Medical History / Comment(s): Father is living. General Exam General appearance: alert, in no apparent distress, appears intoxicated Head exam: Present: atraumatic, normocephalic Eye exam: Present: normal appearance, nystagmus. Absent: scleral icterus, c onjunctival injection ENT exam: Present: mucous membranes dry Neck exam: Present: normal inspection, full ROM. Absent: tenderness Respiratory exam: Present: normal lung sounds bilaterally. Absent: respiratory distress, wheezes, rales, rhonchi, stridor Cardiovascular Exam: Present: regular rate, normal rhythm, normal heart sounds. Absent: systolic murmur, diastolic murmur, rubs, gallop GI/Abdominal exam: Present: soft. Absent: distended, tenderness, guarding, rebound, rigid, mass Extremities exam: Present: normal inspection, normal capillary refill. Absent: pedal edema, calf tenderness Back exam: Present: normal inspection. Absent: CVA tenderness (R), CVA tenderness (L) Neurological exam: Present: alert Skin exam: Present: warm, dry, intact, normal color. Absent: rash Course Vital Signs 07/21/20 07/22/20 23:48 00:50 Temperature 98.1 F Pulse Rate 97 95 Respiratory 18 19 Rate Blood Pressure 131/88 126/75 O2 Sat by Pulse 99 98 Oximetry Medical Decision Making - Lab Data Result diagrams: 07/21/20 23:54 07/21/20 23:54 Lab Results 07/21/20 07/21/20 07/21/20 Range/Units 23:54 23:54 23:54 WBC 5.8 (3.8-10.6) k/uL RBC 4.66 (3.80-5.40) m/uL Hgb 14.5 (11.4-16.0) gm/dL Hct 46.8 H (34.0-46.0) % MCV 100.5 H (80.0-100.0) fL MCH 31.1 (25.0-35.0) pg MCHC 30.9 L (31.0-37.0) g/dL RDW 17.0 H (11.5-15.5) % Plt Count 235 (150-450) k/uL MPV 8.3 Neutrophils % 52 % Lymphocytes % 36 % Monocytes % 6 % Eosinophils % 2 % Basophils % 1 % Neutrophils # 3.0 (1.3-7.7) k/uL Lymphocytes # 2.1 (1.0-4.8) k/uL Monocytes # 0.4 (0-1.0) k/uL Eosinophils # 0.1 (0-0.7) k/uL Basophils # 0.1 (0-0.2) k/uL Anisocytosis Slight Macrocytosis Slight Sodium 141 (137-145) mmol/L Potassium 4.5 (3.5-5.1) mmol/L Chloride 110 H (98-107) mmol/L Carbon Dioxide 13 L (22-30) mmol/L Anion Gap 18 mmol/L BUN 13 (7-17) mg/dL Creatinine 0.69 (0.52-1.04) mg/dL Est GFR (CKD-EPI)AfAm >90 (>60 ml/min/1.73 sqM) Est GFR (CKD-EPI)NonAf >90 (>60 ml/min/1.73 sqM) Glucose 52 L (74-99) mg/dL Calcium 7.8 L (8.4-10.2) mg/dL Magnesium 1.7 (1.6-2.3) mg/dL Total Bilirubin 0.7 (0.2-1.3) mg/dL AST 167 H (14-36) U/L ALT 113 H (4-34) U/L Alkaline Phosphatase 109 (38-126) U/L Troponin I <0.012 (0.000-0.034) ng/mL Total Protein 7.0 (6.3-8.2) g/dL Albumin 4.0 (3.5-5.0) g/dL Amylase 54 (30-110) U/L Lipase 181 (23-300) U/L Serum Alcohol 330 H* mg/dL - EKG Data -: EKG Interpreted by Me EKG shows normal: sinus rhythm, axis (Left axis deviation), intervals (Normal), QRS complexes (Possible old inferior infarct. Possible old anterior infarct.) Rate: tachycardia (Rate 111 bpm) Disposition Clinical Impression: Acute alcohol intoxication, Chest pain Disposition: ADMITTED IP TO THIS HOSP Condition: Fair Instructions (If sedation given, give patient instructions): Chest Pain (ED) Is patient prescribed a controlled substance at d/c from ED?: No Referrals: Piper Curry DO [Primary Care Provider] - 1-2 days
--- NOTE | 2020-07-22 00:02 | XR ---
EXAMINATION TYPE: XR chest 1V DATE OF EXAM: 07/21/2020 COMPARISON: 07/11/2020 HISTORY: Chest pain TECHNIQUE: FINDINGS: There is no heart failure nor confluent pneumonic infiltrate. Costophrenic angles are clear . There is irregular 1 cm density over the left upper lobe. There is no pleural effusion. There are c hest leads. IMPRESSION: Small nodular infiltrate over the left upper lobe unchanged. Normal heart. Density slight ly smaller than the old chest x-ray of 07/17/2019 and consistent with benign disease.
[2020-07-22 00:10] LABS: ALT 113 U/L (4-34); AST 167 U/L (14-36); African American GFR (CKD) >90 (>60 ml/min/1.73 sqM); Alkaline Phosphatase 109 U/L (38-126); Amylase 54 U/L (30-110); Anion Gap 18 mmol/L; Blood Urea Nitrogen 13 mg/dL (7-17); Calcium 7.8 mg/dL (8.4-10.2); Carbon Dioxide 13 mmol/L (22-30); Chloride 110 mmol/L (98-107); Glucose 52 mg/dL (74-99); Lipase 181 U/L (23-300); Magnesium 1.7 mg/dL (1.6-2.3); Non-African American GFR(CKD) >90 (>60 ml/min/1.73 sqM); Potassium 4.5 mmol/L (3.5-5.1); Sodium 141 mmol/L (137-145); Total Bilirubin 0.7 mg/dL (0.2-1.3)
[2020-07-22 00:19] LABS: Anisocytosis Slight; Basophils # (A) 0.1 k/uL (0-0.2); Basophils % (A) 1 %; Eosinophils # (A) 0.1 k/uL (0-0.7); Eosinophils % (A) 2 %; HCT 46.8 % (34.0-46.0); HGB 14.5 gm/dL (11.4-16.0); Lymphocytes # (A) 2.1 k/uL (1.0-4.8); Lymphocytes % (A) 36 %; MCH 31.1 pg (25.0-35.0); MCHC 30.9 g/dL (31.0-37.0); MCV 100.5 fL (80.0-100.0); Macrocytosis Slight; Mean Platelet Volume 8.3; Monocytes # (A) 0.4 k/uL (0-1.0); Monocytes % (A) 6 %; Neutrophils % (A) 52 %; Platelet Count 235 k/uL (150-450); RBC 4.66 m/uL (3.80-5.40); WBC 5.8 k/uL (3.8-10.6)
[2020-07-22 00:30] LABS: Alcohol 330 mg/dL
[2020-07-22 01:23] LABS: Glucose,Whole Blood 55 mg/dL (75-99)
[2020-07-22] MEDS ORDERED: DEXTROSE 50% SYRINGE 50 ML IVP STA (01:23)
[2020-07-22] MEDS ORDERED: NITROGLYCERIN SL TABS 0.4 MG TAB SUBLINGUAL PRN (01:25)
[2020-07-22] MEDS ORDERED: LORazepam 2 MG/ML INJ IV PRN (01:28)
[2020-07-22 01:40] LABS: Glucose,Whole Blood 167 mg/dL (75-99)
[2020-07-22] MEDS: LORazepam 2 MG/ML INJ IV PRN ×9 (02:35→23:20)
[2020-07-22 03:26] LABS: INR 0.9 (<1.2)
[2020-07-22 03:27] LABS: Prothrombin Time 9.5 sec (9.0-12.0)
[2020-07-22 03:32] LABS: Partial Thromboplastin Time 20.3 sec (22.0-30.0)
[2020-07-22 03:39] LABS: D-Dimer 6.66 mg/L FEU (<0.60)
[2020-07-22] MEDS: THIAMINE 100 MG TAB PO SCH ×2 (06:37→17:17)
--- NOTE | 2020-07-22 08:05 | CT ---
EXAMINATION TYPE: CT chest angio for PE DATE OF EXAM: 07/22/2020 COMPARISON: Chest x-ray from yesterday. CT chest October 18, 2019 HISTORY: Elevated D dimer, shortness of breath, Chest Pain CT DLP: 252.9 mGycm Automated exposure control for dose reduction was used. CONTRAST: CT Chest for pulmonary embolism performed with with IV Contrast, patient injected with 57 mL of Isovu e 370. FINDINGS: LUNGS: There is 1.3 x 1.2 cm slightly lobulated lesion in the superior aspect left lower lobe axial i mage 52 is stable or slightly less prominent in appearance versus October 18, 2019 CT and needs to be c orrelated clinically. I see no evidence of PET/CT at this institution. No new nodules or masses. Mild emphysematous changes without suspicious focal consolidation or groundglass opacity. No pleural effu karlo or pneumothorax seen bilaterally. MEDIASTINUM: There is satisfactory enhancement of the pulmonary artery and its branches, there is no CT evidence for pulmonary embolism. No thoracic aortic aneurysm or dissection. There are no new grea ter than 1 cm hilar or mediastinal lymph nodes. No cardiomegaly or pericardial effusion is seen. OTHER: Visualized liver is hypodense consistent with diffuse fatty infiltration. [id number] mul tilevel anterior spurring. Slight underlying scoliotic curvature. IMPRESSION: No CT evidence for acute pulmonary embolism. Mild emphysematous change without acute pulm onary process. Fairly stable 1.3 cm superior left lower lobe pulmonary nodule, correlate clinically.
[2020-07-22] MEDS: LEVOTHYROXINE 112 MCG TAB PO SCH (08:46)
[2020-07-22] MEDS ORDERED: cloNIDine HCL 0.1 MG TAB PO SCH (12:00)
[2020-07-22] MEDS: cloNIDine HCL 0.1 MG TAB PO SCH (18:57)
--- NOTE | 2020-07-22 22:48 | P.HPIM ---
History of Present Illness H&P Date: 07/22/20 Chief Complaint: alcohol intoxication Shara Alex is a 60 yo F with PMH alcoholism, hypothyroidism who presented to the ED via EMS with acute intoxication and chest pain. She is a daily drinker and apparently had a fifth to drink yesterday. On presentation labs remarkable for alcohol 330, lipase negative, trop negative x3. EKG NSR. Review of Systems All systems: negative Constitutional: Denies chills, Denies fever Eyes: denies blurred vision, denies pain Ears, nose, mouth and throat: Denies headache, Denies sore throat Cardiovascular: Denies chest pain, Denies shortness of breath Respiratory: Denies cough Gastrointestinal: Denies abdominal pain, Denies diarrhea, Denies nausea, Denies vomiting Genitourinary: Denies dysuria, Denies hematuria Musculoskeletal: Denies myalgias Integumentary: Denies pruritus, Denies rash Neurological: Reports tremors, Denies numbness, Denies weakness Psychiatric: Denies anxiety, Denies depression Endocrine: Denies fatigue, Denies weight change Past Medical History Past Medical History: Osteoarthritis (OA), Seizure Disorder, Thyroid Disorder Additional Past Medical History / Comment(s): ETOH abuse, last seizure 07/15/19, chronic back pain,neck pain, numbness derick. shoulder & arm/finger tips, derick numbness to legs & ft, limited rom neck, benign colon polyps, uses walker, frequent falls History of Any Multi-Drug Resistant Organisms: None Reported Past Surgical History: Breast Surgery, Hernia Repair, Orthopedic Surgery, Tonsillectomy Additional Past Surgical History / Comment(s): derick knee replacements with R knee done twice, bilateral eye laser surgery for vision correction, benign lump removed from lt breast, colonoscopies/benign polypectomies. Past Anesthesia/Blood Transfusion Reactions: Motion Sickness Additional Past Anesthesia/Blood Transfusion Reaction / Comment(s): no hx blood transfusion Past Psychological History: Anxiety, Depression Additional Psychological History / Comment(s): Pt resides alone. She states her of 36 yrs 10/2019 and her mother a year ago. She denies suicidal thoughts/plans to conventional mortgage underwriter stating, "I wasn''t suicidal! I just needed to get out of my house!" She states her depression is the same as it usually. She states she goes to [facility]. She uses a cane or walker. She does not drive. Her father drives her to [employer]. She is disabled. Smoking Status: Current every day smoker Past Alcohol Use History: Heavy Additional Past Alcohol Use History / Comment(s): Pt started smoking in 1973 and is a 0.5ppd smoker. She drinks a 5th a day and last drank today, 07/21/2020 Past Drug Use History: None Reported - Past Family History Mother Additional Family Medical History / Comment(s): Mother of heart problems at the age of 79yrs old. Father Family Medical History: Hyperlipidemia Additional Family Medical History / Comment(s): Father is living. Medications and Allergies Home Medications Medication Instructions Recorded Confirmed Type Levothyroxine Sodium [Synthroid] 112 mcg PO DAILY 07/11/20 07/22/20 History Allergies Allergy/AdvReac Type Severity Reaction Status Date / Time No Known Allergies Allergy Verified 07/22/20 06:28 Physical Exam Vitals: Vital Signs Temp Pulse Pulse Resp BP BP Pulse Ox 07/22/20 17:47 98.8 F 116 H 16 135/77 07/22/20 15:30 98.9 F 117 H 16 142/88 96 07/22/20 13:35 116 H 20 07/22/20 11:10 116 H 20 142/81 98 07/22/20 08:17 97.6 F 113 H 18 133/82 96 07/22/20 08:15 113 H 18 07/22/20 04:00 98.4 F 104 H 18 114/73 97 07/22/20 02:00 110 H 20 07/22/20 01:49 98.4 F 110 H 20 127/81 96 07/22/20 00:50 95 19 126/75 98 07/21/20 23:48 98.1 F 97 18 131/88 99 Intake and Output 07/22/20 07/22/20 07/22/20 06:59 14:59 22:59 Intake Total 200 236 Balance 200 236 Intake: Oral 200 236 Other: # Voids 1 1 # Bowel Movements 1 Weight 73 kg General: well nourished, well developed, NAD. Vitals reviewed Eyes: PERRL, EOMI, conjunctiva normal HENT: normocephalic, mucus membranes moist Neck: supple, no JVD Lungs: normal respiratory effort, no wheezes or rales CV: Regular rate and rhythm, no murmur. Peripheral pulses 2+ Abdomen: soft, nondistended, no organomegaly Lymph: no cervical or axillary LAD Skin: warm and dry. Neuro: A&Ox3, normal mood and affect. Fine intention tremor Results CBC & Chem 7: 07/21/20 23:54 07/21/20 23:54 Labs: Abnormal Lab Results - Last 24 Hours (Table) 07/21/20 07/21/20 07/22/20 Range/Units 23:54 23:54 01:18 Hct 46.8 H (34.0-46.0) % MCV 100.5 H (80.0-100.0) fL MCHC 30.9 L (31.0-37.0) g/dL RDW 17.0 H (11.5-15.5) % APTT (22.0-30.0) sec D-Dimer (<0.60) mg/L FEU Chloride 110 H (98-107) mmol/L Carbon Dioxide 13 L (22-30) mmol/L Glucose 52 L (74-99) mg/dL POC Glucose (mg/dL) 55 L (75-99) mg/dL Calcium 7.8 L (8.4-10.2) mg/dL AST 167 H (14-36) U/L ALT 113 H (4-34) U/L Serum Alcohol 330 H* mg/dL 07/22/20 07/22/20 Range/Units 01:39 02:44 Hct (34.0-46.0) % MCV (80.0-100.0) fL MCHC (31.0-37.0) g/dL RDW (11.5-15.5) % APTT 20.3 L (22.0-30.0) sec D-Dimer 6.66 H (<0.60) mg/L FEU Chloride (98-107) mmol/L Carbon Dioxide (22-30) mmol/L Glucose (74-99) mg/dL POC Glucose (mg/dL) 167 H (75-99) mg/dL Calcium (8.4-10.2) mg/dL AST (14-36) U/L ALT (4-34) U/L Serum Alcohol mg/dL Thrombosis Risk Factor Assmnt - Choose All That Apply Any of the Below Risk Factors Present?: Yes Each Factor Represents 1 point: Age 41-60 years Other Risk Factors: No Thrombosis Risk Factor Assessment Total Risk Factor Score: 1 Thrombosis Risk Factor Assessment Level: Low Risk Assessment and Plan (1) Acute alcohol intoxication Current Visit: Yes Status: Acute Priority: High Code(s): F10.929 - ALCOHOL USE, UNSPECIFIED WITH INTOXICATION, UNSPECIFIED SNOMED Code(s): 11461976 (2) Alcohol withdrawal Current Visit: No Status: Acute Priority: Medium Code(s): F10.239 - ALCOHOL DEPENDENCE WITH WITHDRAWAL, UNSPECIFIED SNOMED Code(s): 619467301 (3) EtOH dependence Current Visit: No Status: Chronic Code(s): F10.20 - ALCOHOL DEPENDENCE, UNCOMPLICATED SNOMED Code(s): 08453885 (4) Hypothyroidism Current Visit: No Status: Chronic Code(s): E03.9 - HYPOTHYROIDISM, UNSPECIFIED SNOMED Code(s): 09722473 Plan: 1. Alcohol intoxication and withdrawal. Admit and CIWA protocol. Start clonidine for withdrawal symptoms 2. RUSSELL. Consider starting SSRI 3. Hypothyroidism. continue synthroid
[2020-07-23 00:55] VITALS: RESP 18
[2020-07-23 04:09] LABS: Cholesterol 238 mg/dL (<200); Triglycerides 104 mg/dL (<150)
[2020-07-23 04:16] LABS: LDL Cholesterol,Calculated 66 mg/dL (0-99)
[2020-07-23 04:43] LABS: HDL Cholesterol 151 mg/dL (40-60)
[2020-07-23 05:27] VITALS: BP 121/75; PULSE 89; TEMP 98.1
[2020-07-23] MEDS: LEVOTHYROXINE 112 MCG TAB PO SCH (06:43)
[2020-07-23] MEDS: THIAMINE 100 MG TAB PO SCH (06:43)
[2020-07-23] MEDS ORDERED: ASPIRIN 325 MG TAB PO SCH (09:00)
[2020-07-23] MEDS: cloNIDine HCL 0.1 MG TAB PO SCH (09:52)
== END 2020-07-23 09:52 | disposition left against medical advice (07) ==
LOC: EC 23:23 → 3SCARD 07-22 01:25
PROVIDERS: ADMIT Family Medicine; ATTEND Family Medicine
DX: F10.229 Alcohol dependence with intoxication, unspecified (principal); F10.239 Alcohol dependence with withdrawal, unspecified; R07.89 Other chest pain; E03.9 Hypothyroidism, unspecified; F41.1 Generalized anxiety disorder; F32.9 Major depressive disorder, single episode, unspecified; G40.909 Epilepsy, unspecified, not intractable, without status epilepticus; M19.90 Unspecified osteoarthritis, unspecified site; G89.29 Other chronic pain; M54.9 Dorsalgia, unspecified; M54.2 Cervicalgia; R20.0 Anesthesia of skin; R91.1 Solitary pulmonary nodule; F17.210 Nicotine dependence, cigarettes, uncomplicated; Y90.8 Blood alcohol level of 240 mg/100 ml or more; R29.6 Repeated falls; Z98.890 Other specified postprocedural states; Z79.890 Hormone replacement therapy; Z79.1 Long term (current) use of non-steroidal anti-inflammatories (NSAID); Z86.010 Personal history of colon polyps; Z96.653 Presence of artificial knee joint, bilateral; Z82.49 Family history of ischemic heart disease and other diseases of the circulatory system; Z83.49 Family history of other endocrine, nutritional and metabolic diseases; Z53.29 Procedure and treatment not carried out because of patient's decision for other reasons
CPT/HCPCS: 96376; 96375; 93005 ×3; 96374; 99285; 36415; 85379; 80061; 80053; 82150; 83690; 83735; 84484 ×2; 85025; 85610; 85730; 71045; 71275; G0378 ×2; G0480; J2060; Q9967; 80320

== ENCOUNTER 2020-07-23 18:00 | Inpatient (IN) | payer MEDICARE, OTHER ==
[2020-07-23] MEDS ORDERED: SODIUM CHLORIDE 0.9% 1,000 ML IV STA (18:03)
[2020-07-23] MEDS ORDERED: SODIUM CHLORIDE 0.9% 1,000 ML with MVI, ADULT NO.4 WITH VIT K 10 ML, THIAMINE 100 MG, F... IV ONE ×4 (18:04)
--- NOTE | 2020-07-23 18:10 | ED ---
Alcohol HPI <Sidney Proctor - Last Filed: 07/24/20 06:46> - General Source: patient, EMS, RN notes reviewed, old records reviewed Mode of arrival: EMS - History of Present Illness MD Complaint: alcohol intoxication <Gennaro Amaral - Last Filed: 07/25/20 14:46> - General Stated Complaint: mental health Time Seen by Provider: 07/23/20 18:00 - History of Present Illness Initial Comments: This is a 60-year-old female with a history of alcohol abuse who was brought in by EMS after consuming 2 g of THC as well as drinking 2 bottles of liquor today she just cannot hospitalist morning after being admitted for the same today she claims to be suicidal also. Her significant other just recently. She is lethargic upon arrival. She is well he called EMS. (Gennaro Amaral) - Related Data Home Medications Medication Instructions Recorded Confirmed Levothyroxine Sodium [Synthroid] 112 mcg PO DAILY 07/11/20 07/23/20 Previous Rx's Medication Instructions Recorded Acamprosate Calcium [Campral] 666 mg PO TID #60 tablet. 07/25/20 Citalopram Hydrobromide [CeleXA] 20 mg PO DAILY #30 tab 07/25/20 Famotidine [Pepcid] 20 mg PO BID #60 tablet 07/25/20 Folic Acid 1 mg PO DAILY #1 tablet 07/25/20 Thiamine [Vitamin B-1] 100 mg PO DAILY #0 tab 07/25/20 chlordiazePOXIDE HCl [Librium] 20 mg PO TID #42 cap 07/25/20 Allergies Allergy/AdvReac Type Severity Reaction Status Date / Time No Known Allergies Allergy Verified 07/23/20 20:04 Review of Systems ROS Other: All systems not noted in ROS Statement are negative. <Sidney Proctor - Last Filed: 07/24/20 06:46> ROS Other: All systems not noted in ROS Statement are negative. <Gennaro Amaral - Last Filed: 07/25/20 14:46> ROS Statement: Those systems with pertinent positive or pertinent negative responses have been documented in the HPI. Past Medical History Past Medical History: Osteoarthritis (OA), Seizure Disorder, Thyroid Disorder Additional Past Medical History / Comment(s): ETOH abuse, last seizure 07/15/19, chronic back pain,neck pain, numbness derick. shoulder & arm/finger tips, derick numbness to legs & ft, limited rom neck, benign colon polyps, uses walker, frequent falls History of Any Multi-Drug Resistant Organisms: None Reported Past Surgical History: Breast Surgery, Hernia Repair, Orthopedic Surgery, Tonsillectomy Additional Past Surgical History / Comment(s): derick knee replacements with R knee done twice, bilateral eye laser surgery for vision correction, benign lump removed from lt breast, colonoscopies/benign polypectomies. Past Anesthesia/Blood Transfusion Reactions: Motion Sickness Additional Past Anesthesia/Blood Transfusion Reaction / Comment(s): no hx blood transfusion Past Psychological History: Anxiety, Depression Additional Psychological History / Comment(s): Pt resides alone. She states her of 36 yrs 10/2019 and her mother a year ago. She denies suicidal thoughts/plans to technical proposal writer stating, "I wasn''t suicidal! I just needed to get out of my house!" She states her depression is the same as it usually. She states she goes to [facility]. She uses a cane or walker. She does not drive. Her father drives her to [place]. She is disabled. Smoking Status: Current every day smoker Past Alcohol Use History: Heavy Additional Past Alcohol Use History / Comment(s): Pt started smoking in 1973 and is a 0.5ppd smoker. She drinks a 5th a day and last drank today, 07/21/2020 Past Drug Use History: None Reported - Past Family History Mother Additional Family Medical History / Comment(s): Mother of heart problems at the age of 79yrs old. Father Family Medical History: Hyperlipidemia Additional Family Medical History / Comment(s): Father is living. <Gennaro Amaral - Last Filed: 07/25/20 14:46> General Exam Limitations: altered mental status, physical limitation General appearance: lethargic Head exam: Present: atraumatic, normocephalic, normal inspection Eye exam: Present: normal appearance, PERRL, EOMI. Absent: scleral icterus, conjunctival injection, periorbital swelling ENT exam: Present: normal exam, mucous membranes moist Neck exam: Present: normal inspection, full ROM. Absent: tenderness, meningismu s, lymphadenopathy Respiratory exam: Present: normal lung sounds bilaterally. Absent: respiratory distress, wheezes, rales, rhonchi, stridor Cardiovascular Exam: Present: normal rhythm, tachycardia, normal heart sounds. Absent: systolic murmur, diastolic murmur, rubs, gallop, clicks GI/Abdominal exam: Present: soft, normal bowel sounds. Absent: distended, tenderness, guarding, rebound, rigid Extremities exam: Present: normal inspection, full ROM, normal capillary refill. Absent: tenderness, pedal edema, joint swelling, calf tenderness Back exam: Present: normal inspection Neurological exam: Present: alert, oriented X3, CN II-XII intact, other (Demonstrates evidence of intoxication) Psychiatric exam: Present: flat affect, suicidal ideation Skin exam: Present: warm, dry, intact, normal color. Absent: rash <Gennaro Amaral - Last Filed: 07/25/20 14:46> - General Exam Comments Initial Comments: Is a well-developed well-nourished lethargic female she does have the smell of alcohol conjoiners on her breath (Gennaro Amaral) Course <Gennaro Amaral - Last Filed: 07/25/20 14:46> Vital Signs 07/23/20 07/24/20 07/24/20 18:03 02:00 02:42 Temperature 98.6 F Pulse Rate 110 H 110 H 118 H Respiratory 18 18 18 Rate Blood Pressure 126/71 133/87 O2 Sat by Pulse 98 100 Oximetry 07/24/20 07/24/20 04:45 07:24 Temperature 98.8 F Pulse Rate 111 H 108 H Respiratory 14 16 Rate Blood Pressure 123/82 125/88 O2 Sat by Pulse 96 99 Oximetry - Reevaluation(s) Reevaluation #1: 07/23/20 20:31 The patient is resting comfortably she is pending sobriety and EPS evaluation. (Gennaro Amaral) Reevaluation #2: 07/23/20 20:32 The patient will be endorsed to Dr. Proctor at her shift change (Gennaro Amaral) Reevaluation #3: 07/23/20 23:14 The patient did complain some chest pain she had a repeat EKG done sinus tachycardia 102. Interval 142 QRS duration 80 QT since QTC 356/463 left axis deviation nonspecific inferior configuration similar to the previous EKG. (Gennaro Amaral) Medical Decision Making - Lab Data Result diagrams: 07/23/20 18:25 07/23/20 18:25 <Sidney Proctor - Last Filed: 07/24/20 06:46> - Lab Data Result diagrams: 07/23/20 18:25 07/23/20 18:25 - EKG Data -: EKG Interpreted by Me EKG shows normal: sinus rhythm Rate: normal <MunirGennaro - Last Filed: 07/25/20 14:46> - Medical Decision Making Patient's 60-year-old woman here for evaluation of alcohol withdrawal and also reportedly had some suicidal ideation earlier. The patient has been evaluated by EPS and this date that due to her history of previous severe alcohol withdrawal, they would like the patient to be admitted to medicine for 1-2 days and then transfer to psychiatric service. I did page the hospitalist group covering admissions for Dr. Castillo, and have written admission orders, including the Ativan withdrawal protocol. (Sidney Proctor) - Lab Data Lab Results 07/23/20 07/23/20 07/23/20 Range/Units 18:25 18:25 22:40 WBC 5.5 (3.8-10.6) k/uL RBC 4.46 (3.80-5.40) m/uL Hgb 14.2 (11.4-16.0) gm/dL Hct 43.9 (34.0-46.0) % MCV 98.5 (80.0-100.0) fL MCH 31.9 (25.0-35.0) pg MCHC 32.4 (31.0-37.0) g/dL RDW 16.8 H (11.5-15.5) % Plt Count 130 L (150-450) k/uL MPV 9.1 Neutrophils % 67 % Lymphocytes % 25 % Monocytes % 4 % Eosinophils % 1 % Basophils % 1 % Neutrophils # 3.7 (1.3-7.7) k/uL Lymphocytes # 1.4 (1.0-4.8) k/uL Monocytes # 0.2 (0-1.0) k/uL Eosinophils # 0.1 (0-0.7) k/uL Basophils # 0.0 (0-0.2) k/uL Anisocytosis Slight Macrocytosis Slight Sodium 136 L (137-145) mmol/L Potassium 3.6 (3.5-5.1) mmol/L Chloride 101 (98-107) mmol/L Carbon Dioxide 24 (22-30) mmol/L Anion Gap 11 mmol/L BUN 7 (7-17) mg/dL Creatinine 0.48 L (0.52-1.04) mg/dL Est GFR (CKD-EPI)AfAm >90 (>60 ml/min/1.73 sqM) Est GFR (CKD-EPI)NonAf >90 (>60 ml/min/1.73 sqM) Glucose 119 H (74-99) mg/dL Calcium 9.3 (8.4-10.2) mg/dL Magnesium 1.6 (1.6-2.3) mg/dL Total Bilirubin 0.7 (0.2-1.3) mg/dL AST 126 H (14-36) U/L ALT 97 H (4-34) U/L Alkaline Phosphatase 107 (38-126) U/L Total Protein 7.4 (6.3-8.2) g/dL Albumin 4.2 (3.5-5.0) g/dL Lipase 285 (23-300) U/L Urine Opiates Screen Not Detected (NotDetected) Ur Oxycodone Screen Not Detected (NotDetected) Urine Methadone Screen Not Detected (NotDetected) Ur Propoxyphene Screen Not Detected (NotDetected) Ur Barbiturates Screen Not Detected (NotDetected) U Tricyclic Antidepress Not Detected (NotDetected) Ur Phencyclidine Scrn Not Detected (NotDetected) Ur Amphetamines Screen Not Detected (NotDetected) U Methamphetamines Scrn Not Detected (NotDetected) U Benzodiazepines Scrn Detected H (NotDetected) Urine Cocaine Screen Not Detected (NotDetected) U Marijuana (THC) Screen Not Detected (NotDetected) Serum Alcohol 189 mg/dL - EKG Data EKG Comments: Psych tachycardia rate of 106. Interval 172 QRS 90 QT since QTC 364/43 that exodeviation nonspecific inferior changes PVC is noted (Gennaro Amaral) Disposition <Sidney Proctor - Last Filed: 07/24/20 06:46> <Gennaro Amaral - Last Filed: 07/25/20 14:46> Clinical Impression: Alcohol intoxication, Depression, Suicidal ideation Disposition: TRANSFER TO PSYCH HOSP/UNIT Condition: Fair
[2020-07-23 18:51] LABS: Anisocytosis Slight; Basophils % (A) 1 %; Eosinophils # (A) 0.1 k/uL (0-0.7); Eosinophils % (A) 1 %; HCT 43.9 % (34.0-46.0); HGB 14.2 gm/dL (11.4-16.0); Lymphocytes # (A) 1.4 k/uL (1.0-4.8); Lymphocytes % (A) 25 %; MCH 31.9 pg (25.0-35.0); MCHC 32.4 g/dL (31.0-37.0); MCV 98.5 fL (80.0-100.0); Macrocytosis Slight; Mean Platelet Volume 9.1; Monocytes # (A) 0.2 k/uL (0-1.0); Monocytes % (A) 4 %; Neutrophils # (A) 3.7 k/uL (1.3-7.7); Neutrophils % (A) 67 %; Platelet Count 130 k/uL (150-450); RBC 4.46 m/uL (3.80-5.40); RDW 16.8 % (11.5-15.5); WBC 5.5 k/uL (3.8-10.6)
[2020-07-23 18:56] LABS: ALT 97 U/L (4-34); AST 126 U/L (14-36); African American GFR (CKD) >90 (>60 ml/min/1.73 sqM); Albumin 4.2 g/dL (3.5-5.0); Alkaline Phosphatase 107 U/L (38-126); Anion Gap 11 mmol/L; Blood Urea Nitrogen 7 mg/dL (7-17); Calcium 9.3 mg/dL (8.4-10.2); Carbon Dioxide 24 mmol/L (22-30); Chloride 101 mmol/L (98-107); Glucose 119 mg/dL (74-99); Lipase 285 U/L (23-300); Magnesium 1.6 mg/dL (1.6-2.3); Non-African American GFR(CKD) >90 (>60 ml/min/1.73 sqM); Potassium 3.6 mmol/L (3.5-5.1); Sodium 136 mmol/L (137-145); Total Bilirubin 0.7 mg/dL (0.2-1.3); Total Protein 7.4 g/dL (6.3-8.2)
[2020-07-23 19:04] LABS: Alcohol 189 mg/dL
[2020-07-23 23:31] LABS: Amphetamine Screen,Urine Not Detected (NotDetected); Barbiturate Screen,Urine Not Detected (NotDetected); Benzodiazepines Screen,Urine Detected (NotDetected); Cocaine Screen,Urine Not Detected (NotDetected); Methadone Screen, Urine Not Detected (NotDetected); Opiate Screen,Urine Not Detected (NotDetected); Phencyclidine Screen,Urine Not Detected (NotDetected); Tricyclic Antidepressant,Urine Not Detected (NotDetected); Urn Cannabinoid Scrn Not Detected (NotDetected)
[2020-07-23 23:32] LABS: Oxycodone Screen, Urine Not Detected (NotDetected)
[2020-07-24] MEDS ORDERED: ONDANSETRON ODT 4 MG TAB PO STA (00:13)
[2020-07-24] MEDS ORDERED: MAG HYDROX/AL HYDROX/SIMETH 30 ML, HYOSCYAMINE ELIXIR 10 ML, LIDOCAINE VISCOUS 2% 10 ML PO STA ×3 (00:13)
[2020-07-24] MEDS ORDERED: ONDANSETRON 4 MG/2 ML VIAL IVP STA (00:24)
[2020-07-24] MEDS ORDERED: LORazepam 2 MG/ML INJ IV PRN (04:32)
[2020-07-24] MEDS ORDERED: THIAMINE 100 MG/ML 2 ML VIAL IM STA (04:32)
[2020-07-24] MEDS: LORazepam 2 MG/ML INJ IV PRN ×5 (04:43→19:43)
[2020-07-24] MEDS ORDERED: NALOXONE 0.4 MG/ML 1 ML VIAL IV PRN (06:42)
[2020-07-24 07:26] VITALS: RESP 16
[2020-07-24] MEDS: SODIUM CHLORIDE 0.9% 1,000 ML IV SCH (10:07)
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
[2020-07-24] MEDS: ACAMPROSATE CALCIUM 333 MG TABLET.DR PO SCH ×2 (15:51→21:16)
[2020-07-24] MEDS: CITALOPRAM HYDROBROMIDE 20 MG TAB PO SCH (15:53)
[2020-07-24] MEDS: THIAMINE 100 MG TAB PO SCH (17:21)
[2020-07-24 18:12] LABS: Appearance,Urine Cloudy (Clear); Bacteria,Urine Occasional /hpf; Bilirubin,Urine 1+ (Negative); Blood,Urine Negative (Negative); Calcium Oxalate Crystals,Urine Many /hpf; Color,Urine Dark Yellow; Glucose,Urine (UA) Negative (Negative); Hyaline Casts,Urine 1 /lpf (0-2); Ketones,Urine 1+ (Negative); Leukocyte Esterase,Urine Large (Negative); Mucus,Urine Many /hpf; Nitrite,Urine Negative (Negative); Protein,Urine 1+ (Negative); RBC,Urine 1 /hpf (0-5); Specific Gravity,Urine 1.032 (1.001-1.035); Squamous Epithelial Cell,Urine 5 /hpf (0-4); WBC,Urine 7 /hpf (0-5)
[2020-07-24] MEDS ORDERED: traZODone HCL 50 MG TAB PO SCH (21:00)
[2020-07-24] MEDS: FAMOTIDINE 20 MG/2 ML VIAL IV SCH (21:16)
[2020-07-24] MEDS: HEPARIN SODIUM,PORCINE 5,000 UNIT/ML 1 ML VIAL SQ SCH (21:16)
[2020-07-25] MEDS: HEPARIN SODIUM,PORCINE 5,000 UNIT/ML 1 ML VIAL SQ SCH ×2 (07:20→20:57)
[2020-07-25] MEDS: CITALOPRAM HYDROBROMIDE 20 MG TAB PO SCH (07:21)
[2020-07-25] MEDS: FAMOTIDINE 20 MG/2 ML VIAL IV SCH (07:22)
[2020-07-25] MEDS: THIAMINE 100 MG TAB PO SCH ×2 (07:22→16:04)
--- NOTE | 2020-07-25 07:43 | P.HPIM ---
History of Present Illness This is a pleasant 60 years old female. She presents to the hospital by EMS after consuming 2 g of canal this as well as drinking 2 bottles of liquor. There was suspicion of suicidal ideation upon admission, her significant other h as just recently last night from heart attack, She was admitted yesterday for alcohol abuse and then she left AMA on 07/22. Patient states that this time she decided to call the ambulance because she is tired of drinking stating he cannot do this anymore. She is fully awake and oriented, complaining of from some headache and shakiness and it. She smokes about 7 cigarettes per day and she consult and she agrees to quit and she agrees to the nicotine patch, she drinks about 1-1.5 pint every day she denies any illicit drug abuse including no marijuana. She has been evaluated by psychiatrist who found her does not meet criteria for inpatient psychiatric admission and he recommended to restart Celexa, trazodone and acamprosate Also he recommended Librium for alcohol withdrawal. Continue with CIWA protocol with Ativan He also recommended to discontinue one-to-one sitter and recommended rehab upon discharge and she agrees Vitals are stable, labs including CBC, BMP and INR are unremarkable. AST is slightly elevated at 126 and ALT at 97. Serum alcohol is high at 189. EKG showing sinus tachycardia at 1 or [address]-T changes Review of Systems CONSTITUTIONAL: No fever, no malaise, no fatigue. HEENT: No recent visual problems or hearing problems. Denied any sore throat. CARDIOVASCULAR: No orthopnea, PND, no palpitations, no syncope. PULMONARY: No shortness of breath, no cough, no hemoptysis. GASTROINTESTINAL: No diarrhea, no nausea, no vomiting, no abdominal pain. Normoactive bowel sounds. NEUROLOGICAL: No headaches, no weakness, no numbness. HEMATOLOGICAL: Denies any bleeding or petechiae. GENITOURINARY: Denies any burning micturition, frequency, or urgency. MUSCULOSKELETAL/RHEUMATOLOGICAL: Denies any joint pain, swelling, or any muscle pain. ENDOCRINE: Denies any polyuria or polydipsia. Past Medical History Past Medical History: Osteoarthritis (OA), Seizure Disorder, Thyroid Disorder Additional Past Medical History / Comment(s): ETOH abuse, last seizure 07/15/19, chronic back pain,neck pain, numbness derick. shoulder & arm/finger tips, derick nu mbness to legs & ft, limited rom neck, benign colon polyps, uses walker, frequent falls History of Any Multi-Drug Resistant Organisms: None Reported Past Surgical History: Breast Surgery, Hernia Repair, Orthopedic Surgery, Tonsillectomy Additional Past Surgical History / Comment(s): derick knee replacements with R knee done twice, bilateral eye laser surgery for vision correction, benign lump removed from lt breast, colonoscopies/benign polypectomies. Past Anesthesia/Blood Transfusion Reactions: Motion Sickness Additional Past Anesthesia/Blood Transfusion Reaction / Comment(s): no hx blood transfusion Smoking Status: Current every day smoker - Past Family History Mother Additional Family Medical History / Comment(s): Mother of heart problems at the age of 79yrs old. Father Family Medical History: Hyperlipidemia Additional Family Medical History / Comment(s): Father is living. Medications and Allergies Home Medications Medication Instructions Recorded Confirmed Type Levothyroxine Sodium [Synthroid] 112 mcg PO DAILY 07/11/20 07/23/20 History Allergies Allergy/AdvReac Type Severity Reaction Status Date / Time No Known Allergies Allergy Verified 07/23/20 20:04 Physical Exam Vitals: Vital Signs Temp Pulse Pulse Resp BP BP Pulse Ox 07/24/20 11:47 98.6 F 92 16 118/99 94 L 07/24/20 09:00 97.6 F 89 16 111/76 98 07/24/20 08:23 97.6 F 89 16 111/76 98 07/24/20 08:00 88 16 07/24/20 07:24 98.8 F 108 H 16 125/88 99 07/24/20 04:45 111 H 14 123/82 96 07/24/20 02:42 118 H 18 133/87 100 07/24/20 02:00 110 H 18 07/23/20 18:03 98.6 F 110 H 18 126/71 98 Intake and Output 07/24/20 07/24/20 07/24/20 06:59 14:59 22:59 Intake Total 120 Balance 120 Intake: Oral 120 Other: Voiding Method Toilet # Bowel Movements 1 Weight 83.915 kg GENERAL: The patient is alert and oriented x3, not in any acute distress. Well developed, well nourished. HEENT: Pupils are round and equally reacting to light. EOMI. No scleral icterus. No conjunctival pallor. Normocephalic, atraumatic. No pharyngeal erythema. No thyromegaly. CARDIOVASCULAR: S1 and S2 present. No murmurs, rubs, or gallops. PULMONARY: Chest is clear to auscultation, no wheezing or crackles. ABDOMEN: Soft, nontender, nondistended, normoactive bowel sounds. No palpable organomegaly. MUSCULOSKELETAL: No joint swelling or deformity. EXTREMITIES: No cyanosis, clubbing, or pedal edema. NEUROLOGICAL: Gross neurological examination did not reveal any focal deficits. SKIN: No rashes. No petechiae Results CBC & Chem 7: 07/23/20 18:25 07/23/20 18:25 Labs: Abnormal Lab Results - Last 24 Hours (Table) 07/23/20 07/23/20 07/23/20 Range/Units 18:25 18:25 22:40 RDW 16.8 H (11.5-15.5) % Plt Count 130 L (150-450) k/uL Sodium 136 L (137-145) mmol/L Creatinine 0.48 L (0.52-1.04) mg/dL Glucose 119 H (74-99) mg/dL AST 126 H (14-36) U/L ALT 97 H (4-34) U/L U Benzodiazepines Scrn Detected H (NotDetected) Thrombosis Risk Factor Assmnt - Choose All That Apply Each Factor Represents 1 point: Age 41-60 years Thrombosis Risk Factor Assessment Total Risk Factor Score: 1 Thrombosis Risk Factor Assessment Level: Low Risk Assessment and Plan Assessment: Alcohol abuse at-risk of alcohol withdrawal Depressive disorder unspecified, Suicidal ideation Substance abuse with Elevated liver enzymes mostly likely secondary to alcoholic effect Plan: This is a pleasant 60 years old female who presents with alcohol intoxication and risk of residual, depressive symptoms suspicious for suicidal ideation however she was evaluated by psychiatrist for cleared her and does not need inpatient psych admission and discontinue the sitter upon his recommendation him a added Celexa, trazodone and acamprosate and recommended alcohol rehab upon discharge Continue with CIWA protocol and thiamine. Labs and medication were reviewed.. Continue same treatment. Continue with symptomatic treatment. Resume home medication. Monitor lytes and vitals. DVT and GI prophylaxis. Further recommendations depends on the clinical course of the patient DVT prophylaxis: Subcutaneous heparin GI Prophylaxis: Pepcid
[2020-07-25] MEDS: LORazepam 2 MG/ML INJ IV PRN ×2 (08:06→14:33)
[2020-07-25] MEDS: ACAMPROSATE CALCIUM 333 MG TABLET.DR PO SCH ×3 (08:53→20:57)
[2020-07-25] MEDS: SODIUM CHLORIDE 0.9% 1,000 ML IV SCH (08:58)
[2020-07-25] MEDS: FOLIC ACID 1 MG TAB PO SCH (10:57)
--- NOTE | 2020-07-25 11:54 | P.DS ---
Providers Date of admission: 07/24/20 06:44 Expected date of discharge: 07/25/20 Attending physician: Erlin Castillo MD Consults: 07/24/20 06:43 Consult Physician Routine Consulting Provider: Cosmo Lozada Reason/Comments: Alcohol withdrawal. Do you want consulting provider notified?: Yes Primary care physician: Piper Curry Hospital Course: Final Diagnoses: Alcohol intoxication, serum alcohol level on admission 189 Suicidal ideation on admission, evaluated and cleared by psychiatry. Currently denies any suicidal or homicidal ideation. Denies any auditory or visual hallucinations. Alcohol dependence Depressive disorder unspecified PolySubstance abuse with alcohol, cannabis, nicotine Mildly Elevated liver enzymes mostly likely secondary to alcoholic effect Hospital course: This is a 60-year-old female admitted with alcohol abuse, depression, suicidal, in a patient with known history of alcohol dependence. Evaluated by psychiatry, suicide precautions discontinued. Discussed rehab. Patient will be discharged home later today pending final DC recommendations and clearance from psychiatry. The impression and plan of care has been dictated as directed. .: I performed a history and examination of this patient, discussed the same with the dictator. I agree with the dictator's note ,documented as a scribe. Any additional findings or plans will be noted. Patient Condition at Discharge: Stable Plan - Discharge Summary Discharge Rx Participant: No New Discharge Prescriptions: New Thiamine [Vitamin B-1] 100 mg PO DAILY #0 tab Folic Acid 1 mg PO DAILY #1 tablet Acamprosate Calcium [Campral] 666 mg PO TID #60 tablet. chlordiazePOXIDE HCl [Librium] 20 mg PO TID #42 cap Famotidine [Pepcid] 20 mg PO BID #60 tablet Citalopram Hydrobromide [CeleXA] 20 mg PO DAILY #30 tab Continue Levothyroxine Sodium [Synthroid] 112 mcg PO DAILY Discharge Medication List Levothyroxine Sodium [Synthroid] 112 mcg PO DAILY 07/11/20 [History] Acamprosate Calcium [Campral] 666 mg PO TID #60 tablet. 07/25/20 [Rx] Citalopram Hydrobromide [CeleXA] 20 mg PO DAILY #30 tab 07/25/20 [Rx] Famotidine [Pepcid] 20 mg PO BID #60 tablet 07/25/20 [Rx] Folic Acid 1 mg PO DAILY #1 tablet 07/25/20 [Rx] Thiamine [Vitamin B-1] 100 mg PO DAILY #0 tab 07/25/20 [Rx] chlordiazePOXIDE HCl [Librium] 20 mg PO TID #42 cap 07/25/20 [Rx] Follow up Appointment(s)/Referral(s): Erlin Castillo MD [STAFF PHYSICIAN] - 08/01/20 11:00 am (This appointment is at the [address] [place] [address] [address] SVETLANA Psychiatry [Other] - 1 Week Patient Instructions/Handouts: Depression (DC), Abuse of Alcohol (DC), Anxiety (GEN) Activity/Diet/Wound Care/Special Instructions: -bridge worker apprentice to provide patient with access line number to call for inpatient substance rehab. Patient is stating that she is willing to go to rehab upon discharge from the hospital. Further titration of Librium outpatient.
--- NOTE | 2020-07-25 13:54 | P.PN ---
Progress Note - Text Progress Note Date: 07/25/20 Interval History: Patient was seen today for psychiatric follow up regarding patients alcohol ab use and depression. Patient's nurse claims that patient has been doing better today and was arranging to go into rehab at [facility]. Patient was seen at the bedside today and states that she has been having anxiety as she is going through alcohol withdrawal. She states that she does not trust herself to go home and wait for rehab at this point and wanted to stay one more night due to her withdrawal and cravings. She did claim that she spoke with [facility] over the phone however wants to days at home to "arrange for some stuff". She claims that she is still willing to go to [facility] to work on her drinking. She states that her mood is "fine" and denies any depression today. She states that she did not sleep fairly last night and was requesting never trazodone increased. At this time patient denies any suicidal or homical ideations, intent or plan. Patient denies any auditory, visual hallucinations and denies any paranoia or delusions. Patient denies any side effects from the medications and has been compliant with meds. Mental Status Exam: General Appearance: Patient appears to be older than stated age is alert, was more cooperative today. Patient appears to have improving hygiene and grooming. Behavior: Patient is seated without any agitated behavior. More cooperative today. Speech: Patient's speech is fluent and nonpressured. Mood/Affect: Patient reports their mood is "fine", affect is congruent and constricted. Suicidality/Homicidality: Patient denies having any homicidal ideation intent or plan. Denies any suicidal ideations intent or plan Perceptions: Patient denies any visual hallucinations and denies any auditory hallucinations Though content/process: There is no evidence of any delusional thought content and thought process is linear and goal-directed. Memory and concentration: AOX3, grossly intact for the purposes of this session. Can spell "WORLD" backwards Judgment and insight: Chronically poor, improving mildly. Assessment Depressive disorder unspecified, rule out alcohol induced mood disorder versus major depressive disorder Alcohol use disorder severe dependence, currently in withdrawal Cannabis use disorder Nicotine dependence Plan: -At this time patient DOES NOT meet criteria for inpatient psychiatric admission. -Would recommend the following medication changes/additions: Continue with Celexa 20 mg daily for mood/anxiety, increased trazodone 100 mg daily at bedtime for insomnia/mood. Increased acamprosate to 666 mg 3 times a day for alcohol cravings. Decreased Librium 20 mg two times a day for history of significant alcohol withdrawal symptoms and plan will be to titrate down. -continue with ciwa protocol with ativan prn. -Bar Tacker Sewing Machine spoke with patient about substance abuse and the harmful effects on medical and mental health, patient verbally understood and agreed. -Bar Tacker Sewing Machine spoke with social media intern over the phone to help arrange for a sad intake date at [facility] prior to patient being discharged from the hospital. quill worker will go and assist patient with this at the bedside today. If patient is discharged without a concrete plan then patient will be at high risk for relapsing and rehospitalization. -Communicated plan to patient's nurse -At this time psychiatry will sign off -Please contact with any questions.
[2020-07-25] MEDS ORDERED: ONDANSETRON 4 MG/2 ML VIAL IVP PRN (14:07)
[2020-07-25] MEDS ORDERED: hydrOXYzine pamoate 25 MG CAP PO PRN (14:31)
[2020-07-25] MEDS: FAMOTIDINE 20 MG TAB PO SCH (20:57)
[2020-07-25] MEDS ORDERED: traZODone HCL 100 MG TAB PO SCH (21:00)
[2020-07-26 05:18] VITALS: BP 98/66; TEMP 97.4
[2020-07-26] MEDS: SODIUM CHLORIDE 0.9% 1,000 ML IV SCH (07:25)
[2020-07-26] MEDS: THIAMINE 100 MG TAB PO SCH (07:27)
[2020-07-26] MEDS: FOLIC ACID 1 MG TAB PO SCH (07:28)
[2020-07-26] MEDS: ACAMPROSATE CALCIUM 333 MG TABLET.DR PO SCH (07:28)
[2020-07-26] MEDS: CITALOPRAM HYDROBROMIDE 20 MG TAB PO SCH (07:28)
[2020-07-26] MEDS: HEPARIN SODIUM,PORCINE 5,000 UNIT/ML 1 ML VIAL SQ SCH (07:28)
[2020-07-26] MEDS: FAMOTIDINE 20 MG TAB PO SCH (07:28)
--- NOTE | 2020-07-26 10:02 | P.PN ---
Subjective Progress Note Date: 07/26/20 Final Diagnoses: Alcohol intoxication, serum alcohol level on admission 189 Suicidal ideation on admission, evaluated and cleared by psychiatry. Currently denies any suicidal or homicidal ideation. Denies any auditory or visual hallucinations. Alcohol dependence Depressive disorder unspecified PolySubstance abuse with alcohol, cannabis, nicotine Mildly Elevated liver enzymes mostly likely secondary to alcoholic effect Hospital course: This is a 60-year-old female admitted with alcohol abuse, depression, suicidal, in a patient with known history of alcohol dependence. Evaluated by psychiatry, suicide precautions discontinued. Discussed rehab. Patient will be discharged home later today pending final DC recommendations and clearance from psychiatry. Psychiatry recommended holding discharge while attempting to arrange for rehab date, yesterday. Cleared by psychiatry for discharge. Social work/case management discussed rehab options with patient. This morning patient states she will be going to [facility] but insists on returning home first to prepare laundry etc. alcohol cessation reinforced. Patient will be discharged home in stable condition with guarded prognosis. GENERAL: alert and oriented x3, no acute distress. HEENT: Pupils are round and equally reacting to light. EOMI. No scleral icterus. No conjunctival pallor. Normocephalic, atraumatic. CARDIOVASCULAR: S1 and S2 present. No murmurs, rubs, or gallops. PULMONARY: Chest is clear to auscultation, no wheezing or crackles. ABDOMEN: Soft, nontender, nondistended, normoactive bowel sounds. NEUROLOGICAL: Gross neurological examination did not reveal any focal deficits.neg asterixis. SKIN: warm & dry. The impression and plan of care has been dictated as directed. : I performed a history and examination of this patient, discussed the same with the dictator. I agree with the dictator's note ,documented as a scribe. Any additional findings or plans will be noted. Objective - Vital Signs Vital signs: Vital Signs Temp 97.4 F L 07/26/20 05:00 Pulse 76 07/26/20 05:00 Resp 16 07/26/20 05:00 BP 98/66 07/26/20 05:00 Pulse Ox 97 07/26/20 05:00 Intake & Output 07/25/20 07/26/20 07/26/20 18:59 06:59 18:59 Intake Total 220 60 Balance 220 60 Intake: Intake, IV Titration 220 Amount Sodium Chloride 0.9% 1, 220 000 ml @ 20 mls/hr IV . Q24H [facility] Rx#:[id number] Oral 60 Other: Voiding Method Toilet # Voids 2 # Bowel Movements 1 - Labs CBC & Chem 7: 07/23/20 18:25 07/23/20 18:25
--- NOTE | 2020-07-26 10:03 | P.DS ---
Providers Date of admission: 07/24/20 06:44 Expected date of discharge: 07/26/20 Attending physician: Erlin Castillo MD Consults: 07/24/20 06:43 Consult Physician Routine Consulting Provider: Cosmo Lozada Consult Reason/Comments: Alcohol withdrawal. Do you want consulting provider notified?: Yes Primary care physician: Piper Curry Hospital Course: Final Diagnoses: Alcohol intoxication, serum alcohol level on admission 189 Suicidal ideation on admission, evaluated and cleared by psychiatry. Currently denies any suicidal or homicidal ideation. Denies any auditory or visual hallucinations. Alcohol dependence Depressive disorder unspecified PolySubstance abuse with alcohol, cannabis, nicotine Mildly Elevated liver enzymes mostly likely secondary to alcoholic effect Hospital course: This is a 60-year-old female admitted with alcohol abuse, depression, suicidal, in a patient with known history of alcohol dependence. Evaluated by psychiatry, suicide precautions discontinued. Discussed rehab. Patient will be discharged home later today pending final DC recommendations and clearance from psychiatry. Psychiatry recommended holding discharge while attempting to arrange for rehab date, yesterday. Cleared by psychiatry for discharge. Social work/case management discussed rehab options with patient. This morning patient states she will be going to [facility] but insists on returning home first to prepare laundry etc. alcohol cessation reinforced. Patient will be discharged home in stable condition with guarded prognosis. GENERAL: alert and oriented x3, no acute distress. HEENT: Pupils are round and equally reacting to light. EOMI. No scleral icterus. No conjunctival pallor. Normocephalic, atraumatic. CARDIOVASCULAR: S1 and S2 present. No murmurs, rubs, or gallops. PULMONARY: Chest is clear to auscultation, no wheezing or crackles. ABDOMEN: Soft, nontender, nondistended, normoactive bowel sounds. NEUROLOGICAL: Gross neurological examination did not reveal any focal deficits.neg asterixis. SKIN: warm & dry. The impression and plan of care has been dictated as directed. : I performed a history and examination of this patient, discussed the same with the dictator. I agree with the dictator's note ,documented as a scribe. Any additional findings or plans will be noted. Patient Condition at Discharge: Stable Plan - Discharge Summary Discharge Rx Participant: No New Discharge Prescriptions: New Thiamine [Vitamin B-1] 100 mg PO DAILY #0 tab Folic Acid 1 mg PO DAILY #1 tablet Acamprosate Calcium [Campral] 666 mg PO TID #60 tablet. Famotidine [Pepcid] 20 mg PO BID #60 tablet Citalopram Hydrobromide [CeleXA] 20 mg PO DAILY #30 tab traZODone HCL [Desyrel] 100 mg PO HS #10 tab chlordiazePOXIDE HCl [Librium] 10 mg PO TID 3 Days #9 capsule Continue Levothyroxine Sodium [Synthroid] 112 mcg PO DAILY Discharge Medication List Levothyroxine Sodium [Synthroid] 112 mcg PO DAILY 07/11/20 [History] Acamprosate Calcium [Campral] 666 mg PO TID #60 tablet. 07/25/20 [Rx] Citalopram Hydrobromide [CeleXA] 20 mg PO DAILY #30 tab 07/25/20 [Rx] Famotidine [Pepcid] 20 mg PO BID #60 tablet 07/25/20 [Rx] Folic Acid 1 mg PO DAILY #1 tablet 07/25/20 [Rx] Thiamine [Vitamin B-1] 100 mg PO DAILY #0 tab 07/25/20 [Rx] chlordiazePOXIDE HCl [Librium] 10 mg PO TID 3 Days #9 capsule 07/26/20 [Rx] traZODone HCL [Desyrel] 100 mg PO HS #10 tab 07/26/20 [Rx] Follow up Appointment(s)/Referral(s): Dr. SVETLANA Psychiatry [Other] - 1 Week Erlin Castillo MD [STAFF PHYSICIAN] - 08/01/20 11:00 am (This appointment is at the [address] [place] [id number] office.) Patient Instructions/Handouts: Depression (DC), Abuse of Alcohol (DC), Anxiety (GEN) Activity/Diet/Wound Care/Special Instructions: [facility]
[2020-07-26 10:05] VITALS: PULSE 72
== END 2020-07-26 11:51 | disposition home or self-care (01) | DRG 897 ==
LOC: EC 18:00 → 5NMEDONC 07-24 06:44
PROVIDERS: ADMIT Family Medicine; ATTEND Family Medicine
DX: F10.229 Alcohol dependence with intoxication, unspecified (principal); R45.851 Suicidal ideations; F10.230 Alcohol dependence with withdrawal, uncomplicated; Y90.6 Blood alcohol level of 120-199 mg/100 ml; F32.9 Major depressive disorder, single episode, unspecified; F17.210 Nicotine dependence, cigarettes, uncomplicated; Z96.653 Presence of artificial knee joint, bilateral; G40.909 Epilepsy, unspecified, not intractable, without status epilepticus; F12.10 Cannabis abuse, uncomplicated; F41.9 Anxiety disorder, unspecified; M19.90 Unspecified osteoarthritis, unspecified site; E07.9 Disorder of thyroid, unspecified; M54.9 Dorsalgia, unspecified; G89.29 Other chronic pain; Z91.81 History of falling; Z82.49 Family history of ischemic heart disease and other diseases of the circulatory system; Z83.49 Family history of other endocrine, nutritional and metabolic diseases; Z79.890 Hormone replacement therapy; Z98.890 Other specified postprocedural states; Z86.010 Personal history of colon polyps; Z90.12 Acquired absence of left breast and nipple
CPT/HCPCS: 36415; 80053; 80306; 80320; 81001; 82075; 83690; 83735; 85025; 93005; 96365; 96366; 96372; 96375; 99285

== ENCOUNTER 2020-12-15 10:15 | Inpatient (IN) | payer MEDICARE, OTHER ==
[2020-12-15] MEDS ORDERED: PROCHLORPERAZINE INJ 10 MG/2 ML VIAL IVP STA (10:24)
[2020-12-15] MEDS ORDERED: FAMOTIDINE 20 MG/2 ML VIAL IV STA (10:24)
--- NOTE | 2020-12-15 10:32 | ED ---
Alcohol HPI - General Chief Complaint: Alcohol Stated Complaint: Not feeling well Time Seen by Provider: 12/15/20 10:15 Source: patient, EMS, RN notes reviewed, old records reviewed Mode of arrival: EMS Limitations: no limitations - History of Present Illness Initial Comments: This is a 52-year-old female who has a history of alcoholism who states she's been on a william for the past 3-4 days drinking multiple pints of vodka. This morning EMS was called because she couldn't get out of bed she was weak and nauseated complains of some epigastric burning type pain she feels is indigestion. She has no history of pancreatitis she states. She just generally does not feel well. No fall no headache neck pain or back pain. No other complaints or modifying factors MD Complaint: alcohol intoxication - Related Data Home Medications Medication Instructions Recorded Confirmed Levothyroxine Sodium [Synthroid] 112 mcg PO DAILY 07/11/20 12/15/20 Citalopram Hydrobromide [CeleXA] 40 mg PO DAILY 12/15/20 12/15/20 Previous Rx's Medication Instructions Recorded Acamprosate Calcium [Campral] 666 mg PO TID #60 tablet. 07/25/20 Famotidine [Pepcid] 20 mg PO BID #60 tablet 07/25/20 Folic Acid 1 mg PO DAILY #1 tablet 07/25/20 Thiamine [Vitamin B-1] 100 mg PO DAILY #0 tab 07/25/20 traZODone HCL [Desyrel] 100 mg PO HS #10 tab 07/26/20 Allergies Allergy/AdvReac Type Severity Reaction Status Date / Time No Known Allergies Allergy Verified 12/15/20 11:12 Review of Systems ROS Statement: Those systems with pertinent positive or pertinent negative responses have been documented in the HPI. ROS Other: All systems not noted in ROS Statement are negative. Past Medical History Past Medical History: Osteoarthritis (OA), Seizure Disorder, Thyroid Disorder Additional Past Medical History / Comment(s): ETOH abuse, last seizure 07/15/19, chronic back pain,neck pain, numbness derick. shoulder & arm/finger tips, derick numbness to legs & ft, limited rom neck, benign colon polyps, uses walker, frequent falls History of Any Multi-Drug Resistant Organisms: None Reported Past Surgical History: Breast Surgery, Hernia Repair, Orthopedic Surgery, Tonsillectomy Additional Past Surgical History / Comment(s): derick knee replacements with R knee done twice, bilateral eye laser surgery for vision correction, benign lump removed from lt breast, colonoscopies/benign polypectomies. Past Anesthesia/Blood Transfusion Reactions: Motion Sickness Additional Past Anesthesia/Blood Transfusion Reaction / Comment(s): no hx blood transfusion Past Psychological History: Anxiety, Depression Smoking Status: Current every day smoker Past Alcohol Use History: Abuse, Daily, Heavy Past Drug Use History: None Reported - Past Family History Mother Additional Family Medical History / Comment(s): Mother of heart problems at the age of 79yrs old. Father Family Medical History: Hyperlipidemia Additional Family Medical History / Comment(s): Father is living. General Exam - General Exam Comments Initial Comments: This is a well-developed well-nourished awake alert oriented 3 female she does demonstrate a smell of alcohol conjoiners on her breath Limitations: no limitations General appearance: alert, in no apparent distress Head exam: Present: atraumatic, normocephalic, normal inspection Eye exam: Present: normal appearance, PERRL, EOMI. Absent: scleral icterus, conjunctival injection, periorbital swelling ENT exam: Present: mucous membranes dry Neck exam: Present: normal inspection. Absent: tenderness, meningismus, lymphadenopathy Respiratory exam: Present: normal lung sounds bilaterally. Absent: respiratory distress, wheezes, rales, rhonchi, stridor Cardiovascular Exam: Present: regular rate, normal rhythm, normal heart sounds. Absent: systolic murmur, diastolic murmur, rubs, gallop, clicks GI/Abdominal exam: Present: soft, tenderness (Epigastric tenderness palpation no guarding rebound masses or bruits), normal bowel sounds. Absent: distended, guarding, rebound, rigid Rectal exam: Present: deferred Extremities exam: Present: normal inspection, full ROM, normal capillary refill. Absent: tenderness, pedal edema, joint swelling, calf tenderness Back exam: Present: normal inspection Neurological exam: Present: alert, oriented X3, CN II-XII intact Psychiatric exam: Present: flat affect Skin exam: Present: warm, dry, intact, normal color. Absent: rash Course Vital Signs 12/15/20 12/15/20 12/15/20 10:17 10:40 12:19 Temperature 98.1 F Pulse Rate 100 92 96 Respiratory 18 18 Rate Blood Pressure 114/77 136/91 O2 Sat by Pulse 98 97 Oximetry - Reevaluation(s) Reevaluation #1: 12/15/20 10:58 The patient did have an episode where she appeared be staring off into space and not responsive the rise were open. Quickly abated. No trauma reported CT is ordered Reevaluation #2: 12/15/20 13:26 Lactic acid elevation is likely secondary to dehydration no infectious processes identified. Medical Decision Making - Medical Decision Making Patient is awake alert at this time I did discuss findings the patient and with Dr. Castillo, the patient will be admitted she'll be placed on the alcohol withdrawal protocol. - Lab Data Result diagrams: 12/15/20 10:25 12/15/20 10:25 Lab Results 12/15/20 12/15/20 12/15/20 Range/Units 10:25 10:25 10:25 WBC 4.9 (3.8-10.6) k/uL RBC 4.38 (3.80-5.40) m/uL Hgb 14.2 (11.4-16.0) gm/dL Hct 42.7 (34.0-46.0) % MCV 97.6 (80.0-100.0) fL MCH 32.5 (25.0-35.0) pg MCHC 33.3 (31.0-37.0) g/dL RDW 16.6 H (11.5-15.5) % Plt Count 103 L (150-450) k/uL MPV 8.9 Neutrophils % 68 % Lymphocytes % 26 % Monocytes % 4 % Eosinophils % 1 % Basophils % 1 % Neutrophils # 3.3 (1.3-7.7) k/uL Lymphocytes # 1.2 (1.0-4.8) k/uL Monocytes # 0.2 (0-1.0) k/uL Eosinophils # 0.0 (0-0.7) k/uL Basophils # 0.0 (0-0.2) k/uL Anisocytosis Slight Macrocytosis Slight Sodium 140 (137-145) mmol/L Potassium 3.7 (3.5-5.1) mmol/L Chloride 104 (98-107) mmol/L Carbon Dioxide 18 L (22-30) mmol/L Anion Gap 18 mmol/L BUN 18 H (7-17) mg/dL Creatinine 0.74 (0.52-1.04) mg/dL Est GFR (CKD-EPI)AfAm >90 (>60 ml/min/1.73 sqM) Est GFR (CKD-EPI)NonAf >90 (>60 ml/min/1.73 sqM) Glucose 80 (74-99) mg/dL Plasma Lactic Acid Gunnar 5.3 H* (0.7-2.0) mmol/L Calcium 8.0 L (8.4-10.2) mg/dL Magnesium 1.8 (1.6-2.3) mg/dL Total Bilirubin 0.7 (0.2-1.3) mg/dL AST 161 H (14-36) U/L ALT 67 H (4-34) U/L Alkaline Phosphatase 94 (38-126) U/L Ammonia 12 (<30) umol/L Creatine Kinase 87 (30-135) U/L Total Protein 6.6 (6.3-8.2) g/dL Albumin 4.0 (3.5-5.0) g/dL Lipase 253 (23-300) U/L Serum Alcohol 217 H* mg/dL - EKG Data -: EKG Interpreted by Ks EKG shows normal: sinus rhythm EKG Comments: Sinus tachycardia rate 105 FL interval 138 QRS duration 84 QT/QTC 340/459 evidence a left axis deviation. - Radiology Data Radiology results: report reviewed (Imaging reviewed no acute findings are seen.), image reviewed Disposition Clinical Impression: Dehydration, Acute alcohol intoxication, Failure to thrive in adult, Lactic acidosis Disposition: ADMITTED IP TO THIS HOSP Condition: Fair Referrals: Erlin Castillo MD [Primary Care Provider] - 1-2 days
[2020-12-15] MEDS ORDERED: SODIUM CHLORIDE 0.9% 1,000 ML with MVI, ADULT NO.4 WITH VIT K 10 ML, THIAMINE 100 MG, F... IV ONE ×4 (11:00)
[2020-12-15 11:09] LABS: Anisocytosis Slight; Basophils % (A) 1 %; Eosinophils % (A) 1 %; HCT 42.7 % (34.0-46.0); HGB 14.2 gm/dL (11.4-16.0); Lymphocytes # (A) 1.2 k/uL (1.0-4.8); Lymphocytes % (A) 26 %; MCH 32.5 pg (25.0-35.0); MCHC 33.3 g/dL (31.0-37.0); MCV 97.6 fL (80.0-100.0); Macrocytosis Slight; Mean Platelet Volume 8.9; Monocytes # (A) 0.2 k/uL (0-1.0); Monocytes % (A) 4 %; Neutrophils # (A) 3.3 k/uL (1.3-7.7); Neutrophils % (A) 68 %; Platelet Count 103 k/uL (150-450); RBC 4.38 m/uL (3.80-5.40); RDW 16.6 % (11.5-15.5); WBC 4.9 k/uL (3.8-10.6)
--- NOTE | 2020-12-15 11:20 | XR ---
EXAMINATION TYPE: XR chest 2V DATE OF EXAM: 12/15/2020 COMPARISON: NONE TECHNIQUE: PA and lateral views submitted. HISTORY: Chest pain FINDINGS: The lungs are clear and there is no pneumothorax, pleural effusion, or focal pneumonia. Hypertrophi c change of the spine. No overt failure. Heart size normal. IMPRESSION: 1. No acute process.
[2020-12-15 11:23] LABS: ALT 67 U/L (4-34); African American GFR (CKD) >90 (>60 ml/min/1.73 sqM); Anion Gap 18 mmol/L; Blood Urea Nitrogen 18 mg/dL (7-17); Carbon Dioxide 18 mmol/L (22-30); Chloride 104 mmol/L (98-107); Creatine Kinase 87 U/L (30-135); Glucose 80 mg/dL (74-99); Lipase 253 U/L (23-300); Non-African American GFR(CKD) >90 (>60 ml/min/1.73 sqM); Sodium 140 mmol/L (137-145); Total Bilirubin 0.7 mg/dL (0.2-1.3); Total Protein 6.6 g/dL (6.3-8.2)
[2020-12-15 11:33] LABS: Lactic Acid, Venous 5.3 mmol/L (0.7-2.0)
[2020-12-15 11:34] LABS: Alcohol 217 mg/dL; Potassium 3.7 mmol/L (3.5-5.1)
[2020-12-15 11:35] LABS: AST 161 U/L (14-36); Alkaline Phosphatase 94 U/L (38-126); Magnesium 1.8 mg/dL (1.6-2.3)
[2020-12-15] MEDS ORDERED: SODIUM CHLORIDE 0.9% 1,000 ML IV STA (11:38)
--- NOTE | 2020-12-15 11:38 | XR ---
KUB HISTORY: Abdominal pain Frontal KUB and 2 images Lung bases are clear. There is no evident bowel obstruction or pneumoperitoneum. Possible phlebolith present in the left hemipelvis. There are overlying artifacts. IMPRESSION: No acute abnormalities evident.
--- NOTE | 2020-12-15 11:40 | CT ---
EXAMINATION TYPE: CT brain wo con DATE OF EXAM: 12/15/2020 COMPARISON: CT brain 11/01/2019 HISTORY: Altered mental status CT DLP: 1099.4 mGycm Automated exposure control for dose reduction was used. Helical imaging through the brain. FINDINGS: There is no interval change. No hemorrhage or hydrocephalus. No mass effect. Cortical atrophy is agai n noted. Calvarium is intact. Paranasal sinuses and mastoid air cells are well aerated. IMPRESSION: NO ACUTE ABNORMALITY.
[2020-12-15] MEDS ORDERED: NALOXONE 0.4 MG/ML 1 ML VIAL IV PRN (13:27)
[2020-12-15] MEDS ORDERED: LORazepam 2 MG/ML INJ IV PRN ×2 (13:29)
[2020-12-15] MEDS ORDERED: THIAMINE 100 MG/ML 2 ML VIAL IM STA (13:29)
[2020-12-15] MEDS: SODIUM CHLORIDE 0.9% 1,000 ML IV SCH ×2 (15:56→19:47)
[2020-12-15] MEDS: ACAMPROSATE CALCIUM 333 MG TABLET.DR PO SCH ×2 (15:57→23:37)
[2020-12-15] MEDS: traZODone HCL 100 MG TAB PO SCH (19:47)
[2020-12-15] MEDS: FAMOTIDINE 20 MG TAB PO SCH (19:47)
[2020-12-15] MEDS: LORazepam 2 MG/ML INJ IV PRN (19:47)
[2020-12-16] MEDS: SODIUM CHLORIDE 0.9% 1,000 ML IV SCH ×3 (00:28→22:56)
[2020-12-16] MEDS: LEVOTHYROXINE 112 MCG TAB PO SCH (05:41)
[2020-12-16] MEDS: CITALOPRAM HYDROBROMIDE 20 MG TAB PO SCH (07:21)
[2020-12-16] MEDS: ACAMPROSATE CALCIUM 333 MG TABLET.DR PO SCH ×3 (07:21→19:59)
[2020-12-16] MEDS: FOLIC ACID 1 MG TAB PO SCH (07:21)
[2020-12-16] MEDS: FAMOTIDINE 20 MG TAB PO SCH ×2 (07:21→19:58)
[2020-12-16] MEDS: THIAMINE 100 MG TAB PO SCH ×2 (07:21→15:22)
[2020-12-16] MEDS ORDERED: THIAMINE 100 MG TAB PO SCH (09:00)
[2020-12-16] MEDS: LORazepam 2 MG/ML INJ IV PRN ×4 (09:35→19:58)
[2020-12-16] MEDS: MAGNESIUM OXIDE 400 MG TAB PO SCH ×2 (11:39→19:58)
[2020-12-16] MEDS ORDERED: DIPHENOX-ATROP 2.5-0.025 MG 1 EACH TAB PO STA (17:22)
[2020-12-16] MEDS: ONDANSETRON 4 MG/2 ML VIAL IVP PRN (17:37)
[2020-12-16] MEDS: traZODone HCL 100 MG TAB PO SCH (19:58)
[2020-12-16] MEDS: NICOTINE 14MG/24HR PATCH TRANSDERM SCH (22:34)
[2020-12-16] MEDS: HYDROcodone/APAP 5-325MG 1 EACH TAB PO PRN (22:35)
[2020-12-16] MEDS: TEMAZEPAM 15 MG CAP PO PRN (22:35)
--- NOTE | 2020-12-16 22:47 | HP ---
HISTORY AND PHYSICAL DATE OF SERVICE: 12/16/2020 CHIEF COMPLAINTS: Not feeling well, alcohol withdrawal symptoms. I am covering for Dr. Castillo. HISTORY OF PRESENT ILLNESS: This 60-year-old woman with a past history of DJD, history of seizures, hypothyroidism, history of ETOH abuse, history of breast surgery, history of anxiety and depression being followed by Dr. Castillo in the outpatient was apparently drinking heavily. Today the patient was not feeling well. The patient has tremors. The patient was apparently drinking multiple pints of vodka also. Per EMS the patient was unable to get up from bed. The patient had some crampy abdominal pain, epigastric pain, nauseated, and the patient came to [facility] for further evaluation and treatment. Patient also complaining of some bleeding per rectum also at this time, likely due to hemorrhoids according to her. There is no history of fever, rigors. No headache, loss of consciousness, seizures. PAST MEDICAL HISTORY: History of DJD, history is seizure disorder, history of hypothyroid, history EtOH abuse, anxiety, depression. HOME MEDICATIONS: Desyrel 100 mg q.h.s. vitamin B1, Synthroid, folic acid, Pepcid, Celexa, Campral. Doses reviewed. ALLERGIES: None. FAMILY HISTORY: History of hyperlipidemia. SOCIAL HISTORY: History of alcohol as mentioned. History of smoking, daily, continuing. REVIEW OF SYSTEMS: ENT No history of diminished hearing or vision. CARDIOVASCULAR No angina or palpitations. RESPIRATORY No cough, no hemoptysis. GI As mentioned earlier. No dysuria or hematuria. NERVOUS As mentioned earlier. ALLERGY/IMMUNOLOGY No asthma or hayfever. MUSCULOSKELETAL As mentioned earlier. HEMATOLOGY/ONCOLOGY Negative. ENDOCRINE No history of diabetes or hypothyroidism. CONSTITUTIONAL As mentioned earlier. DERMATOLOGY Negative. RHEUMATOLOGY Negative, PSYCHIATRY As mentioned earlier. PHYSICAL EXAMINATION: Alert and oriented x3. Pulse is 105, blood pressure 99/60, respiration 14, temperature 98.2, pulse ox 91% on room air. HEENT: Conjunctivae normal. Oral mucosa moist. NECK: No jugular venous distention. No lymph node enlargement. CARDIOVASCULAR: S1, S2, muffled. No S3, no S4, RESPIRATORY: Diminished breath sounds at the bases. A few scattered rhonchi, no crackles. ABDOMEN: Soft. Minimal tenderness in the epigastrium and ( ) present. No ascites. No other mass palpable. LEGS: No edema, no swelling. NERVOUS SYSTEM: Higher functions mentioned earlier. Moves all four limbs. Diffuse tremors present. LYMPHATICS: No lymph node in neck or axilla. SKIN: No rash. JOINTS: No active deforming arthropathy. LABS: Lactic acid 10.6, platelets 103, AST is 161, ALT is 67. Other labs are noted. Serum alcohol is 217. COVID-19 is negative. ASSESSMENT: 1. Acute alcohol intoxication, acute delirium tremens, present on admission. 2. Significant vomiting, possibly acute gastritis. 3. Acute alcoholic hepatitis. 4. Thrombocytopenia. 5. Elevated AST ALT secondary to acute alcoholic hepatitis. 6. Elevated plasma lactic acid. 7. Hypocalcemia. 8. History of DJD. 9. History of seizure disorder. 10.History of hypothyroidism. 11.History of breast surgery. 12.History of hernia repair. 13.History of anxiety, depression. 14.History of continued ongoing nicotine dependence. 15.FULL CODE. RECOMMENDATIONS: In this 60-year-old woman who presented with multiple complex medical issues, we will monitor the patient closely, continue the current management and symptomatic treatment. I recommend CIWA protocol. The patient is vomiting at this time. I would recommend to keep n.p.o. except medications since her symptoms are subsiding. Symptomatic treatment for nausea and vomiting. Otherwise, supplement vitamins. Resume the home medications. Proton pump inhibitors. DVT prophylaxis. Overall prognosis guarded because of multiple complex medical issues. We will consult addiction social worker and Case Management to arrange alcohol rehab as an outpatient. Prognosis guarded. MMODL / IJN: [id number] /
[2020-12-16 22:49] LABS: INR 0.9 (<1.2); Prothrombin Time 9.6 sec (9.0-12.0)
[2020-12-16 23:13] LABS: Appearance,Urine Clear (Clear); Bilirubin,Urine Negative (Negative); Blood,Urine Negative (Negative); Color,Urine Light Yellow; Glucose,Urine (UA) Negative (Negative); Ketones,Urine Negative (Negative); Leukocyte Esterase,Urine Negative (Negative); Nitrite,Urine Negative (Negative); Protein,Urine Negative (Negative); Specific Gravity,Urine 1.006 (1.001-1.035); Urobilinogen,Urine <2.0 mg/dL (<2.0)
[2020-12-17 00:25] LABS: ALT 41 U/L (4-34); AST 71 U/L (14-36); African American GFR (CKD) >90 (>60 ml/min/1.73 sqM); Albumin 2.9 g/dL (3.5-5.0); Albumin/Globulin Ratio 1.3; Alkaline Phosphatase 94 U/L (38-126); Anion Gap 4 mmol/L; Blood Urea Nitrogen 12 mg/dL (7-17); Calcium 8.2 mg/dL (8.4-10.2); Carbon Dioxide 28 mmol/L (22-30); Chloride 100 mmol/L (98-107); Globulin 2.3 g/dL; Glucose 126 mg/dL (74-99); Non-African American GFR(CKD) >90 (>60 ml/min/1.73 sqM); Potassium 3.2 mmol/L (3.5-5.1); Sodium 132 mmol/L (137-145); Total Bilirubin 0.5 mg/dL (0.2-1.3); Total Protein 5.2 g/dL (6.3-8.2)
[2020-12-17] MEDS ORDERED: Potassium Replacement Protocol 1 EACH MISC MISCELLANE PRN (01:02)
[2020-12-17] MEDS: POTASSIUM CHLORIDE ER 20 MEQ TAB.ER PO SCH ×2 (01:13→05:45)
[2020-12-17] MEDS: HYDROCORTISONE 2.5% RECTAL CREAM 30 GM TUBE RECTAL SCH ×3 (01:13→20:15)
[2020-12-17] MEDS: PSYLLIUM HUSK 100% 6 GM PACKET PO SCH ×2 (01:13→08:22)
[2020-12-17] MEDS: LORazepam 2 MG/ML INJ IV PRN ×4 (01:13→17:24)
[2020-12-17] MEDS: SODIUM CHLORIDE 0.9% 1,000 ML IV SCH ×3 (05:46→20:16)
[2020-12-17] MEDS: LEVOTHYROXINE 112 MCG TAB PO SCH (05:58)
[2020-12-17] MEDS: MAGNESIUM OXIDE 400 MG TAB PO SCH ×2 (08:15→20:14)
[2020-12-17] MEDS: ACAMPROSATE CALCIUM 333 MG TABLET.DR PO SCH ×3 (08:15→20:15)
[2020-12-17] MEDS: FOLIC ACID 1 MG TAB PO SCH (08:15)
[2020-12-17] MEDS: PANTOPRAZOLE 40 MG/10 ML VIAL IVP SCH ×2 (08:15→20:14)
[2020-12-17] MEDS: HEPARIN SODIUM,PORCINE/PF 5,000 UNIT/0.5 ML SYRINGE SQ SCH ×3 (08:16→20:24)
[2020-12-17] MEDS: THIAMINE 100 MG TAB PO SCH ×2 (08:16→17:25)
[2020-12-17] MEDS: CITALOPRAM HYDROBROMIDE 20 MG TAB PO SCH (08:16)
[2020-12-17] MEDS: NICOTINE 14MG/24HR PATCH TRANSDERM SCH (08:17)
[2020-12-17 10:08] LABS: African American GFR (CKD) 116.4 (60.0-200.0); BUN/Creat Ratio 18.33 Ratio (12.00-20.00); Calcium 8.1 mg/dL (8.7-10.3); Non-African American GFR(CKD) 100.5 (60.0-200.0); Potassium 3.7 mmol/L (3.5-5.5)
[2020-12-17 10:20] LABS: Basophils # (A) 0.03 X 10*3/uL (0.00-0.10); Basophils % (A) 0.4 %; Eosinophils # (A) 0.14 X 10*3/uL (0.04-0.35); Eosinophils % (A) 1.7 %; HCT 33.9 % (37.2-46.3); HGB 11.6 g/dL (12.0-15.0); Lymphocytes # (A) 2.46 X 10*3/uL (0.90-5.00); Lymphocytes % (A) 29.5 %; MCH 33.4 pg (27.0-32.0); MCHC 34.2 g/dL (32.0-37.0); MCV 97.7 fL (80.0-97.0); Monocytes # (A) 0.39 X 10*3/uL (0.20-1.00); Monocytes % (A) 4.7 %; Neutrophils # (A) 5.25 X 10*3/uL (1.80-7.70); Neutrophils % (A) 62.9 %; Platelet Count 67 X 10*3/uL (140-440); RBC 3.47 X 10*6/uL (4.10-5.20); RDW 16.5 % (11.5-14.5); WBC 8.34 X 10*3/uL (4.50-10.00)
[2020-12-17] MEDS ORDERED: SODIUM CHLORIDE 0.9% 1,000 ML with MVI, ADULT NO.4 WITH VIT K 10 ML, THIAMINE 100 MG, F... IV ONE ×4 (13:09)
[2020-12-17] MEDS: ONDANSETRON 4 MG/2 ML VIAL IVP PRN (20:14)
[2020-12-17] MEDS: traZODone HCL 100 MG TAB PO SCH (20:14)
[2020-12-17] MEDS: TEMAZEPAM 15 MG CAP PO PRN (20:15)
[2020-12-18] MEDS: LORazepam 2 MG/ML INJ IV PRN ×6 (00:11→23:41)
--- NOTE | 2020-12-18 03:29 | PN ---
PROGRESS NOTE DATE OF SERVICE: 12/17/2020 This 60-year-old woman was admitted with alcohol withdrawal, also had withdrawal symptoms. No chest pain. No palpitations. No fever. PHYSICAL EXAMINATION: Alert and oriented x3. Pulse 50, blood pressure 112/70, respirations 16, temperature 98.2, pulse ox 98% on room air HEENT: Conjunctivae normal. Oral mucosa moist. NECK: No jugular venous distention. No lymph node enlargement. CARDIOVASCULAR: S1, S2, muffled. No S3, no S4, RESPIRATORY: Diminished breath sounds at the bases. A few scattered rhonchi. ABDOMEN: Soft, nontender. LEGS: No edema, no swelling. NERVOUS SYSTEM: Diffusely weak and tremors. LAB: Hemoglobin 11.6. Other labs are noted. ASSESSMENT: 1. Acute alcohol intoxication, acute delirium tremens, present on admission. 2. Significant vomiting, possible acute gastritis. 3. Acute alcoholic hepatitis. 4. Thrombocytopenia. 5. Elevated AST ALT secondary to acute alcoholic hepatitis. 6. Elevated plasma lactic acid. 7. Hypocalcemia. 8. History of DJD. 9. History of seizure disorder. 10.History of hypothyroidism. 11.History of breast surgery. 12.History of hernia repair. 13.History of anxiety, depression. 14.History of continued ongoing nicotine dependence. 15.FULL CODE. RECOMMENDATIONS AND DISCUSSION: Continue current medications, symptomatic treatment. Otherwise, continue with vitamins, CIWA protocol. Guarded prognosis because of multiple complex medical issues. Further recommendations to follow. MMODL / IJN: [id number] /
[2020-12-18] MEDS: LEVOTHYROXINE 112 MCG TAB PO SCH (04:34)
[2020-12-18] MEDS: SODIUM CHLORIDE 0.9% 1,000 ML IV SCH ×3 (04:54→23:57)
[2020-12-18] MEDS: PANTOPRAZOLE 40 MG/10 ML VIAL IVP SCH ×2 (08:30→19:45)
[2020-12-18] MEDS: ACAMPROSATE CALCIUM 333 MG TABLET.DR PO SCH ×3 (08:30→19:45)
[2020-12-18] MEDS: CITALOPRAM HYDROBROMIDE 20 MG TAB PO SCH (08:30)
[2020-12-18] MEDS: HEPARIN SODIUM,PORCINE/PF 5,000 UNIT/0.5 ML SYRINGE SQ SCH ×2 (08:30→19:44)
[2020-12-18] MEDS: THIAMINE 100 MG TAB PO SCH ×2 (08:30→17:28)
[2020-12-18] MEDS: MAGNESIUM OXIDE 400 MG TAB PO SCH ×2 (08:31→19:45)
[2020-12-18] MEDS: HYDROCORTISONE 2.5% RECTAL CREAM 30 GM TUBE RECTAL SCH ×2 (08:31→19:46)
[2020-12-18] MEDS: NICOTINE 14MG/24HR PATCH TRANSDERM SCH (08:31)
[2020-12-18] MEDS: FOLIC ACID 1 MG TAB PO SCH (08:31)
[2020-12-18] MEDS: traZODone HCL 100 MG TAB PO SCH (19:45)
[2020-12-18] MEDS: ONDANSETRON 4 MG/2 ML VIAL IVP PRN (19:45)
--- NOTE | 2020-12-18 19:52 | PN ---
PROGRESS NOTE I am covering for Dr. Castillo. DATE OF SERVICE: 12/18/2020 This 60-year-old woman who was admitted with significant alcohol withdrawal, also had some diarrhea. Patient has extensive tremors also. No chest pain. No palpitations. No fever. The lab showed some thrombocytopenia. Otherwise, C difficile has not been sought at this time. PHYSICAL EXAMINATION: Alert and oriented x2. Pulse 82, blood pressure 113/80, respiration 18, temperature 97.4, pulse ox 97% on room air. HEENT: Conjunctivae normal. NECK: No JVD. CARDIOVASCULAR: S1, S2 muffled. RESPIRATION: Breath sounds diminished in the bases. No rhonchi. No crackles. ABDOMEN: Soft. LEGS are no edema. No swelling. NERVOUS SYSTEM: Diffusely weak and tremors. LABS: WBC 8.3, hemoglobin 7.7. Other labs are noted. ASSESSMENT: 1. Acute alcohol intoxication, acute delirium tremens, present on admission. 2. Significant vomiting, possibly acute gastritis. 3. Acute alcoholic hepatitis. 4. Thrombocytopenia. 5. Elevated AST/ALT secondary to acute alcoholic hepatitis. 6. Elevated plasma lactic acid. 7. Hypocalcemia. 8. History of degenerative joint disease. 9. History of seizure disorder. 10.Hypothyroidism. 11.History of breast surgery. 12.History of hernia repair. 13.History of anxiety, depression. 14.History of continued ongoing nicotine dependence. 15.FULL CODE. RECOMMENDATIONS AND DISCUSSION: I recommend to continue current medications, symptomatic treatment. Continue to monitor. Potassium is improved at this time. I would recommend stool for C diff and stool culture. Prognosis guarded. Further recommendations to follow. Dr. Castillo will follow. MMODL / IJN: [id number] /
[2020-12-19] MEDS: SODIUM CHLORIDE 0.9% 1,000 ML IV SCH ×3 (02:51→19:57)
[2020-12-19] MEDS: LEVOTHYROXINE 112 MCG TAB PO SCH (05:40)
[2020-12-19] MEDS: LORazepam 2 MG/ML INJ IV PRN ×2 (05:45→13:05)
[2020-12-19] MEDS: ACAMPROSATE CALCIUM 333 MG TABLET.DR PO SCH ×3 (07:59→21:26)
[2020-12-19] MEDS: PANTOPRAZOLE 40 MG/10 ML VIAL IVP SCH ×2 (08:00→21:26)
[2020-12-19] MEDS: CITALOPRAM HYDROBROMIDE 20 MG TAB PO SCH (08:00)
[2020-12-19] MEDS: FOLIC ACID 1 MG TAB PO SCH (08:00)
[2020-12-19] MEDS: THIAMINE 100 MG TAB PO SCH ×2 (08:00→17:00)
[2020-12-19] MEDS: MAGNESIUM OXIDE 400 MG TAB PO SCH ×2 (08:00→21:26)
[2020-12-19] MEDS: HEPARIN SODIUM,PORCINE/PF 5,000 UNIT/0.5 ML SYRINGE SQ SCH ×2 (08:01→21:27)
[2020-12-19] MEDS: HYDROCORTISONE 2.5% RECTAL CREAM 30 GM TUBE RECTAL SCH ×2 (09:06→21:27)
--- NOTE | 2020-12-19 14:15 | P.PN ---
Subjective Progress Note Date: 12/19/20 This is a 60-year-old female admitted with alcohol intoxication, DTs and multiple other medical issues. Maintained on CIWA protocol,current CIWA score 7. Tremors improving. Reports sweaty during the night, denies hallucinations. Positive diet intake with no nausea vomiting or diarrhea. Complains of anxiety. Denies chest pain, palpitations or shortness of breath. Objective - Vital Signs Vital signs: Vital Signs Temp 97.7 F 12/19/20 13:56 Pulse 73 12/19/20 13:56 Resp 18 12/19/20 13:56 BP 127/84 12/19/20 13:56 Pulse Ox 98 12/19/20 13:56 Intake & Output 12/18/20 12/19/20 12/19/20 18:59 06:59 18:59 Other: # Voids 3 # Bowel Movements 4 - Exam PHYSICAL EXAM: VITAL SIGNS: As above GENERAL: Sleeping in bed, arouses easily, alert and oriented times,NAD. HEENT: Conjunctivae normal. eyes normal. NECK: No JVD. No thyroid enlargement. CARDIOVASCULAR: S1, S2 regular. No murmur RESPIRATION: Breath sounds diminished in the bases. ABDOMEN: Soft, nontender . No guarding. no masses palpable. Positive bowel sounds. LEGS: No edema. no swelling. PSYCHIATRY: Alert and oriented X3, mood and affect normal. NERVOUS SYSTEM: Cranial N 2-12 grossly normal. Moves all 4 limbs. Mild tremors.Strength and sensation grossly intact - Labs CBC & Chem 7: 12/17/20 06:05 12/17/20 06:05 Assessment and Plan Assessment: Acute alcohol intoxication with acute DTs Nausea, vomiting, possible gastritis, resolved acute alcoholic hepatitis Lactic acidosis on admission, resolved Thrombocytopenia Anxiety Depression Ongoing nicotine dependence History of seizure disorder Plan: Continue on current medication regime ,monitoring and symptomatic treatment. Continue on CIWA protocol. Increase activity as tolerated. Smoking cessation, alcohol abstinence reinforced Discharge planning in progress for tomorrow. The impression and plan of care has been dictated as directed. : I performed a history and examination of this patient, discussed the same with the dictator. I agree with the dictator's note ,documented as a scribe. Any additional findings or plans will be noted.
[2020-12-19] MEDS: lamoTRIgine 25 MG TAB PO SCH ×2 (16:59→21:26)
[2020-12-19 19:29] VITALS: RESP 16
[2020-12-19] MEDS: HYDROcodone/APAP 5-325MG 1 EACH TAB PO PRN (19:57)
[2020-12-19] MEDS: traZODone HCL 100 MG TAB PO SCH (21:26)
[2020-12-20] MEDS: SODIUM CHLORIDE 0.9% 1,000 ML IV SCH ×2 (03:03→08:41)
[2020-12-20] MEDS: LEVOTHYROXINE 112 MCG TAB PO SCH (05:31)
[2020-12-20] MEDS: HYDROcodone/APAP 5-325MG 1 EACH TAB PO PRN ×2 (05:33→13:24)
[2020-12-20] MEDS: FOLIC ACID 1 MG TAB PO SCH (08:33)
[2020-12-20] MEDS: CITALOPRAM HYDROBROMIDE 20 MG TAB PO SCH (08:33)
[2020-12-20] MEDS: MAGNESIUM OXIDE 400 MG TAB PO SCH (08:33)
[2020-12-20] MEDS: THIAMINE 100 MG TAB PO SCH (08:33)
[2020-12-20] MEDS: PANTOPRAZOLE 40 MG/10 ML VIAL IVP SCH (08:33)
[2020-12-20 08:34] VITALS: BP 100/71; PULSE 79; TEMP 97.4
[2020-12-20] MEDS: lamoTRIgine 25 MG TAB PO SCH (08:34)
[2020-12-20] MEDS: HEPARIN SODIUM,PORCINE/PF 5,000 UNIT/0.5 ML SYRINGE SQ SCH (08:34)
[2020-12-20] MEDS: ACAMPROSATE CALCIUM 333 MG TABLET.DR PO SCH (08:35)
[2020-12-20] MEDS: HYDROCORTISONE 2.5% RECTAL CREAM 30 GM TUBE RECTAL SCH (08:41)
[2020-12-20 09:17] LABS: Basophils # (A) 0.03 X 10*3/uL (0.00-0.10); Basophils % (A) 0.5 %; Eosinophils # (A) 0.12 X 10*3/uL (0.04-0.35); Eosinophils % (A) 1.9 %; HCT 35.7 % (37.2-46.3); HGB 11.8 g/dL (12.0-15.0); Lymphocytes # (A) 2.52 X 10*3/uL (0.90-5.00); Lymphocytes % (A) 39.7 %; MCH 33.7 pg (27.0-32.0); MCHC 33.1 g/dL (32.0-37.0); Mean Platelet Volume 10.5 fL (9.5-12.2); Monocytes # (A) 0.49 X 10*3/uL (0.20-1.00); Monocytes % (A) 7.7 %; Neutrophils # (A) 3.13 X 10*3/uL (1.80-7.70); Neutrophils % (A) 49.3 %; Platelet Count 103 X 10*3/uL (140-440); RDW 17.9 % (11.5-14.5); WBC 6.35 X 10*3/uL (4.50-10.00)
--- NOTE | 2020-12-20 14:49 | P.DS ---
Providers Date of admission: 12/15/20 13:27 Attending physician: Erlin Castillo MD Primary care physician: Erlin Castillo MD Hospital Course: Final Diagnoses: Acute alcohol intoxication with acute DTs, improved Nausea, vomiting, possible gastritis, resolved acute alcoholic hepatitis Lactic acidosis on admission, resolved Thrombocytopenia Anxiety Depression Ongoing nicotine dependence History of seizure disorder Hospital course: This is a 60-year-old female admitted with alcohol intoxication, DTs and multiple other medical issues. Maintained on CIWA protocol,current CIWA score 7. Tremors improving. Reports sweaty during the night, denies hallucinations. Positive diet intake with no nausea vomiting or diarrhea. Complains of anxiety. Denies chest pain, palpitations or shortness of breath.Patient had been complaining of anxiety, mood stabilizer, Lamictal added to med regimen.Significant clinical improvement. Patient will be discharged home today in a stable condition with guarded prognosis. The impression and plan of care has been dictated as directed. : I performed a history and examination of this patient, discussed the same with the dictator. I agree with the dictator's note ,documented as a scribe. Any additional findings or plans will be noted. Patient Condition at Discharge: Stable Plan - Discharge Summary Discharge Rx Participant: No New Discharge Prescriptions: New lamoTRIgine [LaMICtal] 25 mg PO BID #14 tab Magnesium Oxide [Mag-Ox] 400 mg PO BID tab Hydrocortisone Pr Cream [Proctosol-Hc 2.5%] 1 applic RECTAL BID applic Continue Levothyroxine Sodium [Synthroid] 112 mcg PO DAILY Thiamine [Vitamin B-1] 100 mg PO DAILY #0 tab Folic Acid 1 mg PO DAILY #1 tablet Acamprosate Calcium [Campral] 666 mg PO TID #60 tablet. Famotidine [Pepcid] 20 mg PO BID #60 tablet traZODone HCL [Desyrel] 100 mg PO HS #10 tab Citalopram Hydrobromide [CeleXA] 40 mg PO DAILY Discharge Medication List Levothyroxine Sodium [Synthroid] 112 mcg PO DAILY 07/11/20 [History] Acamprosate Calcium [Campral] 666 mg PO TID #60 tablet. 07/25/20 [Rx] Famotidine [Pepcid] 20 mg PO BID #60 tablet 07/25/20 [Rx] Folic Acid 1 mg PO DAILY #1 tablet 07/25/20 [Rx] Thiamine [Vitamin B-1] 100 mg PO DAILY #0 tab 07/25/20 [Rx] traZODone HCL [Desyrel] 100 mg PO HS #10 tab 07/26/20 [Rx] Citalopram Hydrobromide [CeleXA] 40 mg PO DAILY 12/15/20 [History] Hydrocortisone Pr Cream [Proctosol-Hc 2.5%] 1 applic RECTAL BID applic 12/20/20 [Rx] Magnesium Oxide [Mag-Ox] 400 mg PO BID tab 12/20/20 [Rx] lamoTRIgine [LaMICtal] 25 mg PO BID #14 tab 12/20/20 [Rx] Follow up Appointment(s)/Referral(s): Erlin Castillo MD [Primary Care Provider] - 12/23/20 12:15 pm Patient Instructions/Handouts: Abuse of Alcohol (DC), Alcohol Withdrawal (DC) Activity/Diet/Wound Care/Special Instructions: NO smoking, NO ETOH Discharge Disposition: HOME SELF-CARE
[2020-12-20 14:53] LABS: African American GFR (CKD) 116.4 (60.0-200.0); Blood Urea Nitrogen <5.0 mg/dL (9.0-27.0); Carbon Dioxide 23.8 mmol/L (21.6-31.8); Chloride 107 mmol/L (96-109); Glucose 82 mg/dL (70-110); Non-African American GFR(CKD) 100.5 (60.0-200.0); Potassium 3.6 mmol/L (3.5-5.5); Sodium 139 mmol/L (135-145)
== END 2020-12-20 14:15 | disposition home or self-care (01) | DRG 897 ==
LOC: EC 10:15 → 4SSUR 13:27
PROVIDERS: ADMIT Family Medicine; ATTEND Family Medicine
PROC: HZ2ZZZZ Detoxification Services for Substance Abuse Treatment (ICD-10-PCS; principal; 2020-12-15)
DX: F10.231 Alcohol dependence with withdrawal delirium (principal); E87.2 Acidosis; K62.5 Hemorrhage of anus and rectum; G89.29 Other chronic pain; M54.9 Dorsalgia, unspecified; M54.2 Cervicalgia; R29.6 Repeated falls; Z20.822 Contact with and (suspected) exposure to COVID-19; Z79.899 Other long term (current) drug therapy; Z96.653 Presence of artificial knee joint, bilateral; Z87.19 Personal history of other diseases of the digestive system; Z79.890 Hormone replacement therapy; F17.200 Nicotine dependence, unspecified, uncomplicated; F32.9 Major depressive disorder, single episode, unspecified; F41.9 Anxiety disorder, unspecified; E86.0 Dehydration; E03.9 Hypothyroidism, unspecified; R62.7 Adult failure to thrive; K70.10 Alcoholic hepatitis without ascites; K29.20 Alcoholic gastritis without bleeding; Y90.7 Blood alcohol level of 200-239 mg/100 ml; D69.6 Thrombocytopenia, unspecified; E83.51 Hypocalcemia; G40.909 Epilepsy, unspecified, not intractable, without status epilepticus
CPT/HCPCS: 36415; 70450; 71046; 74018; 80048; 80053; 80320; 81003; 82140; 82550; 83605; 83690; 83735; 85025; 85610; 87635; 93005; 96361; 96372; 96374; 96375; 99285